=== PATIENT | male | born 1935 | race Caucasian/White ===

== ENCOUNTER 2019-11-27 22:38 | Inpatient (IN) | payer MEDICARE, BC, SELFPAY ==
[2019-11-30] VITALS: BP 136/70; PULSE 90; RESP 20; TEMP 36.5; O2SAT 95
[2019-11-30 04:26] VITALS: BP 103/63; PULSE 85; RESP 20; TEMP 36.6; O2SAT 93
[2019-11-30 06:32] LABS: Anion Gap 14.9 (5-19); Blood Urea Nitrogen 31 mg/dL (8-23); Calcium 8.9 mg/Dl (8.8-10.2); Carbon Dioxide 28 mmol/L (22-29); Chloride 99 mmol/L (98-107); Glucose 99 mg/dL (74-106); Potassium 3.9 mmol/L (3.5-5.1); Sodium 138 mmol/L (136-145)
[2019-11-30 07:12] LABS: INR 2.13 (0.8-1.2)
[2019-11-30 08:00] VITALS: BP 136/67; PULSE 94; RESP 18; TEMP 37.1; O2SAT 94
[2019-11-30] MEDS: lisinopril 2.5 mg Tablet PO (08:26)
[2019-11-30] MEDS: digoxin 250 mcg Tablet PO (08:26)
[2019-11-30] MEDS: dutasteride 0.5 mg Capsule PO (08:26)
[2019-11-30] MEDS: FUROsemide 40 mg Tablet PO ×2 (08:26→15:48)
[2019-11-30] MEDS: thyroid 60 mg Tablet PO (08:26)
[2019-11-30] MEDS: carvedilol 12.5 mg Tablet PO ×2 (08:26→17:28)
--- NOTE | 2019-11-30 10:45 | PM.PN ---
Subjective Subjective: Interval history: Arcadio is about the same. He does not have much to say. His heart rate is improved. Vital signs have been stable. He appears less short of breath. No edema. Medications: Reviewed: Yes Vitals/I&O/Wt Last Vital Signs Temp 98.7 F 11/30/19 08:00 Pulse 94 11/30/19 08:00 Resp 18 11/30/19 08:00 BP 136/67 11/30/19 08:00 Pulse Ox 94 11/30/19 08:00 11/29/19 11/30/19 11/30/19 22:59 06:59 14:59 Output Total 280 / 280 Balance -280 / -280 Weight last 48 hrs Weight 204 lb 3 oz Physical Exam Narrative: EXAM NARRATIVE: GENERAL: In general he looks and feels well HEENT: Exam within normal limits. NECK: Supple without jugular vein distention. The carotid upstroke is normal without bruits. BACK: Exam normal. LUNGS: Clear. HEART: Irregular rate and rhythm ABDOMEN: Benign without organomegaly or tenderness. EXTREMITIES: No edema. NEUROLOGIC: Exam normal. SKIN: Unremarkable. Data Labs: Other Labs: All Labs last 24 hrs except CBC/BMP 11/29/19 11/29/19 11/29/19 05:10 05:10 05:10 RBC 4.23 MCV 101.2 H MCH 33.1 MCHC 32.7 RDW 15.5 H MPV 11.0 H Neut % (Auto) 77.9 Lymph % (Auto) 7.9 [place] % (Auto) 12.7 Eos % (Auto) 0.8 Baso % (Auto) 0.1 Neut # (Auto) 9.1 H Lymph # (Auto) 0.9 [place] # (Auto) 1.5 H Eos # (Auto) 0.1 Baso # (Auto) 0.0 Nucleated RBC % (a uto) 0 Nucleated RBCs # 0.0 PT 26.8 H INR 2.38 H Random Glucose 121 H Calcium 9.4 11/30/19 11/30/19 05:07 05:07 RBC MCV MCH MCHC RDW MPV Neut % (Auto) Lymph % (Auto) [place]ford % (Auto) Eos % (Auto) Baso % (Auto) Neut # (Auto) Lymph # (Auto) [place] # (Auto) Eos # (Auto) Baso # (Auto) Nucleated RBC % (a uto) Nucleated RBCs # PT 24.60 H INR 2.13 H Random Glucose Calcium 8.9 A&P Assessment and plan (1) Syncope and collapse: Status: Acute Code(s): R55 - Syncope and collapse (2) Atrial fibrillation: Status: Acute Code(s): I48.91 - Unspecified atrial fibrillation (3) Cardiomyopathy: Status: Acute Code(s): I42.9 - Cardiomyopathy, unspecified (4) Congestive heart failure with cardiomyopathy: Status: Acute Code(s): I50.9 - Heart failure, unspecified; I42.9 - Cardiomyopathy, unspecified (5) Warfarin anticoagulation: Status: Acute Code(s): Z79.01 - supervisor intermediates (current) use of anticoagulants (6) ICD (implantable cardioverter-defibrillator) infection: Status: Acute Code(s): T82.7XXA - Infection and inflammatory reaction due to other cardiac and vascular devices, implants and grafts, initial encounter (7) Hypertension: Status: Acute Code(s): I10 - Essential (primary) hypertension (8) Prostatic hypertrophy: Status: Acute Code(s): N40.0 - Benign prostatic hyperplasia without lower urinary tract symptoms (9) Hypothyroidism: Status: Acute Code(s): E03.9 - Hypothyroidism, unspecified Additional A&P Information Additional A&P Information: His INR seems to be stable. His troponin was negative. His heart rate is better controlled. He should be able to go home on the TAMARA inhibitor that he was admitted on, digoxin 0.25 mg daily, Coreg 12.5 mg twice daily, Lasix 40 mg twice daily and warfarin. The addition of hydralazine and eplerenone is up for discussion. I have not seen records from [place]. We will call him to get him a follow-up visit in the office. Attestations Medical Necessity Statement*: Not applicable Coding Level of Care Code Acute Refrigerator Room Clerk for Serg Fwd Diagnoses Syncope and collapse R55 Atrial fibrillation I48.91 Cardiomyopathy I42.9 Congestive heart failure with cardiomyopathy I50.9; I42.9 Warfarin anticoagulation Z79.01 ICD (implantable cardioverter-defibrillator) infection T82.7XXA Hypertension I10 Prostatic hypertrophy N40.0 Hypothyroidism E03.9
--- NOTE | 2019-11-30 11:54 | XRR_ITS ---
PROCEDURE INFORMATION: Exam: XR Chest, 1 View Exam date and time: 11/30/2019 11:56 AM Age: 84 years old Clinical indication: Cough; Additional info: Unknown TECHNIQUE: Imaging protocol: XR of the chest Views: Frontal portable upright view of the chest. COMPARISON: CR Chest 1 [place] [id number] 11/27/2019 10:01 PM FINDINGS: Tubes, catheters and devices: A triple lead LEFT subclavian permanent AICD pacemaker is present. The coronary sinus, RIGHT atrial and RIGHT ventricular leads appear to be in good position. Lungs: The pulmonary vasculature remains congested. The lungs are clear bilaterally. The patient's chin obscures a portion of the RIGHT lung apex. Pleural space: No pleural effusion. No pneumothorax. Heart/Mediastinum: Stable marked cardiomegaly. Mediastinum: Stable. Vasculature: Moderate aortic arch atherosclerotic calcification without ectasia. Bones/joints: Stable. XR/XR chest 1V portable [id number] IMPRESSION: Persistent pulmonary vascular congestion.
[2019-11-30 12:00] VITALS: BP 120/68
--- NOTE | 2019-11-30 12:18 | PC.NURSE ---
ORTHOSTATIC BLOOD PRESSURES LAYING-118/76 SITTING 120/68 STANDING 118/67
[2019-11-30 16:00] VITALS: BP 115/77; PULSE 87; RESP 18; TEMP 36.8; O2SAT 97
--- NOTE | 2019-11-30 17:21 | P.PN_ITS ---
Subjective Subjective: Interval history: Arcadio reports that he is feeling a little bit better, but is still very weak. does not believe she can manage him at home. He denies any chest pain. Shortness of breath is about at baseline. Vitals/I&O/Wt Last Vital Signs Temp 98.3 F 11/30/19 16:00 Pulse 87 11/30/19 16:00 Resp 18 11/30/19 16:00 BP 115/77 11/30/19 16:00 Pulse Ox 97 11/30/19 16:00 11/30/19 11/30/19 11/30/19 06:59 14:59 22:59 Intake Total 480 / 480 Output Total 280 / 280 600 / 600 Balance -280 / -280 -120 / -120 Weight last 48 hrs Weight 92.618 kg Physical Exam Narrative: EXAM NARRATIVE: General exam no apparent distress Cardiovascular irregular, irregular. Telemetry indicates controlled atrial fibrillation Lungs few crackles, left base Abdomen is soft with positive bowel sounds Extremities no cyanosis clubbing. Trace edema is present Data Labs: Other Labs: All Labs last 24 hrs except CBC/BMP 11/30/19 11/30/19 05:07 05:07 PT 24.60 H INR 2.13 H Calcium 8.9 Other Data: Other data: I reviewed his chest x-ray, and this demonstrated mild congestion but no pneumonia A&P Assessment and plan (1) Syncope and collapse: No recurrence. He has been able to get up without significant orthostasis. Status: Acute Code(s): R55 - Syncope and collapse (2) Atrial fibrillation: Rate is now under improved control. He is on digoxin as well as his carvedilol Status: Acute Code(s): I48.91 - Unspecified atrial fibrillation (3) Cardiomyopathy: Slightly fluid overloaded today. 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 anticoagulants (6) ICD (implantable cardioverter-defibrillator) infection: Status: Acute Code(s): T82.7XXA - Infection and inflammatory reaction due to other cardiac and vascular devices, implants and grafts, initial encounter (7) Hypertension: Status: Acute Code(s): I10 - Essential (primary) hypertension (8) Prostatic hypertrophy: Status: Acute Code(s): N40.0 - Benign prostatic hyperplasia without lower urinary tract symptoms (9) Hypothyroidism: Status: Acute Code(s): E03.9 - Hypothyroidism, unspecified Attestations Medical Necessity Statement*: Needs continued hospitalization for adjustment of medications secondary to congestive heart failure, atrial fibrillation. Secondary to significant weakness, with risk of fall and fall prior to admission patient wants consideration for [facility] facility placement. Coding Level of Care Code Acute Waredresser for [facility] Fwd Diagnoses Syncope and collapse R55 Atrial fibrillation I48.91 Cardiomyopathy I42.9 Congestive heart failure with cardiomyopathy I50.9; I42.9 Warfarin anticoagulation Z79.01 ICD (implantable cardioverter-defibrillator) infection T82.7XXA Hypertension I10 Prostatic hypertrophy N40.0 Hypothyroidism E03.9
[2019-11-30] MEDS: acetaminophen 325 mg Tablet 650 MG PO (17:29)
[2019-11-30] MEDS: spironolactone 25 mg Tablet 12.5 MG PO (17:58)
[2019-11-30 20:34] VITALS: BP 124/82; PULSE 88; RESP 26; TEMP 36.5; O2SAT 92
[2019-12-01] VITALS (8 sets, daily range): BP systolic 120–149; BP diastolic 75–94; PULSE 51–98; RESP 20–24; TEMP 36.3–36.5; O2SAT 93–96
[2019-12-01 05:45] LABS: Anion Gap 13.5 (5-19); Blood Urea Nitrogen 26 mg/dL (8-23); Carbon Dioxide 28 mmol/L (22-29); Chloride 102 mmol/L (98-107); Glucose 129 mg/dL (74-106); Potassium 3.5 mmol/L (3.5-5.1); Sodium 140 mmol/L (136-145)
[2019-12-01 06:06] LABS: INR 1.79 (0.8-1.2)
--- NOTE | 2019-12-01 08:18 | PM.PN ---
Subjective Subjective: Interval history: Arcadio is unchanged this morning. He was sleeping when I walked in the room. He does not offer much information. Symptoms are basically unchanged. No specific complaints. Medications: Reviewed: Yes Vitals/I&O/Wt Last Vital Signs Temp 97.7 F 12/01/19 07:11 Pulse 90 12/01/19 07:11 Resp 20 H 12/01/19 07:11 BP 145/90 12/01/19 07:11 Pulse Ox 93 12/01/19 07:11 11/30/19 12/01/19 12/01/19 22:59 06:59 14:59 Output Total 430 / 1030 Balance -430 / -550 Weight last 48 hrs Weight 204 lb 3 oz Physical Exam Narrative: EXAM NARRATIVE: GENERAL: In general he is comfortable. HEENT: Exam within normal limits. NECK: Supple without jugular vein distention. The carotid upstroke is normal without bruits. BACK: Exam normal. LUNGS: Clear. HEART: Irregular rate and rhythm ABDOMEN: Benign without organomegaly or tenderness. EXTREMITIES: No edema. NEUROLOGIC: Exam normal. SKIN: Unremarkable. A&P Assessment and plan (1) Syncope and collapse: Status: Acute Code(s): R55 - Syncope and collapse (2) Atrial fibrillation: Status: Acute Code(s): I48.91 - Unspecified atrial fibrillation (3) Cardiomyopathy: Status: Acute Code(s): I42.9 - Cardiomyopathy, unspecified (4) Congestive heart failure with cardiomyopathy: Status: Acute Code(s): I50.9 - Heart failure, unspecified; I42.9 - Cardiomyopathy, unspecified (5) Warfarin anticoagulation: Status: Acute Code(s): Z79.01 - intermediate frame tender (current) use of anticoagulants (6) ICD (implantable cardioverter-defibrillator) infection: Status: Acute Code(s): T82.7XXA - Infection and inflammatory reaction due to other cardiac and vascular devices, implants and grafts, initial encounter (7) Hypertension: Status: Acute Code(s): I10 - Essential (primary) hypertension (8) Prostatic hypertrophy: Status: Acute Code(s): N40.0 - Benign prostatic hyperplasia without lower urinary tract symptoms (9) Hypothyroidism: Status: Acute Code(s): E03.9 - Hypothyroidism, unspecified Additional A&P Information Additional A&P Information: Plans are being made to transfer him to a jail. Things are basically unchanged from yesterday. Apparently his family will not be able to care for him at home. Attestations Medical Necessity Statement*: Not applicable Time Spent in Patient Care: 16 - 35 minutes Coding Level of Care Code Acute Registered Health Nurse for Jimg Fwd History Detailed Exam Detailed Medical Decision Making Moderate Complexity Diagnoses Syncope and collapse R55 Atrial fibrillation I48.91 Cardiomyopathy I42.9 Congestive heart failure with cardiomyopathy I50.9; I42.9 Warfarin anticoagulation Z79.01 ICD (implantable cardioverter-defibrillator) infection T82.7XXA Hypertension I10 Prostatic hypertrophy N40.0 Hypothyroidism E03.9
[2019-12-01] MEDS: lisinopril 2.5 mg Tablet PO (09:41)
[2019-12-01] MEDS: spironolactone 25 mg Tablet 12.5 MG PO (09:41)
[2019-12-01] MEDS: carvedilol 12.5 mg Tablet PO (09:41)
[2019-12-01] MEDS: digoxin 250 mcg Tablet PO (09:42)
[2019-12-01] MEDS: dutasteride 0.5 mg Capsule PO (09:42)
[2019-12-01] MEDS: FUROsemide 40 mg Tablet PO (09:43)
[2019-12-01] MEDS: thyroid 60 mg Tablet PO (09:43)
--- NOTE | 2019-12-01 12:50 | P.DS_ITS ---
Discharge Providers Date of Admission: 11/27/19 22:38 Date of Discharge: 12/01/19 Attending Provider at Admission: Gary Encarnacion MD Attending Provider at Discharge: Gary Encarnacion MD Primary Care Provider: Hilda Chase Diagnoses at Discharge Discharge Diagnosis (1) Syncope and collapse: Status: Acute Problem details: Orthostatic, when coming in. Medication adjusted. Could potentially have been due to atrial fibrillation with rapid ventricular rate but no specific event correlating to timing of syncope found on pacemaker interrogation (2) Atrial fibrillation: Status: Acute Problem details: Medications adjusted. Better control. Carvedilol increased, digoxin added (3) Cardiomyopathy: Status: Acute Problem details: Stable currently (4) Congestive heart failure with cardiomyopathy: Status: Acute Problem details: Compensated currently (5) Warfarin anticoagulation: Status: Acute Problem details: Warfarin discontinued. Eliquis initiated (6) ICD (implantable cardioverter-defibrillator) infection: Status: Acute Problem details: Stable (7) Hypertension: Status: Acute Problem details: Controlled (8) Prostatic hypertrophy: Status: Acute Problem details: No issues with urination during hospital stay (9) Hypothyroidism: Status: Acute Problem details: Stable, TSH normal Reason for Visit Reason for Visit: Reason For Visit: Fall, Head Laceration, Ams Hospital Course Hospital Course: Arcadio presented to the hospital with syncopal episode. He was found to be in atrial fibrillation with rapid ventricular rate. He was also found to be orthostatic. He was placed in the hospital, on telemetry and medications were adjusted secondary to his atrial fibrillation. Carvedilol was increased. Digoxin was added. Hypertensive medication was adjusted secondary to orthostasis. Secondary to some wheezing, Advair as well as DuoNeb was added. It is suspected he has COPD as well. During his hospital course he made steady improvement, but was still weak. It was thought he could benefit from long-term facility placement which was arranged. Physical Exam Narrative: EXAM NARRATIVE: General exam no apparent distress Cardiovascular irregular, irregular with controlled rate Lungs clear Abdomen is soft, positive bowel sounds Extremities no cyanosis clubbing. Trace edema is present. Discharge Data Data Completed and Pending: Completed Studies During Hospitalization Category Date Time Status XR chest 1V nancy ble [id number] Routine Exams 11/30/19 11:54 Completed Labs from last 24 hours 12/01/19 12/01/19 04:43 04:43 PT 21.50 H INR 1.79 H Sodium 140 Potassium 3.5 Chloride 102 Carbon Dioxide 28 Anion Gap 13.5 BUN 26 H Creatinine 1.1 Glucose 129 H Calcium 9.0 Vitals: Last Vital Signs Temp 97.5 F L 12/01/19 11:00 Pulse 87 12/01/19 11:00 Resp 20 H 12/01/19 11:00 BP 120/75 12/01/19 11:00 Pulse Ox 95 12/01/19 11:00 Discharge Plan Discharge Patient Disposition: Home, Self-Care Condition: Stable Prescriptions: New digoxin 250 mcg (0.25 mg) Tablet 250 mcg PO DAILY Qty: 30 RF: 0 ipratropium-albuterol 0.5 mg-3 mg(2.5 mg base)/3 mL Solution For Nebulization 3 ml inhalation Q6H.RESPIRATORY Qty: 100 RF: 0 Eliquis 5 mg Tablet 5 mg PO BID Qty: 60 RF: 0 fluticasone propion-salmeterol [Advair Diskus] 500-50 mcg/dose Blister With Device 1 puff inhalation BID.RESPIRATORY Qty: 1 RF: 0 carvedilol 12.5 mg Tablet 12.5 mg PO BID Qty: 60 RF: 0 Continued furosemide 40 mg tablet 40 mg PO BID RF: 0 hydrocodone-acetaminophen 5-325 mg tablet 1 tab PO Q4H PRN (Reason: Pain, Severe) RF: 0 tramadol 50 mg Tablet 50 mg PO QID PRN (Reason: Pain, Moderate) RF: 0 benazepril 10 mg tablet 5 mg PO DAILY RF: 0 eplerenone 25 mg Tablet 25 mg PO DAILY RF: 0 dutasteride 0.5 mg capsule 0.5 mg PO DAILY RF: 0 thyroid (pork) 60 mg Tablet 60 mg PO DAILY RF: 0 Discontinued carvedilol 6.25 mg tablet 6.25 mg PO BID RF: 0 warfarin 5 mg tablet 5 mg PO DAILY RF: 0 doxazosin 4 mg Tablet 4 mg PO BEDTIME RF: 0 hydralazine 50 mg tablet 50 mg PO BID RF: 0 Discharge Orders: Discharge Order (Routine); Ordered 12/01/19 Ordered By: Gary Encarnacion Referrals: Gutierrez Bray MD [Physician] - 2 weeks Discharge Diet: Low Cholesterol Discharge Activity: Increase activity as tolerated Activity Restrictions/Additional Instructions: Take all medicine as prescribed Follow-up with primary care provider at long-term facility 3 to 5 days BMP 3 to 5 days Discharge Attestations Time Spent in Discharge Care*: greater than 30 min Quality Metrics Clinical Quality Measures During this hospital stay, did patient experience: None Coding Level of Care Code Acute Stained Glass Glazier for Chg Fwd Diagnoses Syncope and collapse R55 Atrial fibrillation I48.91 Cardiomyopathy I42.9 Congestive heart failure with cardiomyopathy I50.9; I42.9 Warfarin anticoagulation Z79.01 ICD (implantable cardioverter-defibrillator) infection T82.7XXA Hypertension I10 Prostatic hypertrophy N40.0 Hypothyroidism E03.9
[2019-12-01] MEDS: ipratropium-albuterol 3 mL Neb INHALATION (13:21)
--- NOTE | 2019-12-01 14:35 | PC.CHAP ---
Pastoral Care Encounter/Spiritual Assessment Type of Contact [] Declined abe teacher visit [] Patient/Family/Request visit [] Outpatient visit [] Follow-up visit [] Physician referral [] Code/Alert [x] Routine visit [] Staff referral [] Actively dying [] Patient sleeping [] Family support [] [] Out of room [] Palliative care [] [] Receiving care in room [] Pre-surgical visit [] Trauma [] Long length of stay [] ICU visit [] Other: Relational/Emotional Strength [x] Patient feels connected with others/family/visitors/staff [] Distress [] Loneliness/isolation [] Abandonment Spirituality of Patient [x] Person of Phoebe [] Attends Jehovah'S Witness of their Phoebe [x] Believes in Prayer [] Reads Bible or Anabaptism materials [] There are Spiritual issues to be addressed Light Oil Operator Interventions [x] Prayer [x] Active listening [x] Non-anxious presence [x] Spiritual/emotional support [] Crisis/trauma care [] Spiritual counseling [] Bereavement support [] Provided bereavement packet [] Provided Bible/devotional materials [] Provided toy/stuffed animal, coloring book to patient or family member [x] Completed spiritual assessment [] Provided Communion [] Anointing/Russian Mission [] Salvation [] Other: Impact on Illness or Injury [] Angry [] Fearful [] Anxious [] Often cries [] Exhaustion [] Unable to work [] Unable to attend catholic [] Unable to walk/stand [] Unable to read [] Unable to drive [] Unable to eat/drink [] Unable to sleep [] Unable to be with family [x] Other: Did not notice thiese things. Summary Light Oil Operator Barb spent time with patient and his , he was talkative and discussing beliefs, he seemed to be fine and joking. Time spent with patient 10 minutes
== END 2019-12-01 15:25 | disposition skilled nursing facility (03) | DRG 312 ==
PROVIDERS: Admitting Provider Internal Medicine; Emergency Provider Emergency Medicine; PCP Nurse Practitioner; Referring Provider Internal Medicine; Visit Provider Internal Medicine
DX: R55 Syncope and collapse (principal); I50.20 Unspecified systolic (congestive) heart failure; I42.9 Cardiomyopathy, unspecified; T82.7XXA Infection and inflammatory reaction due to other cardiac and vascular devices, implants and grafts, initial encounter; R41.82 Altered mental status, unspecified; E03.9 Hypothyroidism, unspecified; N40.0 Benign prostatic hyperplasia without lower urinary tract symptoms; I11.0 Hypertensive heart disease with heart failure; Z95.810 Presence of automatic (implantable) cardiac defibrillator; Z79.01 Long term (current) use of anticoagulants; I48.91 Unspecified atrial fibrillation; Z79.891 Long term (current) use of opiate analgesic; J44.9 Chronic obstructive pulmonary disease, unspecified; W01.0XXA Fall on same level from slipping, tripping and stumbling without subsequent striking against object, initial encounter; Y93.9 Activity, unspecified; Y92.008 Other place in unspecified non-institutional (private) residence as the place of occurrence of the external cause
CPT/HCPCS: 12002; 36415; 70450; 71045; 72125; 80048; 80053; 80307; 81003; 82140; 82607; 83735; 84443; 84484; 85025; 85610; 93005; 94640; 96360; 96372; 97110; 97161; 97530; 99284; 99285; J1160; J2001; J3490

== ENCOUNTER → 2020-01-11 08:30 | Outpatient (BNVA) | payer MEDICARE, BC, SELFPAY | PROVIDERS: PCP Family Medicine; Visit Provider Internal Medicine Cardiovascular Disease | DX: I48.91 Unspecified atrial fibrillation (principal) | CPT/HCPCS: 85610 ==

== ENCOUNTER → 2020-01-18 08:14 | Outpatient (BNVA) | payer MEDICARE, BC, SELFPAY | PROVIDERS: PCP Family Medicine; Visit Provider Internal Medicine Cardiovascular Disease | DX: I48.91 Unspecified atrial fibrillation (principal) | CPT/HCPCS: 85610 ==

== ENCOUNTER → 2020-02-01 08:10 | Outpatient (BNVA) | payer MEDICARE, BC, SELFPAY | PROVIDERS: PCP Family Medicine; Visit Provider Internal Medicine Cardiovascular Disease | DX: I48.91 Unspecified atrial fibrillation (principal) | CPT/HCPCS: 85610 ==

== ENCOUNTER 2020-04-12 15:22 | Emergency (ER) | payer MEDICARE, BC, SELFPAY ==
[2020-04-12 15:23] VITALS: BP 154/89; PULSE 74; RESP 18; TEMP 36.6; O2SAT 97; BMI 25.0
--- NOTE | 2020-04-12 15:29 | W.ED.FALL ---
HPI - Fall General: Chief Complaint: Fall Stated Complaint: FALL WITH KNEE AND BACK PAIN Time Seen by Provider: 04/12/20 15:28 Source: patient and RN notes reviewed History of Present Illness: HPI Narrative: 84-year-old male that was going to take a walk this morning with his at 7 AM fell going out of his house on a step onto concrete hit his left knee and back. Tried to tough it out today and use a heating pad on his back but still having significant pain especially when he moves in certain positions. He is able to bear weight and knee only stings from the abrasion. His put Bactine on his knee abrasion. Denies any shortness of breath belly pain. Denies hitting his head or any loss of consciousness. Pain is moderate to severe dull Associated symptoms-after fall: Denies abdominal pain, chest pain or headache(s) Review of Systems General: Reports: 10 or more systems reviewed and unremarkable except in HPI and below Const: Denies: fever(s) or chills Eyes: Denies: change in vision ENMT: Denies: throat pain Card: Denies: chest pain Resp: Denies: dyspnea GI: Denies: abdominal pain, nausea, vomiting or change in bowel habits Musc: Reports: back pain; Denies: muscle weakness Skin/Breast: Denies: rash Neuro: Denies: headache(s) Psych: Denies: hopelessness or suicidal ideation Endo: Denies: polyuria Wally/Lymph: Reports: easy bruising and easy bleeding All/Imm: Denies: urticaria PFSH ED PFSH: Medical History (Updated 04/12/20 @ 19:39 by Vy Orozco MD) Atrial fibrillation Medications adjusted. Better control. Carvedilol increased, digoxin added Cardiomyopathy Stable currently Congestive heart failure with cardiomyopathy Compensated currently Hypertension Controlled Hypothyroidism Stable, TSH normal ICD (implantable cardioverter-defibrillator) infection Stable Prostatic hypertrophy No issues with urination during hospital stay Warfarin anticoagulation Warfarin discontinued. Eliquis initiated Family History (Updated 12/29/19 @ 13:58 by Melissa Salinas, JACK) Mother CAD (coronary artery disease) Social History (Updated 12/29/19 @ 13:59 by Melissa Salinas, RN) Smoking and tobacco status: never smoked Alcohol intake: never Household members: spouse Marital status: service: No Current occupational status: retired Current gender identity: Male Phoebe/Restorationist: Buddhism Physical Exam Const: COMMON NORMALS: no acute distress, patient oriented x3, alert and well nourished HENMT: COMMON NORMALS: normocephalic and Normal external nose present HEAD & SCALP: normocephalic NOSE: Normal external nose present MOUTH: no trismus Eye: COMMON NORMALS: EOMs intact bilaterally and conjunctivae normal CONJUNCTIVA: Yes conjunctivae normal Neck/C-Spine: COMMON NORMALS: full ROM, no lymphadenopathy and supple CERVICAL SPINE: Yes cervical ROM normal Lymph: LYMPHATIC: no lymphadenopathy noted Chest: COMMONS NORMALS: normal inspection of the chest OTHER: No crepitus on palpation Resp: COMMON NORMALS: normal respiratory effort, No retractions, No use of accessory muscles and clear to auscultation bilaterally EFFORT & INSPECTION: Yes able to speak in complete sentences AUSCULTATION: clear to auscultation bilaterally Cardio: COMMON NORMALS: regular rate and regular rhythm RATE: regular rate RHYTHM: regular rhythm GI: COMMON NORMALS: Normal to inspection, nondistended, normoactive bowel sounds present, Soft to palpation, non-tender and no masses INSPECTION: Yes normal to inspection AUSCULTATION: Yes normoactive bowel sounds PALPATION: Yes Soft to palpation, No Guarding due to palpation present (GI) and No Rigid due to palpation Back/Pelvis: OTHER: No midline pain on palpation, decreased range of motion secondary to pain in his back Extremity: OTHER: Left knee with abrasion no ligamental laxity full range of motion of his knee. Hips nontender. Neuro: COMMON NORMALS: patient oriented x3 and CN's II-XII intact bilaterally SENSORIUM/ORIENTATION: Yes alert SPEECH: speech normal Psych: COMMON NORMALS: mental status grossly normal Skin: NARRATIVE SKIN EXAM: Abrasion to left knee. Erythema from heating pad on his left flank Course Vital Signs: Vital signs: Vital Signs Temperature 97.8 F 04/12/20 15:23 Pulse Rate 101 H 04/12/20 19:56 Respiratory Rate 18 04/12/20 19:56 Blood Pressure 143/99 04/12/20 19:56 Pulse Oximetry 96 04/12/20 19:56 MDM - Fall Imaging Data^: ct: Radiologist's impression: Signed Patient: Esau Kelley #: [id number] : 6Acct#:[id number] Age/Sex: 84 / MADM Date: 04/12/20 Loc: ERRoom/Bed: Attending Dr: Ordering Provider/Ordering MD: Vy Orozco MD Date of Service: 04/12/20 Procedure(s): CT thoracic spin wo con* [id number] Accession Number(s): [id number] Report Number: [id number] PROCEDURE INFORMATION: Exam: CT Thoracic Spine Without Contrast Exam date and time: 04/12/2020 3:50 PM Age: 84 years old Clinical indication: Injury or trauma; Fall; Initial encounter; Blunt trauma (contusions or hematomas); Additional info: Fall, back pain TECHNIQUE: Imaging protocol: Computed tomography images of the thoracic spine without contrast. Radiation optimization: All CT scans at this facility use at least one of these dose optimization techniques: automated exposure control; mA and/or kV adjustment per patient size (includes targeted exams where dose is matched to clinical indication); or iterative reconstruction. COMPARISON: No relevant prior studies available. 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 There is posterior spurring from the superior endplate. There is no paraspinous soft tissue abnormality making the superior more likely chronic than acute fracture. Correlation with the clinical findings is suggested. There is degenerative change throughout the thoracic spine with flowing osteophytes in the upper thoracic spine anteriorly and osteophytes anteriorly at all levels. There is mild scoliosis concave to the right in the upper thoracic spine. No other fracture is demonstrated. Discs/Spinal canal/Neural foramina: No significant disc protrusion. No severe spinal canal stenosis. No significant neural foraminal narrowing. Soft tissues: See Vertebrae finding. Kidneys and ureters: Incidental note is made of a benign-appearing cyst in the upper pole of the right kidney CT/CT thoracic spin wo con* [id number] IMPRESSION: Compression fracture involving the superior endplate of T12 of uncertain age, possibly old. Correlation with clinical findings is suggested. Radiation Dose CTDIVOL = (mGy): DLP = 1491.21 (mGy-cm) Dictated By:Luis Kim Signed By:Sedrick Kim Date/Time:04/12/[address] l spine: Radiologist's impression: [facility] [address] [place] [address] CT Scan Report Signed Patient: Esau Kelley #: [id number] : 6Acct#:[id number] Age/Sex: 84 / MADM Date: 04/12/20 Loc: ERRoom/Bed: Attending Dr: Ordering Provider/Ordering MD: Vy Orozco MD Date of Service: 04/12/20 Procedure(s): CT lumbar spine wo con* [id number] Accession Number(s): [id number] Report Number: [id number] PROCEDURE INFORMATION: Exam: CT Lumbar Spine Without Contrast Exam date and time: 04/12/2020 3:50 PM Age: 84 years old Clinical indication: Injury or trauma; Fall; Initial encounter; Blunt trauma (contusions or hematomas); Additional info: Fall, back pain TECHNIQUE: Imaging protocol: Computed tomography images of the lumbar spine without contrast. Radiation optimization: All CT scans at this facility use at least one of these dose optimization techniques: automated exposure control; mA and/or kV adjustment per patient size (includes targeted exams where dose is matched to clinical indication); or iterative reconstruction. COMPARISON: No relevant prior studies available. RADIATION DOSE METRICS: Total DLP: 2191.06 mGy-cm FINDINGS: Vertebrae: There is a prominent Schmorl's node deformity involving the inferior endplate of L2 of uncertain age, probably old. Correlation with the clinical findings is suggested. No acute appearing fracture is identified. L1-L2: There is mild posterior bulging of the disc without focal herniation or sagittal or foraminal stenosis. L2-L3: There is diffuse posterior bulging of the disc and there are degenerative changes in the facet joints bilaterally with hypertrophy of ligamentum flavum but without significant stenosis. L3-L4: There is severe narrowing of the disc space and small marginal osteophytes especially anteriorly. There is diffuse posterior bulging of the disc and there are degenerative changes in the facet joints bilaterally with hypertrophy of ligamentum flavum which narrows the transverse diameter of the canal to less than 10 mm causing mild stenosis. L4-L5: There is severe disc space narrowing and small marginal osteophytes with mild diffuse posterior bulging of the disc. Degenerative changes are present in the facet joints bilaterally with hypertrophy of ligamentum flavum . There is bilateral foraminal narrowing but no central canal stenosis. L5-S1: Disc space is severely narrowed with marginal osteophytes and diffuse posterior bulging of the disc. Degenerative changes are present in facet joints. No significant stenosis. Vasculature: There are atherosclerotic changes throughout the abdominal aorta without evidence of aneurysm. Soft tissues: Unremarkable. CT/CT lumbar spine wo con* [id number] IMPRESSION: 1. Degenerative changes as described. 2. Chronic appearing Schmorl's node deformity of the inferior endplate of L2. No definite acute fracture is identified. Radiation Dose CTDIVOL = (mGy): DLP = 2191.06 (mGy-cm) Dictated By:Luis Kim Signed By:Bonita Kimigned Date/Time:04/12/201738 CXR: Radiologist's impression: no acute abnormality. see radiology report Discharge Plan Discharge Patient Disposition: Home, Self-Care Clinical Impression: Compression fracture Condition: Stable Prescriptions: New [place] 5-325 mg tablet 1 tab PO QID PRN (Reason: pain) Qty: 14 RF: 0 No Action furosemide 40 mg tablet 40 mg PO BID RF: 0 tramadol 50 mg Tablet 50 mg PO QID PRN (Reason: Pain, Moderate) RF: 0 benazepril 10 mg tablet 5 mg PO DAILY RF: 0 eplerenone 25 mg Tablet 25 mg PO DAILY RF: 0 dutasteride 0.5 mg capsule 0.5 mg PO DAILY RF: 0 thyroid (pork) 60 mg Tablet 60 mg PO DAILY RF: 0 carvedilol 12.5 mg Tablet 12.5 mg PO BID Qty: 60 RF: 0 digoxin 250 mcg (0.25 mg) Tablet 250 mcg PO DAILY Qty: 30 RF: 0 Eliquis 5 mg Tablet 5 mg PO BID Qty: 60 RF: 0 acetaminophen 500 mg Tablet 1,000 mg PO TID PRN (Reason: Pain) RF: 0 Referrals: Gregor Varela DO [Primary Care Provider] - Mango Graham MD [Physician] - (t12 compression fracture of end plate after fall today. in TLSO brace) Discharge Diet: Usual diet Patient Instructions: Vertebral Compression Fracture (ED) Activity Restrictions/Additional Instructions: Call Dr. Graham's office for a follow-up appointment. I spoke with him about your case today and he wants to see you in follow-up. You can take the [place] for pain you also need to take an [id number] stool softener because the pain medication will make you constipated as well as your compression fracture. You may need to take the stool softener twice a day to avoid getting constipated. Return to the ER if you have new or emergent symptoms we are happy to reevaluate you. Discharge Date/Time: 04/12/20 19:56 Coding Level of Care Code ED Intellectual Property Lawyer for Serg Cavazos Exam Comprehensive
--- NOTE | 2020-04-12 15:47 | CTR_ITS ---
PROCEDURE INFORMATION: Exam: CT Lumbar Spine Without Contrast Exam date and time: 04/12/2020 3:50 PM Age: 84 years old Clinical indication: Injury or trauma; Fall; Initial encounter; Blunt trauma (contusions or hematomas); Additional info: Fall, back pain TECHNIQUE: Imaging protocol: Computed tomography images of the lumbar spine without contrast. Radiation optimization: All CT scans at this facility use at least one of these dose optimization techniques: automated exposure control; mA and/or kV adjustment per patient size (includes targeted exams where dose is matched to clinical indication); or iterative reconstruction. COMPARISON: No relevant prior studies available. RADIATION DOSE METRICS: Total DLP: 2191.06 mGy-cm FINDINGS: Vertebrae: There is a prominent Schmorl's node deformity involving the inferior endplate of L2 of uncertain age, probably old. Correlation with the clinical findings is suggested. No acute appearing fracture is identified. L1-L2: There is mild posterior bulging of the disc without focal herniation or sagittal or foraminal stenosis. L2-L3: There is diffuse posterior bulging of the disc and there are degenerative changes in the facet joints bilaterally with hypertrophy of ligamentum flavum but without significant stenosis. L3-L4: There is severe narrowing of the disc space and small marginal osteophytes especially anteriorly. There is diffuse posterior bulging of the disc and there are degenerative changes in the facet joints bilaterally with hypertrophy of ligamentum flavum which narrows the transverse diameter of the canal to less than 10 mm causing mild stenosis. L4-L5: There is severe disc space narrowing and small marginal osteophytes with mild diffuse posterior bulging of the disc. Degenerative changes are present in the facet joints bilaterally with hypertrophy of ligamentum flavum . There is bilateral foraminal narrowing but no central canal stenosis. L5-S1: Disc space is severely narrowed with marginal osteophytes and diffuse posterior bulging of the disc. Degenerative changes are present in facet joints. No significant stenosis. Vasculature: There are atherosclerotic changes throughout the abdominal aorta without evidence of aneurysm. Soft tissues: Unremarkable. CT/CT lumbar spine wo con* [id number] IMPRESSION: 1. Degenerative changes as described. 2. Chronic appearing Schmorl's node deformity of the inferior endplate of L2. No definite acute fracture is identified. Radiation Dose CTDIVOL = (mGy): DLP = 2191.06 (mGy-cm)
--- NOTE | 2020-04-12 15:47 | CTR_ITS ---
PROCEDURE INFORMATION: Exam: CT Thoracic Spine Without Contrast Exam date and time: 04/12/2020 3:50 PM Age: 84 years old Clinical indication: Injury or trauma; Fall; Initial encounter; Blunt trauma (contusions or hematomas); Additional info: Fall, back pain TECHNIQUE: Imaging protocol: Computed tomography images of the thoracic spine without contrast. Radiation optimization: All CT scans at this facility use at least one of these dose optimization techniques: automated exposure control; mA and/or kV adjustment per patient size (includes targeted exams where dose is matched to clinical indication); or iterative reconstruction. COMPARISON: No relevant prior studies available. 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 There is posterior spurring from the superior endplate. There is no paraspinous soft tissue abnormality making the superior more likely chronic than acute fracture. Correlation with the clinical findings is suggested. There is degenerative change throughout the thoracic spine with flowing osteophytes in the upper thoracic spine anteriorly and osteophytes anteriorly at all levels. There is mild scoliosis concave to the right in the upper thoracic spine. No other fracture is demonstrated. Discs/Spinal canal/Neural foramina: No significant disc protrusion. No severe spinal canal stenosis. No significant neural foraminal narrowing. Soft tissues: See Vertebrae finding. Kidneys and ureters: Incidental note is made of a benign-appearing cyst in the upper pole of the right kidney CT/CT thoracic spin wo con* [id number] IMPRESSION: Compression fracture involving the superior endplate of T12 of uncertain age, possibly old. Correlation with clinical findings is suggested. Radiation Dose CTDIVOL = (mGy): DLP = 1491.21 (mGy-cm)
--- NOTE | 2020-04-12 15:54 | XR_ITS ---
WS: [id number] PORTABLE CHEST HISTORY: fall, pain COMPARISON: 11/30/2019 Dual lead LEFT subclavian pacer and defibrillator. Obscuration of the LEFT hemidiaphragm due to enlarged heart. No pneumonia. No pleural effusion or pne umothorax. Cardiac size: Markedly enlarged heart obscuring the LEFT lower lung field. Mediastinum/Aorta: Mild atherosclerosis aorta. No osseous abnormality seen. XR/XR chest 1V portable [id number] IMPRESSION: Marked cardiomegaly. No pneumonia.
[2020-04-12 16:09] VITALS: RESP 19
[2020-04-12] MEDS: morphine 4 mg/mL SDV 1 mL IM (16:09)
[2020-04-12] MEDS: HYDROcodone-acetaminophen 5-325 mg Tablet 1 TAB PO (18:40)
[2020-04-12 19:56] VITALS: BP 143/99; PULSE 101; RESP 18; O2SAT 96
--- NOTE | 2020-04-13 08:40 | DCPLANNER ---
logistics loss prevention manager had message to schedule a follow up appointment for patient with Dr. Graham. logistics loss prevention manager called [facility], spoke with Ronnie, gave clinic patients information. logistics loss prevention manager was told that patients information would be printed and reviewed. Clinic will call counseling case manager and patient with appointment information.
--- NOTE | 2020-04-18 14:21 | DCPLANNER ---
Patient attended appointment scheduled for 04.18.[address] Waggoner office.
== END 2020-04-12 19:56 | disposition home or self-care (01) ==
PROVIDERS: Emergency Provider Emergency Medicine; PCP Family Medicine
DX: S22.080A Wedge compression fracture of T11-T12 vertebra, initial encounter for closed fracture (principal); W10.8XXA Fall (on) (from) other stairs and steps, initial encounter; Z79.01 Long term (current) use of anticoagulants; I48.91 Unspecified atrial fibrillation; I11.0 Hypertensive heart disease with heart failure; I50.9 Heart failure, unspecified
CPT/HCPCS: 12345; 71045; 72128; 72131; 96372; 99281; 99283; J2270

== ENCOUNTER 2020-04-26 14:03 | Outpatient (CLI) | payer MEDICARE, BC, SELFPAY ==
--- NOTE | 2020-04-26 14:15 | CT_ITS ---
WS: [id number] CT THORACIC SPINE TECHNIQUE: Noncontrast CT of the thoracic spine with coronal and sagittal reformatted images. CLINICAL INFORMATION: Fracture COMPARISON: CT April 12, 2020 DLP: 1137.[address] scans at [facility] use at least one of these dose optimization techniques: automat ed exposure control; mA and/or kV adjustment per patient size (includes targeted exams where dose is matched to clinical indication); or iterative reconstruction. FINDINGS: Mild compression superior endplate T12 with loss of approximately 25% vertebral body height with ante rior wedging is unchanged. Mild repulsion of the posterior superior cortex with mild central canal st enosis is stable. Pedicles appear intact bilaterally. Thoracic curve. Moderate thoracic kyphosis. Ankylosis with moderate spondylitic changes thoracic spin e. No other significant changes. Cardiomegaly. Aortic arch calcification. Coronary calcification. Par tially visualized small pericardial effusion. Adrenal glands are normal. Partially visualized right r enal cyst. Trace left pleural fluid. Nondisplaced left 11th proximal rib fracture. CT/CT thoracic spin wo con* [id number] IMPRESSION: 1. Stable compression fracture superior endplate T12 with loss of approximatel y 25% vertebral body height with anterior wedging. 2. Mild repulsion of the posterior superior cortex with mild central canal red nosis. 3. Nondisplaced left 11th proximal rib fracture.
== END 2020-04-26 14:04 | disposition home or self-care (01) ==
LOC: RADWPI 14:07
PROVIDERS: PCP Family Medicine; Visit Provider Licensed Practical Nurse
DX: M48.54XA Collapsed vertebra, not elsewhere classified, thoracic region, initial encounter for fracture (principal)
CPT/HCPCS: 72128

== ENCOUNTER 2020-05-29 14:10 | Outpatient (CLI) | payer MEDICARE, BC, SELFPAY ==
--- NOTE | 2020-05-29 14:30 | CT_ITS ---
WS: [id number] CT THORACIC SPINE TECHNIQUE: Noncontrast CT of the thoracic spine with coronal and sagittal reformatted images. CLINICAL INFORMATION: Thoracic fracture COMPARISON: April 26, 2020 DLP: 1609.[address] scans at [facility] use at least one of these dose optimization techniques: automat ed exposure control; mA and/or kV adjustment per patient size (includes targeted exams where dose is matched to clinical indication); or iterative reconstruction. FINDINGS: Mild compression superior endplate T12 with loss of approximately 25% vertebral body height with ante rior wedging is unchanged from previous. Mild repulsion of the posterior superior cortex with mild ce ntral canal stenosis is stable. Pedicles appear intact bilaterally. Thoracic curve. Moderate thoracic kyphosis. Ankylosis with moder ate spondylitic changes thoracic spine. No other significant changes from previous. Cardiomegaly. Aortic arch calcification. Coronary calcification. Partially visualized small pericardi al effusion. Adrenal glands are normal. Partially visualized right renal cyst. Trace left pleural flu id. Nondisplaced left T10 and T11 proximal rib fractures. CT/CT thoracic spin wo con* [id number] IMPRESSION: 1. Stable compression fracture superior endplate T12 with loss of approximately 25% vertebral body height with anterior wedging. 2. Mild repulsion of the posterior superior cortex with mild central canal sten osis. 3. Nondisplaced left 10th and 11th proximal rib fractures with callus formation .
== END 2020-05-29 14:11 | disposition home or self-care (01) ==
PROVIDERS: PCP Family Medicine; Visit Provider Licensed Practical Nurse
DX: S22.000A Wedge compression fracture of unspecified thoracic vertebra, initial encounter for closed fracture (principal); X58.XXXA Exposure to other specified factors, initial encounter
CPT/HCPCS: 72128

== ENCOUNTER 2020-09-06 06:33 | Observation (INO) | payer MEDICARE, BC, SELFPAY ==
[2020-09-06] VITALS (19 sets, daily range): BP systolic 124–155; BP diastolic 63–89; PULSE 68–88; RESP 16–21; TEMP 36.7–37.2; O2SAT 95–99; BMI 24.3
--- NOTE | 2020-09-06 06:38 | XR_ITS ---
WS: [id number] XR chest 1V portable [id number] REASON FOR EXAM: dyspnea/cough FINDINGS: Battery pack in place over the left anterolateral lateral chest wall. 2 leads to the right ventricula r apex. The heart is significantly enlarged. No active pulmonary parenchymal or pleural disease noted. Degenerative arthropathy in both shoulder joints, worse on the left. The chest is unchanged compared to 04/12/2020. XR/XR chest 1V portable [id number] IMPRESSION: Stable abnormal chest.
--- NOTE | 2020-09-06 06:39 | CTR_ITS ---
PROCEDURE INFORMATION: Exam: CT Head Without Contrast Exam date and time: 09/06/2020 6:40 AM Age: 85 years old Clinical indication: Injury or trauma; Blunt trauma (contusions or hematomas); Patient HX: Fall this a. M. At home. C/O dizziness and nausea. On anticoagulants. ; Additional info: Fall/dizzy/on anticoagulants TECHNIQUE: Imaging protocol: Computed tomography of the head without contrast. Radiation optimization: All CT scans at this facility use at least one of these dose optimization techniques: automated exposure control; mA and/or kV adjustment per patient size (includes targeted exams where dose is matched to clinical indication); or iterative reconstruction. COMPARISON: CT head wo con* [id number] 11/27/2019 7:44 PM RADIATION DOSE METRICS: Total DLP (mGy-cm): 898.56 FINDINGS: Brain: Hypodensity is seen in the periventricular cerebral white matter. This change is nonspecific but is most likely secondary to chronic ischemia within microvascular distributions. Reaves white matter distinction is maintained throughout the brain. No radiographic evidence of intracranial hemorrhage. Cerebral ventricles: Ventricles are enlarged on the basis of mild diffuse cerebral volume loss. Bones/joints: Unremarkable. No acute fracture. Paranasal sinuses: Visualized sinuses are unremarkable. No fluid levels. Mastoid air cells: Visualized mastoid air cells are well aerated. Soft tissues: Unremarkable. Other findings: No intra or extra-axial masses, lesions or collections. CT/CT head wo con* [id number] IMPRESSION: No radiographic evidence of acute intracranial pathology. Radiation Dose CTDIVOL = (mGy): DLP = 898.56 (mGy-cm)
--- NOTE | 2020-09-06 06:52 | ED_ITS ---
HPI - Fall General: Chief Complaint: Fall Stated Complaint: lightheaded, dizzy, fall Time Seen by Provider: 09/06/20 06:38 History of Present Illness: HPI Narrative: 85-year-old male presents emergency room with dizziness this is been a longstanding issue. He had woken up this morning around 4:00 was walking around the house according to his picking up some trash. He got lightheaded and dizzy and fell. He is on anticoagulants he had a brief loss of consciousness. thought she seen a little bit of tremor from him he had no loss of bowel or bladder control. He is awake and alert he can remember a lot of the events surrounding the episode he does not really know if he hit his head or not. He denies any chest pain or shortness of breath no nausea vomiting or diarrhea no COVID symptoms or exposure that he is aware of. No recent changes in his medications he is on the Eliquis for atrial fibrillation. MD complaint: fall Onset (ago): week(s) Fall from: standing Fall witnessed: yes, by family Place fall occurred: home Loss of consciousness: None Length of LOC: second(s) Prolonged down time: no Symptoms prior to fall: lightheadedness and dizziness Severity: mild Associated symptoms-after fall: Denies abdominal pain, chest pain, confusion, difficulty walking, headache(s), hematuria, lightheadedness, neck pain, numbness, short of breath, vertigo or weakness Review of Systems Const: Denies: fever(s), chills, body aches, change in appetite, fatigue or malaise ENMT: Denies: throat pain, ear or mastoid pain, nasal discharge or nasal congestion Card: Denies: chest pain or lightheadedness Resp: Denies: dyspnea, productive cough or non-productive cough GI: Denies: abdominal pain : Denies: hematuria Musc: Denies: neck pain Skin/Breast: Denies: rash or pruritus Neuro: Denies: headache(s), difficulty walking, vertigo or confusion PFS ED PFSH: Medical History Atrial fibrillation Medications adjusted. Better control. Carvedilol increased, digoxin added Cardiomyopathy Stable currently Compression fracture 04/12/2020 T12 Congestive heart failure with cardiomyopathy Compensated currently Hypertension Controlled Hypothyroidism Stable, TSH normal Prostatic hypertrophy No issues with urination during hospital stay Spinal stenosis, lumbar Warfarin anticoagulation Warfarin discontinued. Eliquis initiated Surgical History AICD (automatic cardioverter/defibrillator) present Family History Mother CAD (coronary artery disease) Social History Smoking and tobacco status: never smoked Alcohol intake: never Household members: spouse Marital status: Current occupational status: retired History of recent travel: No Phoebe/Buddhist: Unknown Physical Exam Const: COMMON NORMALS: no acute distress GENERAL APPEARANCE: cooperative and comfortable ORIENTATION/CONSCIOUSNESS: Yes awake, Yes oriented to person, Yes oriented to place and Yes oriented to time HENMT: COMMON NORMALS: normocephalic, atraumatic and hearing grossly normal bilaterally HEAD & SCALP: normocephalic and atraumatic Eye: COMMON NORMALS: Equal, round and reactive pupils present, EOMs intact bilaterally, conjunctivae normal and no scleral icterus CONJUNCTIVA: Yes conjunctivae normal PUPIL: Yes Equal, round and reactive pupils present Neck/C-Spine: COMMON NORMALS: full ROM, no lymphadenopathy, supple and no JVD Cardio: COMMON NORMALS: no JVD, regular rate, regular rhythm and No murmurs present (Cardio) RATE: regular rate RHYTHM: regular rhythm GI: COMMON NORMALS: Soft to palpation and No hepatosplenomegaly present AUSCULTATION: Yes normoactive bowel sounds PALPATION: Yes Soft to palpation, No Tenderness to palpation present (GI), No Guarding due to palpation present (GI) and Yes No hepatosplenomegaly present Extremity: COMMON NORMALS: normal to inspection, capillary refill normal, no clubbing, cyanosis or edema, no calf tenderness and no pedal edema Neuro: SENSORIUM/ORIENTATION: Yes oriented to person, Yes oriented to place and Yes oriented to time Skin: COMMON NORMALS: no rashes or lesions noted GENERAL SKIN EXAM: no rashes or lesions noted Course Vital Signs: Vital signs: Vital Signs Temperature 98.2 F 09/07/20 13:03 Pulse Rate 69 09/07/20 13:03 Respiratory Rate 15 09/07/20 13:03 Blood Pressure 119/65 09/07/20 13:03 Pulse Oximetry 97 09/07/20 13:03 MDM - Fall MDM Narrative: Medical decision making narrative: Multiple cultures tried to relieve vertigo it persist regardless of fluids or medicines given will put on knobs Lab Data: Labs: Lab Results 09/06/20 09/06/20 09/06/20 Range/Units 06:25 06:25 06:25 WBC 7.7 (4.0-10.0) 10^3/ uL RBC 4.37 (4.1-5.3) 10^6/u L Hgb 14.4 (11.7-16.6) g/dL Hct 43.4 (42.0-52.0) % MCV 99.3 H (80-94) fL MCH 33.0 (28.0-34.0) pg MCHC 33.2 (30.0-36.0) g/dL RDW 12.7 (12.1-15.1) % Plt Count 178 (130-400) 10^3/c mm MPV 11.1 H (7.4-10.4) fL Neut % (Auto) 68.9 % Lymph % (Auto) 17.5 % [place] % (Auto) 11.9 % Eos % (Auto) 1.0 % Baso % (Auto) 0.3 % Neut # (Auto) 5.27 (1.8-7.7) 10^3/u L Lymph # (Auto) 1.3 (0.8-4.8) 10^3/u L [place] # (Auto) 0.9 (0.2-0.9) 10^3/u L Eos # (Auto) 0.1 (0.0-0.8) 10^3/u L Baso # (Auto) 0.0 (0.0-0.1) 10^3/u L Nucleated RBC % (a uto) 0 % Nucleated RBCs # 0.0 /100WBC Sodium 138 (136-145) mmol/L Potassium 4.0 (3.5-5.1) mmol/L Chloride 99 (98-107) mmol/L Carbon Dioxide 26 (22-29) mmol/L Anion Gap 17.0 (5-19) BUN 24 H (8-23) mg/dL Creatinine 1.1 (0.7-1.2) mg/dL GFR Calculation Not Reportable Glucose 113 (65-115) mg/dL Calculated Osmolal ity 291 (285-295) mOsm/k g Calcium 9.3 (8.5-10.5) mg/dL Phosphorus 3.5 (2.5-4.5) mg/dL Magnesium 2.2 (1.7-2.3) mg/dL Total Bilirubin 0.7 (0.15-1.2) mg/dL AST 12 (0-40) U/L ALT 8 (0-41) U/L Alkaline Phosphata se 55 (40-130) IU/L Creatine Kinase 53 (39-308) U/L Total Protein 6.9 (6.6-8.7) g/dL Albumin 4.2 (3.5-5.2) g/dL Globulin 2.7 (1.3-4.6) g/dL TSH 3.11 (0.27-4.20) uIU/ mL Urine Color (Yellow) Urine Appearance (CLEAR) Urine pH (5-7) Ur Specific Gravit y (1.005-1.030) Urine Protein (Negative) Urine Glucose (UA) (Normal) Urine Ketones (Negative) Urine Blood (Negative) Urine Nitrate (Negative) Urine Bilirubin (Negative) Urine Urobilinogen (Negative) mg/dL Ur Leukocyte Milla ase (Negative) 09/06/20 Range/Units 06:45 WBC (4.0-10.0) 10^3/ uL RBC (4.1-5.3) 10^6/u L Hgb (11.7-16.6) g/dL Hct (42.0-52.0) % MCV (80-94) fL MCH (28.0-34.0) pg MCHC (30.0-36.0) g/dL RDW (12.1-15.1) % Plt Count (130-400) 10^3/c mm MPV (7.4-10.4) fL Neut % (Auto) % Lymph % (Auto) % [place] % (Auto) % Eos % (Auto) % Baso % (Auto) % Neut # (Auto) (1.8-7.7) 10^3/u L Lymph # (Auto) (0.8-4.8) 10^3/u L [place] # (Auto) (0.2-0.9) 10^3/u L Eos # (Auto) (0.0-0.8) 10^3/u L Baso # (Auto) (0.0-0.1) 10^3/u L Nucleated RBC % (a uto) % Nucleated RBCs # /100WBC Sodium (136-145) mmol/L Potassium (3.5-5.1) mmol/L Chloride (98-107) mmol/L Carbon Dioxide (22-29) mmol/L Anion Gap (5-19) BUN (8-23) mg/dL Creatinine (0.7-1.2) mg/dL GFR Calculation Glucose (65-115) mg/dL Calculated Osmolal ity (285-295) mOsm/k g Calcium (8.5-10.5) mg/dL Phosphorus (2.5-4.5) mg/dL Magnesium (1.7-2.3) mg/dL Total Bilirubin (0.15-1.2) mg/dL AST (0-40) U/L ALT (0-41) U/L Alkaline Phosphata se (40-130) IU/L Creatine Kinase (39-308) U/L Total Protein (6.6-8.7) g/dL Albumin (3.5-5.2) g/dL Globulin (1.3-4.6) g/dL TSH (0.27-4.20) uIU/ mL Urine Color Yellow (Yellow) Urine Appearance Clear (CLEAR) Urine pH 7 (5-7) Ur Specific Gravit y 1.005 (1.005-1.030) Urine Protein Neg (Negative) Urine Glucose (UA) Norm (Normal) Urine Ketones Negative (Negative) Urine Blood Neg (Negative) Urine Nitrate Negative (Negative) Urine Bilirubin Neg (Negative) Urine Urobilinogen Norm (Negative) mg/dL Ur Leukocyte Milla ase Negative (Negative) Discharge Plan Discharge Patient Disposition: Admitted As Inpatient Admit Provider: Marsha Boateng Clinical Impression: Vertigo Condition: Stable Referrals: [facility] [Outside] Melba Kwok MD [Physician] - 09/24/20 9:30 am (as soon as first appointment is available) Gregor Varela DO [Primary Care Provider] - 09/10/20 8:00 am Pineda Ortiz MD [Physician] - 10/22/20 10:30 am (As soon as first appointment is available) Dionisio Hernandez M.D [Physician] - 2 months (As previously scheduled) Discharge Diet: Advance as tolerated and Cardiac Discharge Activity: Increase activity as tolerated, Use walker/crutches as instructed and As per PT/OT instructions Patient Instructions: Meclizine (By mouth), Vertigo (DC) Additional Instructions: Discharge to home with meclizine as needed for dizziness Discharge to home with home health services including physical therapy and Occupational Therapy Continue use of walker for assistance Outpatient ENT and neurology follow-up due to chronic vertigo Follow-up with primary care provider in 2 to 3 days Continue with other medications as previously prescribed Call your physician or present to the ED for any acute illness or concern. Follow-up with cardiology as previously scheduled Interventions: ED Discharge Assessment Last Done: 09/06/20 14:34 ED Charges Last Done: 09/06/20 14:34 Discharge Date/Time: 09/06/20 14:34 Coding Level of Care Code ED Market Development Analyst for Chg Fwd Exam Comprehensive
[2020-09-06 06:57] LABS: Basophils % 0.3 %; Eosinophils # 0.1 10^3/uL (0.0-0.8); Hematocrit 43.4 % (42.0-52.0); Hemoglobin 14.4 g/dL (11.7-16.6); Lymphocytes # 1.3 10^3/uL (0.8-4.8); Lymphocytes % 17.5 %; Mean Corpuscular HGB Conc 33.2 g/dL (30.0-36.0); Mean Corpuscular Volume 99.3 fL (80-94); Mean Platelet Volume 11.1 fL (7.4-10.4); Monocytes # 0.9 10^3/uL (0.2-0.9); Monocytes % 11.9 %; Neutrophils # 5.27 10^3/uL (1.8-7.7); Neutrophils % 68.9 %; Nucleated Red Blood Cells % 0 %; Platelet Count 178 10^3/cmm (130-400); Red Blood Count 4.37 10^6/uL (4.1-5.3); Red Cell Distribution Width 12.7 % (12.1-15.1); White Blood Count 7.7 10^3/uL (4.0-10.0)
[2020-09-06 07:19] LABS: Alanine Aminotransferase 8 U/L (0-41); Albumin Level 4.2 g/dL (3.5-5.2); Alkaline Phosphatase 55 IU/L (40-130); Aspartate Amino Transferase 12 U/L (0-40); Blood Urea Nitrogen 24 mg/dL (8-23); Calcium 9.3 mg/dL (8.5-10.5); Carbon Dioxide 26 mmol/L (22-29); Chloride 99 mmol/L (98-107); Creatine Phosphokinase 53 U/L (39-308); Globulin 2.7 g/dL (1.3-4.6); Glucose 113 mg/dL (65-115); Osmolality Calculated 291 mOsm/kg (285-295); Sodium 138 mmol/L (136-145); Total Bilirubin 0.7 mg/dL (0.15-1.2); Total Protein 6.9 g/dL (6.6-8.7)
--- NOTE | 2020-09-06 07:29 | PC.NURSE ---
previous nurse verbalized that urine was collected prior to shift change, marked collected at 0740
[2020-09-06 08:13] LABS: Add Urine Microscopic? NO
[2020-09-06 08:17] LABS: Bilirubin Urine Neg (Negative); Blood Urine Neg (Negative); Glucose Urine UA Norm (Normal); Ketones Urine Negative (Negative); Leukocyte Esterase Urine Negative (Negative); Nitrate Urine Negative (Negative); Protein Urine Neg (Negative); Specific Gravity, Urine 1.005 (1.005-1.030); Urine Appearance Clear (CLEAR); Urine Color Yellow (Yellow); Urobilinogen Urine Norm (Negative); pH Urine 7 (5-7)
[2020-09-06] MEDS: sodium chloride 0.9% 500 ML 999 ML IV (09:08)
[2020-09-06] MEDS: LORazepam 2 mg/mL INJ 1 mL 0.5 MG IVP (10:14)
--- NOTE | 2020-09-06 10:38 | PC.NURSE ---
Road test While standing patient after given ativan for vertigo, patient still mildly unsteady on feet, but had improved since orthostatic vital signs performed
[2020-09-06 15:47] LABS: Magnesium 2.2 mg/dL (1.7-2.3); Phosphorus 3.5 mg/dL (2.5-4.5); Thyroid Stimulating Hormone 3.11 uIU/mL (0.27-4.20)
--- NOTE | 2020-09-06 16:46 | PM.HP ---
Providers/Chief Complaint Admitting Physician: Marsha Boateng DO Primary Care Provider: Gregor Varela DO Chief Complaint: lightheaded, dizzy, fall History of Present Illness Arcadio Kelley is a 85 year old male with a past medical history of atrial fibrillation, recurrent falls, congestive heart failure and chronic vertigo that presented to the emergency department after a fall. Stated that he wakes up early and got up this morning at about 4:30 in the morning, stated that he got up drink coffee ate a cookie while using his walker to turn around he fell to the floor. He said the next thing he reported is waking up and his calling 911. He denied any loss of bowel or bladder control. He stated that he has a chronic fear of falling, chronic dizziness that is been progressive over the past 4 to 5 years. Discussed with patient and he has had a work-up in the past but has not had any neurology follow-up. Has had cardiac evaluation, no ENT evaluation. He stated that he had an MRI couple of years ago but declined an MRI at this time as he did not want to go in an enclosed area due to his claustrophobia. Stated that he would only consider an open MRI. Patient denied any chest pain, no shortness of breath. No fever or chills. Review of Systems Const: Denies: fever(s) or chills Eyes: Denies: change in vision ENMT: Denies: nasal congestion Card: Denies: chest pain, palpitations or edema Resp: Denies: dyspnea, productive cough or hemoptysis GI: Denies: abdominal pain, nausea, vomiting, diarrhea, constipation, hematochezia or melena : Denies: dysuria or hematuria Musc: Denies: extremity pain or muscle cramps Skin/Breast: Denies: rash or new lesions Neuro: Reports: dizziness; Denies: headache(s) Psych: Denies: anxiety or depression Endo: Denies: polyuria or hot flashes Wally/Lymph: Denies: easy bruising or easy bleeding Medications/Allergies Home Medications Medication Instructions Recorded Confirmed Last Taken Type benazepril 5 mg PO DAILY 11/29/19 09/06/20 09/05/20 History dutasteride 0.5 mg PO DAILY 11/29/19 09/06/20 09/05/20 History eplerenone 25 mg PO DAILY 12/09/06/20 09/05/20 History furosemide 40 mg PO BID 11/29/19 09/06/20 09/06/20 History apixaban [Eliquis] 5 mg PO BID #60 tab 12/01/19 09/06/20 09/06/20 Rx carvedilol 12.5 mg PO BID #60 tab 12/01/19 09/06/20 09/06/20 Rx digoxin 250 mcg PO DAILY #30 tab 12/01/19 09/06/20 09/06/20 Rx acetaminophen 1,000 mg PO TID PRN 04/12/20 09/06/20 09/05/20 History doxazosin 4 mg PO DAILY 09/06/20 09/06/20 09/05/20 History Allergies Allergy/AdvReac Type Severity Reaction Status Date / Time adhesive tape Allergy Severe ALGY-Bliste Verified 06/06/20 08:12 r iodine Allergy severe Verified 06/06/20 08:12 vomiting PFSH Acute PFSH: Medical History Atrial fibrillation Medications adjusted. Better control. Carvedilol increased, digoxin added Cardiomyopathy Stable currently Compression fracture 04/12/2020 T12 Congestive heart failure with cardiomyopathy Compensated currently Hypertension Controlled Hypothyroidism Stable, TSH normal Prostatic hypertrophy No issues with urination during hospital stay Spinal stenosis, lumbar Warfarin anticoagulation Warfarin discontinued. Eliquis initiated Surgical History AICD (automatic cardioverter/defibrillator) present Family History Mother CAD (coronary artery disease) Social History Smoking and tobacco status: never smoked Alcohol intake: never Household members: spouse Marital status: Current occupational status: retired History of recent travel: No Phoebe/Adventist: Unknown Vitals/I&O/Wt Last Vital Signs Temp 98.9 F 09/06/20 16:00 Pulse 80 09/06/20 16:00 Resp 17 09/06/20 16:00 BP 155/78 09/06/20 16:00 Pulse Ox 99 09/06/20 16:00 09/06/20 09/06/2020 06:59 14:59 22:59 Intake Total 500 / 500 Balance 500 / 500 Weight last 48 hrs Weight 77.111 kg Physical Exam Const: COMMON NORMALS: patient oriented x3 and alert GENERAL APPEARANCE: cooperative ORIENTATION/CONSCIOUSNESS: Yes awake, Yes oriented to person, Yes oriented to place and Yes oriented to time HENMT: COMMON NORMALS: normocephalic and atraumatic HEAD & SCALP: normocephalic and atraumatic Eye: COMMON NORMALS: Equal, round and reactive pupils present PUPIL: Yes Equal, round and reactive pupils present Neck/C-Spine: COMMON NORMALS: supple GENERAL: Yes normal visual inspection Resp: COMMON NORMALS: normal respiratory effort and clear to auscultation bilaterally EFFORT & INSPECTION: Yes able to speak in complete sentences AUSCULTATION: clear to auscultation bilaterally, no rhonchi and no wheezes Cardio: COMMON NORMALS: regular rate and regular rhythm RATE: regular rate RHYTHM: regular rhythm GI: COMMON NORMALS: Soft to palpation and non-tender INSPECTION: No abdominal distension AUSCULTATION: Yes normoactive bowel sounds PALPATION: Yes Soft to palpation Extremity: COMMON NORMALS: no clubbing, cyanosis or edema and no calf tenderness Neuro: COMMON NORMALS: patient oriented x3, CN's II-XII intact bilaterally, moves all extremities and no focal motor deficits SENSORIUM/ORIENTATION: Yes alert, Yes oriented to person, Yes oriented to place and Yes oriented to time SPEECH: speech normal Psych: COMMON NORMALS: mental status grossly normal and cooperative Skin: COMMON NORMALS: no rashes or lesions noted GENERAL SKIN EXAM: no rashes or lesions noted Data : 09/06/20 06:25 09/06/20 06:25 A&P Assessment and plan (1) Vertigo: Reported chronic vertigo Telemetry Serial neurologic checks CT head shows no acute intracranial abnormalities We will check carotid and echocardiogram Physical therapy and Occupational Therapy Pacemaker interrogation Patient is on a lot of medications could contribute to orthostatic hypotension, will check orthostatic vital signs Patient declines an MRI at this time is reports that he can only tolerate an open MRI Patient reports this is been chronic over the past 4 to 5 years, will likely require outpatient ENT and neurologic evaluation Status: Acute (2) AICD (automatic cardioverter/defibrillator) present: Status: Acute (3) Hypothyroidism: We will check TSH Status: Acute (4) Hypertension: Continue home medication Status: Acute (5) ICD (implantable cardioverter-defibrillator) infection: Patient is uncertain if he had shock delivered this morning, will perform interrogation to determine if any sort of arrhythmia was present this morning Status: Acute (6) Congestive heart failure with cardiomyopathy: Euvolemic at this time Status: Acute (7) Atrial fibrillation: Will check digoxin level, continue Coreg and dig at this time along with Eliquis Status: Acute (8) Syncope and collapse: Status: Acute Attestations Medical Necessity Statement*: Observation due to vertigo with fall. Expected stay less than 2 midnights Coding Level of Care Code Acute Laboratory Apparatus Glass Blower for Chg Fwd Diagnoses Vertigo R42 AICD (automatic cardioverter/defibrillator) present Z95.810 Hypothyroidism E03.9 Hypertension I10 ICD (implantable cardioverter-defibrillator) infection T82.7XXA Congestive heart failure with cardiomyopathy I50.9; I42.9 Atrial fibrillation I48.91 Syncope and collapse R55
[2020-09-06] MEDS: sodium chloride 0.9% 1,000 ML 100 ML IV (17:09)
[2020-09-06] MEDS: FUROsemide 40 mg Tablet PO (17:10)
[2020-09-06] MEDS: apixaban 5 mg Tablet PO (17:10)
[2020-09-06] MEDS: carvedilol 12.5 mg Tablet PO (17:10)
--- NOTE | 2020-09-06 18:50 | ECG_ITS ---
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 Measurements Intervals [place] Rate: 77 P: MO: -1 QRS: 235 QRSD: 150 T: 73 QT: 388 QTc: 439 Interpretive Statements ELECTRONIC VENTRICULAR PACEMAKER ABNORMAL RHYTHM ECG Compared to ECG 11/27/2019 19:20:40 No significant changes Electronically Signed On 09-06-2020 21:43:29 CDT by Mamadou Ervin M.D. [id number]
[2020-09-06 19:09] LABS: Digoxin 1.8 ng/mL (0.6-1.2)
[2020-09-06 19:11] LABS: Troponin(5th) Baseline 84 ng/L (0-15)
[2020-09-06 20:44] LABS: Troponin 5 2HR 74.82 ng/L (0-15)
[2020-09-06] MEDS: HYDROcodone-acetaminophen 5-325 mg Tablet 1 TAB PO (20:45)
[2020-09-06 21:01] LABS: Troponin 5 2HR Delta -9.18 ABS# (0-10)
[2020-09-07] VITALS: BP 117/67; PULSE 71; RESP 17; TEMP 37; O2SAT 95
[2020-09-07 00:52] LABS: Troponin 5 6HR 79.97 ng/L (0-15)
[2020-09-07 00:55] LABS: Troponin 5 6HR Delta -4.03 ng/L (0-12)
[2020-09-07] MEDS: HYDROcodone-acetaminophen 5-325 mg Tablet 1 TAB PO ×2 (01:13→12:18)
[2020-09-07] MEDS: sodium chloride 0.9% 1,000 ML 100 ML IV (03:15)
[2020-09-07 04:00] VITALS: BP 116/70; PULSE 70; RESP 17; TEMP 36.8; O2SAT 95
--- NOTE | 2020-09-07 06:00 | USCV_ITS ---
Arcadio Kelley Age: 85 Gender: M : 1935 Exam Date: 09/07/2020 06:26 Ordering Phys: Marsha Boateng DO Technologist: Terry Castañeda [place] [facility] [place]: TIA BP: 132 / 76 HR: 39 Rhythm: Sinus Technical Quality: Fair MEASUREMENTS (Male / Female) Normal Values 2D ECHO LV Diastolic Diameter PLAX 5.0 cm 4.2 - 5.9 / 3.9 - 5.3 cm LV Systolic Diameter PLAX 4.4 cm IVS Diastolic Thickness 2.1 cm 0.6 - 1.0 / 0.6 - 0.9 cm IVS Systolic Thickness 2.3 cm LVPW Diastolic Thickness 2.2 cm 0.6 - 1.0 / 0.6 - 0.9 cm LVPW Systolic Thickness 1.9 cm LVOT Diameter 2.1 cm LV Ejection Fraction 2D Teich 16.6 % LV Ejection Fraction MOD 2C 66.0 % LV Ejection Fraction 2C AL 67.1 % LA Diameter 5.5 cm LA Width 4.6 cm LA Height 6.2 cm RA Width 5.5 cm RA Height 6.5 cm Aorta at Sinotubular Diameter 1.0 cm M-MODE LV Diastolic Diameter MM 5.7 cm 4.2 - 5.9 / 3.9 - 5.3 cm LV Systolic Diameter MM 4.8 cm LV Ejection Fraction MM Teich 34.0 % IVS Diastolic Thickness MM 1.5 cm 0.6 - 1.0 / 0.6 - 0.9 cm IVS Systolic Thickness MM 1.7 cm LVPW Diastolic Thickness MM 1.7 cm 0.6 - 1.0 / 0.6 - 0.9 cm LVPW Systolic Thickness MM 2.5 cm RV Diastolic Diameter MM 2.9 cm Aortic Annulus Diameter 4.3 cm LA Ao Ratio MM 1.2 DOPPLER AV Peak Velocity 115.0 cm/s LVOT Peak Velocity 66.0 cm/s AV Area Cont Eq vti 2.0 cm squared AV Area Cont Eq pk 2.0 cm squared MV Area PHT 5.0 cm squared Mitral E to A Ratio 3.8 MV E' Velocity 45.0 cm/s Mitral E to MV E' Ratio 22.1 Mitral E to LV E' Lateral Ratio 22.7 Mitral E to LV E' Septal Ratio 21.6 TR Peak Velocity 263.7 cm/s TR Peak Gradient 27.8 mmHg TV Peak E Velocity 79.0 cm/s Right Atrial Pressure 3.0 mmHg Pulmonary Artery Systolic Pressu 30.8 mmHg FINDINGS Left Ventricle Normal left ventricular cavity size. Moderate concentric left ventricular hypertrophy. Mildly decreased left ventricular systolic function. Left ventricular ejection fraction is estimated at 45%. Severe hypokinesis of basal to mid inferolateral and anterolateral self. Grade III diastolic dysfunction (restrictive filling pattern), severely elevated filling pressures. Abnormal septal motion consistent with pacemaker. Right Ventricle Normal right ventricular size and systolic function. Right ventricular systolic pressure 45 mmHg. Pacemaker wire visualized in the right ventricle. Right Atrium Moderately increased right atrial size. Left Atrium Severely increased left atrial size. Mitral Valve Mildly thickened mitral valve. No mitral valve stenosis. Moderate mitral valve regurgitation. Aortic Valve Mildly thickened trileaflet aortic valve. No aortic valve stenosis. Trace eccentric aortic valve regurgitation. Tricuspid Valve Structurally normal tricuspid valve. No tricuspid valve stenosis. [id number] tricuspid valve regurgitation. Pulmonic Valve Structurally normal pulmonic valve. Trace pulmonary valve regurgitation. Pericardium Moderate posteriorly located pericardial effusion; measured 1.3 cm posteriorly along left ventricular wall. Aorta Normal size aortic root and proximal ascending aorta. CONCLUSIONS 1. Normal left ventricular cavity size. Moderate concentric left ventricular hypertrophy. Mildly decreased left ventricular systolic function. Left ventricular ejection fraction is estimated at 45%. Severe hypokinesis of basal to mid inferolateral and anterolateral self. Grade III diastolic dysfunction (restrictive filling pattern), severely elevated filling pressures. 2. Normal right ventricular size and systolic function. 3. Severely increased left atrial size. 4. Moderate mitral valve regurgitation. 5. Moderate posteriorly located pericardial effusion; measured 1.3 cm posteriorly along left ventricular wall. 6. Pulmonary artery pressure estimated at 45 mmHg. 7. No prior similar studies to compare. Shira Espinoza MD (Electronically Signed) Final Date: 07 September 2020 18:20 S
--- NOTE | 2020-09-07 06:00 | USCV_ITS ---
Arcadio Kelley Age: 85 Gender: M : 1935 Exam Date: 09/07/2020 06:44 Ordering Phys: Marsha Boateng DO Technologist: Terry Castañeda [place]am Location[place] [facility] [place]ication: TIA Risk Factors: None Previous Vascular Surgery: None Right Brachial BP: / Left Brachial BP: / Right Left Velocity (cm/s) Spectral Plaque Velocity (cm/s) Spectral Plaque Syst/Diast Broadening Syst/Diast Broadening 31.20/ 6.80 Prox CCA 35.70 / 8.20 39.70/ 6.00 Mid CCA 29.90 / 6.30 30.80/ 6.40 Distal CCA 27.90 / 6.70 25.10/ 6.70 Prox ICA 19.00 / 5.30 35.70/ 10.60 Mid ICA 35.70 / 12.50 41.90/ 14.00 Distal ICA 42.90 / 9.60 67.70 ECA 52.50 1.06 ICA/CCA 1.20 Antegrade Vertebral Antegrade 27.50/ 8.70 cm/s 27.00/ 8.70 cm/s Tri Subclavian Tri 51.60 49.20 FINDINGS Comparison: none available. No significant elevation of systolic or diastolic velocities. Minimal bilateral, intimal thickening and scattered plaque with no elevation of velocity. CONCLUSIONS Bilateral ICA stenosis less than 50%. Mild carotid atherosclerosis. Dr. Abeba Winter DO (Electronically Signed) Final Date: 07 September 2020 15:22 S
[2020-09-07 06:01] LABS: Basophils % 0.2 %; Eosinophils # 0.1 10^3/uL (0.0-0.8); Eosinophils % 0.7 %; Hemoglobin 13.7 g/dL (11.7-16.6); Lymphocytes # 1.5 10^3/uL (0.8-4.8); Lymphocytes % 17.7 %; Mean Corpuscular HGB Conc 32.6 g/dL (30.0-36.0); Mean Corpuscular Hemoglobin 32.9 pg (28.0-34.0); Mean Corpuscular Volume 100.7 fL (80-94); Mean Platelet Volume 10.7 fL (7.4-10.4); Monocytes # 1.1 10^3/uL (0.2-0.9); Monocytes % 13.2 %; Neutrophils # 5.58 10^3/uL (1.8-7.7); Neutrophils % 67.8 %; Nucleated Red Blood Cells % 0 %; Platelet Count 158 10^3/cmm (130-400); Red Blood Count 4.17 10^6/uL (4.1-5.3); Red Cell Distribution Width 12.9 % (12.1-15.1); White Blood Count 8.2 10^3/uL (4.0-10.0)
[2020-09-07 06:31] LABS: Alanine Aminotransferase 8 U/L (0-41); Albumin Level 3.8 g/dL (3.5-5.2); Alkaline Phosphatase 50 IU/L (40-130); Anion Gap 13.5 (5-19); Aspartate Amino Transferase 12 U/L (0-40); Blood Urea Nitrogen 22 mg/dL (8-23); Calcium 8.6 mg/dL (8.5-10.5); Carbon Dioxide 26 mmol/L (22-29); Chloride 105 mmol/L (98-107); Globulin 2.6 g/dL (1.3-4.6); Glucose 103 mg/dL (65-115); Osmolality Calculated 296 mOsm/kg (285-295); Potassium 3.5 mmol/L (3.5-5.1); Sodium 141 mmol/L (136-145); Total Bilirubin 0.8 mg/dL (0.15-1.2); Total Protein 6.4 g/dL (6.6-8.7)
[2020-09-07 07:39] VITALS: BP 137/84; PULSE 74; RESP 16; TEMP 36.8; O2SAT 96
[2020-09-07 08:42] VITALS: PULSE 81
[2020-09-07] MEDS: FUROsemide 40 mg Tablet PO (08:42)
[2020-09-07] MEDS: digoxin 250 mcg Tablet PO (08:42)
[2020-09-07] MEDS: doxazosin 4 mg Tablet PO (08:42)
[2020-09-07] MEDS: carvedilol 12.5 mg Tablet PO (08:44)
[2020-09-07] MEDS: lisinopril 5 mg Tablet PO (08:44)
[2020-09-07] MEDS: apixaban 5 mg Tablet PO (08:44)
--- NOTE | 2020-09-07 10:10 | PM.DCS ---
Discharge Providers Date of Admission: 09/06/20 12:54 Date of Discharge: September 07, 2020 Attending Provider at Admission: Marsha Boateng DO Attending Provider at Discharge: Marsha Boateng DO Primary Care Provider: Gregor Varela DO Diagnoses at Discharge Discharge Diagnosis (1) Vertigo: Status: Acute (2) AICD (automatic cardioverter/defibrillator) present: Status: Acute (3) Hypothyroidism: Status: Acute Problem details: Stable, TSH normal (4) Hypertension: Status: Acute Problem details: Controlled (5) ICD (implantable cardioverter-defibrillator) infection: Status: Acute (6) Congestive heart failure with cardiomyopathy: Status: Acute (7) Atrial fibrillation: Status: Acute Problem details: Medications adjusted. Better control. Carvedilol increased, digoxin added (8) Syncope and collapse: Status: Acute Reason for Visit Reason for Visit: lightheaded, dizzy, fall Hospital Course Hospital Course: Patient was seen and evaluated in the emergency department noted to have concern for syncope and fall. Patient reported that he has had chronic vertigo for the past 4 to 5 years. Has been followed closely by cardiology due to congestive heart failure and atrial fibrillation that is chronic in nature. He does have pacemaker/ICD. Patient reports that he had no pain or shortness of breath. He had orthostatic vital signs that were checked and within normal range. Patient's heart rate remained good on telemetry. He had echocardiogram and carotid ultrasound performed. Lab studies were also monitored and patient continued to do well working with physical therapy. Patient seems to be at his baseline and on date of discharge discussed with him plan for outpatient ENT and neurologic evaluation, he verbalized understanding and agreed with plan. MRI was offered to patient however he refused stating that he could only perform an open MRI and did not wish to have this done at this time. Discussed with patient plan for discharge to home with outpatient follow-up and home health services, he verbalized understanding and agreed with plan. Discussed with patient's on date of discharge she verbalized understanding and agreed with plan. Physical Exam Const: COMMON NORMALS: patient oriented x3 and alert GENERAL APPEARANCE: cooperative ORIENTATION/CONSCIOUSNESS: Yes awake, Yes oriented to person, Yes oriented to place and Yes oriented to time HENMT: COMMON NORMALS: normocephalic and atraumatic HEAD & SCALP: normocephalic and atraumatic Eye: COMMON NORMALS: Equal, round and reactive pupils present PUPIL: Yes Equal, round and reactive pupils present Neck/C-Spine: COMMON NORMALS: supple GENERAL: Yes normal visual inspection Resp: COMMON NORMALS: normal respiratory effort and clear to auscultation bilaterally EFFORT & INSPECTION: Yes able to speak in complete sentences AUSCULTATION: clear to auscultation bilaterally, no rhonchi and no wheezes Cardio: COMMON NORMALS: regular rate and regular rhythm RATE: regular rate RHYTHM: regular rhythm GI: COMMON NORMALS: Soft to palpation PALPATION: Yes Soft to palpation Extremity: COMMON NORMALS: no clubbing, cyanosis or edema and no calf tenderness Neuro: COMMON NORMALS: patient oriented x3, CN's II-XII intact bilaterally, moves all extremities and no focal motor deficits SENSORIUM/ORIENTATION: Yes alert, Yes oriented to person, Yes oriented to place and Yes oriented to time SPEECH: speech normal Psych: COMMON NORMALS: mental status grossly normal and cooperative Skin: COMMON NORMALS: no rashes or lesions noted GENERAL SKIN EXAM: no rashes or lesions noted Discharge Data Data Completed and Pending: Completed Studies During Hospitalization Category Date Time Status CT head wo con* [id number] Stat Cat Scan 09/06/20 06:39 Completed XR chest 1V nancy ble [id number] Stat Exams 09/06/20 06:38 Completed Pending at discharge Category Date Time Status Complete Blood Co unt w/Auto AM LABS Lab 09/08/20 04:00 Ordered Complete Blood Co unt w/Auto AM LABS Lab 09/09/20 04:00 Ordered Comprehensive Met abolic Panel AM LA BS Lab 09/08/20 04:00 Ordered Comprehensive Met abolic Panel AM LA BS Lab 09/09/20 04:00 Ordered CV carotid duplex BI* [id number] Routine Ultrasound 09/07/20 06:00 Taken CV echo complete* [id number] Routine Ultrasound 09/07/20 06:00 Taken Labs from last 24 hours 09/07/20 09/07/20 09/07/20 05:31 05:31 00:20 WBC 8.2 RBC 4.17 Hgb 13.7 Hct 42.0 MCV 100.7 H MCH 32.9 MCHC 32.6 RDW 12.9 Plt Count 158 MPV 10.7 H Neut % (Auto) 67.8 Lymph % (Auto) 17.7 [place] % (Auto) 13.2 Eos % (Auto) 0.7 Baso % (Auto) 0.2 Neut # (Auto) 5.58 Lymph # (Auto) 1.5 [place] # (Auto) 1.1 H Eos # (Auto) 0.1 Baso # (Auto) 0.0 Nucleated RBC % (a uto) 0 Nucleated RBCs # 0.0 Sodium 141 Potassium 3.5 Chloride 105 Carbon Dioxide 26 Anion Gap 13.5 BUN 22 Creatinine 1.0 GFR Calculation Not Reportable Glucose 103 Calculated Osmolal ity 296 H Calcium 8.6 Phosphorus Magnesium Total Bilirubin 0.8 AST 12 ALT 8 Alkaline Phosphata se 50 Troponin T Baselin e Troponin T 120 Min [place] Delta Troponin T Troponin T Hi Sens 6Hr 79.97 H Troponin T Hi Sens 6Hr Delta -4.03 L Total Protein 6.4 L Albumin 3.8 Globulin 2.6 TSH Digoxin 09/06/20 09/06/20 09/06/20 20:13 18:04 18:04 WBC RBC Hgb Hct MCV MCH MCHC RDW Plt Count MPV Neut % (Auto) Lymph % (Auto) [place] % (Auto) Eos % (Auto) Baso % (Auto) Neut # (Auto) Lymph # (Auto) [place] # (Auto) Eos # (Auto) Baso # (Auto) Nucleated RBC % (a uto) Nucleated RBCs # Sodium Potassium Chloride Carbon Dioxide Anion Gap BUN Creatinine GFR Calculation Glucose Calculated Osmolal ity Calcium Phosphorus Magnesium Total Bilirubin AST ALT Alkaline Phosphata se Troponin T Baselin e 84 H Troponin T 120 Min [place] 74.82 H Delta Troponin T -9.18 L Troponin T Hi Sens 6Hr Troponin T Hi Sens 6Hr Delta Total Protein Albumin Globulin TSH Digoxin 1.8 H 09/06/20 06:25 WBC RBC Hgb Hct MCV MCH MCHC RDW Plt Count MPV Neut % (Auto) Lymph % (Auto) [place] % (Auto) Eos % (Auto) Baso % (Auto) Neut # (Auto) Lymph # (Auto) [place] # (Auto) Eos # (Auto) Baso # (Auto) Nucleated RBC % (a uto) Nucleated RBCs # Sodium Potassium Chloride Carbon Dioxide Anion Gap BUN Creatinine GFR Calculation Glucose Calculated Osmolal ity Calcium Phosphorus 3.5 Magnesium 2.2 Total Bilirubin AST ALT Alkaline Phosphata se Troponin T Baselin e Troponin T 120 Min [place] Delta Troponin T Troponin T Hi Sens 6Hr Troponin T Hi Sens 6Hr Delta Total Protein Albumin Globulin TSH 3.11 Digoxin Vitals: Last Vital Signs Temp 98.2 F 09/07/20 07:39 Pulse 81 09/07/20 08:42 Resp 16 09/07/20 07:39 BP 137/84 09/07/20 07:39 Pulse Ox 96 09/07/20 07:39 Discharge Plan Discharge Patient Disposition: Home Health Service Condition: Stable Prescriptions: New meclizine 25 mg Tablet 25 mg PO TID PRN (Reason: Dizziness) 5 Days Qty: 15 RF: 0 Continued furosemide 40 mg tablet 40 mg PO BID RF: 0 benazepril 10 mg tablet 5 mg PO DAILY RF: 0 eplerenone 25 mg Tablet 25 mg PO DAILY RF: 0 dutasteride 0.5 mg capsule 0.5 mg PO DAILY RF: 0 carvedilol 12.5 mg Tablet 12.5 mg PO BID Qty: 60 RF: 0 digoxin 250 mcg (0.25 mg) Tablet 250 mcg PO DAILY Qty: 30 RF: 0 Eliquis 5 mg Tablet 5 mg PO BID Qty: 60 RF: 0 doxazosin 4 mg Tablet 4 mg PO DAILY RF: 0 acetaminophen 500 mg Tablet 1,000 mg PO TID PRN (Reason: Pain) RF: 0 Discharge Orders: Discharge Order (Routine); Ordered 09/07/20 Ordered By: Marsha Boateng Referrals: Melba Kwok MD [Physician] - 1 month (as soon as first appointment is available) Gregor Varela DO [Primary Care Provider] - 1-3 days Pineda Ortiz MD [Physician] - 1 month (As soon as first appointment is available) Dionisio Hernandez M.D [Physician] - 2 months (As previously scheduled) Discharge Diet: Advance as tolerated and Cardiac Discharge Activity: Increase activity as tolerated, Use walker/crutches as instructed and As per PT/OT instructions Activity Restrictions/Additional Instructions: Discharge to home with meclizine as needed for dizziness Discharge to home with home health services including physical therapy and Occupational Therapy Continue use of walker for assistance Outpatient ENT and neurology follow-up due to chronic vertigo Follow-up with primary care provider in 2 to 3 days Continue with other medications as previously prescribed Call your physician or present to the ED for any acute illness or concern. Follow-up with cardiology as previously scheduled Discharge Attestations Time Spent in Discharge Care*: greater than 30 min Quality Metrics Clinical Quality Measures During this hospital stay, did patient experience: None Coding Level of Care Code Acute Tacking Machine Operator for Chg Fwd Diagnoses Vertigo R42 AICD (automatic cardioverter/defibrillator) present Z95.810 Hypothyroidism E03.9 Hypertension I10 ICD (implantable cardioverter-defibrillator) infection T82.7XXA Congestive heart failure with cardiomyopathy I50.9; I42.9 Atrial fibrillation I48.91 Syncope and collapse R55
[2020-09-07 11:12] VITALS: BP 119/65; PULSE 69; RESP 15; TEMP 36.8; O2SAT 97
--- NOTE | 2020-09-07 11:24 | PC.OT ---
OT NOTE: OT EVALUATION ORDERS RECEIVED. OT SCREENING PERFORMED; NO FURTHER SKILLED OT REQUIRED AT THIS TIME.
[2020-09-07 13:03] VITALS: BP 119/65; PULSE 69; RESP 15; TEMP 36.8; O2SAT 97
== END 2020-09-07 13:05 | disposition home health service (06) ==
LOC: ER 13:03 → MEDSURG 14:29
PROVIDERS: Admitting Provider Family Medicine; Emergency Provider Family Medicine; PCP Family Medicine; Visit Provider Family Medicine
DX: R42 Dizziness and giddiness (principal); I65.23 Occlusion and stenosis of bilateral carotid arteries; Z95.810 Presence of automatic (implantable) cardiac defibrillator; E03.9 Hypothyroidism, unspecified; I10 Essential (primary) hypertension; T82.7XXA Infection and inflammatory reaction due to other cardiac and vascular devices, implants and grafts, initial encounter; I50.9 Heart failure, unspecified; I42.9 Cardiomyopathy, unspecified; I48.91 Unspecified atrial fibrillation; R55 Syncope and collapse; Z91.81 History of falling; Z79.01 Long term (current) use of anticoagulants; Z82.49 Family history of ischemic heart disease and other diseases of the circulatory system
CPT/HCPCS: 12345; 36415; 70450; 71045; 80053; 80162; 81003; 82550; 83735; 84100; 84443; 84484; 85025; 93005; 93306; 93880; 96360; 96361; 96374; 97161; 99283; 99285; G0378; J2060; J7030; J7040

== ENCOUNTER → 2020-09-24 09:03 | Outpatient (BNVA) | payer MEDICARE, BC, SELFPAY | PROVIDERS: PCP Family Medicine; Referring Provider Family Medicine; Visit Provider Nurse Practitioner | DX: R55 Syncope and collapse (principal) | CPT/HCPCS: 99204 ==

== ENCOUNTER → 2020-10-04 10:22 | Outpatient (BNVA) | payer MEDICARE, BC, SELFPAY | PROVIDERS: PCP Family Medicine; Referring Provider Nurse Practitioner; Visit Provider Specialist | DX: G31.83 Neurocognitive disorder with Lewy bodies (principal); R55 Syncope and collapse; R48.2 Apraxia; G91.2 (Idiopathic) normal pressure hydrocephalus | CPT/HCPCS: 62270; 80500; 82945; 84157; 87070; 87075; 87205; 89050; 96116; 99215 ==

== ENCOUNTER → 2020-11-07 07:55 | Outpatient (BNVA) | payer MEDICARE, BC, SELFPAY | PROVIDERS: PCP Family Medicine; Visit Provider Specialist | DX: G31.83 Neurocognitive disorder with Lewy bodies (principal); R48.2 Apraxia; Z95.810 Presence of automatic (implantable) cardiac defibrillator; M48.061 Spinal stenosis, lumbar region without neurogenic claudication; I50.9 Heart failure, unspecified; I42.9 Cardiomyopathy, unspecified | CPT/HCPCS: 99214 ==

== ENCOUNTER → 2020-12-11 16:18 | Outpatient (BNVA) | payer MEDICARE, BC, SELFPAY | PROVIDERS: PCP Family Medicine; Visit Provider Internal Medicine | DX: I10 Essential (primary) hypertension (principal) | CPT/HCPCS: 80048; 83880 ==

== ENCOUNTER 2020-12-30 15:06 | Inpatient (IN) | payer MEDICARE, BC, SELFPAY ==
[2020-12-30 15:38] VITALS: BP 126/73; PULSE 98; RESP 16; TEMP 36.7; O2SAT 98; BMI 25.5
--- NOTE | 2020-12-30 16:46 | CTR_ITS ---
PROCEDURE INFORMATION: Exam: CT Neck Without Contrast Exam date and time: 12/30/2020 5:18 PM Age: 85 years old Clinical indication: Prior surgery; Surgery date: 6+ months; Surgery type: Aicd; Patient HX: C/O L jaw/neck pain x 2 days; Additional info: L jaw pain TECHNIQUE: Imaging protocol: Computed tomography images of the neck without contrast. Radiation optimization: All CT scans at this facility use at least one of these dose optimization techniques: automated exposure control; mA and/or kV adjustment per patient size (includes targeted exams where dose is matched to clinical indication); or iterative reconstruction. COMPARISON: CT Cervical Spine wo* [id number] 11/27/2019 7:49 PM RADIATION DOSE METRICS: Total DLP (mGy-cm): 791.92 FINDINGS: Brain: Moderately atrophic brain parenchyma. Intracranial atherosclerosis. Orbital cavity: Bilateral lens replacements. Orbits are symmetric and unremarkable. Paranasal sinuses: Free fluid in the superior pericardial recess. Nasopharynx: Unremarkable. Oropharynx: Unremarkable. No significant tonsillar enlargement. Hypopharynx: Unremarkable. Larynx: Unremarkable. Normal epiglottis. Retropharyngeal space: Unremarkable. Submandibular/Parotid glands: Parotid glands are symmetric and unremarkable. Left submandibular gland is unremarkable. The right submandibular gland is atrophic or absent. Small soft tissue nodule in the expected region of the gland noted. Thyroid: Normal. No enlarged or calcified nodules. Lymph nodes: Unremarkable. No lymphadenopathy. Trachea: Visualized trachea is unremarkable. Lungs: Partial visualization of left chest ICD. Bones/joints: The cervical spine demonstrates moderate degenerative changes at multiple levels. No fractures. Unremarkable vertebral alignment. No acute facial bone fractures. No aggressive, lytic bone lesions are identified. Vasculature: Moderate volume calcified atherosclerotic plaques bilateral carotid artery bulbs. Soft tissues: Moderate severity emphysema. No inflammatory soft tissue changes are identified. CT/CT neck wo con [id number] IMPRESSION: 1. Unremarkable noncontrast CT imaging of the neck. No acute pathology is identified. 2. Atrophic or absent right submandibular gland. Radiation Dose CTDIVOL = (mGy): DLP = 791.92 (mGy-cm)
--- NOTE | 2020-12-30 16:46 | ECG_ITS ---
[facility] Test Date: 2020-12-30 Pat Name: Arcadio Kelley Department: Room: Gender: Male Chucker: : 1935 Requested By: Nannette Moses Order Number: [id number] Jose Alberto MD: Dionisio Hernandez M.D. Measurements Intervals [place] Rate: 133 P: TN: QRS: -59 QRSD: 93 T: 154 QT: 291 QTc: 433 Interpretive Statements ATRIAL FIBRILLATION WITH RAPID VENTRICULAR RESPONSE LOW QRS VOLTAGE IN PRECORDIAL LEADS [QRS DEFLECTION < 1.0 mV IN CHEST LEADS] PATTERN CONSISTENT WITH PULMONARY DISEASE INFERIOR MYOCARDIAL INFARCTION , PROBABLY OLD [40+ ms Q WAVE AND/OR ST/T ABNORMALITY IN II/aVF] ST DEVIATION AND MODERATE T-WAVE ABNORMALITY, CONSIDER ANTEROLATERAL ISCHEMIA [-0.1+ mV T WAVE IN V3-V6] Compared to ECG 09/06/2020 19:14:18 Low QRS voltage now present Myocardial infarct finding now present Possible ischemia now present Ventricular-paced complex(es) or rhythm no longer present Electronically Signed On 12-30-2020 18:34:21 BOX STRAPPER by Dionisio Hernandez M.D. [email or web address]
--- NOTE | 2020-12-30 16:46 | XRR_ITS ---
PROCEDURE INFORMATION: Exam: XR Chest, 1 View Exam date and time: 12/30/2020 4:47 PM Age: 85 years old Clinical indication: Chest pain; Additional info: Cp TECHNIQUE: Imaging protocol: XR of the chest Views: 1 view. COMPARISON: CR XR chest 1V portable [id number] 09/06/2020 6:40 AM FINDINGS: Tubes, catheters and devices: Left chest ICD unchanged in position. Lungs: Emphysematous lung changes. No focal lung opacities. Pleural spaces: Unremarkable. No pleural effusion. No pneumothorax. Heart/Mediastinum: Significant cardiac enlargement unchanged from prior. Vasculature: Moderate atherosclerosis. Bones/joints: Demineralized bones. XR/XR chest 1V portable [id number] IMPRESSION: 1. No acute pulmonary disease. 2. No significant change from comparison 09/06/2020.
--- NOTE | 2020-12-30 17:05 | ED_ITS ---
HPI - General Adult General: Chief complaint: General Medical Stated complaint: jaw pain, chills, fatigue Time Seen by Provider: 12/30/20 16:41 Source: patient Mode of arrival: ambulatory Limitations: no limitations History of Present Illness: HPI narrative: 85-year-old male who states he been having some left jaw and neck pain over the last 2 days. States pain is worse with opening of his mouth and movement of his left arm. He states that sharp in nature and rates it a 6 out of 10. Denies any vomiting or diarrhea. Denies any shortness of breath. Denies any radiation of his pain. Associated symptoms: Deny chest pain, dyspnea, headache(s), nausea, rash or vomiting Review of Systems Const: Denies: fever(s), chills, body aches or change in appetite Eyes: Denies: blurry vision or eye discomfort ENMT: Denies: throat pain or dental pain Card: Denies: chest pain Resp: Denies: dyspnea GI: Denies: abdominal pain, nausea, vomiting or diarrhea : Denies: dysuria Musc: Reports: neck pain; Denies: back pain Skin/Breast: Denies: rash Neuro: Denies: headache(s) Psych: Denies: depression Wally/Lymph: Denies: easy bruising All/Imm: Denies: urticaria PFSH ED PFSH: Medical History (Updated 12/30/20 @ 19:41 by Nannette Moses MD) Atrial fibrillation Cardiomyopathy Stable currently Compression fracture 04/12/2020 T12 Congestive heart failure with cardiomyopathy Hypertension Controlled Hypothyroidism Stable, TSH normal Prostatic hypertrophy No issues with urination during hospital stay Spinal stenosis, lumbar Warfarin anticoagulation Warfarin discontinued. Eliquis initiated Surgical History AICD (automatic cardioverter/defibrillator) present Family History Mother CAD (coronary artery disease) Social History Smoking and tobacco status: never smoked Alcohol intake: never Household members: spouse Marital status: Current occupational status: retired History of recent travel: No Phoebe/Lutheran: Unknown Physical Exam Const: COMMON NORMALS: no acute distress, patient oriented x3 and healthy appearing HENMT: COMMON NORMALS: normocephalic and atraumatic HEAD & SCALP: normocephalic and atraumatic Eye: COMMON NORMALS: Equal, round and reactive pupils present and EOMs intact bilaterally PUPIL: Yes Equal, round and reactive pupils present Neck/C-Spine: COMMON NORMALS: full ROM and supple OTHER: Slight tenderness along left shoulder along with left jaw. Patient has increased pain with movement of her left arm. Chest: COMMONS NORMALS: normal inspection of the chest and normal palpation of entire chest wall Resp: COMMON NORMALS: normal respiratory effort, No retractions, No use of accessory muscles and clear to auscultation bilaterally AUSCULTATION: clear to auscultation bilaterally Cardio: COMMON NORMALS: regular rate, regular rhythm and No murmurs present (Cardio) RATE: regular rate RHYTHM: regular rhythm GI: COMMON NORMALS: Normal to inspection, nondistended, normoactive bowel sounds present, Soft to palpation, non-tender and no masses PALPATION: Yes Soft to palpation Extremity: COMMON NORMALS: normal to inspection and full ROM Neuro: COMMON NORMALS: patient oriented x3, moves all extremities and no focal motor deficits Psych: COMMON NORMALS: mental status grossly normal, Normal thought process present and cooperative THOUGHT PROCESS: Normal thought process present Skin: COMMON NORMALS: no rashes or lesions noted and no wounds GENERAL SKIN EXAM: no rashes or lesions noted Course Vital Signs: Vital signs: Vital Signs Temperature 98.0 F 12/30/20 15:38 Pulse Rate 103 H 12/30/20 19:49 Respiratory Rate 26 H 12/30/20 19:49 Blood Pressure 126/73 12/30/20 15:38 Pulse Oximetry 93 12/30/20 19:49 MDM - General Adult MDM Narrative: Medical decision making narrative: Arcadio presents here with jaw pain that seems muscular in nature. His first bone was elevated looking but as his previous troponins he been elevated the past as well. Patient is in A. fib with RVR here with heart rate in the 130s. With his increased troponin and his pain and his increased heart rate I spoke to the hospitalist will admit for observation. Patient has been stable while here. Lab Data: Labs: Lab Results 12/30/20 12/30/20 12/30/20 Range/Units 17:49 17:49 17:49 WBC 10.5 H (4.0-10.0) 10^3/ uL RBC 4.55 (4.1-5.3) 10^6/u L Hgb 14.6 (11.7-16.6) g/dL Hct 45.9 (42.0-52.0) % MCV 100.9 H (80-94) fL MCH 32.1 (28.0-34.0) pg MCHC 31.8 (30.0-36.0) g/dL RDW 14.3 (12.1-15.1) % Plt Count 163 (130-400) 10^3/c mm MPV 11.4 H (7.4-10.4) fL Neut % (Auto) 77.7 % Lymph % (Auto) 8.3 % [place] % (Auto) 12.8 % Eos % (Auto) 0.5 % Baso % (Auto) 0.2 % Neut # (Auto) 8.15 H (1.8-7.7) 10^3/u L Lymph # (Auto) 0.9 (0.8-4.8) 10^3/u L [place] # (Auto) 1.3 H (0.2-0.9) 10^3/u L Eos # (Auto) 0.1 (0.0-0.8) 10^3/u L Baso # (Auto) 0.0 (0.0-0.1) 10^3/u L Nucleated RBC % (a uto) 0 % Nucleated RBCs # 0.0 /100WBC PT (12.1-14.9) SECO NDS INR (0.8-1.2) Sodium 135 L (136-145) mmol/L Potassium 4.9 (3.5-5.1) mmol/L Chloride 96 L (98-107) mmol/L Carbon Dioxide 28 (22-29) mmol/L Anion Gap 15.9 (5-19) BUN 28 H (8-23) mg/dL Creatinine 1.1 (0.7-1.2) mg/dL GFR Calculation Not Reportable Glucose 111 (65-115) mg/dL Calculated Osmolal ity 286 (285-295) mOsm/k g Calcium 8.9 (8.5-10.5) mg/dL Total Bilirubin 1.1 (0.15-1.2) mg/dL AST 17 (0-40) U/L ALT 12 (0-41) U/L Alkaline Phosphata se 87 (40-130) IU/L Troponin T Baselin e 89 H (0-15) ng/L Total Protein 6.6 (6.6-8.7) g/dL Albumin 4.1 (3.5-5.2) g/dL Globulin 2.5 (1.3-4.6) g/dL 12/30/20 Range/Units 17:49 WBC (4.0-10.0) 10^3/ uL RBC (4.1-5.3) 10^6/u L Hgb (11.7-16.6) g/dL Hct (42.0-52.0) % MCV (80-94) fL MCH (28.0-34.0) pg MCHC (30.0-36.0) g/dL RDW (12.1-15.1) % Plt Count (130-400) 10^3/c mm MPV (7.4-10.4) fL Neut % (Auto) % Lymph % (Auto) % [place] % (Auto) % Eos % (Auto) % Baso % (Auto) % Neut # (Auto) (1.8-7.7) 10^3/u L Lymph # (Auto) (0.8-4.8) 10^3/u L [place] # (Auto) (0.2-0.9) 10^3/u L Eos # (Auto) (0.0-0.8) 10^3/u L Baso # (Auto) (0.0-0.1) 10^3/u L Nucleated RBC % (a uto) % Nucleated RBCs # /100WBC PT 17.60 H (12.1-14.9) SECO NDS INR 1.40 H (0.8-1.2) Sodium (136-145) mmol/L Potassium (3.5-5.1) mmol/L Chloride (98-107) mmol/L Carbon Dioxide (22-29) mmol/L Anion Gap (5-19) BUN (8-23) mg/dL Creatinine (0.7-1.2) mg/dL GFR Calculation Glucose (65-115) mg/dL Calculated Osmolal ity (285-295) mOsm/k g Calcium (8.5-10.5) mg/dL Total Bilirubin (0.15-1.2) mg/dL AST (0-40) U/L ALT (0-41) U/L Alkaline Phosphata se (40-130) IU/L Troponin T Baselin e (0-15) ng/L Total Protein (6.6-8.7) g/dL Albumin (3.5-5.2) g/dL Globulin (1.3-4.6) g/dL Imaging Data^: Other CT: Attestation: I personally reviewed and interpreted this imaging study as follows: Radiologist's impression: Reason: L jaw pain [employer] [address] [address] Scan Report Signed Patient: Arcadio Kelley Unit #: [id number] : 1935 Age/Sex: 85 / M ADM Date: 12/30/20 Loc: ER Room/Bed: Attending Dr: Ordering Provider/Ordering MD: Nannette Moses MD Date of Service: 12/30/20 Procedure(s): CT neck wo con [id number] Accession Number(s): [id number] Report Number: [id number] PROCEDURE INFORMATION: Exam: CT Neck Without Contrast Exam date and time: 12/30/2020 5:18 PM Age: 85 years old Clinical indication: Prior surgery; Surgery date: 6+ months; Surgery type: Aicd; Patient HX: C/O L jaw/neck pain x 2 days; Additional info: L jaw pain TECHNIQUE: Imaging protocol: Computed tomography images of the neck without contrast. Radiation optimization: All CT scans at this facility use at least one of these dose optimization techniques: automated exposure control; mA and/or kV adjustment per patient size (includes targeted exams where dose is matched to clinical indication); or iterative reconstruction. COMPARISON: CT Cervical Spine wo* [id number] 11/27/2019 7:49 PM RADIATION DOSE METRICS: Total DLP (mGy-cm): 791.92 FINDINGS: Brain: Moderately atrophic brain parenchyma. Intracranial atherosclerosis. Orbital cavity: Bilateral lens replacements. Orbits are symmetric and unremarkable. Paranasal sinuses: Free fluid in the superior pericardial recess. Nasopharynx: Unremarkable. Oropharynx: Unremarkable. No significant tonsillar enlargement. Hypopharynx: Unremarkable. Larynx: Unremarkable. Normal epiglottis. Retropharyngeal space: Unremarkable. Submandibular/Parotid glands: Parotid glands are symmetric and unremarkable. Left submandibular gland is unremarkable. The right submandibular gland is atrophic or absent. Small soft tissue nodule in the expected region of the gland noted. Thyroid: Normal. No enlarged or calcified nodules. Lymph nodes: Unremarkable. No lymphadenopathy. Trachea: Visualized trachea is unremarkable. Lungs: Partial visualization of left chest ICD. Bones/joints: The cervical spine demonstrates moderate degenerative changes at multiple levels. No fractures. Unremarkable vertebral alignment. No acute facial bone fractures. No aggressive, lytic bone lesions are identified. Vasculature: Moderate volume calcified atherosclerotic plaques bilateral carotid artery bulbs. Soft tissues: Moderate severity emphysema. No inflammatory soft tissue changes are identified. CT/CT neck wo con [id number] IMPRESSION: 1. Unremarkable noncontrast CT imaging of the neck. No acute pathology is identified. 2. Atrophic or absent right submandibular gland. EKG Data^: EKG 1: Attestation: I personally reviewed and interpreted this EKG as follows: EKG interpretation date: 12/30/20 EKG interpretation time: 17:51 Interpretation: afib hr [address] or t w ave abnormalities qrs 93 qtc 369 Computer generated interpretation: Chest X-Ray 12/30/20 16:46 IMPRESSION: 1. No acute pulmonary disease. 2. No significant change from comparison 09/06/2020. Neck CT 12/30/20 16:46 IMPRESSION: 1. Unremarkable noncontrast CT imaging of the neck. No acute pathology is identified. 2. Atrophic or absent right submandibular gland. Radiation Dose CTDIVOL = (mGy): DLP = 791.92 (mGy-cm) EKG 2: Attestation: I personally reviewed and interpreted this EKG as follows: EKG interpretation date: 12/30/20 EKG interpretation time: 19:16 Interpretation: afib hr [address] or t wave abnormalities qrs 97 qtc 368 Computer generated interpretation: Chest X-Ray 12/30/20 16:46 IMPRESSION: 1. No acute pulmonary disease. 2. No significant change from comparison 09/06/2020. Neck CT 12/30/20 16:46 IMPRESSION: 1. Unremarkable noncontrast CT imaging of the neck. No acute pathology is identified. 2. Atrophic or absent right submandibular gland. Radiation Dose CTDIVOL = (mGy): DLP = 791.92 (mGy-cm) Discharge Plan Discharge Patient Disposition: Admitted As Inpatient Admit Provider: Jelani Ahuja Clinical Impression: Atrial fibrillation Qualifiers: Atrial fibrillation type: unspecified Qualified Code(s): I48.91 - Unspecified atrial fibrillation Condition: Stable Coding Level of Care Code ED Potato Loader for Chg Fwd Exam Comprehensive
[2020-12-30 17:51] VITALS: PULSE 91; RESP 20; O2SAT 97
[2020-12-30 17:59] LABS: Basophils % 0.2 %; Eosinophils # 0.1 10^3/uL (0.0-0.8); Eosinophils % 0.5 %; Hematocrit 45.9 % (42.0-52.0); Hemoglobin 14.6 g/dL (11.7-16.6); Lymphocytes # 0.9 10^3/uL (0.8-4.8); Lymphocytes % 8.3 %; Mean Corpuscular HGB Conc 31.8 g/dL (30.0-36.0); Mean Corpuscular Hemoglobin 32.1 pg (28.0-34.0); Mean Corpuscular Volume 100.9 fL (80-94); Mean Platelet Volume 11.4 fL (7.4-10.4); Monocytes # 1.3 10^3/uL (0.2-0.9); Monocytes % 12.8 %; Neutrophils # 8.15 10^3/uL (1.8-7.7); Neutrophils % 77.7 %; Nucleated Red Blood Cells % 0 %; Platelet Count 163 10^3/cmm (130-400); Red Blood Count 4.55 10^6/uL (4.1-5.3); Red Cell Distribution Width 14.3 % (12.1-15.1); White Blood Count 10.5 10^3/uL (4.0-10.0)
[2020-12-30 18:18] LABS: Alanine Aminotransferase 12 U/L (0-41); Albumin Level 4.1 g/dL (3.5-5.2); Alkaline Phosphatase 87 IU/L (40-130); Blood Urea Nitrogen 28 mg/dL (8-23); Calcium 8.9 mg/dL (8.5-10.5); Carbon Dioxide 28 mmol/L (22-29); Chloride 96 mmol/L (98-107); Globulin 2.5 g/dL (1.3-4.6); Glucose 111 mg/dL (65-115); Osmolality Calculated 286 mOsm/kg (285-295); Sodium 135 mmol/L (136-145); Total Bilirubin 1.1 mg/dL (0.15-1.2); Total Protein 6.6 g/dL (6.6-8.7)
[2020-12-30 18:21] LABS: Troponin(5th) Baseline 89 ng/L (0-15)
[2020-12-30 18:22] LABS: Anion Gap 15.9 (5-19); Aspartate Amino Transferase 17 U/L (0-40); Potassium 4.9 mmol/L (3.5-5.1)
--- NOTE | 2020-12-30 18:46 | ECG_ITS ---
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 Measurements Intervals Alex Rate: 118 P: 269 MD: 62 QRS: -59 QRSD: 97 T: 156 QT: 298 QTc: 418 Interpretive Statements ELECTRONIC VENTRICULAR PACEMAKER LOW QRS VOLTAGE IN PRECORDIAL LEADS [QRS DEFLECTION < 1.0 mV IN CHEST LEADS] ST DEVIATION AND MODERATE T-WAVE ABNORMALITY, CONSIDER LATERAL ISCHEMIA [-0.1+ mV T WAVE IN I/aVL/V5/V6] Myocardial infarct finding still present T-wave abnormality still present Possible ischemia still present Compared to ECG 12/30/2020 17:51:08 No significant changes Electronically Signed On 12-31-2020 15:09:43 GREEN PLUMBER by Dionisio Hernandez M.D. [id number]
--- NOTE | 2020-12-30 19:22 | PC.NURSE ---
EKG done at 192
--- NOTE | 2020-12-30 19:40 | P.HP_ITS ---
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 He has followed-up with Dr. Hernandez after his previous discharge from the hospital when he was evaluated for an syncopal event. AICD interrogation revealed that patient did have V. fib that was terminated on September 06 he also had 2 similar episode earlier in November and March however no shocks were delivered at that time. Patient's digoxin was discontinued by Dr. Ariza and carvedilol was reduced bec ause of his weakness and lethargy. Patient is stating that he start experiencing jaw pain which he is describing as sharp shooting pain he feels when he pinches around left border of the mouth just below his lower lip, he also experienced intermittent pain on chewing food has noted some soreness around left frontal head area. No recent fever sinusitis nausea, vomiting shortness of breath or chest pain. No recent vision changes or tenderness on scalp while combing hair. is at the bedside who is endorsing that Mr. Kelley has been gradually getting weaker and tired she brought him to the hospital because of this jaw pain and thought this is related to his heart. His heart rate fluctuates between low was 40 and highest 140 at home no recent syncopal events. Diagnostics in the ER revealed atrial fibrillation with RVR he was given Cardizem IV push which improved his heart rate however patient still complains of jaw pain which is tender to palpate around above-mentioned site scalp t enderness not noted no vision changes, no mouth ulcers noted, no shingles He takes Eliquis at home Cardizem dose was decreased by child & adolescent psychiatrist as mentioned above in my HPI. I requested magnesium level previous TSH level was normal, BNP 6000 previously it was 8000 clinically does not look fluid over loaded no active chest pain. Patient was endorsing anorexia and wanted to eat something and drink juice. EKG showing atrial fibrillation RVR no ischemic or infarct changes. Review of Systems Const: Reports: chills, body aches, change in appetite, fatigue and malaise; Denies: fever(s) Eyes: Denies: change in vision ENMT: Reports: dry mouth; Denies: throat pain, enlarged tonsils, odynophagia, hoarseness, swelling of lips/tongue or oral sores Card: Reports: swelling of feet/ankles; Denies: chest pain Resp: Reports: dyspnea GI: Denies: abdominal pain : Denies: flank pain Musc: Reports: other (Jaw pain) Skin/Breast: Denies: rash Neuro: Denies: headache(s) Psych: Reports: sleeping less and irritability; Denies: anxiety Endo: Denies: polyuria Wally/Lymph: Denies: easy bruising All/Imm: Denies: urticaria Medications/Allergies Home Medications Medication Instructions Recorded Confirmed Last Taken Type benazepril 5 mg PO DAILY@11/29/19 12/30/20 12/29/20 History dutasteride 0.5 mg PO DAILY@11/29/19 12/30/20 12/29/20 History eplerenone 25 mg PO DAILY@12 11/29/19 12/30/20 12/30/20 History acetaminophen 1,000 mg PO TID PRN 04/12/20 12/30/20 09/05/20 History doxazosin 4 mg PO DAILY@17 09/06/20 12/30/20 12/29/20 History rivastigmine tartrate 3 mg capsule 3 mg PO BID #60 cap 11/07/20 12/30/20 Unknown Rx apixaban [Eliquis] 5 mg PO BID@08,17 12/30/20 12/30/20 12/30/20 History carvedilol 6.25 mg PO BID@08,17 12/30/20 12/30/20 12/30/20 History furosemide 40 mg PO BID@08,12 12/30/20 12/30/20 12/30/20 History Allergies Allergy/AdvReac Type Severity Reaction Status Date / Time adhesive tape Allergy Severe ALGY-Bliste Verified 12/11/20 15:23 r iodine Allergy severe Verified 12/11/20 15:23 vomiting PFSH Acute PFSH: Medical History (Updated 12/30/20 @ 21:19 by Jelani Ahuja MD) Atrial fibrillation Cardiomyopathy Stable currently Compression fracture 04/12/2020 T12 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 fib episode Thoracic compression fracture Vertigo Warfarin anticoagulation Warfarin discontinued. Eliquis initiated Surgical History (Updated 12/30/20 @ 21:19 by Jelani Ahuja MD) AICD (automatic cardioverter/defibrillator) present ICD (implantable cardioverter-defibrillator) infection Family History Mother CAD (coronary artery disease) Social History Smoking and tobacco status: never smoked Alcohol intake: never Household members: spouse Marital status: Current occupational status: retired History of recent travel: No Phoebe/Jainism: Unknown Vitals/I&O/Wt Last Vital Signs Temp 98.0 F 12/30/20 15:38 Pulse 91 12/30/20 17:51 Resp 20 H 12/30/20 17:51 BP 126/73 12/30/20 15:38 Pulse Ox 97 12/30/20 17:51 Weight last 48 hrs Weight 80.739 kg Physical Exam Narrative: EXAM NARRATIVE: Very pleasant elderly male saturating well on room air currently no active chest pain or shortness of breath Looks stated age Variable S1-S2 no murmur appreciated bilateral lower extremity edema 2+ No acute respiratory distress Abdomen bloated however soft nontender No neurological deficit GCS 15 PERRLA EOMI No scalp tenderness No signs of shingles No maculopapular rash noted around the ear canal He has tender area to palpation around lower lip left mouth border, I am not able to appreciate any swollen lymph node or swelling or abscess collection Tongue depressor was used to evaluate buccal mucosa which was unremarkable he is wearing dentures with bridge No vision change No proximal muscle weakness, no signs of stroke Data : 12/30/20 17:49 12/30/20 17:49 A&P Assessment and plan (1) Atrial fibrillation: Chronic atrial fibrillation with RVR Currently heart rate fluctuating between 90-1 10, normal systolic blood pressure no active chest pain shortness of breath, he has chronic congestive heart failure as well I would increase his Coreg dose back to 12.5 mg twice a day and continue Eliquis We will check magnesium level previous TSH level was normal Less likely to have PE, he saturating well on room air no active chest pain no signs of ischemia or infarction on EKG his troponin seems to be around his baseline which I think is secondary to tachyarrhythmia, would not initiate ACS for now Status: Acute Qualifiers: Atrial fibrillation type: unspecified Qualified Code(s): I48.91 - Unspecified atrial fibrillation (2) Sprain of jaw, left side, initial encounter: We will check CRP ESR however clinically no signs of scalp tenderness no vision change less likely to be temporal arteritis Buccal mucosa does not show any abscess collection No subcutaneous swelling or lymphadenopathy noted However tender area below left lower lip noted, I do believe he has mandibular pain for which I would use gabapentin for now along Tylenol Status: Acute Additional A&P Information Reduce ejection fraction heart failure: No acute exacerbation I will continue him on Lasix 40 a day Lewy body Parkinson's dementia no acute decompensation Goals of care discussed with the patient and his : He is DNR/DNI Cardiac diet VTE not indicated Attestations Medical Necessity Statement*: Anticipating discharge in less than 48 hours overnight monitoring needed because of jaw pain A. fib RVR requiring rate control Time Spent in Patient Care: (>than 50% of time spent in counselling and/or direct pt care on unit) . 50mins Coding Level of Care Code Acute Laboratory Sampler for Chg Fwd Diagnoses Atrial fibrillation I48.91 Atrial fibrillation type: unspecified Sprain of jaw, left side, initial encounter S03.42XA
[2020-12-30 19:49] VITALS: PULSE 103; RESP 26; O2SAT 93
[2020-12-30] MEDS: sodium chloride 0.9% 1,000 ML 999 ML IV (19:49)
[2020-12-30] MEDS: morphine 4 mg/mL SDV 1 mL IVP (20:00)
[2020-12-30] MEDS: ondansetron 2 mg/ML SDV 2 mL 4 MG IVP (20:00)
[2020-12-30 20:51] LABS: Troponin 5 2HR 75.98 ng/L (0-15)
[2020-12-30 21:00] VITALS: PULSE 106; RESP 15; TEMP 36.7; O2SAT 96
[2020-12-30 21:00] LABS: NT Pro B Type Natriuretic Pept 6819 pg/mL (0-450)
[2020-12-30 21:53] VITALS: PULSE 91; RESP 15; TEMP 36.7; O2SAT 96
[2020-12-30 22:00] VITALS: PULSE 91
[2020-12-30 22:13] LABS: C Reactive Protein 29.4 mg/L (0.0-4.9)
--- NOTE | 2020-12-30 22:46 | ECG_ITS ---
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 Measurements Intervals [place] Rate: 105 P: 93 OR: 229 QRS: -56 QRSD: 94 T: 174 QT: 321 QTc: 426 Interpretive Statements ELECTRONIC VENTRICULAR PACEMAKER PATTERN CONSISTENT WITH PULMONARY DISEASE LEFT ANTERIOR FASCICULAR BLOCK [QRS AXIS <= -45, QR IN I, RS IN II] Compared to ECG 12/30/2020 19:16:48 Left anterior fascicular block now present Ventricular-paced complex(es) or rhythm no longer present T-wave abnormality still present Possible ischemia still present Electronically Signed On 12-31-2020 17:15:59 NUTRITIONALIST by Dionisio Hernandez M.D. [id number]
[2020-12-30] MEDS: carvedilol 12.5 mg Tablet PO (23:25)
[2020-12-30] MEDS: gabapentin 100 mg Capsule PO (23:25)
[2020-12-30] MEDS: acetaminophen 500 mg Tablet 650 MG PO (23:27)
[2020-12-30 23:44] LABS: Erythrocyte Sedimentation Rate 6 mm/hr (0-10)
[2020-12-31] VITALS (43 sets, daily range): BP systolic 89–138; BP diastolic 61–87; PULSE 86–124; RESP 7–51; TEMP 35.8–36.7; O2SAT 84–98
[2020-12-31 00:03] LABS: Troponin 5 6HR 73.86 ng/L (0-15)
--- NOTE | 2020-12-31 03:48 | PC.NURSE ---
0345 Call light on and patient c/o headache 09/08 center of forehead and around nose. Tylenol 650 mg given earlier. Physician notified, orders pending
[2020-12-31] MEDS: acetaminophen-codeine 300-30mg Tablet 1 TAB PO (03:58)
[2020-12-31 04:28] LABS: Anion Gap 13.3 (5-19); Blood Urea Nitrogen 27 mg/dL (8-23); Calcium 8.3 mg/dL (8.5-10.5); Carbon Dioxide 29 mmol/L (22-29); Chloride 100 mmol/L (98-107); Glucose 105 mg/dL (65-115); Osmolality Calculated 291 mOsm/kg (285-295); Potassium 4.3 mmol/L (3.5-5.1); Sodium 138 mmol/L (136-145)
[2020-12-31] MEDS: gabapentin 100 mg Capsule PO ×2 (08:05→17:44)
[2020-12-31] MEDS: FUROsemide 40 mg Tablet PO (08:13)
[2020-12-31] MEDS: sennosides-docusate Tablet 1 TAB PO (08:13)
[2020-12-31] MEDS: carvedilol 12.5 mg Tablet PO ×2 (08:13→19:39)
--- NOTE | 2020-12-31 08:56 | USCV_ITS ---
Arcadio Kelley Age: 85 Gender: M : 1935 Exam Date: 12/31/2020 11:50 Ordering Phys: Zac Grove MD Technologist: Ilsa Carmona Exam Location: [facility] [place] Indication: PAIN LT ARM AND LT JAW HISTORY: Pt has severe Ltj aw pain and Lt. arm pain. PROCEDURES: Venous duplex imaging was performed in only the left upper extremity. The following venous structures were evaluated: internal jugular vein, subclavian vein, axillary vein, and brachial veins. In addition, the basilic vein, cephalic vein, radial vein, and ulnar vein. Serial compression, augmentation maneuvers, and spectral Doppler flow evaluation were performed. FINDINGS: No evidence of deep vein thrombosis or superficial thrombophlebitis in the left upper extremity. Complex fluid collection in the anterior left upper extremity near the humeral head.. Lobulated soft tissue in the fluid without vascularity. Collection measure 3.8 x 1.5 cm. CONCLUSIONS No evidence for left upper extremity deep venous thrombosis. Complex fluid collection anterior to humeral head. Differential includes post operative hematoma, seroma, ruptured biceps tendon. Dr. Abeba Winter DO (Electronically Signed) Final Date: 31 December 2020 14:03 S
--- NOTE | 2020-12-31 08:56 | USCV_ITS ---
Warren Arcadio Age: 85 Gender: M : 1935 Exam Date: 12/31/2020 11:33 Ordering Phys: Zac Grove MD Technologist: Ilsa Carmona Exam Location: [facility] [place] Indication: SEVERE PAIN LT JAW AND LT ARM Risk Factors: Unknown Previous Vascular Surgery: None Right Brachial BP: / Left Brachial BP: / Right Left Velocity (cm/s) Spectral Plaque Velocity (cm/s) Spectral Plaque Syst/Diast Broadening Syst/Diast Broadening 40.10/ 6.90 Prox CCA 54.80 / 11.50 37.60/ 8.10 Mid CCA 46.10 / 12.50 41.90/ 8.10 Distal CCA 33.60 / 10.60 16.10/ 6.60 Prox ICA 26.80 / 9.70 32.50/ 12.90 Mid ICA 42.50 / 17.90 49.40/ 14.90 Distal ICA 47.10 / 15.70 68.50 ECA 50.00 1.18 ICA/CCA 0.86 Antegrade Vertebral Antegrade 23.00/ 11.50 cm/s 24.80/ 9.40 cm/s Tri Subclavian Tri 46.10 43.00 FINDINGS Comparison:. 09/07/20. No significant elevation of systolic or diastolic velocities. Diffuse, mild bilateral scattered calcified plaque and intimal thickening throughout the common carotid arteries and extending through the bifurcation. Antegrade vertebral arteries. CONCLUSIONS Bilateral ICA stenosis less than 50%. No interval change in stenosis since prior exam. Dr. Abeba Winter DO (Electronically Signed) Final Date: 31 December 2020 14:05 S
--- NOTE | 2020-12-31 09:14 | PC.CHAP ---
Pastoral Care Encounter/Spiritual Assessment Type of Contact [] Declined exhaust machine operator visit [] Patient/Family/Request visit [] Outpatient visit [] Follow-up visit [] Physician referral [] Code/Alert [x] Routine visit [] Staff referral [] Actively dying [x] Patient sleeping [] Family support [] [] Out of room [] Palliative care [] [] Receiving care in room [] Pre-surgical visit [] Trauma [] Long length of stay [] ICU visit [x] Other: prayed over patient Relational/Emotional Strength [] Patient feels connected with others/family/visitors/staff [] Distress [] Loneliness/isolation [] Abandonment Spirituality of Patient [] Person of Phoebe [] Attends Denominational of their Phoebe [] Believes in Prayer [] Reads Bible or Synagogue materials [] There are Spiritual issues to be addressed Currency Examiner Interventions [x] Prayer [] Active listening [] Non-anxious presence [] Spiritual/emotional support [] Crisis/trauma care [] Spiritual counseling [] Bereavement support [] Provided bereavement packet [] Provided Bible/devotional materials [] Provided toy/stuffed animal, coloring book to patient or family member [] Provided Communion [] Anointing/[place] [] Salvation [x] Completed spiritual assessment [] Other: Impact on Illness or Injury [] Angry [] Fearful [] Anxious [] Often cries [] Exhaustion [] Unable to work [] Unable to attend synagogue [] Unable to walk/stand [] Unable to read [] Unable to drive [] Unable to eat/drink [] Unable to sleep [] Unable to be with family [] Patient intubated [] Other: Summary Time spent with patient
[2020-12-31] MEDS: apixaban 5 mg Tablet PO ×2 (09:53→17:44)
[2020-12-31] MEDS: morphine 4 mg/mL SDV 1 mL 2 MG IVP ×2 (09:56→19:33)
--- NOTE | 2020-12-31 10:40 | PC.NURSE ---
Left facial pain radiating to left shoulder and left neck.Doctor notified on pt's pain unrelieved with tylenol and morphine. Received verbal order readback to start pt on Hydrocodone 5/325 mg Q6Hrs PRN for pain.
--- NOTE | 2020-12-31 11:16 | PC.NURSE ---
Nurse spoke with Dr. Hernandez about PT blood pressure prior to administration of nitro sublingual. Doctor clarified that it was okay to give.
[2020-12-31] MEDS: nitroglycerin 0.4 mg sublingual Tablet SUBLINGUAL (11:26)
[2020-12-31] MEDS: HYDROcodone-acetaminophen 5-325 mg Tablet 1 TAB PO ×2 (15:03→23:43)
--- NOTE | 2020-12-31 15:20 | PC.NURSE ---
Pacemaker interrogation/Asymptomatic non-sustained vtach episodes in tele Called doctor regarding pt's episodes of non-sustained vtach w/o any symptoms except his pain on left face and left arm in our tele. Informed him regarding interrogation resulted from [employer] that stated pt has been having non-sustained vtach since 12/30/20 and possible fluid around the device since 12/28. Informed doctor on the result of his UE venous duplex as well.
--- NOTE | 2020-12-31 16:43 | P.CONIM_ITS ---
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 He was also found to be in atrial fibrillation with RVR and received Cardizem that improved his heart rate. Patient has dementia. He denies any complaints of chest pain, shortness of breath or palpitations. He does feel jaw pain that is constant and is radiating to his face on the left side. It is severe. He has received multiple pain medications. Troponins were elevated however did not trend up. EKG has no significant changes. Review of Systems General: Reports: 10 or more systems reviewed and unremarkable except in HPI and below Narrative: CONSTITUTIONAL: No fever chills weight loss or gain or night sweats. [] HEENT: Normocephalic, atraumatic. He has significant jaw and left-sided facial pain [] RESPIRATORY: No cough, sputum, hemoptysis or wheezing.[] CARDIOVASCULAR: No shortness of breath, chest pain, PND, orthopnea, lower ex tremity edema, presyncope or syncope. [] GI: no nausea vomiting diarrhea. [] FIRST AID ATTENDANT: No numbness, tingling, weakness or loss of function in any part of the body. [] MUSCULOSKELETAL: No knee or joint pain or rashes. [] Meds/Allergies Home Medications and Allergies Home Medications Medication Instructions Recorded Confirmed Last Taken Type benazepril 5 mg PO DAILY@11/29/19 12/30/20 12/29/20 History dutasteride 0.5 mg PO DAILY@11/29/19 12/30/20 12/29/20 History eplerenone 25 mg PO DAILY@11/29/19 12/30/20 12/30/20 History acetaminophen 1,000 mg PO TID PRN 04/12/20 12/30/20 09/05/20 History doxazosin 4 mg PO DAILY@09/06/20 12/30/20 12/29/20 History rivastigmine tartrate 3 mg capsule 3 mg PO BID #60 cap 12/09/20 01/31/21 Unknown Rx apixaban [Eliquis] 5 mg PO BID@08,17 12/30/20 12/30/20 12/30/20 History carvedilol 6.25 mg PO BID@08,17 12/30/20 12/30/20 12/30/20 History furosemide 40 mg PO BID@08,12 12/30/20 12/30/20 12/30/20 History Allergies Allergy/AdvReac Type Severity Reaction Status Date / Time adhesive tape Allergy Severe ALGY-Bliste Verified 12/11/20 15:23 r iodine Allergy severe Verified 12/11/20 15:23 vomiting Current Medications Current Medications Generic Name Dose Route Start Last Admin Trade Name Freq PRN Reason Stop Dose Admin Hydrocodone Bitart/Acetaminophen 1 tab 12/31/20 10:46 12/31/20 15:03 Hydrocodone-Acetaminophen 5-325 Mg Tablet PO 1 tab Q6H PRN Administration MODERATE PAIN Apixaban 5 mg 12/31/20 08:00 12/31/20 09:53 Apixaban 5 Mg Tablet PO 5 mg BID@, LISET Administration Carvedilol 12.5 mg 12/30/20 21:25 12/31/20 08:13 Carvedilol 12.5 Mg Tablet PO 12.5 mg BID LISET Administration Furosemide 40 mg 12/31/20 09:00 12/31/20 08:13 Furosemide 40 Mg Tablet PO 40 mg DAILY LISET Administration Gabapentin 100 mg 12/30/20 21:25 12/31/20 08:05 Gabapentin 100 Mg Capsule PO 100 mg BID LISET Administration Morphine Sulfate 2 mg 12/30/20 20:53 12/31/20 09:56 Morphine 4 Mg/Ml Sdv 1 Ml IVP 2 mg Q6H PRN Administration chest pain Rivastigmine Tartrate 3 mg 12/31/20 09:00 12/31/20 09:53 Rivastigmine 1.5 Mg Capsule PO 3 mg BID LISET Administration Senna/Docusate Sodium 1 tab 12/31/20 09:00 12/31/20 08:13 Sennosides-Docusate Tablet PO 1 tab DAILY LISET Administration PFSH Acute PFSH: Medical History Atrial fibrillation Cardiomyopathy Stable currently Compression fracture 04/12/2020 T12 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 fib episode Thoracic compression fracture Vertigo Warfarin anticoagulation Warfarin discontinued. 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 Family History Mother CAD (coronary artery disease) Social History Smoking and tobacco status: never smoked Alcohol intake: never Household members: spouse Marital status: Current occupational status: retired History of recent travel: No Phoebe/Christianity: Unknown Vitals/I&O/Wt Last Vital Signs Temp 98.1 F 12/31/20 15:00 Pulse 104 H 12/31/20 15:00 Resp 35 H 12/31/20 15:00 BP 107/87 12/31/20 15:00 Pulse Ox 94 12/31/20 15:00 12/31/20 12/31/20 12/31/20 06:59 14:59 22:59 Intake Total 480 / 480 720 / 720 Output Total 600 / 600 400 / 400 Balance -120 / -120 320 / 320 Weight last 48 hrs Weight 180 lb 12.8 oz Weight 178 lb Physical Exam Narrative: EXAM NARRATIVE: GENERAL: Patient is alert, awake and oriented x3. [] NECK: No jugular vein distension. [] HEENT: No cyanosis. No icterus. No pallor. [] HEART: Regular S1 and S2. No murmur, rub or gallop. [] LUNGS: Clear to auscultate bilaterally. [] ABDOMEN: Soft, nontender and nondistended. Positive bowel sounds. No guarding, rebound or tenderness. [] CENTRAL NERVOUS SYSTEM: Grossly nonfocal. [] EXTREMITIES: Lower extremities with 1+ edema bilaterally. Pulses palpable in the lower extremities, both dorsalis pedis and posterior tibial. [] A&P Assessment and plan (1) Facial pain: Status: Acute (2) Sprain of jaw, left side, initial encounter: Status: Acute (3) Atrial fibrillation: Status: Acute Qualifiers: Atrial fibrillation type: unspecified Qualified Code(s): I48.91 - Unspecified atrial fibrillation (4) Hypertension: Status: Acute (5) Cardiomyopathy: Status: Acute Patient has presented with jaw and left-sided facial discomfort. He was briefly no A. fib with RVR that was treated with Cardizem. He is on anticoa gulation. He denies any ongoing chest pain and jaw/facial pain is constant. My suspicion for this pain being cardiac in nature is low. We can assess for the Lexiscan to confirm lack of ischemia. If Lexiscan is abnormal, we can proceed with coronary angiography. Troponins were mildly elevated but did not trend up significantly. Continue current cardiac medications including Eliquis. NT proBNP is elevated. Continue Lasix. Patient does not appear clinically volume overloaded. AICD can be checked. Thank you for involving us with care of this patient. We will continue to follow. Please call with questions. Coding Level of Care Code Acute Production Tech for Chg Fwd Diagnoses Facial pain R51.9 Sprain of jaw, left side, initial encounter S03.42XA Atrial fibrillation I48.91 Atrial fibrillation type: unspecified Hypertension I10 Cardiomyopathy I42.9
--- NOTE | 2020-12-31 17:43 | PC.NURSE ---
Medication related Notified Dr regarding patient BP-107/87. Per Dr to hold meds for today such as Lisinopril and Cardura. To re-schedule Coreg at 8pm tonight to give. Telephone orders read back to doctor.
[2020-12-31] MEDS: dutasteride 0.5 mg Capsule PO (17:44)
--- NOTE | 2020-12-31 18:43 | PC.NURSE ---
Patient is complaining of severe pain in the left side of face and jaw. Notified the doctor of the pain medications that have been given this shift. Have tried heat compress off and on today with minimal relief. Awaiting further orders.
[2020-12-31] MEDS: carBAMazepine 200 mg Tablet 100 MG PO (19:32)
--- NOTE | 2020-12-31 21:10 | PM.PN ---
Subjective Subjective: Interval history: He has been having pain in the left side of his jaw but also face. He reports? Discomfort which has been almost continuous and at least recurrent multiple times a day today. Change in response to pain medications. Radiation to his neck, arm has been reported as well. Vitals/I&O/Wt Last Vital Signs Temp 97.5 F L 12/31/20 19:38 Pulse 96 12/31/20 19:38 Resp 20 H 12/31/20 19:38 BP 138/86 12/31/20 19:38 Pulse Ox 95 12/31/20 19:38 12/31/20 12/31/20 12/31/20 06:59 14:59 22:59 Intake Total 480 / 480 720 / 720 120 / 840 Output Total 600 / 600 400 / 400 Balance -120 / -120 320 / 320 120 / 440 Weight last 48 hrs Weight 82.01 kg Weight 80.739 kg Physical Exam Const: COMMON NORMALS: no acute distress, patient oriented x3 and alert GENERAL APPEARANCE: cooperative ORIENTATION/CONSCIOUSNESS: Yes awake OTHER: Hard of hearing, but responds when spoken to loudly. HENMT: COMMON NORMALS: oropharynx normal OTHER: No ear pain. No tragus pain. No mastoid pain, no redness or swelling. There is some tenderness reported on palpation of left side of his face. There is no swelling, erythema. No facial asymmetry. Eyebrow raise is symmetrical. Neck/C-Spine: COMMON NORMALS: no JVD Resp: COMMON NORMALS: normal respiratory effort and clear to auscultation bilaterally AUSCULTATION: clear to auscultation bilaterally Cardio: COMMON NORMALS: no JVD, regular rhythm, S1 normal heart sound present, S2 normal heart sound present and No murmurs present (Cardio) RHYTHM: regular rhythm HEART SOUNDS: S1 normal heart sound present and S2 normal heart sound present GI: COMMON NORMALS: Normal to inspection, nondistended, normoactive bowel sounds present, Soft to palpation and non-tender PALPATION: Yes Soft to palpation Extremity: COMMON NORMALS: no joint enlargement and no pedal edema Neuro: COMMON NORMALS: patient oriented x3 and moves all extremities Skin: COMMON NORMALS: no rashes or lesions noted GENERAL SKIN EXAM: no rashes or lesions noted Data : 12/30/20 17:49 12/31/20 03:10 A&P Assessment and plan (1) Facial pain: Doubt temporal arteritis. He has no vision changes. His visual ladd are full to confrontation. He has no trouble counting fingers in several feet. He has no temporal pain. Denies any jaw claudication. Discussed today also with his union contract representative. With pain radiating to his neck, left side arm, we have assessed additionally by venous duplex of the neck and subclavian vein, as well as arterial duplex of his neck. Arterial duplex was unremarkable. Venous duplex with no noted clot, but with noted complex fluid collection anterior left upper extremity near the humeral head. He has not been having shoulder pain. Significance of this is not clear. 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 Will closer assessed by soft tissue ultrasound of PPM pocket to exclude localized infection, although superficially does not appear to have any redness, swelling or tenderness. No fluctuance. As discussed with cardiology this may be secondary to trigeminal neuralgia, although unfortunately we cannot close her system with MRI for possible secondary causes, and also with radiation to his neck, left side arm, elevated troponin, history of cardiac disease, difficult to exclude cardiac cause at this time. Appreciate cardiology recommendations. His condition may necessitate additional evaluation by coronary angiography to exclude coronary artery disease progression. Will not have a study ever since he had moved here from [place]. We will otherwise also treat with carbamazepine. Continue gabapentin. We will have him follow-up with neurology in office if cardiac is excluded for possible EP study, consideration whether CT with contrast would provide any useful additional information. Buccal mucosa does not show any abscess collection No subcutaneous swelling or lymphadenopathy noted Status: Acute (2) Atrial fibrillation: Heart rates for the most part. Will bit better, 90s-low 100s. Mostly below 110. Continue Coreg for now. Monitor blood pressure. Continue Eliquis. Less likely to have PE, he saturating well on room air no active chest pain no signs of ischemia or infarction on EKG his troponin seems to be around his baseline which I think is secondary to tachyarrhythmia. On anticoagulation. Status: Acute Qualifiers: Atrial fibrillation type: unspecified Qualified Code(s): I48.91 - Unspecified atrial fibrillation Additional A&P Information PVCs: Multiple PVCs noted on PPM interrogation since yesterday. Monitor on telemetry. Continue beta-phu. May benefit from additional assessment for progression of coronary disease as above. Hypotension: Has required a number of pain medications. Monitor his blood pressure. For now we will hold lisinopril. Will reschedule Cardura for tomorrow. Coreg later tonight if blood pressure tolerates. Reduce ejection fraction heart failure: No acute exacerbation. Continue Lasix 40 a day Lewy body Parkinson's dementia no acute decompensation Attestations Medical Necessity Statement*: Requiring admission or 2 midnights for assessment and management of recurrent/persistent left side jaw pain, facial pain, with radiation to neck, arm, underlying cardiac disease and CHF, A. fib with RVR, PVCs. Coding Level of Care Code Acute Flooring Professional for Chg Fwd Diagnoses Facial pain R51.9 Atrial fibrillation I48.91 Atrial fibrillation type: unspecified
[2021-01-01] VITALS (72 sets, daily range): BP systolic 95–120; BP diastolic 43–91; PULSE 67–117; RESP 0–42; TEMP 36.5–36.9; O2SAT 87–96
[2021-01-01 05:04] LABS: Basophils % 0.2 %; Eosinophils % 0.2 %; Hematocrit 46.2 % (42.0-52.0); Hemoglobin 14.2 g/dL (11.7-16.6); Lymphocytes # 1.2 10^3/uL (0.8-4.8); Lymphocytes % 9.7 %; Mean Corpuscular HGB Conc 30.7 g/dL (30.0-36.0); Mean Corpuscular Hemoglobin 31.9 pg (28.0-34.0); Mean Corpuscular Volume 103.8 fL (80-94); Mean Platelet Volume 10.9 fL (7.4-10.4); Monocytes # 1.6 10^3/uL (0.2-0.9); Monocytes % 13.4 %; Neutrophils # 9.18 10^3/uL (1.8-7.7); Neutrophils % 75.8 %; Nucleated Red Blood Cells % 0 %; Platelet Count 162 10^3/cmm (130-400); Red Blood Count 4.45 10^6/uL (4.1-5.3); Red Cell Distribution Width 14.6 % (12.1-15.1); White Blood Count 12.1 10^3/uL (4.0-10.0)
[2021-01-01 06:01] LABS: Alanine Aminotransferase 9 U/L (0-41); Albumin Level 3.6 g/dL (3.5-5.2); Alkaline Phosphatase 60 IU/L (40-130); Anion Gap 16.2 (5-19); Aspartate Amino Transferase 12 U/L (0-40); Blood Urea Nitrogen 27 mg/dL (8-23); Calcium 8.6 mg/dL (8.5-10.5); Carbon Dioxide 24 mmol/L (22-29); Chloride 98 mmol/L (98-107); Globulin 2.8 g/dL (1.3-4.6); Glucose 104 mg/dL (65-115); Osmolality Calculated 283 mOsm/kg (285-295); Potassium 4.2 mmol/L (3.5-5.1); Sodium 134 mmol/L (136-145); Total Bilirubin 1.1 mg/dL (0.15-1.2); Total Protein 6.4 g/dL (6.6-8.7)
--- NOTE | 2021-01-01 07:38 | PC.NURSE ---
Received call from Daphne thakkar this am with concerns; he needs to be getting out of bed this nurse assured her patient walked around room last night with walker also this nurse would be sure to get patient out of bed for all meals. Daphne also wanted to know what the next step in Plan of care unable to give information on plan at this time. Explained to Daphne i would have to meet with the doctor to get the next plan of action. Patient up in chair for breakfast; stand by assist with walker patient tolerated well. chair alarm placed for patient safety breakfast tray set up call light placed within reach as well as all other needs. patient asking for his glasses was unable to find glasses call placed back to Daphne. Daphne stated I have his glasses and hearing aides which i will bring them to him in a bit. Daphne transferred to room.
--- NOTE | 2021-01-01 07:56 | PC.NURSE ---
Rounded on patient at this time to be sure he had everything he needed to have a nice breakfast. this nurse placed jelly on toast and encouraged patient to eat; patient stated I'm not very hungry I have been up all night. I don't even know how I got here. I was in the floor at the supermarket in the meat section and a nice lady wrapped me in a towel and then I was here
--- NOTE | 2021-01-01 08:50 | PC.NURSE ---
patient got up from chair on his own with walker and when asked where he was going he stated back to bed patient was about to sit on foot of bed patient redirected and was assisted to bed safely
[2021-01-01] MEDS: gabapentin 100 mg Capsule PO ×2 (09:13→18:01)
[2021-01-01] MEDS: carBAMazepine 200 mg Tablet 100 MG PO ×2 (09:13→18:01)
[2021-01-01] MEDS: FUROsemide 40 mg Tablet PO (09:13)
[2021-01-01] MEDS: carvedilol 12.5 mg Tablet PO ×2 (09:13→18:01)
[2021-01-01] MEDS: sennosides-docusate Tablet 1 TAB PO (09:13)
--- NOTE | 2021-01-01 09:15 | PC.CHAP ---
Pastoral Care Encounter/Spiritual Assessment Type of Contact [] Declined retail event coordinator visit [] Patient/Family/Request visit [] Outpatient visit [] Follow-up visit [] Physician referral [] Code/Alert [x] Routine visit [] Staff referral [] Actively dying [] Patient sleeping [] Family support [] [] Out of room [] Palliative care [] [] Receiving care in room [] Pre-surgical visit [] Trauma [] Long length of stay [] ICU visit [] Other: Relational/Emotional Strength [] Patient feels connected with others/family/visitors/staff [] Distress [] Loneliness/isolation [] Abandonment Spirituality of Patient [] Person of Phoebe [] Attends Hinduism of their Phoebe [] Believes in Prayer [] Reads Bible or Confucianist materials [] There are Spiritual issues to be addressed Loom Mechanic Interventions [x] Prayer [x] Active listening [x] Non-anxious presence [x] Spiritual/emotional support [] Crisis/trauma care [] Spiritual counseling [] Bereavement support [] Provided bereavement packet [] Provided Bible/devotional materials [] Provided toy/stuffed animal, coloring book to patient or family member [] Provided Communion [] Anointing/[place] [] Salvation [x] Completed spiritual assessment [] Other: Impact on Illness or Injury [] Angry [] Fearful [] Anxious [] Often cries [] Exhaustion [] Unable to work [] Unable to attend scientology [] Unable to walk/stand [] Unable to read [] Unable to drive [] Unable to eat/drink [] Unable to sleep [] Unable to be with family [] Patient intubated [] Other: Summary resting well Time spent with patient 5 min
[2021-01-01] MEDS: apixaban 5 mg Tablet PO ×2 (09:16→18:02)
--- NOTE | 2021-01-01 14:57 | PC.NURSE ---
Patient moved closer to the nurses station for safety bed alarm in use patient still unsafe and pulling at wires and removing clothes reported behaviors to Dr. Grove instructions to start 1:1 sitter for patient safety
--- NOTE | 2021-01-01 16:31 | PC.NURSE ---
one on one sitter documentation on paper chart
--- NOTE | 2021-01-01 17:43 | PM.PN ---
Subjective Subjective: Interval history: Patient is continuing to have left facial pain. His pain is very atypical. Initially was complaining of jaw pain but it is more of a facial pain now. We will hold off on angiogram at this time. We will proceed with nuclear stress test. Vitals/I&O/Wt Last Vital Signs Temp 97.8 F 01/01/21 16:26 Pulse 108 H 01/01/21 16:26 Resp 27 H 01/01/21 16:26 BP 109/81 01/01/21 16:26 Pulse Ox 95 01/01/21 16:26 01/01/21 01/01/21 01/01/21 06:59 14:59 22:59 Intake Total 120 / 1110 360 / 360 Output Total 350 / 900 370 / 370 Balance -230 / 210 -10 / -10 Weight last 48 hrs Weight 180 lb 12.8 oz Physical Exam Narrative: EXAM NARRATIVE: GENERAL: Patient is alert, awake and oriented x3. [] NECK: No jugular vein distension. [] HEENT: No cyanosis. No icterus. No pallor. [] HEART: Regular S1 and S2. No murmur, rub or gallop. [] LUNGS: Clear to auscultate bilaterally. [] ABDOMEN: Soft, nontender and nondistended. Positive bowel sounds. No guarding, rebound or tenderness. [] CENTRAL NERVOUS SYSTEM: Grossly nonfocal. [] EXTREMITIES: Lower extremities with no edema bilaterally. Pulses palpable in the lower extremities, both dorsalis pedis and posterior tibial. [] Data : 01/02/21 04:15 01/02/21 04:15 A&P Assessment and plan (1) Facial pain: Status: Acute (2) Sprain of jaw, left side, initial encounter: Status: Acute (3) Atrial fibrillation: Status: Acute Qualifiers: Atrial fibrillation type: unspecified Qualified Code(s): I48.91 - Unspecified atrial fibrillation (4) Hypertension: Status: Acute (5) Cardiomyopathy: Status: Acute Patient has presented with jaw and left-sided facial discomfort. He was briefly no A. fib with RVR that was treated with Cardizem. He is on anticoagulation. He denies any ongoing chest pain and jaw/facial pain is constant. Atypical pain. We can assess with Lexiscan to confirm lack of ischemia. If Lexiscan is abnormal, we can proceed with coronary angiography. Troponins were mildly elevated but did not trend up significantly. Continue current cardiac medications including Eliquis. NT proBNP is elevated. Continue Lasix. Patient does not appear clinically volume overloaded. AICD can be checked. Thank you for involving us with care of this patient. We will continue to follow. Please call with questions. Attestations Medical Necessity Statement*: Care expected to cross 2 midnights. Coding Level of Care Code Acute Senior Process Engineer for [facility] Diagnoses Facial pain R51.9 Sprain of jaw, left side, initial encounter S03.42XA Atrial fibrillation I48.91 Atrial fibrillation type: unspecified Hypertension I10 Cardiomyopathy I42.9
[2021-01-01] MEDS: dutasteride 0.5 mg Capsule PO (18:01)
--- NOTE | 2021-01-01 18:15 | PC.NURSE ---
spoke with Dr whitten patient reports being very cold temp 98.1 patient also reporting abdominal pain also clarified giving cardura and coreg now with patient bp at 109/81 recheck bp now and noted to be 123/81 instructions to hold cardura for 1 hour after coreg administration if systolic bp is = or >105 give cardura instructions also received to hold rivastigmine after notifying him of conversation this nurse had with she had stopped that medication due to abdominal pain and nausea
--- NOTE | 2021-01-01 19:29 | PC.NURSE ---
Received report from Macie Alicea RN. Patient resting in bed on left side. Patient calm and appears comfortable at this time. No distress observed. 1:1 sitter at bedside.
--- NOTE | 2021-01-01 20:45 | P.PN_ITS ---
Subjective Subjective: Interval history: Denies chest pain. So far last several days at least pain persists in the left side of his face. Today he actually states it is a little bit better. Little better to palpation at least. Vitals/I&O/Wt Last Vital Signs Temp 97.7 F 01/01/21 19:16 Pulse 95 01/01/21 19:16 Resp 22 H 01/01/21 19:16 BP 95/64 01/01/21 19:16 Pulse Ox 90 01/01/21 19:16 01/01/21 01/01/21 01/01/21 06:59 14:59 22:59 Intake Total 120 / 1110 360 / 360 Output Total 350 / 900 370 / 370 Balance -230 / 210 -10 / -10 Weight last 48 hrs Weight 82.01 kg Physical Exam Const: COMMON NORMALS: no acute distress and alert GENERAL APPEARANCE: cooperative ORIENTATION/CONSCIOUSNESS: Yes awake OTHER: Hard of hearing, but responds when spoken to loudly. Sitting up in chair. HENMT: COMMON NORMALS: oropharynx normal OTHER: No ear pain. No tragus pain. No mastoid pain, no redness or swelling. There is some tenderness reported on palpation of left side of his face. There is no swelling, erythema. No facial asymmetry. Eyebrow raise is symmetrical. Neck/C-Spine: COMMON NORMALS: no JVD Resp: COMMON NORMALS: normal respiratory effort and clear to auscultation bilaterally AUSCULTATION: clear to auscultation bilaterally Cardio: COMMON NORMALS: no JVD, regular rhythm, S1 normal heart sound present, S2 normal heart sound present and No murmurs present (Cardio) RHYTHM: regular rhythm HEART SOUNDS: S1 normal heart sound present and S2 normal heart sound present GI: COMMON NORMALS: Normal to inspection, nondistended, normoactive bowel sounds present, Soft to palpation and non-tender PALPATION: Yes Soft to palpation Extremity: COMMON NORMALS: no joint enlargement and no pedal edema Neuro: COMMON NORMALS: moves all extremities SENSORIUM/ORIENTATION: Yes alert OTHER: Nonfocal neurological release noted. Does have left side facial subjective pain, and some tenderness on palpation, this is better than yesterday. Skin: COMMON NORMALS: no rashes or lesions noted GENERAL SKIN EXAM: no rashes or lesions noted Data : 01/01/21 04:51 01/01/21 04:51 A&P Assessment and plan (1) Facial pain: Discussed again with cardiology. Monitoring reassuring today. Pain appears to be mostly facial. Appears to be less likely cardiac. Due to this additional assessment will be performed with stress testing, not angiogram. This is requested for tomorrow. We also started him on carbamazepine yesterday, and he appears to show some improvement today, with perhaps slightly less pain, but does note less tende rness on palpation. Doubt that left perihumeral/shoulder collection is related to his symptoms. He does not have tenderness there locally, there is no erythema, swelling. Not clear etiology of this at this time, however. He denies trauma. We assessed his pacemaker pocket additionally and there is no fluid, or relation to the. Humeral fluid to the pacemaker pocket. Discussed with radiology, we will additionally assessed by plain CT of the shoulder, although consideration is that this is most likely an unrelated musculoskeletal associated finding. As discussed with cardiology this may be secondary to trigeminal neuralgia, although unfortunately we cannot close her system with MRI for possible secondary causes. would benefit from referral for assessment by neurology, possible EP study. Prescription with radiology, CT head with contrast very unlikely provide additional medication information, would be unlikely to visualize nerves. Continue carbamazepine. Continue gabapentin. Buccal mucosa does not show any abscess collection No subcutaneous swelling or lymphadenopathy noted Status: Acute (2) Atrial fibrillation: Heart rates a little better, but blood pressure soft. Will change carvedilol over to metoprolol 12.5 mg twice daily for now. Monitor. Continue Eliquis. Less likely to have PE, he saturating well on room air no active chest pain no signs of ischemia or infarction on EKG his troponin seems to be around his baseline which I think is secondary to tachyarrhythmia. On anticoagulation. Status: Acute Qualifiers: Atrial fibrillation type: unspecified Qualified Code(s): I48.91 - Unspecified atrial fibrillation Additional A&P Information Episodes of delirium: Noted intermittent confusion. This is over underlying dementia, and not suspected to be related to acute event. However, will assess UA. Continue position of atrial fibrillation. Assess for additional cardiac causes of his symptoms. Continue treatment of suspected trigeminal neuralgia. Monitor for any other changes. PVCs: Multiple PVCs noted on PPM interrogation since yesterday. Monitor on telemetry. Continue beta-phu. May benefit from additional assessment for progression of coronary disease as above. Hypotension: Stop lisinopril. Eplerenone. Change carvedilol to metoprolol. Hold doxazosin. Reduced ejection fraction heart failure: No acute exacerbation. Continue Lasix 40 a day Lewy body Parkinson's dementia no acute decompensation Attestations Medical Necessity Statement*: Continue admission for assessment management of facial pain, additional assessment for possible progression of coronary disease, optimization of treatment of A. fib with RVR, with hypotension, episodes of delirium. Coding Level of Care Code Acute [employer] Magistrate for Chg Fwd Diagnoses Facial pain R51.9 Atrial fibrillation I48.91 Atrial fibrillation type: unspecified
--- NOTE | 2021-01-01 20:51 | CTR_ITS ---
PROCEDURE INFORMATION: Exam: CT Left Upper Extremity Without Contrast, Shoulder Exam date and time: 01/01/2021 10:12 PM Age: 85 years old Clinical indication: Swelling; Shoulder; Left; Patient HX: Anterior fluid collection seen on prior US. TECHNIQUE: Imaging protocol: CT of the Left upper extremity without contrast was performed. Exam focused on the shoulder. Radiation optimization: All CT scans at this facility use at least one of these dose optimization techniques: automated exposure control; mA and/or kV adjustment per patient size (includes targeted exams where dose is matched to clinical indication); or iterative reconstruction. COMPARISON: No relevant prior studies available. RADIATION DOSE METRICS: Total DLP (mGy-cm): 1097.53 FINDINGS: Tubes, catheters and devices: Pericardial effusion incompletely visualized. Pacemaker. Bones/joints: 2.8 x 2.2 cm cystic structure poorly visualized along the anterior aspect of shoulder may reflect a small effusion of the subcoracoid and subacromial bursa, MRI could better characterize this. Soft tissues: Cardiomegaly. Vasculature: Coronary artery atherosclerotic calcifications. Pleural space: Small left pleural effusion. CT/CT shoulder LT wo con* [id number] IMPRESSION: 2.8 x 2.2 cm cystic structure poorly visualized along the anterior aspect of shoulder may reflect a small effusion of the subcoracoid and subacromial bursa, MRI could better characterize this. Radiation Dose CTDIVOL = (mGy): DLP = 1097.53 (mGy-cm)
--- NOTE | 2021-01-01 21:08 | US_ITS ---
WS: [id number] ULTRASOUND SOFT TISSUES RIGHT shoulder. HISTORY: PPM pocket, assess for any fluid collections COMPARISON: None available. TECHNIQUE: 2-D and color Doppler imaging is submitted. No fluid collection around the pacemaker pocket. Normal appearance of the soft tissues. US/US soft tissue/extremity [id number] IMPRESSION: Fluid collection in the anterior LEFT shoulder is not associated with the pacem jay pocket.
[2021-01-01] MEDS: metoprolol tartrate 25 mg Tablet 12.5 MG PO (21:52)
--- NOTE | 2021-01-01 23:47 | PC.NURSE ---
Patient up to bathroom. Taken to CT. UA sent to lab. Patient pleasant and cooperative at this time however remains confused at times and impulsive.
[2021-01-02] VITALS (11 sets, daily range): BP systolic 92–118; BP diastolic 64–94; PULSE 87–115; RESP 18–25; TEMP 36.6–36.8; O2SAT 94–98
[2021-01-02 00:33] LABS: Add Urine Microscopic? YES; Bilirubin Urine Neg (Negative); Blood Urine Neg (Negative); Glucose Urine UA Norm (Normal); Ketones Urine Negative (Negative); Leukocyte Esterase Urine Negative (Negative); Nitrate Urine Negative (Negative); Protein Urine Neg (Negative); Urine Appearance Hazy (CLEAR); Urine Color Dark Yellow (Yellow); Urobilinogen Urine Norm (Negative); pH Urine 5 (5-7)
[2021-01-02 00:50] LABS: Bacteria Urine TRACE /hpf; RBC Urine 0-4 /hpf (0-2); Squamous Epithelial Cell Urine 0-4 /hpf (0-5)
[2021-01-02] MEDS: HYDROcodone-acetaminophen 5-325 mg Tablet 1 TAB PO ×2 (00:50→09:58)
[2021-01-02 00:51] LABS: Add Urine Culture? No; Hyaline Casts Urine >100 /lpf
[2021-01-02 05:12] LABS: Basophils % 0.2 %; Hematocrit 44.6 % (42.0-52.0); Hemoglobin 14.1 g/dL (11.7-16.6); Lymphocytes # 1.1 10^3/uL (0.8-4.8); Lymphocytes % 6.6 %; Mean Corpuscular HGB Conc 31.6 g/dL (30.0-36.0); Mean Corpuscular Hemoglobin 31.9 pg (28.0-34.0); Mean Corpuscular Volume 100.9 fL (80-94); Mean Platelet Volume 11.1 fL (7.4-10.4); Monocytes # 1.8 10^3/uL (0.2-0.9); Monocytes % 11.4 %; Neutrophils # 12.93 10^3/uL (1.8-7.7); Neutrophils % 81.2 %; Nucleated Red Blood Cells % 0 %; Platelet Count 182 10^3/cmm (130-400); Red Blood Count 4.42 10^6/uL (4.1-5.3); Red Cell Distribution Width 14.6 % (12.1-15.1); White Blood Count 15.9 10^3/uL (4.0-10.0)
[2021-01-02 05:41] LABS: Alanine Aminotransferase 11 U/L (0-41); Albumin Level 3.1 g/dL (3.5-5.2); Alkaline Phosphatase 52 IU/L (40-130); Anion Gap 15.5 (5-19); Aspartate Amino Transferase 14 U/L (0-40); Blood Urea Nitrogen 31 mg/dL (8-23); Calcium 8.5 mg/dL (8.5-10.5); Carbon Dioxide 28 mmol/L (22-29); Chloride 98 mmol/L (98-107); Globulin 2.7 g/dL (1.3-4.6); Glucose 95 mg/dL (65-115); Osmolality Calculated 290 mOsm/kg (285-295); Potassium 4.5 mmol/L (3.5-5.1); Sodium 137 mmol/L (136-145); Total Bilirubin 1.2 mg/dL (0.15-1.2); Total Protein 5.8 g/dL (6.6-8.7)
--- NOTE | 2021-01-02 06:28 | NMCV_ITS ---
NM cora perf SPECT r/s* [id number] Arcadio Kelley Age: 85 Gender: M : 1935 Exam Date: 01/02/2021 07:32 Ordering Phys: Zac Grove MD Technologist: MICHELLE Bryan Exam Location: [facility] Indications: Lt jaw pain, trouble breathing STRESS TEST Please see separate stress test report in [facility] for full findings IMAGE PROTOCOL Rest/Stress 1 Lexiscan Day Radiopharmaceutical Dose (mCi) Administration Site Administered by Rest: Tc-99m 11.0 IV MICHELLE Olivier Sestamibi Stress:Tc-99m 32.6 IV MICHELLE Bryan Sestamijohn Rest: 02-Jan-2021 60 Discovery 630 Stress: 02-Jan-2021 45 Discovery 630 0.4mg Lexiscan. Supine position only as patient was unable to lay prone. SPECT RESULTS Technical Quality: Good Raw Data Analysis: breathing motion Image Corrections: Patient motion artifact - motion correction applied to both images due to breathing. Summed Stress Score: 2 Summed Rest Score: 1 Summed Difference Score: 2 PERFUSION FINDINGS There is a small, reversible perfusion defect in lateral wall. FUNCTIONAL RESULTS (calculated via Gated SPECT) Stress Image LV EF (%): 18 Stress EDV (mL):180 TID: 1.07 Stress ESV (mL):147 FUNCTIONAL FINDINGS: LV systolic function is severely reduced with EF of 15%. IMPRESSIONS 1. Small area of ischemia is noted in lateral wall. 2. LV systolic function is severely reduced Dionisio Hernandez MD (Electronically Signed) Final Date: 02 January 2021 13:46 S
--- NOTE | 2021-01-02 08:00 | ECG_ITS ---
[facility] Test Date: 2021-01-02 Pat Name: Arcadio Kelley Department: Room: 112 Gender: Male Stain Maker: : [id number] Requested By: Zac Grove Order Number: [id number] Jose Alberto MD: Dionisio Hernandez M.D. Interpretive Statements NAME OF STUDY: LEXISCAN SESTAMIBI STRESS TEST INDICATION: [Jaw Pain] Procedure: At the baseline, the blood pressure was 107/69 mmHg, heart rate of 104 bpm. The electrocardiogram showed atrial fibrillation with RVR. The Lexiscan was infused over a duration of 20 seconds. A total of 0.4 mg of Lexiscan was infused. The stress phase was continued for a total of 5 minutes. Heart rate at the end of the stress phase was 102 bpm. Blood pressure was 110/70 mmHg. The EKG at peak infusion revealed atrial fibrillation with RVR. Sestamibi was injected 20 seconds after the Lexiscan infusion. Blood pressure at the end of recovery phase was 104/71mmHg with a heart rate of 105bpm. EKG remained unchanged however had frequent PVCs. Conclusion: 1. Normal EKG response to Lexiscan infusion. 2. No Lexiscan induced chest pain or cardiac arrhythmia. 3. Normal blood pressure and heart rate response. 4. Sestamibi/sestamibi perfusion scan pending; see separate report. Electronically Signed On 01-06-2021 14:00:05 WEIGHING STATION OPERATOR by Dionisio Hernandez M.D. [email or web address]
--- NOTE | 2021-01-02 08:10 | SUR.PREOP ---
Patient reports no pain or discomfort prior to the start of the procedure.
--- NOTE | 2021-01-02 08:15 | XR_ITS ---
WS: [id number] PORTABLE CHEST HISTORY: leukocytosis, episodes of AMS COMPARISON: 12/30/2020 LEFT subclavian cardiac pacer/defibrillator. Slight elevation of the LEFT hemidiaphragm with blunting of the ankle. Atelectasis or scar in the jolie gula. RIGHT lung is clear. Small LEFT pleural effusion. Cardiac size: Mildly enlarged cardiac silhouette. Mediastinum/Aorta: Mild atherosclerosis aorta. Osteopenia. Degenerative changes at the glenohumeral joints. XR/XR chest 1V portable [id number] IMPRESSION: 1. Small LEFT pleural effusion with atelectasis or scarring at the lingula. Th gelacio findings are new since 09/06/2020 but similar to 12/30/2020. 2. Moderate atherosclerosis aorta and mild cardiomegaly.
[2021-01-02] MEDS: regadenoson 0.4 Mg/5 ml Syringe IVP (08:16)
--- NOTE | 2021-01-02 09:26 | PC.NURSE ---
return from cardiac stress test via w/c.pt tolerated procedure well
[2021-01-02] MEDS: carBAMazepine 200 mg Tablet 100 MG PO (09:52)
[2021-01-02] MEDS: gabapentin 100 mg Capsule PO ×2 (09:52→17:55)
[2021-01-02] MEDS: sennosides-docusate Tablet 1 TAB PO (09:52)
[2021-01-02] MEDS: apixaban 5 mg Tablet PO ×2 (09:53→17:56)
--- NOTE | 2021-01-02 09:57 | P.PN_ITS ---
Subjective Subjective: Interval history: Patient is confused. He has left facial swelling. Seen by ENT and has cellulitis of the left face. Stress test performed today showed small reversible defect in lateral wall. Echocardiogram shows significant decrease in cardiac function to 20% now. Vitals/I&O/Wt Last Vital Signs Temp 98 F 01/02/21 04:00 Pulse 106 H 01/02/21 08:34 Resp 18 01/02/21 08:00 BP 110/76 01/02/21 08:34 Pulse Ox 96 01/02/21 08:00 01/01/21 01/02/21 01/02/21 22:59 06:59 14:59 Intake Total 120 / 480 960 / 960 Output Total 200 / 570 450 / 450 Balance -80 / -90 510 / 510 Physical Exam Narrative: EXAM NARRATIVE: GENERAL: Patient is alert, awake and oriented x3. [] NECK: No jugular vein distension. [] HEENT: Swelling on left side of face. HEART: Regular S1 and S2. No murmur, rub or gallop. [] LUNGS: Clear to auscultate bilaterally. [] ABDOMEN: Soft, nontender and nondistended. Positive bowel sounds. No guarding, rebound or tenderness. [] CENTRAL NERVOUS SYSTEM: Grossly nonfocal. [] EXTREMITIES: Lower extremities with no edema bilaterally. Pulses palpable in the lower extremities, both dorsalis pedis and posterior tibial. [] Data : 01/03/21 04:58 01/03/21 04:58 A&P Assessment and plan (1) Facial pain: Status: Acute (2) Sprain of jaw, left side, initial encounter: Status: Acute (3) Atrial fibrillation: Status: Acute Qualifiers: Atrial fibrillation type: unspecified Qualified Code(s): I48.91 - Unspecified atrial fibrillation (4) Hypertension: Status: Acute (5) Cardiomyopathy: Status: Acute Patient has presented with jaw and left-sided facial discomfort. He was briefly no A. fib with RVR that was treated with Cardizem. He is on anticoagulation. He denies any ongoing chest pain and jaw/facial pain is constant. Atypical pain. No demonstrating facial swelling. Unlikely to be cardiac in origin. However he had troponin elevation with no significant delta. His stress test has demonstrated small reversible defect in lateral wall. Echocardiogram shows severely reduced LV systolic function which is 20% now. This is a decrease from echo performed in August when it was 45%. He will need coronary angiogram, however given increasing white cell count and facial swelling with possible active infection, will hold off on it for now. Continue current cardiac medications including Eliquis. NT proBNP is elevated. Continue Lasix. Patient does not appear clinically volume overloaded. AICD can be checked. Thank you for involving us with care of this patient. We will continue to follow. Please call with questions. Attestations Medical Necessity Statement*: Care expected to cross 2 midnights. Coding Level of Care Code Acute Paramedic Supervisor for [facility] Fwd Diagnoses Facial pain R51.9 Sprain of jaw, left side, initial encounter S03.42XA Atrial fibrillation I48.91 Atrial fibrillation type: unspecified Hypertension I10 Cardiomyopathy I42.9
[2021-01-02] MEDS: metoprolol tartrate 25 mg Tablet 12.5 MG PO ×2 (09:58→20:03)
--- NOTE | 2021-01-02 15:22 | CTR_ITS ---
PROCEDURE INFORMATION: Exam: CT Maxillofacial Without Contrast Exam date and time: 01/02/2021 3:51 PM Age: 85 years old Clinical indication: Other: Left side lower jaw swelling/confusion; Additional info: L side face pain, swellling TECHNIQUE: Imaging protocol: Computed tomography images of the face without contrast. Radiation optimization: All CT scans at this facility use at least one of these dose optimization techniques: automated exposure control; mA and/or kV adjustment per patient size (includes targeted exams where dose is matched to clinical indication); or iterative reconstruction. COMPARISON: No relevant prior studies available. RADIATION DOSE METRICS: Total DLP (mGy-cm): 2763.71 FINDINGS: Orbital cavity: The patient is likely status post bilateral cataract surgery. Bones/joints: No acute fracture. Paranasal sinuses: Normal. No air-fluid levels. Soft tissues: Soft tissue swelling is seen involving the inferior left face and left submandibular region. Vasculature: Vascular calcifications are present. Submandibular/Parotid glands: The left parotid and submandibular glands appear within normal limits. CT/CT facial bones wo con* [id number] IMPRESSION: Mild soft tissue swelling or inflammation involving the inferior left face Radiation Dose CTDIVOL = (mGy): DLP = 2763.71 (mGy-cm)
--- NOTE | 2021-01-02 15:32 | P.PN_ITS ---
Subjective Subjective: Interval history: Still having discomfort on the left side of his face. Also complaining of some chronic lower back pain. Denies chest pain. No trouble breathing. Vitals/I&O/Wt Last Vital Signs Temp 98 F 01/02/21 04:00 Pulse 91 01/02/21 14:00 Resp 18 01/02/21 08:00 BP 110/76 01/02/21 08:34 Pulse Ox 96 01/02/21 08:00 01/02/21 01/02/21 01/02/21 06:59 14:59 22:59 Intake Total 120 / 480 1560 / 1560 Output Total 200 / 570 450 / 450 Balance -80 / -90 1110 / 1110 Physical Exam Const: COMMON NORMALS: no acute distress and alert GENERAL APPEARANCE: cooperative ORIENTATION/CONSCIOUSNESS: Yes awake OTHER: Hard of hearing, but responds when spoken to loudly. Sitting up in chair. HENMT: COMMON NORMALS: oropharynx normal OTHER: No ear pain. No tragus pain. No mastoid pain, no redness or swelling. Still tenderness on palpation of the left side of the face, over maxilla, zygomatic arch, but also elsewhere including mandible. Today has some noted swelling left side compared to the right. No ulcers or lesions noted in the mouth after taking out dentures. No appreciable gum or palate swelling. There is some tenderness reported on palpation of left side of his face. Eyebrow raise is symmetrical. Neck/C-Spine: COMMON NORMALS: no JVD Resp: COMMON NORMALS: normal respiratory effort and clear to auscultation bilaterally AUSCULTATION: clear to auscultation bilaterally Cardio: COMMON NORMALS: no JVD, regular rhythm, S1 normal heart sound present, S2 normal heart sound present and No murmurs present (Cardio) RHYTHM: regular rhythm HEART SOUNDS: S1 normal heart sound present and S2 normal heart sound present GI: COMMON NORMALS: Normal to inspection, nondistended, normoactive bowel sounds present, Soft to palpation and non-tender PALPATION: Yes Soft to palpation Extremity: COMMON NORMALS: no joint enlargement and no pedal edema Neuro: COMMON NORMALS: moves all extremities SENSORIUM/ORIENTATION: Yes alert OTHER: Today there is some swelling over the left cheek, but did not see obvious facial droop. Skin: COMMON NORMALS: no rashes or lesions noted GENERAL SKIN EXAM: no rashes or lesions noted Data : 01/02/21 04:15 01/02/21 04:15 A&P Assessment and plan (1) Facial pain: Pain and tenderness in left side of face persist. There is no erythema. No mouth lesions. No mastoid swelling or tenderness. No ear pain or drainage. Today there is some notable asymmetry with swelling of the left cheek compared to the right. Discussed with his . No lesions were noted on original CT on admission, although she herself also noticed that today as opposed to last several days he has some notable swelling on the left. Discussed with ENT and will be curious to hear their opinion. In the meantime ordering CT sinuses as per the request. Discussed again with radiology CT of the left shoulder. Small cystic fluid collection appears more likely related to chronic degenerative changes of the left shoulder. He does not have shoulder pain on palpation or range of motion. There is no erythema or swelling noted externally. Not sure this is related to his presenting complaint. Discussed with his also regarding noted small normality on stress testing with possible small area of ischemia. Per cardiology we are assessing more closely with additional echocardiogram. Leukocytosis today increased up to 15.9. Does not have a clear cause for this. Urinalysis was unremarkable. Chest x-ray with minimal area of atelectasis, minimal pleural effusion on the left side. He is afebrile. No noted dysphagia so far, and denies same as well. Doubt that left perihumeral/shoulder collection is related to his symptoms. He does not have tenderness there locally, there is no erythema, swelling. Not clear etiology of this at this time, however. He denies trauma. We assessed his pacemaker pocket additionally and there is no fluid, or relation to the. Humeral fluid to the pacemaker pocket. Discussed with radiology, we will additionally assessed by plain CT of the shoulder, although consideration is that this is most likely an unrelated musculoskeletal associated finding. Continue carbamazepine. Continue gabapentin. Buccal mucosa does not show any abscess collection No subcutaneous swelling or lymphadenopathy noted Status: Acute (2) Atrial fibrillation: Heart rates a little better, but blood pressure soft. Metoprolol 12.5 mg twice daily for now. Monitor. Continue Eliquis. Status: Acute Qualifiers: Atrial fibrillation type: unspecified Qualified Code(s): I48.91 - Unsp ecified atrial fibrillation Additional A&P Information Left lower lung atelectasis, tiny pleural effusion: Add incentive spirometry. Monitor for progression of symptoms that may suggest pneumonia. Leukocytosis: He remains afebrile, heart rate somewhat irregular with atrial fibrillation. Currently continue work-up for possible underlying infection as the cause. UA unremarkable. Some atelectasis noted on chest x-ray left lower lobe. Added incentive spirometer. For now not on antibiotics. If any progressive symptoms of ischemia, discussed with his , may consider additional evaluation/treatment. So far has not had any noted suggestion of aspiration. Episodes of delirium: Noted intermittent confusion, with underlying dementia. Additional work-up as above. Continue one-to-one sitter for now. PVCs: Multiple PVCs noted on PPM interrogation. Monitor on telemetry. Continue beta-phu. Additional assessment for progression of coronary disease as above. Hypotension: Stopped lisinopril. Eplerenone. Change carvedilol to metoprolol. Hold doxazosin. Reduced ejection fraction heart failure: No acute exacerbation. Continue Lasix 40 mg a day Lewy body Parkinson's dementia no acute decompensation Attestations Medical Necessity Statement*: Continue admission for assessment of management of persistent left-sided facial pain, tenderness, now with swelling, rising leukocytosis, additional work-up for coronary disease and optimization of contro l of atrial fibrillation with RVR. Coding Level of Care Code Acute Horologist Apprentice for [facility] Fwd Diagnoses Facial pain R51.9 Atrial fibrillation I48.91 Atrial fibrillation type: unspecified
--- NOTE | 2021-01-02 15:42 | USCV_ITS ---
Arcadio Kelley Age: 85 Gender: M : 1935 Exam Date: 01/02/2021 16:17 Ordering Phys: Zac Grove MD Technologist: Jada Nicole Exam Location: [facility] [place] Indication: ABNORMAL STRESS TEST BP: / HR: 105 Rhythm: Sinus Technical Quality: Adequate MEASUREMENTS (Male / Female) Normal Values 2D ECHO LV Diastolic Diameter PLAX 4.6 cm 4.2 - 5.9 / 3.9 - 5.3 cm LV Systolic Diameter PLAX 3.9 cm LV Chamber Size 3.0 cm IVS Diastolic Thickness 2.2 cm 0.6 - 1.0 / 0.6 - 0.9 cm IVS Systolic Thickness 1.8 cm LVPW Diastolic Thickness 2.6 cm 0.6 - 1.0 / 0.6 - 0.9 cm LVPW Systolic Thickness 2.5 cm RV Chamber Size 3.2 cm LVOT Diameter 2.0 cm LV Ejection Fraction 2D Teich 32.4 % LV Ejection Fraction MOD 2C 31.3 % LV Ejection Fraction 2C AL 31.4 % LA Diameter 4.1 cm LA Width 3.8 cm LA Height 4.9 cm RA Width 3.4 cm RA Height 5.2 cm Aorta at Sinotubular Diameter 2.3 cm M-MODE LV Diastolic Diameter MM 5.4 cm 4.2 - 5.9 / 3.9 - 5.3 cm LV Systolic Diameter MM 4.4 cm LV Ejection Fraction MM Teich 38.0 % IVS Diastolic Thickness MM 1.2 cm 0.6 - 1.0 / 0.6 - 0.9 cm IVS Systolic Thickness MM 1.8 cm LVPW Diastolic Thickness MM 1.2 cm 0.6 - 1.0 / 0.6 - 0.9 cm LVPW Systolic Thickness MM 1.4 cm Aortic Annulus Diameter 2.3 cm LA Ao Ratio MM 1.7 MV E Point Septal Separation 1.2 cm DOPPLER AV Peak Velocity 87.0 cm/s LVOT Peak Velocity 53.0 cm/s AV Area Cont Eq vti 1.7 cm squared AV Area Cont Eq pk 1.9 cm squared MV Area PHT 2.7 cm squared Mitral E to A Ratio 3.4 MV E' Velocity 47.0 cm/s Mitral E to MV E' Ratio 14.2 Mitral E to LV E' Lateral Ratio 13.0 Mitral E to LV E' Septal Ratio 16.1 TR Peak Velocity 233.0 cm/s TR Peak Gradient 21.7 mmHg TV Peak E Velocity 74.0 cm/s Right Atrial Pressure 3.0 mmHg Pulmonary Artery Systolic Pressu 24.7 mmHg PV Peak Velocity 44.0 cm/s RV Acceleration Time 0.2 s RV Ejection Time 0.4 s RV AcT/ET 0.5 FINDINGS Left Ventricle Normal left ventricular cavity size. Markedly increased left ventricular wall thickness. Severely decreased left ventricular systolic function. Left ventricular ejection fraction is estimated at 20 %. Severe global hypokinesis. Abnormal septal motion consistent with pacemaker. Grade III diastolic dysfunction (restrictive filling pattern), severely elevated filling pressures. Right Ventricle Moderately increased right ventricular size. Moderately decreased right ventricular systolic function. Right ventricular systolic pressure 40 mmHg. Pacemaker wire visualized in the right ventricle. Right Atrium Severely increased right atrial size. Right atrial pressure estimated at 15 mmHg. Pacemaker wire in the right atrial cavity. Left Atrium Left atrium not well visualized. Moderately increased left atrial size. Mitral Valve Thickened mitral valve. No mitral valve stenosis. Trace mitral valve regurgitation. Aortic Valve Structurally normal trileaflet aortic valve. No aortic valve stenosis. Tricuspid Valve Thickened tricuspid valve. Mild tricuspid valve regurgitation. Pulmonic Valve Pulmonic valve not well visualized. Pericardium Trivial to small circumferential pericardial effusion. Aorta Normal-sized aortic root. Dilated inferior vena cava with decreased respiratory variation. CONCLUSIONS 1. Normal left ventricular cavity size. Markedly increased left ventricular wall thickness. Severely decreased left ventricular systolic function. Left ventricular ejection fraction is estimated at 20 %. Severe global hypokinesis. Grade III diastolic dysfunction (restrictive filling pattern), severely elevated filling pressures. 2. Pulmonary artery pressure estimated at 40 mmHg. 3. Trivial to small circumferential pericardial effusion. 4. When compared to previous echocardiogram dated 09/07/2020, left and right ventricular systolic function seems to have decreased. Shira Espinoza MD (Electronically Signed) Final Date: 02 January 2021 19:18 S
[2021-01-02] MEDS: dutasteride 0.5 mg Capsule PO (17:55)
[2021-01-02] MEDS: carBAMazepine 200 mg Tablet PO (17:55)
--- NOTE | 2021-01-02 18:57 | PC.NURSE ---
pt had cardiac echo and ct of face today.tolerated well.cooperative.when came back to room..pt c/o being cold.hr increased 110.shivered for a few minutes.several blankets applied.afebrile.staff member stated he also did this last evening about same time.he settled down and was no longer cold.
--- NOTE | 2021-01-02 19:38 | PC.NURSE ---
Patient has no complaints at this time. One-on-one sitter at bedside. Will monitor.
[2021-01-03] VITALS (9 sets, daily range): BP systolic 93–125; BP diastolic 7–95; PULSE 73–125; RESP 18–27; TEMP 36.6–36.8; O2SAT 82–98
[2021-01-03 05:42] LABS: Basophils % 0.1 %; Eosinophils % 0.1 %; Hematocrit 47.8 % (42.0-52.0); Hemoglobin 14.8 g/dL (11.7-16.6); Lymphocytes % 5.3 %; Mean Corpuscular Hemoglobin 31.8 pg (28.0-34.0); Mean Corpuscular Volume 102.8 fL (80-94); Monocytes # 2.2 10^3/uL (0.2-0.9); Monocytes % 12.2 %; Neutrophils # 14.73 10^3/uL (1.8-7.7); Neutrophils % 81.6 %; Nucleated Red Blood Cells % 0 %; Platelet Count 202 10^3/cmm (130-400); Red Blood Count 4.65 10^6/uL (4.1-5.3); Red Cell Distribution Width 14.6 % (12.1-15.1)
[2021-01-03 06:09] LABS: Alanine Aminotransferase 14 U/L (0-41); Albumin Level 3.6 g/dL (3.5-5.2); Alkaline Phosphatase 63 IU/L (40-130); Anion Gap 17.9 (5-19); Aspartate Amino Transferase 18 U/L (0-40); Blood Urea Nitrogen 40 mg/dL (8-23); Calcium 9.1 mg/dL (8.5-10.5); Carbon Dioxide 24 mmol/L (22-29); Chloride 96 mmol/L (98-107); Glucose 95 mg/dL (65-115); Osmolality Calculated 286 mOsm/kg (285-295); Potassium 4.9 mmol/L (3.5-5.1); Sodium 133 mmol/L (136-145); Total Bilirubin 1.6 mg/dL (0.15-1.2); Total Protein 6.6 g/dL (6.6-8.7)
--- NOTE | 2021-01-03 06:55 | PM.CONSULT ---
Providers/Reason For Consult Consulting Physican/Specialty*: Dr. Vaibhav Gore/otolaryngology Reason for Consult*: Facial swelling Attending Physician: Zac Grove Primary Care Provider: Gregor Varela DO History of Present Illness History of Present Illness Arcadio Kelley is a 85 year old male Review of Systems Narrative: 85-year-old male patient complains of pain and swelling of his left cheek and face extending down to the mandible area. Meds/Allergies Home Medications and Allergies Home Medications Medication Instructions Recorded Confirmed Last Taken Type benazepril 5 mg PO DAILY@11/29/19 12/30/20 12/29/20 History dutasteride 0.5 mg PO DAILY@11/29/19 12/30/20 12/29/20 History eplerenone 25 mg PO DAILY@11/29/19 12/30/20 12/30/20 History acetaminophen 1,000 mg PO TID PRN 04/12/20 12/30/20 09/05/20 History doxazosin 4 mg PO DAILY@09/06/20 12/30/20 12/29/20 History rivastigmine tartrate 3 mg capsule 3 mg PO BID #60 cap 11/07/20 12/30/20 Unknown Rx apixaban [Eliquis] 5 mg PO BID@08,12/30/20 12/30/20 12/30/20 History carvedilol 6.25 mg PO BID@08,12/30/20 12/30/20 12/30/20 History furosemide 40 mg PO BID@08,12/30/20 12/30/20 12/30/20 History Allergies Allergy/AdvReac Type Severity Reaction Status Date / Time adhesive tape Allergy Severe ALGY-Bliste Verified 12/11/20 15:23 r iodine Allergy severe Verified 12/11/20 15:23 vomiting Current Medications Current Medications Generic Name Dose Route Start Last Admin Trade Name Freq PRN Reason Stop Dose Admin Hydrocodone Bitart/Acetaminophen 1 tab 12/31/20 10:46 01/02/21 09:58 Hydrocodone-Acetaminophen 5-325 Mg Tablet PO 1 tab Q6H PRN Administration MODERATE PAIN Apixaban 5 mg 12/31/20 08:00 01/02/21 17:56 Apixaban 5 Mg Tablet PO 5 mg BID@08,17 LISET Administration Carbamazepine 200 mg 01/02/21 18:00 01/02/21 17:55 Carbamazepine 200 Mg Tablet PO 200 mg BID LISET Administration Doxazosin Mesylate 4 mg 12/31/20 17:00 01/01/21 18:08 Doxazosin 4 Mg Tablet PO Not Given DAILY@17 LISET Dutasteride 0.5 mg 12/31/20 17:00 01/02/21 17:55 Dutasteride 0.5 Mg Capsule PO 0.5 mg DAILY@17 LISET Administration Furosemide 40 mg 12/31/20 09:00 01/01/21 09:13 Furosemide 40 Mg Tablet PO 40 mg DAILY LISET Administration Gabapentin 100 mg 12/30/20 21:25 01/02/21 17:55 Gabapentin 100 Mg Capsule PO 100 mg BID LISET Administration Metoprolol Tartrate 12.5 mg 01/01/21 21:00 01/02/21 20:03 Metoprolol Tartrate 25 Mg Tablet PO 12.5 mg BID@0900,2100 LISET Administration Morphine Sulfate 2 mg 12/30/20 20:53 12/31/20 19:33 Morphine 4 Mg/Ml Sdv 1 Ml IVP 2 mg Q6H PRN Administration chest pain Rivastigmine Tartrate 3 mg 12/31/20 09:00 01/02/21 17:55 Rivastigmine 1.5 Mg Capsule PO 3 mg BID LISET Administration Senna/Docusate Sodium 1 tab 12/31/20 09:00 01/02/21 09:52 Sennosides-Docusate Tablet PO 1 tab DAILY LISET Administration PFSH Acute PFSH: Medical History Atrial fibrillation Cardiomyopathy Stable currently Compression fracture 04/12/2020 T12 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 fib episode Thoracic compression fracture Vertigo Warfarin anticoagulation Warfarin discontinued. 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 Family History Mother CAD (coronary artery disease) Social History Smoking and tobacco status: never smoked Alcohol intake: never Household members: spouse Marital status: Current occupational status: retired History of recent travel: No Phoebe/Faith: Unknown Vitals/I&O/Wt Last Vital Signs Temp 98.3 F 01/03/21 04:00 Pulse 109 H 01/03/21 05:31 Resp 24 H 01/03/21 04:00 BP 96/7 01/03/21 04:00 Pulse Ox 93 01/03/21 04:00 01/02/21 01/02/21 01/03/21 14:59 22:59 06:59 Intake Total 1560 / 1560 240 / 1800 200 / 2000 Output Total 450 / 450 300 / 750 Balance 1110 / 1110 240 / 1350 -100 / 1250 Physical Exam Narrative: EXAM NARRATIVE: Brawny edema and erythema with mucositis intraorally with firmness extending out into the entire cheek and mandibular area. This is very tender to touch for the patient. The patient's CAT scan recently obtained of his face and sinuses shows no evidence of any acute sinusitis. There is no evidence of any otitis media or mastoiditis. There is no evidence of a dental abscess. No problems with the submandibular gland or parotid gland evident. The opposite side is soft and nontender and normal. A&P Assessment and plan (1) Facial cellulitis: Assessment: Patient appears to have a facial cellulitis of the left cheek and mandibular area. This begins with mucositis in the mouth. The tissue is about twice as thick as the opposite side and it is tender to touch with erythema intraorally and brawny edema with firmness. No evidence of sinusitis parotitis submandibular sialoadenitis or dental abscess. There is also a factor of the fact that the patient is laying with that side down in bed. This will contribute to more edema as well. This diagnosis is in keeping with his elevated white count. Plan: I recommend a broad-spectrum antibiotic such as Augmentin and high-dose. Status: Acute (2) Oral mucositis: Status: Acute (3) Facial pain: Status: Acute Coding Level of Care Code New Pt Acute Academic Records Specialist for [facility] Fwd Patient Type New Medical Decision Making Low Complexity Diagnoses Facial cellulitis L03.211 Oral mucositis K12.30 Facial pain R51.9
[2021-01-03] MEDS: gabapentin 100 mg Capsule PO ×2 (09:20→17:16)
[2021-01-03] MEDS: FUROsemide 40 mg Tablet PO ×2 (09:21→17:16)
[2021-01-03] MEDS: apixaban 5 mg Tablet PO ×2 (09:21→17:16)
[2021-01-03] MEDS: metoprolol tartrate 25 mg Tablet 12.5 MG PO ×2 (09:22→20:07)
[2021-01-03] MEDS: sennosides-docusate Tablet 1 TAB PO (09:22)
[2021-01-03] MEDS: amoxicillin-clav 875-125 mg Tablet 1 TAB PO ×2 (09:22→17:16)
--- NOTE | 2021-01-03 10:39 | DCPLANNER ---
IMM completed with pt on 01/03/21 @ 2771. Copy of rights given to pt.
--- NOTE | 2021-01-03 11:18 | XR_ITS ---
WS: [id number] PORTABLE CHEST HISTORY: SOB COMPARISON: 01/02/2021 and 09/06/2020 Dual lead LEFT subclavian pacer with defibrillator. Small portion of the LEFT lung is obscured by the generator. Lungs are clear and well expanded. No pleural effusion or pneumothorax. Cardiac size: Moderately enlarged cardiac silhouette. Mediastinum/Aorta: Mild atherosclerosis aorta. Advanced degenerative changes at the LEFT glenohumeral joint. XR/XR chest 1V portable [id number] IMPRESSION: Moderate cardiomegaly. No pneumonia.
--- NOTE | 2021-01-03 12:10 | PM.PN ---
Subjective Subjective: Interval history: Patient's echocardiogram showed severely reduced LV systolic function. His facial swelling has worsened. His creatinine is also trending up. WBC count up to 18,000. He is confused today. Vitals/I&O/Wt Last Vital Signs Temp 97.8 F 01/03/21 09:25 Pulse 125 H 01/03/21 09:25 Resp 27 H 01/03/21 09:25 BP 96/77 01/03/21 09:25 Pulse Ox 82 L 01/03/21 09:25 01/02/21 01/03/21 01/03/21 22:59 06:59 14:59 Intake Total 240 / 1800 200 / 2000 Output Total 300 / 750 Balance 240 / 1350 -100 / 1250 Physical Exam Narrative: EXAM NARRATIVE: GENERAL: Patient is alert, awake and oriented x3. [] NECK: No jugular vein distension. [] HEENT: Swelling on left side of face. HEART: Regular S1 and S2. No murmur, rub or gallop. [] LUNGS: Clear to auscultate bilaterally. [] ABDOMEN: Soft, nontender and nondistended. Positive bowel sounds. No guarding, rebound or tenderness. [] CENTRAL NERVOUS SYSTEM: Grossly nonfocal. [] EXTREMITIES: Lower extremities with no edema bilaterally. Pulses palpable in the lower extremities, both dorsalis pedis and posterior tibial. [] Data : 01/04/21 03:40 01/04/21 03:40 A&P Assessment and plan (1) Facial pain: Status: Acute (2) Sprain of jaw, left side, initial encounter: Status: Acute (3) Atrial fibrillation: Status: Acute Qualifiers: Atrial fibrillation type: unspecified Qualified Code(s): I48.91 - Unspecified atrial fibrillation (4) Hypertension: Status: Acute (5) Cardiomyopathy: Status: Acute Patient has presented with jaw and left-sided facial discomfort. He was briefly no A. fib with RVR that was treated with Cardizem. He is on anticoagulation. Has cellulitis of the left side of face. Being followed by ENT. His stress test has demonstrated small reversible defect in lateral wall. Echocardiogram shows severely reduced LV systolic function which is 20% now. This is a decrease from echo performed in August when it was 45%. He will need coronary angiogram, however given increasing white cell count, worsening kidney function and facial swelling with possible active infection, will hold off on it for now. Can be performed as outpatient. Continue current cardiac medications including Eliquis. NT proBNP is elevated. Continue Lasix. If heart rate becomes elevated, can uptitrate beta-phu. Thank you for involving us with care of this patient. We will continue to follow. Please call with questions. Attestations Medical Necessity Statement*: Care expected to cross 2 midnights. Coding Level of Care Code Acute Art Psychotherapist Or Therapist for [facility] Diagnoses Facial pain R51.9 Sprain of jaw, left side, initial encounter S03.42XA Atrial fibrillation I48.91 Atrial fibrillation type: unspecified Hypertension I10 Cardiomyopathy I42.9
--- NOTE | 2021-01-03 12:22 | P.PN_ITS ---
Subjective Subjective: Interval history: He is unable to provide history, however, when asked about it does state that his face is still hurting. Denies chest pain. To me denies shortness of breath, however, his later states that he told her he was short of breath. Vitals/I&O/Wt Last Vital Signs Temp 97.8 F 01/03/21 09:25 Pulse 125 H 01/03/21 09:25 Resp 27 H 01/03/21 09:25 BP 96/77 01/03/21 09:25 Pulse Ox 82 L 01/03/21 09:25 01/02/21 01/03/21 01/03/21 22:59 06:59 14:59 Intake Total 240 / 1800 200 / 2000 Output Total 300 / 750 Balance 240 / 1350 -100 / 1250 Physical Exam Const: COMMON NORMALS: no acute distress and alert GENERAL APPEARANCE: cooperative ORIENTATION/CONSCIOUSNESS: Yes awake OTHER: Hard of hearing, but responds when spoken to loudly. Sitting up in chair. HENMT: COMMON NORMALS: oropharynx normal OTHER: Swelling left side cheek, mild erythema present today. Neck/C-Spine: COMMON NORMALS: no JVD Resp: COMMON NORMALS: normal respiratory effort and clear to auscultation bilaterally AUSCULTATION: clear to auscultation bilaterally Cardio: COMMON NORMALS: no JVD, regular rhythm, S1 normal heart sound present, S2 normal heart sound present and No murmurs present (Cardio) RHYTHM: regular rhythm HEART SOUNDS: S1 normal heart sound present and S2 normal heart sound present GI: COMMON NORMALS: Normal to inspection, nondistended, normoactive bowel sounds present, Soft to palpation and non-tender PALPATION: Yes Soft to palpation Extremity: COMMON NORMALS: no joint enlargement and no pedal edema Neuro: COMMON NORMALS: moves all extremities SENSORIUM/ORIENTATION: Yes alert OTHER: Today there is some swelling over the left cheek, but did not see obvious facial droop. Skin: COMMON NORMALS: no rashes or lesions noted GENERAL SKIN EXAM: no rashes or lesions noted Data : 01/03/21 04:58 01/03/21 04:58 A&P Assessment and plan (1) Facial pain: He has had some further swelling of the left cheek, some mild erythema. Continues to have tenderness. Worse leukocytosis today. Assessed by ENT. Appreciate recommendations regarding facial cellulitis. Started Augmentin. Doubt that left perihumeral/shoulder collection is related to his symptoms. He does not have tenderness there locally, there is no erythema, swelling. Not clear etiology of this at this time, however. He denies trauma. We assessed his pacemaker pocket additionally and there is no fluid, or relation to the. Humeral fluid to the pacemaker pocket. Discussed with radiology, we will additi onally assessed by plain CT of the shoulder, although consideration is that this is most likely an unrelated musculoskeletal associated finding. We will taper down carbamazepine. Continue gabapentin. Status: Acute (2) Atrial fibrillation: Treat underlying infection. Metoprolol 12.5 mg twice daily for now. Mo nitor. Continue Eliquis. Status: Acute Qualifiers: Atrial fibrillation type: unspecified Qualified Code(s): I48.91 - Unspecified atrial fibrillation Additional A&P Information Shortness of breath: His reports he complained of being short of breath during her visit today. He did not states so to me a little bit earlier. He also recorded low saturation earlier this morning. Discussed with her will assess additionally by chest x-ray. Does not appear to have pneumonia. Cardiomegaly present. He has been having some edema, will discussed with her rising creatinine and risk of further kidney injury with diuresis. She would like to proceed with additional Lasix. Also recommended by cardiology. Left lower lung atelectasis, tiny pleural effusion: incentive spirometry. Monitor for progression of symptoms that may suggest pneumonia. Leukocytosis: Appears to be due to facial cellulitis. As above. Episodes of delirium: Noted intermittent confusion, with underlying dementia. A dditional work-up as above. Continue one-to-one sitter for now. PVCs: Multiple PVCs noted on PPM interrogation. Monitor on telemetry. Continue beta-phu. Additional assessment for progression of coronary disease as above. Hypotension: Stopped lisinopril. Eplerenone. Change carvedilol to metoprolol. Hold doxazosin. Reduced ejection fraction heart failure: Increase Lasix to 40 mg twice a day. Noted worsening ejection fraction on repeat TTE. Discussed with his . EF 20%, grade 3 diastolic dysfunction. Given worsening EF may benefit from additional assessment for progression of coronary disease. Discussed with cardiology. Is perhaps can be arranged during an outpatient visit once he is doing better in terms of his infection. 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 fib with RVR, CHF. 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
--- NOTE | 2021-01-03 15:24 | PC.RESP ---
Pt is unable to use IS. Multipkle attempts made with pt.
[2021-01-03] MEDS: dutasteride 0.5 mg Capsule PO (17:17)
--- NOTE | 2021-01-03 19:52 | PC.NURSE ---
dose was not administered during day shift.
[2021-01-03] MEDS: carBAMazepine 200 mg Tablet 100 MG PO (20:07)
[2021-01-04] VITALS (9 sets, daily range): BP systolic 93–127; BP diastolic 71–81; PULSE 86–112; RESP 18–24; TEMP 36.5–36.9; O2SAT 96–98
[2021-01-04 03:59] LABS: Basophils % 0.2 %; Hematocrit 46.7 % (42.0-52.0); Hemoglobin 15.1 g/dL (11.7-16.6); Lymphocytes # 0.9 10^3/uL (0.8-4.8); Lymphocytes % 4.4 %; Mean Corpuscular HGB Conc 32.3 g/dL (30.0-36.0); Mean Corpuscular Hemoglobin 31.9 pg (28.0-34.0); Mean Corpuscular Volume 98.5 fL (80-94); Mean Platelet Volume 10.5 fL (7.4-10.4); Monocytes # 2.5 10^3/uL (0.2-0.9); Monocytes % 12.4 %; Neutrophils # 16.48 10^3/uL (1.8-7.7); Neutrophils % 82.3 %; Nucleated Red Blood Cells % 0 %; Platelet Count 210 10^3/cmm (130-400); Red Blood Count 4.74 10^6/uL (4.1-5.3); Red Cell Distribution Width 14.6 % (12.1-15.1)
[2021-01-04 04:21] LABS: Alanine Aminotransferase 16 U/L (0-41); Albumin Level 3.2 g/dL (3.5-5.2); Alkaline Phosphatase 65 IU/L (40-130); Anion Gap 16.7 (5-19); Aspartate Amino Transferase 18 U/L (0-40); Blood Urea Nitrogen 46 mg/dL (8-23); Calcium 8.8 mg/dL (8.5-10.5); Carbon Dioxide 26 mmol/L (22-29); Chloride 98 mmol/L (98-107); Globulin 2.9 g/dL (1.3-4.6); Glucose 91 mg/dL (65-115); Osmolality Calculated 293 mOsm/kg (285-295); Potassium 4.7 mmol/L (3.5-5.1); Sodium 136 mmol/L (136-145); Total Bilirubin 1.6 mg/dL (0.15-1.2); Total Protein 6.1 g/dL (6.6-8.7)
[2021-01-04] MEDS: apixaban 5 mg Tablet PO ×2 (08:30→17:57)
[2021-01-04] MEDS: metoprolol tartrate 25 mg Tablet 12.5 MG PO ×2 (08:30→21:40)
[2021-01-04] MEDS: amoxicillin-clav 875-125 mg Tablet 1 TAB PO ×2 (08:31→17:45)
[2021-01-04] MEDS: gabapentin 100 mg Capsule PO (08:34)
[2021-01-04] MEDS: sennosides-docusate Tablet 1 TAB PO (10:50)
[2021-01-04] MEDS: FUROsemide 40 mg Tablet PO (10:50)
--- NOTE | 2021-01-04 13:18 | PC.CHAP ---
Pastoral Care Encounter/Spiritual Assessment Type of Contact [] Declined breakdown person visit [] Patient/Family/Request visit [] Outpatient visit [xx] Follow-up visit [] Physician referral [] Code/Alert [xx] Routine visit [] Staff referral [] Actively dying [] Patient sleeping [] Family support [] [] Out of room [] Palliative care [] [] Receiving care in room [] Pre-surgical visit [] Trauma [xx] Long length of stay [] ICU visit [] Other: Relational/Emotional Strength [] Patient feels connected with others/family/visitors/staff [] Distress [] Loneliness/isolation [] Abandonment Spirituality of Patient [] Person of Phoebe [] Attends Islam of their Phoebe [xx] Believes in Prayer [] Reads Bible or Hinduism materials [] There are Spiritual issues to be addressed Radiation Monitor Interventions [xx] Prayer [xx] Active listening [] Non-anxious presence [] Spiritual/emotional support [] Crisis/trauma care [] Spiritual counseling [] Bereavement support [] Provided bereavement packet [] Provided Bible/devotional materials [] Provided toy/stuffed animal, coloring book to patient or family member [] Provided Communion [] Anointing/[place] [] Salvation [xx] Completed spiritual assessment [] Other: Impact on Illness or Injury [] Angry [] Fearful [] Anxious [] Often cries [] Exhaustion [] Unable to work [] Unable to attend faith [] Unable to walk/stand [] Unable to read [] Unable to drive [] Unable to eat/drink [] Unable to sleep [] Unable to be with family [] Patient intubated [] Other: Summary Patient was confused and incoherent. time buyer attendant with him who requested prayer for patient and herself. Radiation Monitor complied, praying for both. Full spiritual assessment could not be accomplished due to patient's mental status. Time spent with patient 6 minutes
[2021-01-04] MEDS: dutasteride 0.5 mg Capsule PO (17:46)
--- NOTE | 2021-01-04 20:51 | PM.PN ---
Subjective Subjective: Interval history: He is slightly somnolent, but wakes up easily, answers questions. Denies pain or discomfort. Is not short of breath. Denies chest pain. Says facial pain has improved. Vitals/I&O/Wt Last Vital Signs Temp 98.5 F 01/04/21 19:10 Pulse 108 H 01/04/21 19:10 Resp 24 H 01/04/21 19:10 BP 102/77 01/04/21 19:10 Pulse Ox 96 01/04/21 19:10 01/04/21 01/04/21 01/04/21 06:59 14:59 22:59 Intake Total 480 / 480 Output Total 100 / 400 150 / 150 200 / 350 Balance -100 / -310 330 / 330 -200 / 130 Physical Exam Const: COMMON NORMALS: no acute distress GENERAL APPEARANCE: cooperative OTHER: Reclined in bed. HENMT: COMMON NORMALS: oropharynx normal OTHER: Swelling left side cheek, similar, perhaps with minimal improvement, resolved mild erythema present Neck/C-Spine: COMMON NORMALS: no JVD Resp: COMMON NORMALS: normal respiratory effort and clear to auscultation bilaterally AUSCULTATION: clear to auscultation bilaterally Cardio: COMMON NORMALS: no JVD, regular rhythm, S1 normal heart sound present, S2 normal heart sound present and No murmurs present (Cardio) RHYTHM: regular rhythm HEART SOUNDS: S1 normal heart sound present and S2 normal heart sound present GI: COMMON NORMALS: Normal to inspection, nondistended, normoactive bowel sounds present, Soft to palpation and non-tender PALPATION: Yes Soft to palpation Extremity: COMMON NORMALS: no joint enlargement GENERAL: Yes edema (2+) Neuro: COMMON NORMALS: moves all extremities OTHER: No facial droop. Skin: COMMON NORMALS: no rashes or lesions noted GENERAL SKIN EXAM: no rashes or lesions noted Data : 01/04/21 03:40 01/04/21 03:40 Micro: Microbiology 01/04/21 19:47 Blood Culture - Preliminary Blood SPECIMEN COLLECTED 01/04/21 19:55 Blood Culture - Preliminary Blood SPECIMEN COLLECTED A&P Assessment and plan (1) Facial pain: Facial cellulitis today with minimal improvement. Less erythema. Swelling is about the same, perhaps mildly less. He does have, however, worsening of leukocytosis. Blood pressures are soft, 102/77. Heart rates ranging between 100-110. He denies chest pain. He states facial pain is actually better. He is more somnolent today, however, due to which we tapered off carbamazepine, and are discontinuing gabapentin. We will hold hydrocodone for now as well. Doubt that left perihumeral/shoulder collection is related to his symptoms. He does not have tenderness there locally, there is no erythema, swelling. Not clear etiology of this at this time, however. He denies trauma. We assessed his pacemaker pocket additionally and there is no fluid, or relation to the. Humeral fluid to the pacemaker pocket. Discussed with radiology, we will additionally assessed by plain CT of the shoulder, although consideration is that this is most likely an unrelated musculoskeletal associated finding. We will taper down carbamazepine. Continue gabapentin. Status: Acute (2) Lethargy: Despite tapering carbamazepine, and some minimal improvement in cellulitis, he is somewhat more lethargic. We tapered off carbamazepine entirely today. Discontinued low-dose gabapentin. For now hold hydrocodone as well. With worsening leukocytosis, soft blood pressures. Worsening renal function. Unfortunately concern is that he may be developing low output heart failure. Discussed with cardiology. Likely once we see that infection is under little bit better control he may benefit from additional assessment of ischemic cardiomyopathy before leaving the hospital. Status: Acute (3) Leukocytosis: Leukocytosis worsening today up to 20,000. Possible sepsis. Requested to collect blood culture. Switch antibiotic to intravenous therapy with Zosyn. Leukocytosis may be secondary to cellulitis, although this also is showing some minimal improvement. He does not appear to have pneumonia on chest x-ray. UA not suggestive of UTI. There are no changes on examination of the shoulder to suggest that the fluid collection may be septic arthritis. He has had no swelling, erythema, or tenderness on palpation or passive range of motion. He does not appear to have meningeal signs. He remains afebrile. 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 We will request additional evaluation by CT chest abdomen pelvis. Status: Acute (4) Atrial fibrillation: Treat underlying infection. Metoprolol 12.5 mg twice daily for now. Monitor. Heart rates 100-110. If rising further or persisting in that range without improvement, consider addition of amiodarone as discussed with cardiology. Continue Eliquis. Status: Acute Qualifiers: Atrial fibrillation type: unspecified Qualified Code(s): I48.91 - Unspecified atrial fibrillation Additional A&P Information Shortness of breath: denies shortness of breath. No pneumonia. With worsening acute kidney injury, decrease Lasix to once daily dosing. DOMINICK: Creatinine up to 1.5. For now decrease Lasix to once daily dose due to worsening creatinine. Again concern for possibility of progression to low output failure. Left lower lung atelectasis, improved. Episodes of delirium: Noted intermittent confusion, with underlying dementia. Additional work-up as above. Continue one-to-one sitter for now. PVCs: Multiple PVCs noted on PPM interrogation. Monitor on telemetry. Continue beta-phu. Additional assessment for progression of coronary disease as above. Hypotension: Stopped lisinopril. Eplerenone. Change carvedilol to metoprolol. Hold doxazosin. Reduced ejection fraction heart failure: Lasix decreased to 40 mg due to worsening renal function, although will not discontinue entirely as he has 2+ ankle edema. Noted worsening ejection fraction on repeat TTE. EF 20%, grade 3 diastolic dysfunction. Plan for additional assessment likely with coronary angiogram for which will also require premedication due to iodine allergy once infection under better control. 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 Attestations Medical Necessity Statement*: Continue admission for assessment management of facial cellulitis, possible sepsis, worsened congestive heart failure, worsening renal failure, lethargy, A. fib with RVR with underlying comorbidities as above. 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
--- NOTE | 2021-01-04 21:05 | CTR_ITS ---
PROCEDURE INFORMATION: Exam: CT Chest Without Contrast; Diagnostic Exam date and time: 01/04/2021 9:10 PM Age: 85 years old Clinical indication: Abdominal pain; Chest pain; Prior surgery; Surgery type: Pacer; Additional info: High leukocytosis, soft BP, persistent tachycardia TECHNIQUE: Imaging protocol: Diagnostic computed tomography of the chest without contrast. Radiation optimization: All CT scans at this facility use at least one of these dose optimization techniques: automated exposure control; mA and/or kV adjustment per patient size (includes targeted exams where dose is matched to clinical indication); or iterative reconstruction. COMPARISON: CR XR chest 1V portable [id number] 01/03/2021 11:28 AM RADIATION DOSE METRICS: Total DLP (mGy-cm): 1591.31 FINDINGS: Tubes, catheters and devices: A pacemaker is again seen in the left chest. Lungs: Unremarkable. No consolidation. No masses. Pleural spaces: There is small bilateral pleural effusions with adjacent atelectasis, right greater than left. Heart: Moderate cardiomegaly is present. Coronary atherosclerotic calcifications seen. There is a small pericardial effusion. Aorta: Moderate diffuse atherosclerotic disease is present. Ectatic ascending aorta measuring up to 4.0 cm in diameter. Lymph nodes: Unremarkable. No enlarged lymph nodes. Bones/joints: There is mild levocurvature of the upper thoracic spine. Degenerative changes of the spine seen. The thoracic kyphosis is mildly accentuated. There is chronic mild loss of height of the T12 superior endplate. Old fracture deformities noted in the left ribcage. Soft tissues: There is mild stranding of the subcutaneous fat, consistent with edema. IMPRESSION: 1. Bibasilar atelectasis. Pneumonia should be excluded clinically. 2. Anasarca. 3. Ectatic ascending aorta. 4. Moderate cardiomegaly, with small pericardial effusion. PROCEDURE INFORMATION: Exam: CT Abdomen And Pelvis Without Contrast Exam date and time: 01/04/2021 9:10 PM Age: 85 years old Clinical indication: Abdominal pain; Chest pain; Prior surgery; Surgery type: Pacer; Additional info: High leukocytosis, soft BP, persistent tachycardia TECHNIQUE: Imaging protocol: Computed tomography of the abdomen and pelvis without contrast. Radiation optimization: All CT scans at this facility use at least one of these dose optimization techniques: automated exposure control; mA and/or kV adjustment per patient size (includes targeted exams where dose is matched to clinical indication); or iterative reconstruction. COMPARISON: CR XR chest 1V portable [id number] 01/03/2021 11:28 AM RADIATION DOSE METRICS: Total DLP (mGy-cm): 1591.31 FINDINGS: Liver: The liver demonstrates volume redistribution and nodular contour, consistent with cirrhosis. No discrete mass lesion identified. Gallbladder and bile ducts: Normal. No calcified stones. No ductal dilation. Pancreas: Normal. No ductal dilation. Spleen: A small accessory splenule is noted in the left upper quadrant. The spleen is unremarkable. Adrenal glands: There is symmetric thickening of the adrenal glands, suggestive of hyperplasia. Kidneys and ureters: There is an incompletely characterize 1.5 cm hyperdense lesion in the left mid kidney.. There is a 0.6 cm nonobstructing stone in the left mid kidney, and a 0.2 cm nonobstructing stone in the right upper kidney. There is a 2.3 cm simple cyst in the right upper kidney. No hydronephrosis. Stomach and bowel: Unremarkable. No obstruction. No mucosal thickening. Appendix: No evidence of appendicitis. Intraperitoneal space: Mild diffuse edema of the mesenteric fat is present. Trace free fluid noted in the pelvis. Vasculature: Moderate diffuse atherosclerotic disease is present. A retroaortic left renal vein is incidentally noted. Lymph nodes: Unremarkable. No enlarged lymph nodes. Urinary bladder: There is increased trabeculation of the urinary bladder wall, which given prostatomegaly, is consistent with chronic bladder outlet obstruction changes. Reproductive: An enlarged prostate with coarse calcifications is seen. Bones/joints: Unremarkable. No acute fracture. Soft tissues: There is diffuse stranding of the subcutaneous fat, consistent with edema. CT/CT chest abd pel wo con IMPRESSION: 1. Cirrhotic liver. 2. Anasarca. COMMENTS: Consistent with the [place] [employer]'s Incidental Findings Committee white paper (J Am Shey Radiol 2018): Any incidental renal lesion less than 1 cm or classified as too small to characterize, or any incidental cystic renal lesion characterized as simple-appearing, is likely benign. No follow-up imaging is recommended for these lesions per consensus recommendations based on imaging criteria. Radiation Dose CTDIVOL = (mGy): DLP = 1591.31~1591.31 (mGy-cm)
[2021-01-04] MEDS: piperacillin-tazobactam 3.375 GM in sodium chloride 0.9% (plus) 50 ML IV (21:46)
--- NOTE | 2021-01-04 22:46 | P.PN_ITS ---
Subjective Subjective: Interval history: Patient is somnolent. Denies chest pain. Still has left facial pain and swelling Vitals/I&O/Wt Last Vital Signs Temp 98.5 F 01/04/21 19:10 Pulse 108 H 01/04/21 19:10 Resp 24 H 01/04/21 19:10 BP 102/77 01/04/21 19:10 Pulse Ox 96 01/04/21 19:10 01/04/21 01/04/21 01/04/21 06:59 14:59 22:59 Intake Total 480 / 480 Output Total 100 / 400 150 / 150 200 / 350 Balance -100 / -310 330 / 330 -200 / 130 Physical Exam Narrative: EXAM NARRATIVE: GENERAL: Patient is alert, awake and oriented x3. [] NECK: No jugular vein distension. [] HEENT: Swelling on left side of face. HEART: Regular S1 and S2. No murmur, rub or gallop. [] LUNGS: Clear to auscultate bilaterally. [] ABDOMEN: Soft, nontender and nondistended. Positive bowel sounds. No guarding, rebound or tenderness. [] CENTRAL NERVOUS SYSTEM: Grossly nonfocal. [] EXTREMITIES: Lower extremities with no edema bilaterally. Pulses palpable in the lower extremities, both dorsalis pedis and posterior tibial. [] Data : 01/05/21 04:24 01/05/21 04:24 Micro: Microbiology 01/04/21 19:47 Blood Culture - Preliminary Blood SPECIMEN COLLECTED 01/04/21 19:55 Blood Culture - Preliminary Blood SPECIMEN COLLECTED A&P Assessment and plan (1) Facial pain: Status: Acute (2) Sprain of jaw, left side, initial encounter: Status: Acute (3) Atrial fibrillation: Status: Acute Qualifiers: Atrial fibrillation type: unspecified Qualified Code(s): I48.91 - Unspecified atrial fibrillation (4) Hypertension: Status: Acute (5) Cardiomyopathy: Status: Acute Patient has presented with jaw and left-sided facial discomfort. He is on anticoagulation. Has cellulitis of the left side of face. Being followed by ENT. His stress test has demonstrated small reversible defect in lateral wall. Echocardiogram shows severely reduced LV systolic function which is 20% now. This is a decrease from echo performed in August when it was 45%. He will need coronary angiogram, however given increasing white cell count, worsening kidney function and facial swelling with possible active infection, will hold off on it for now. Will plan for LHC once patient's is stable from infection standpoint Continue current cardiac medications including Eliquis. NT proBNP is elevated. Continue Lasix. If heart rate becomes elevated, can uptitrate beta-phu. Might need ini tiation of amiodarone if develops uncontrolled heart rates Thank you for involving us with care of this patient. We will continue to follow. Please call with questions. 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
[2021-01-05] VITALS (11 sets, daily range): BP systolic 103–114; BP diastolic 67–86; PULSE 92–125; RESP 16–28; TEMP 36.6–37; O2SAT 95–97
[2021-01-05] MEDS: piperacillin-tazobactam 3.375 GM in sodium chloride 0.9% (plus) 50 ML IV ×3 (02:41→18:41)
[2021-01-05 04:49] LABS: Basophils % 0.1 %; Eosinophils # 0.1 10^3/uL (0.0-0.8); Eosinophils % 0.7 %; Hematocrit 43.5 % (42.0-52.0); Hemoglobin 14.1 g/dL (11.7-16.6); Lymphocytes % 6.4 %; Mean Corpuscular HGB Conc 32.4 g/dL (30.0-36.0); Mean Corpuscular Volume 98.9 fL (80-94); Mean Platelet Volume 10.3 fL (7.4-10.4); Monocytes % 13.3 %; Neutrophils # 11.71 10^3/uL (1.8-7.7); Neutrophils % 78.6 %; Nucleated Red Blood Cells % 0 %; Platelet Count 202 10^3/cmm (130-400); Red Cell Distribution Width 14.6 % (12.1-15.1); White Blood Count 14.9 10^3/uL (4.0-10.0)
[2021-01-05 05:16] LABS: Alanine Aminotransferase 12 U/L (0-41); Albumin Level 2.8 g/dL (3.5-5.2); Alkaline Phosphatase 65 IU/L (40-130); Anion Gap 14.7 (5-19); Aspartate Amino Transferase 14 U/L (0-40); Blood Urea Nitrogen 40 mg/dL (8-23); Calcium 8.2 mg/dL (8.5-10.5); Carbon Dioxide 27 mmol/L (22-29); Chloride 99 mmol/L (98-107); Globulin 2.6 g/dL (1.3-4.6); Glucose 108 mg/dL (65-115); Osmolality Calculated 294 mOsm/kg (285-295); Potassium 3.7 mmol/L (3.5-5.1); Sodium 137 mmol/L (136-145); Total Bilirubin 1.4 mg/dL (0.15-1.2); Total Protein 5.4 g/dL (6.6-8.7)
[2021-01-05] MEDS: metoprolol tartrate 25 mg Tablet 12.5 MG PO ×2 (08:17→20:10)
[2021-01-05] MEDS: apixaban 5 mg Tablet PO ×2 (08:18→16:40)
[2021-01-05] MEDS: FUROsemide 40 mg Tablet PO (08:18)
[2021-01-05] MEDS: sennosides-docusate Tablet 1 TAB PO (08:19)
--- NOTE | 2021-01-05 10:30 | PC.SOCIAL ---
IMM Updated Updated pt on Pg 2 IMM. No questions voiced. Provided pt a copy. Signed, dated, & timed copy in chart.
--- NOTE | 2021-01-05 13:59 | PC.NURSE ---
PHYSICIAN ROUNDING Nurse was present in the room for physician rounding with the Technology Engineer and Medical doctor. Patient was assessed and Dr. Chavez spoke with the regarding the patients care and possible need for angiogram in the future. was not present while Dr. Grove was assessing pt. The voiced to me that she did not want her to have an angiogram. I informed Dr. Grove and he is going to call the . Nurse will continue to monitor.
--- NOTE | 2021-01-05 14:44 | PC.NURSE ---
PT 1:1 order has been lifted and pt is placed on bedalarm/chair alarm. Patient has been educated on the importance of using the call kelley when he needs assistance and verbalizes understanding but needs reinforcement at times.
[2021-01-05 14:56] LABS: Ammonia 11 umol/L (16-60)
--- NOTE | 2021-01-05 15:49 | PC.NURSE ---
PT had CT of abdomen and pelvis today. Tolerated it well and is resting in bed with no complaints.
[2021-01-05] MEDS: dutasteride 0.5 mg Capsule PO (16:40)
--- NOTE | 2021-01-05 16:44 | P.PN_ITS ---
Subjective Subjective: Interval history: Today he is feeling little bit better. He is more awake. Tenderness in the left side of his face is improving, however, still residual. He denies chest pain or pressure. He knows he is in the hospital. He thinks the year is 2000. He denies any trouble breathing. Denies any pain or discomfort in his left shoulder. Vitals/I&O/Wt Last Vital Signs Temp 97.9 F 01/05/21 15:38 Pulse 115 H 01/05/21 15:38 Resp 24 H 01/05/21 15:38 BP 107/67 01/05/21 15:38 Pulse Ox 97 01/05/21 15:38 01/05/21 01/05/21 01/05/21 06:59 14:59 22:59 Intake Total 100 / 580 480 / 480 50 / 530 Output Total 500 / 500 50 / 550 Balance 100 / 5 -20 / -20 0 / -20 Physical Exam Const: COMMON NORMALS: no acute distress GENERAL APPEARANCE: cooperative ORIENTATION/CONSCIOUSNESS: Yes awake OTHER: Reclined in bed. HENMT: COMMON NORMALS: oropharynx normal OTHER: Swelling left side cheek, similar, perhaps with minimal improvement, resolved mild erythema present Neck/C-Spine: COMMON NORMALS: no JVD Resp: COMMON NORMALS: normal respiratory effort and clear to auscultation bilaterally AUSCULTATION: clear to auscultation bilaterally Cardio: COMMON NORMALS: no JVD, regular rhythm, S1 normal heart sound present, S2 normal heart sound present and No murmurs present (Cardio) RHYTHM: regular rhythm HEART SOUNDS: S1 normal heart sound present and S2 normal heart sound present GI: COMMON NORMALS: Normal to inspection, nondistended, normoactive bowel sounds present, Soft to palpation and non-tender PALPATION: Yes Soft to palpation Extremity: COMMON NORMALS: no joint enlargement GENERAL: Yes edema (2+) Neuro: COMMON NORMALS: moves all extremities OTHER: No facial droop. Skin: COMMON NORMALS: no rashes or lesions noted GENERAL SKIN EXAM: no rashes or lesions noted Data : 01/05/21 04:24 01/05/21 04:24 Micro: Microbiology 01/04/21 19:47 Blood Culture - Preliminary Blood SPECIMEN COLLECTED 01/04/21 19:55 Blood Culture - Preliminary Blood SPECIMEN COLLECTED A&P Assessment and plan (1) Pneumonia: Recently with D, noted to have moderate continue taking medications, eating requiring a bit more assistance last several days. Today is more alert. On CT chest abdomen pelvis on 01/04 noted bibasilar atelectasis, with possible pneumonia. With concern for aspiration pneumonia, speech therapy assessment was obtained. He did well with mechanical soft diet. Antibiotic changed to Zosyn. Clinically appears to be improving. More alert. Leukocytosis is decreasing. Maintain aspiration precautions. Status: Acute (2) Facial pain: Facial cellulitis appears to be gradually improving. Swelling is coming down closer to normal. He still has some tenderness. Erythema has since resolved. Carbamazepine and gabapentin discontinued with improvement in mental status. 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 Discussed with his concern for progression to low output failure, with lethargy, kidney injury, so blood pressures, tachycardia. Anasarca noted on CT chest abdomen pelvis. At this time continue Lasix. Discussed with his risks and benefits of additional evaluation with coronary angiography, if reperfusion is a possibility, perhaps helping improve ejection fraction, however, discussed also the risks, she understands among others vessel perforation, plaque dislodgment, CT, CVA, bleeding, infection. She may think further about the procedure, but considers that this may be eusebio ething he would have wanted, and thus something to be pursued during this hospitalization. Status: Acute (4) Leukocytosis: Improving, secondary to cellulitis, pneumonia. Status: Acute (5) Lethargy: Possibly multifactorial. Appears to be improving with treatment of infection. May have had component also secondary to medication adverse effect including gabapentin, carbamazepine. Additionally possible low output heart failure. Today he is doing better. Continue treatment of infections. Supportive care. Status: Acute (6) Atrial fibrillation: Monitor. Continue metoprolol 12.5 mg twice daily for now. Continue Eliquis. Status: Acute Qualifiers: Atrial fibrillation type: unspecified Qualified Code(s): I48.91 - Unspecified atrial fibrillation (7) Liver cirrhosis: Incidentally noted on CT abdomen pelvis. Check ammonia. Suspect secondary to CHF. Discussed with his . Status: Acute Additional A&P Information DOMINICK: Improved. Creatinine down to 1.2. For now decrease Lasix to once daily dose due to worsening creatinine. Again concern for possibility of progression to low output failure. Episodes of delirium: With improvement. One-to-one sitter for now discontinued. Monitor. PVCs: Multiple PVCs noted on PPM interrogation. Monitor on telemetry. Continue beta-phu. Additional assessment for progression of coronary disease as above. Hypotension: Hold lisinopril. Eplerenone. Changed carvedilol to metoprolol. Hold doxazosin. Reduced ejection fraction heart failure: Continue Lasix. Anasarca noted on CT chest abdomen pelvis. Noted worsening ejection fraction on repeat TTE. EF 20%, grade 3 diastolic dysfunction. Consideration of coronary angiogram prior to discharge. With also require premedication due to iodine allergy. At this time continue treatment of underlying infection. Lewy body Parkinson's dementia Discussed his condition, assessment plan with his and she is agreeable with proceeding as above. All questions answered. Attestations Medical Necessity Statement*: Continue admission for assessment management of pneumonia, facial cellulitis, in the setting of severe cardiomyopathy with worsening of ejection fraction for which would benefit from additional evaluation once infection is better controlled. 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
--- NOTE | 2021-01-05 17:22 | P.PN_ITS ---
Subjective Subjective: Interval history: Patient denies any complaint. Heart rate remained stable Vitals/I&O/Wt Last Vital Signs Temp 97.9 F 01/05/21 15:38 Pulse 115 H 01/05/21 15:38 Resp 24 H 01/05/21 15:38 BP 107/67 01/05/21 15:38 Pulse Ox 97 01/05/21 15:38 01/05/21 01/05/21 01/05/21 06:59 14:59 22:59 Intake Total 100 / 580 480 / 480 50 / 530 Output Total 500 / 500 250 / 750 Balance 100 / 5 -20 / -20 -200 / -220 Physical Exam Narrative: EXAM NARRATIVE: GENERAL: Patient is alert, awake and oriented x3. Patient is sitting on the chair he is hard of hearing NECK: No jugular vein distension. HEENT: No cyanosis. No icterus. No pallor. HEART: Regular S1 and S2. No murmur, rub or gallop. LUNGS: Clear to auscultate bilaterally. ABDOMEN: Soft, nontender and nondistended. Positive bowel sounds. No guarding, rebound or tenderness. CENTRAL NERVOUS SYSTEM: Grossly nonfocal. EXTREMITIES: Lower extremities without edema bilaterally. Data : 01/05/21 04:24 01/05/21 04:24 Micro: Microbiology 01/04/21 19:47 Blood Culture - Preliminary Blood SPECIMEN COLLECTED 01/04/21 19:55 Blood Culture - Preliminary Blood SPECIMEN COLLECTED A&P Assessment and plan (1) Facial pain: Status: Acute (2) Sprain of jaw, left side, initial encounter: Status: Acute (3) Atrial fibrillation: Status: Acute Qualifiers: Atrial fibrillation type: unspecified Qualified Code(s): I48.91 - Unspecified atrial fibrillation (4) Hypertension: Status: Acute (5) Cardiomyopathy: Status: Acute Stable from a cardiovascular perspective. Dr. Hernandez is planning to take him to [facility] once cleared infection singh. Atrial fibrillation is under control. Continue current regimen. 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
[2021-01-05] MEDS: HYDROcodone-acetaminophen 5-325 mg Tablet 1 TAB PO (20:10)
[2021-01-06] VITALS (11 sets, daily range): BP systolic 70–130; BP diastolic 55–93; PULSE 90–126; RESP 14–33; TEMP 36.6–37.1; O2SAT 92–97
[2021-01-06] MEDS: piperacillin-tazobactam 3.375 GM in sodium chloride 0.9% (plus) 50 ML IV ×3 (01:32→18:04)
[2021-01-06 04:28] LABS: Basophils % 0.2 %; Eosinophils # 0.1 10^3/uL (0.0-0.8); Eosinophils % 0.6 %; Hematocrit 43.7 % (42.0-52.0); Hemoglobin 14.3 g/dL (11.7-16.6); Lymphocytes # 1.1 10^3/uL (0.8-4.8); Lymphocytes % 6.8 %; Mean Corpuscular HGB Conc 32.7 g/dL (30.0-36.0); Mean Corpuscular Hemoglobin 31.5 pg (28.0-34.0); Mean Corpuscular Volume 96.3 fL (80-94); Mean Platelet Volume 10.2 fL (7.4-10.4); Monocytes # 2.1 10^3/uL (0.2-0.9); Monocytes % 13.1 %; Neutrophils # 12.29 10^3/uL (1.8-7.7); Neutrophils % 78.4 %; Nucleated Red Blood Cells % 0 %; Platelet Count 214 10^3/cmm (130-400); Red Blood Count 4.54 10^6/uL (4.1-5.3); Red Cell Distribution Width 14.6 % (12.1-15.1); White Blood Count 15.7 10^3/uL (4.0-10.0)
[2021-01-06 04:49] LABS: Alanine Aminotransferase 13 U/L (0-41); Albumin Level 2.8 g/dL (3.5-5.2); Alkaline Phosphatase 58 IU/L (40-130); Aspartate Amino Transferase 17 U/L (0-40); Blood Urea Nitrogen 34 mg/dL (8-23); Calcium 7.8 mg/dL (8.5-10.5); Carbon Dioxide 24 mmol/L (22-29); Chloride 97 mmol/L (98-107); Globulin 2.6 g/dL (1.3-4.6); Glucose 97 mg/dL (65-115); Osmolality Calculated 282 mOsm/kg (285-295); Sodium 132 mmol/L (136-145); Total Bilirubin 1.1 mg/dL (0.15-1.2); Total Protein 5.4 g/dL (6.6-8.7)
[2021-01-06 04:52] LABS: Anion Gap 14.7 (5-19)
[2021-01-06 04:53] LABS: Potassium 3.7 mmol/L (3.5-5.1)
[2021-01-06] MEDS: FUROsemide 40 mg Tablet PO ×2 (08:12→17:21)
[2021-01-06] MEDS: metoprolol tartrate 25 mg Tablet 12.5 MG PO ×2 (08:12→20:01)
[2021-01-06] MEDS: apixaban 5 mg Tablet PO ×2 (08:13→17:22)
--- NOTE | 2021-01-06 10:56 | PC.NURSE ---
Physician Rounding Rounded w/ Dr. Weber in PT room. Plan is to continue treatment of infection and possible angiogram w/ Dr. Hernandez. Pt has no complaints but may need reinforcement about plan of care.
[2021-01-06] MEDS: acetaminophen 325 mg Tablet 650 MG PO ×2 (11:45→18:02)
--- NOTE | 2021-01-06 13:57 | PC.NURSE ---
Reassessed patients pain after tylenol was give. PT said that his pain is much better but still rates it at an 8. PT is also alternating a heating pad for his lower back. This is a chronic pain.
--- NOTE | 2021-01-06 16:27 | PM.PN ---
Subjective Subjective: Interval history: Denies any complaint. Medications: Reviewed: Yes Vitals/I&O/Wt Last Vital Signs Temp 98.7 F 01/06/21 14:47 Pulse 96 01/06/21 14:47 Resp 26 H 01/06/21 14:47 BP 94/59 01/06/21 14:47 Pulse Ox 97 01/06/21 14:47 01/06/21 01/06/21 01/06/21 06:59 14:59 22:59 Intake Total 50 / 1090 770 / 770 Output Total 150 / 1450 50 / 50 250 / 300 Balance -100 / -360 720 / 720 -250 / 470 Physical Exam Narrative: EXAM NARRATIVE: GENERAL: Patient is alert, awake and oriented x3. Patient is sitting on the chair he is hard of hearing NECK: No jugular vein distension. HEENT: No cyanosis. No icterus. No pallor. HEART: Regular S1 and S2. No murmur, rub or gallop. LUNGS: Clear to auscultate bilaterally. ABDOMEN: Soft, nontender and nondistended. Positive bowel sounds. No guarding, rebound or tenderness. CENTRAL NERVOUS SYSTEM: Grossly nonfocal. EXTREMITIES: Lower extremities without edema bilaterally. Data : 01/06/21 04:17 01/06/21 04:17 Micro: Microbiology 01/04/21 19:47 Blood Culture - Preliminary Blood NEGATIVE TO DATE 01/04/21 19:55 Blood Culture - Preliminary Blood NEGATIVE TO DATE A&P Assessment and plan (1) Facial pain: Status: Acute (2) Sprain of jaw, left side, initial encounter: Status: Acute (3) Atrial fibrillation: Status: Acute Qualifiers: Atrial fibrillation type: unspecified Qualified Code(s): I48.91 - Unspecified atrial fibrillation (4) Hypertension: Status: Acute (5) Cardiomyopathy: Status: Acute Stable. Continue current regimen. Awaiting clearance from medicine from infection perspective before proceeding with left heart cath Attestations Medical Necessity Statement*: Require continuation hospitalization for above defined care. 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
[2021-01-06] MEDS: dutasteride 0.5 mg Capsule PO (17:21)
--- NOTE | 2021-01-06 18:22 | PC.NURSE ---
PT c/o jaw pain 07/09. I gave him tylenol and applied a cold compress. PT is now resting in bed, call light in reach, watching tv. Will continue to monitor.
[2021-01-06] MEDS: HYDROcodone-acetaminophen 5-325 mg Tablet 1 TAB PO (20:01)
--- NOTE | 2021-01-06 21:12 | PM.PN ---
Subjective Subjective: Interval history: He is being visited by his . He denies any chest pain or pressure. He says breathing is comfortable. He still has some facial discomfort in the left side, and discomfort while chewing with his dentures in. Vitals/I&O/Wt Last Vital Signs Temp 98.1 F 01/06/21 20:00 Pulse 124 H 01/06/21 20:00 Resp 33 H 01/06/21 20:00 BP 70/55 01/06/21 20:00 Pulse Ox 96 01/06/21 20:00 01/06/21 01/06/21 01/06/21 06:59 14:59 22:59 Intake Total 50 / 1090 770 / 770 360 / 1130 Output Total 150 / 1450 50 / 50 300 / 350 Balance -100 / -360 720 / 720 60 / 780 Physical Exam Const: COMMON NORMALS: no acute distress and alert GENERAL APPEARANCE: cooperative and comfortable ORIENTATION/CONSCIOUSNESS: Yes awake OTHER: Sitting up at edge of bed. HENMT: COMMON NORMALS: oropharynx normal OTHER: Resolved swelling left side cheek. Resolved mild erythema. Mild to moderate tenderness on palpation Neck/C-Spine: COMMON NORMALS: no JVD Resp: COMMON NORMALS: normal respiratory effort and clear to auscultation bilaterally AUSCULTATION: clear to auscultation bilaterally Cardio: COMMON NORMALS: no JVD, regular rhythm, S1 normal heart sound present, S2 normal heart sound present and No murmurs present (Cardio) RHYTHM: regular rhythm HEART SOUNDS: S1 normal heart sound present and S2 normal heart sound present GI: COMMON NORMALS: Normal to inspection, nondistended, normoactive bowel sounds present, Soft to palpation and non-tender PALPATION: Yes Soft to palpation Extremity: COMMON NORMALS: no joint enlargement GENERAL: Yes edema (2+) Neuro: COMMON NORMALS: moves all extremities SENSORIUM/ORIENTATION: Yes alert OTHER: No facial droop. Skin: COMMON NORMALS: no rashes or lesions noted GENERAL SKIN EXAM: no rashes or lesions noted Data : 01/06/21 04:17 01/06/21 04:17 Micro: Microbiology 01/04/21 19:47 Blood Culture - Preliminary Blood NEGATIVE TO DATE 01/04/21 19:55 Blood Culture - Preliminary Blood NEGATIVE TO DATE A&P Assessment and plan (1) Pneumonia: Overall improving, white count has decreased, but somewhat plateaued. Today at 15.7. He is afebrile. Denies trouble breathing. Continue aspiration precautions. Oxygenation remains good on room air. Possible aspiration pneumonia. On CT chest abdomen pelvis on 01/04 noted bibasilar atelectasis, with possible pneumonia. He did well with mechanical soft diet. Continue Zosyn. Clinically appears to be improving. More alert. Maintain aspiration precautions. Status: Acute (2) Hypotension: This morning blood pressure was better, and evening again hypotensive. Earlier today Lasix was resumed at twice daily dosing due to anasarca noted on imaging. Unfortunately appears not tolerating diuresis very well. Concern as discussed with his is for low output heart failure. Continue on empiric antibiotics for possible sepsis. Will give a dose of albumin tonight. Discussed with nursing staff to monitor blood pressure, notify night physician if Miniter pressure is decreasing below 65 mmHg. May repeat albumin if needed. In case blood pressures continue to be low despite this, consideration may be given to dobutamine infusion. Once it is obvious that infection is improving, additional evaluation for progression of coronary disease which may be contributing to worsening of ejection fraction, heart failure, is tentatively planned prior to discharge if his condition allows. For now we will decrease Lasix back to once daily dosing. Hold lisinopril. Eplerenone. Changed carvedilol to metoprolol. Hold doxazosin. Status: Acute (3) Atrial fibrillation: A. fib with RVR improved. Per discussion with nursing staff has been maintaining heart rate 70s-80s. Continue cardiac monitoring. Continue metoprolol 12.5 mg twice daily for now. Continue Eliquis. Status: Acute Qualifiers: Atrial fibrillation type: unspecified Qualified Code(s): I48.91 - Unspecified atrial fibrillation (4) Facial pain: Facial cellulitis appears to be gradually improving. Swelling is coming down closer to normal. He still has some tenderness. Erythema has resolved. Carbamazepine and gabapentin discontinued with improvement in mental status. Status: Acute (5) Congestive heart failure with cardiomyopathy: Severe cardiomyopathy with decrease in ejection fraction, down to 20%, also grade 3 diastolic dysfunction. Discussed with his concern for progression to low output failure, with lethargy, kidney injury, soft blood pressures, tachycardia. Anasarca noted on CT chest abdomen pelvis. At this time continue Lasix. Possible coronary angiography during this hospitalization. Status: Acute (6) Leukocytosis: Improving, secondary to cellulitis, pneumonia. Status: Acute (7) Lethargy: Resolved. Secondary to infection including pneumonia, facial cellulitis, medications including gabapentin, carbamazepine. Additionally possible low output heart failure. Status: Acute (8) Liver cirrhosis: Incidentally noted on CT abdomen pelvis. Check ammonia. Suspect secondary to CHF. Discussed with his . Status: Acute Additional A&P Information Lower extremity swelling: Right greater than left, will assess lower extremity duplex ultrasound. Risk of VTE should be low given he is already on anticoagulation, but possible. DOMINICK: Improved. For now decrease Lasix to once daily dose due to worsening creatinine. Again concern for possibility of progression to low output failure. Episodes of delirium: Improved. One-to-one sitter for now discontinued. Monitor. PVCs: Multiple PVCs noted on PPM interrogation. Monitor on telemetry. Continue beta-phu. Additional assessment for progression of coronary disease as above. Magnesium recheck, appears normal. Reduced ejection fraction heart failure: Continue Lasix. Anasarca noted on CT chest abdomen pelvis. Noted worsening ejection fraction on repeat TTE. EF 20%, grade 3 diastolic dysfunction. Consideration of coronary angiogram prior to discharge. With also require premedication due to iodine allergy. At this time continue treatment of underlying infection. Lewy body Parkinson's dementia Discussed his condition, assessment plan with his . Attestations Medical Necessity Statement*: Continue admission for management of hypotension, worsened CHF, pneumonia, facial cellulitis, A. fib with RVR, improving acute kidney injury, in a gentleman with advanced age, identified liver cirrhosis, with Lewy body dementia and additional comorbidities. 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
[2021-01-07] VITALS (10 sets, daily range): BP systolic 96–126; BP diastolic 66–90; PULSE 100–117; RESP 15–29; TEMP 36.6–37.1; O2SAT 95–98
[2021-01-07] MEDS: piperacillin-tazobactam 3.375 GM in sodium chloride 0.9% (plus) 50 ML IV ×3 (01:59→18:08)
[2021-01-07 06:05] LABS: Basophils % 0.3 %; Eosinophils # 0.2 10^3/uL (0.0-0.8); Eosinophils % 1.4 %; Hematocrit 44.4 % (42.0-52.0); Hemoglobin 14.5 g/dL (11.7-16.6); Lymphocytes # 1.5 10^3/uL (0.8-4.8); Mean Corpuscular HGB Conc 32.7 g/dL (30.0-36.0); Mean Corpuscular Hemoglobin 31.9 pg (28.0-34.0); Mean Corpuscular Volume 97.8 fL (80-94); Mean Platelet Volume 10.4 fL (7.4-10.4); Monocytes # 1.7 10^3/uL (0.2-0.9); Monocytes % 11.9 %; Neutrophils # 10.42 10^3/uL (1.8-7.7); Neutrophils % 74.1 %; Nucleated Red Blood Cells % 0 %; Platelet Count 237 10^3/cmm (130-400); Red Blood Count 4.54 10^6/uL (4.1-5.3); Red Cell Distribution Width 14.6 % (12.1-15.1)
[2021-01-07 07:25] LABS: Alanine Aminotransferase 11 U/L (0-41); Albumin Level 3.4 g/dL (3.5-5.2); Alkaline Phosphatase 56 IU/L (40-130); Anion Gap 14.8 (5-19); Aspartate Amino Transferase 12 U/L (0-40); Blood Urea Nitrogen 31 mg/dL (8-23); Calcium 8.2 mg/dL (8.5-10.5); Carbon Dioxide 27 mmol/L (22-29); Chloride 98 mmol/L (98-107); Globulin 2.4 g/dL (1.3-4.6); Glucose 96 mg/dL (65-115); Osmolality Calculated 288 mOsm/kg (285-295); Potassium 3.8 mmol/L (3.5-5.1); Sodium 136 mmol/L (136-145); Total Protein 5.8 g/dL (6.6-8.7)
--- NOTE | 2021-01-07 07:29 | PC.NURSE ---
patient was sitting on the side of the bed with gown pulled off and some telemetry leads. patient is A&O. denies any pain at this time. call light within reach.
[2021-01-07] MEDS: sennosides-docusate Tablet 1 TAB PO (08:02)
[2021-01-07] MEDS: metoprolol tartrate 25 mg Tablet 12.5 MG PO ×2 (08:03→19:58)
[2021-01-07] MEDS: FUROsemide 40 mg Tablet PO (08:03)
[2021-01-07] MEDS: apixaban 5 mg Tablet PO ×2 (08:03→17:24)
[2021-01-07] MEDS: nystatin 100,000 unit/mL UDC 5 mL 400000 UNIT PO ×4 (08:05→19:58)
--- NOTE | 2021-01-07 10:40 | DCPLANNER ---
IMM completed on 01/07/21 @ 6841. Called Pt's , Daphne Deluna and reviewed rights. Copy of rights given to pt.
--- NOTE | 2021-01-07 10:46 | PM.PN ---
Subjective Subjective: Interval history: Patient is doing well. He is more alert and oriented today. Denies any chest pain, shortness of breath or palpitations. Still has facial pain. Vitals/I&O/Wt Last Vital Signs Temp 98.7 F 01/07/21 10:38 Pulse 107 H 01/07/21 10:38 Resp 29 H 01/07/21 10:38 BP 112/67 01/07/21 10:38 Pulse Ox 97 01/07/21 10:38 01/06/21 01/07/21 01/07/21 22:59 06:59 14:59 Intake Total 660 / 1430 200 / 1630 360 / 360 Output Total 550 / 600 500 / 1100 Balance 110 / 830 -300 / 530 360 / 360 Physical Exam Narrative: EXAM NARRATIVE: GENERAL: Patient is alert, awake and oriented x3. Patient is sitting on the chair he is hard of hearing NECK: No jugular vein distension. HEENT: No cyanosis. No icterus. No pallor. HEART: Regular S1 and S2. No murmur, rub or gallop. LUNGS: Clear to auscultate bilaterally. ABDOMEN: Soft, nontender and nondistended. Positive bowel sounds. No guarding, rebound or tenderness. CENTRAL NERVOUS SYSTEM: Grossly nonfocal. EXTREMITIES: Lower extremities without edema bilaterally. Data : 01/08/21 04:41 01/08/21 04:41 A&P Assessment and plan (1) Facial pain: Status: Deleted (2) Sprain of jaw, left side, initial encounter: Status: Acute (3) Atrial fibrillation: Status: Acute Qualifiers: Atrial fibrillation type: unspecified Qualified Code(s): I48.91 - Unspecified atrial fibrillation (4) Hypertension: Status: Acute (5) Cardiomyopathy: Status: Acute Patient has presented with jaw and left-sided facial discomfort. He is on anticoagulation. Has cellulitis of the left side of face. Being followed by ENT. His stress test has demonstrated small reversible defect in lateral wall. Echocardiogram shows severely reduced LV systolic function which is 20% now. This is a decrease from echo performed in August when it was 45%. He will need coronary angiogram pending clearance from infection standpoint. Continue current cardiac medications. Continue diuresis. Heart rate has been elevated. Can initiate amiodarone. Thank you for involving us with care of this patient. We will continue to follow. Please call with questions. 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
[2021-01-07] MEDS: efferdent effervescent 1 EACH DENTAL ×2 (11:21→17:45)
--- NOTE | 2021-01-07 11:23 | PC.NURSE ---
dr. Tripp gave verbal order to change lasix to ivp with first dose now. try to get patient to take dentures out to let his mouth rest. MRSA swab today and possible CT scan tomorrow.
[2021-01-07] MEDS: FUROsemide 10 mg/mL SDV 4mL 40 MG IVP (11:28)
[2021-01-07 11:34] LABS: Procalcitonin 0.25 ng/mL (0-0.5)
[2021-01-07] MEDS: vancomycin 1,250 MG/250 ML PIGGYBACK 250 MG IV (13:56)
[2021-01-07] MEDS: HYDROcodone-acetaminophen 5-325 mg Tablet 1 TAB PO ×2 (16:01→22:08)
--- NOTE | 2021-01-07 16:46 | PC.NURSE ---
patient complained of generalized body pain. Pain pill administered per order.
[2021-01-07] MEDS: dutasteride 0.5 mg Capsule PO (17:24)
--- NOTE | 2021-01-07 17:39 | P.PN_ITS ---
Subjective Subjective: Interval history: Hospital course, labs and vitals noted. Today morning patient was visited with at bedside. Patient states her facial swelling has reduced. But continues to have pain in the lower jaw. He states he is feeling better worse as he is not able to catch his breath though he is saturating 96% on room air. Blood pressure on my visit is 104/65 mmHg with heart rate 109 bpm with occasional arrhythmias with PVCs. He denies of any nausea, vomiting, headache. Medications: Reviewed: Yes Vitals/I&O/Wt Last Vital Signs Temp 98.6 F 01/07/21 15:43 Pulse 109 H 01/07/21 15:43 Resp 22 H 01/07/21 15:43 BP 96/70 01/07/21 15:43 Pulse Ox 95 01/07/21 15:43 01/07/21 01/07/21 01/07/21 06:59 14:59 22:59 Intake Total 200 / 1630 660 / 660 Output Total 500 / 1100 575 / 575 250 / 825 Balance -300 / 530 85 / 85 -250 / -165 Physical Exam Const: COMMON NORMALS: no acute distress and alert GENERAL APPEARANCE: cooperative and comfortable ORIENTATION/CONSCIOUSNESS: Yes awake OTHER: Sitting up at edge of bed. HENMT: COMMON NORMALS: oropharynx normal OTHER: Resolved swelling left side cheek. Resolved mild erythema. Mild to moderate tenderness on palpation Neck/C-Spine: COMMON NORMALS: no JVD Resp: COMMON NORMALS: normal respiratory effort and clear to auscultation bilaterally AUSCULTATION: clear to auscultation bilaterally Cardio: COMMON NORMALS: no JVD, regular rhythm, S1 normal heart sound present, S2 normal heart sound present and No murmurs present (Cardio) RHYTHM: regular rhythm HEART SOUNDS: S1 normal heart sound present and S2 normal heart sound present GI: COMMON NORMALS: Normal to inspection, nondistended, normoactive bowel sounds present, Soft to palpation and non-tender PALPATION: Yes Soft to palpation Extremity: COMMON NORMALS: no joint enlargement GENERAL: Yes edema (2+) Neuro: COMMON NORMALS: moves all extremities SENSORIUM/ORIENTATION: Yes jade rt OTHER: No facial droop. Skin: COMMON NORMALS: no rashes or lesions noted GENERAL SKIN EXAM: no rashes or lesions noted Data : 01/07/21 04:47 01/07/21 06:35 A&P Assessment and plan (1) Facial cellulitis: As seen on facial CT done on January 03, 2020. Patient states swelling has decreased but continues to have pain in the mandible. CT scan discussed with radiologist and there are no concerns for abscess on that study. Patient is afebrile and is on room air with occasional episodes of hypotension. As patient continues to have leukocytosis we will broaden the coverage for MRSA at present. Check MRSA swab, blood cultures from fifth have remained negative. Add vancomycin to Zosyn. If patient's leukocytosis does not improve the next 48 hours will reimage to rule out dental abscess which was missed on the previous CT scan most likely because it was done too soon. Discussing patient in detail to remove the dentures in between meals. Also discussed that patient most likely requires a dental appointment as an outpatient to make sure that dentures are fitting well as he has not replaced the denture in the last 60 years. Status: Acute (2) Pneumonia: On room air. Possible aspiration pneumonia. Continue with mechanical soft cardiac diet. Antibiotics as above. Most likely will do a 5-day course overall. Patient is day 4 on Zosyn. Maintain aspiration precautions Status: Acute (3) Hypotension: Can be septic secondary to early cardiogenic shock because of slow flow with a EF of 20%. Overall patient seems to be euvolemic since admission though complaining of shortness of breath on lying down flat. Start patient on IV Lasix 40 mg daily. Strict input output charting, fluid restriction up to 1500 cc. Continue with metoprolol which was switched over from Coreg. Continue holding on lisinopril for now. Status: Acute (4) Atrial fibrillation: Occasional VPCs. Check magnesium and phosphorus. Will replete acco rdingly. Continue with metoprolol. Continue Eliquis. 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 Discussed with his concern for progression to low output failure, with lethargy, kidney injury, soft blood pressures, tachycardia. Anasarca noted on CT chest abdomen pelvis. At this time continue Lasix. Possible coronary angiography during this hospitalization to rule out new ischemia on nonischemic cardiomyopathy Check lipid panel, HbA1c. Start patient on aspirin 81 mg daily. Status: Acute (6) Leukocytosis: Improving, secondary to cellulitis, pneumonia. Status: Acute (7) Lethargy: Resolved. Secondary to infection including pneumonia, facial cellulitis, medications including gabapentin, carbamazepine. Additionally possible low output heart failure. Status: Acute (8) Liver cirrhosis: Incidentally noted on CT abdomen pelvis. Check ammonia. Suspect secondary to CHF. Discussed with his . Status: Acute Additional A&P Information Lower extremity swelling: Right greater than left, will assess lower extremity duplex ultrasound. Risk of VTE should be low given he is already on anticoagulation, but possible. DOMINICK: Improved. For now decrease Lasix to once daily dose due to worsening creatinine. Again concern for possibility of progression to low output failure. Episodes of delirium: Improved. One-to-one sitter for now discontinued. Monitor. PVCs: Multiple PVCs noted on PPM interrogation. Monitor on telemetry. Continue beta-phu. Additional assessment for progression of coronary disease as above. Reduced ejection fraction heart failure: Continue Lasix. Anasarca noted on CT chest abdomen pelvis. Noted worsening ejection fraction on repeat TTE. EF 20%, grade 3 diastolic dysfunction. Consideration of coronary angiogram prior to discharge. With also require premedication due to iodine allergy. At this time continue treatment of underlying infection. Lewy body Parkinson's dementia Discussed his condition, assessment plan with his . DNR/DNI. Eliquis also DVT prophylaxis. Pepcid for PUD prophylaxis Attestations Medical Necessity Statement*: Partial hospitalization for management of borderline blood pressures, facial cellulitis, new ejection fraction of 20% to rule out ischemic cardiomyopathy. Time Spent in Patient Care: Greater than 35 minutes (>than 50% of time spent in counselling and/or direct pt care on unit) . Coding Level of Care Code Acute Pensions Retirement Plan Specialist for [facility] Diagnoses Facial cellulitis L03.211 Pneumonia J18.9 Hypotension I95.9 Atrial fibrillation I48.91 Atrial fibrillation type: unspecified Congestive heart failure with cardiomyopathy I50.9; I42.9 Leukocytosis D72.829 Lethargy R53.83 Liver cirrhosis K74.60
[2021-01-07] MEDS: famotidine 20 mg/2 mL INJ IVP (18:08)
[2021-01-07 18:25] LABS: Thyroid Stimulating Hormone 2.58 uIU/mL (0.27-4.20)
--- NOTE | 2021-01-07 19:12 | PC.NURSE ---
Addendum entered by Vilma Mccauley RN 01/07/21 19:16: Patient's bed alarm is set. Original Note: Patient states that his left shoulder and left side hurts, but states whatever it is they're giving me is helping. Patient is alert at this time, but is confused at times. Will monitor.
--- NOTE | 2021-01-07 21:35 | USCV_ITS ---
Arcadio Kelley Age: 85 Gender: M : 1935 Exam Date: 01/07/2021 06:13 Ordering Phys: Zac Grove MD Technologist: Ilsa Carmona [place] [facility] [place] Indication: RLE SWELLING HISTORY: Lower extremity swelling. PROCEDURES: Venous duplex imaging was performed in only the right lower extremity. The following venous structures were evaluated: common femoral vein, profunda vein, proximal portion of the greater saphenous vein, superficial femoral vein, and the popliteal vein. In addition, the posterior tibial veins were evaluated. Serial compression, augmentation maneuvers, and spectral Doppler flow evaluation were performed. FINDINGS: No evidence of DVT seen in any vessel visualized at this time. FLUID COLLECTION SEEN IN RIGHT MED POP FOSSA CONCLUSIONS No evidence of right lower extremity DVT. Popliteal cyst measuring 2.5 x 1.5 x 0.8cm Saad Lee MD (Electronically Signed) Final Date: 07 January 2021 09:45 S
[2021-01-08] VITALS (10 sets, daily range): BP systolic 90–126; BP diastolic 61–97; PULSE 83–116; RESP 18–23; TEMP 36.1–36.8; O2SAT 92–99
--- NOTE | 2021-01-08 00:13 | PC.NURSE ---
I asked patient to point to where he is hurting at. Patient is currently pointing at left hip/left lower abdomen area. PRN pain medication will be given.
[2021-01-08] MEDS: acetaminophen 325 mg Tablet 650 MG PO (00:14)
[2021-01-08] MEDS: ondansetron 2 mg/ML SDV 2 mL 4 MG IVP (00:15)
--- NOTE | 2021-01-08 00:32 | PC.NURSE ---
Patient was asked if his pain is better. He states yes, I just feel gassy.
[2021-01-08] MEDS: piperacillin-tazobactam 3.375 GM in sodium chloride 0.9% (plus) 50 ML IV ×3 (01:25→17:56)
--- NOTE | 2021-01-08 01:25 | PC.NURSE ---
Patient states that his stomach feels better. Will monitor.
--- NOTE | 2021-01-08 04:02 | PC.NURSE ---
Addendum entered by Vilma Mccauley RN 01/08/21 04:03: Patient does not complain of any pain or nausea at this time. Will monitor. Original Note: Patient has not slept much throughout the night. He has been up and down frequently with assistance. He has had episodes of confusion and had not used his call light, but bed alarm has went off frequently. Patient has been rounded on very frequently and assisted with using the bedside commode and urinal several times.
[2021-01-08 04:53] LABS: Basophils # 0.1 10^3/uL (0.0-0.1); Basophils % 0.4 %; Eosinophils # 0.2 10^3/uL (0.0-0.8); Eosinophils % 1.2 %; Hematocrit 43.1 % (42.0-52.0); Lymphocytes # 1.3 10^3/uL (0.8-4.8); Lymphocytes % 10.4 %; Mean Corpuscular HGB Conc 32.5 g/dL (30.0-36.0); Mean Corpuscular Hemoglobin 31.7 pg (28.0-34.0); Mean Corpuscular Volume 97.7 fL (80-94); Mean Platelet Volume 9.5 fL (7.4-10.4); Monocytes # 1.5 10^3/uL (0.2-0.9); Monocytes % 11.6 %; Neutrophils # 9.51 10^3/uL (1.8-7.7); Neutrophils % 75.1 %; Nucleated Red Blood Cells % 0 %; Platelet Count 235 10^3/cmm (130-400); Red Blood Count 4.41 10^6/uL (4.1-5.3); Red Cell Distribution Width 14.6 % (12.1-15.1); White Blood Count 12.7 10^3/uL (4.0-10.0)
[2021-01-08 05:17] LABS: Estmated Average Glucose 117; Hemoglobin A1C 5.7 % (4.0-6.0)
[2021-01-08 05:23] LABS: Alanine Aminotransferase 12 U/L (0-41); Albumin Level 3.6 g/dL (3.5-5.2); Alkaline Phosphatase 57 IU/L (40-130); Anion Gap 15.7 (5-19); Aspartate Amino Transferase 16 U/L (0-40); Blood Urea Nitrogen 32 mg/dL (8-23); Calcium 8.5 mg/dL (8.5-10.5); Carbon Dioxide 27 mmol/L (22-29); Chloride 98 mmol/L (98-107); Cholesterol 100 mg/dL (0-200); Globulin 2.5 g/dL (1.3-4.6); Glucose 119 mg/dL (65-115); HDL Cholesterol 27 mg/dL (60-100); LDL Cholesterol Calculated 54 mg/dL (50-129); Osmolality Calculated 292 mOsm/kg (285-295); Phosphorus 3.1 mg/dL (2.5-4.5); Potassium 3.7 mmol/L (3.5-5.1); Sodium 137 mmol/L (136-145); Total Bilirubin 0.9 mg/dL (0.15-1.2); Total Protein 6.1 g/dL (6.6-8.7); Triglycerides 96 mg/dL (0-150); VLDL Cholestrol Calculation 19 mg/dL (0-30)
[2021-01-08] MEDS: famotidine 20 mg/2 mL INJ IVP ×2 (05:23→17:55)
--- NOTE | 2021-01-08 06:12 | PC.NURSE ---
As of 0545, patient's brief and linens are clean/dry.
--- NOTE | 2021-01-08 06:51 | PC.NURSE ---
Unable to accurately measure urine output throughout night. Patient voided in urinal at times and in bedside commode at times. Patient urinated only 50 - 100 ML at a time when using urinal.
--- NOTE | 2021-01-08 07:13 | PC.NURSE ---
patient resting in bed at this time with extra blankets on due to patient stating I am cold. patient has been up and down, sitting on the bedside commode and the side of the bed since this nurse arrived. assessment performed and charted. bed alarm rest, call light within reach.
[2021-01-08] MEDS: apixaban 5 mg Tablet PO ×2 (07:47→17:55)
[2021-01-08] MEDS: HYDROcodone-acetaminophen 5-325 mg Tablet 1 TAB PO (07:47)
[2021-01-08] MEDS: vancomycin 1,250 MG/250 ML PIGGYBACK 250 MG IV (07:47)
[2021-01-08] MEDS: sennosides-docusate Tablet 1 TAB PO (08:01)
[2021-01-08] MEDS: metoprolol tartrate 25 mg Tablet 12.5 MG PO ×2 (08:01→20:14)
[2021-01-08] MEDS: aspirin 81 mg EC Tablet PO (08:01)
[2021-01-08] MEDS: nystatin 100,000 unit/mL UDC 5 mL 400000 UNIT PO ×4 (08:02→20:14)
[2021-01-08] MEDS: efferdent effervescent 1 EACH DENTAL ×2 (09:16→13:28)
--- NOTE | 2021-01-08 09:43 | PC.CHAP ---
Pastoral Care Encounter/Spiritual Assessment Type of Contact [] Declined fertilizer supervisor visit [] Patient/Family/Request visit [] Outpatient visit [] Follow-up visit [] Physician referral [] Code/Alert [x] Routine visit [] Staff referral [] Actively dying [] Patient sleeping [] Family support [] [] Out of room [] Palliative care [] [] Receiving care in room [] Pre-surgical visit [] Trauma [] Long length of stay [] ICU visit [] Other: Relational/Emotional Strength [] Patient feels connected with others/family/visitors/staff [] Distress [] Loneliness/isolation [] Abandonment Spirituality of Patient [] Person of Phoebe [] Attends Zoroastrianism of their Phoebe [] Believes in Prayer [] Reads Bible or Pentecostalism materials [] There are Spiritual issues to be addressed Cut [employer] Saw [employer] Interventions [x] Prayer [] Active listening [] Non-anxious presence [] Spiritual/emotional support [] Crisis/trauma care [] Spiritual counseling [] Bereavement support [] Provided bereavement packet [] Provided Bible/devotional materials [] Provided toy/stuffed animal, coloring book to patient or family member [] Provided Communion [] Anointing/[place] [] Salvation [xx] Completed spiritual assessment [] Other: Impact on Illness or Injury [] Angry [] Fearful [] Anxious [] Often cries [] Exhaustion [] Unable to work [] Unable to attend yazidism [] Unable to walk/stand [] Unable to read [] Unable to drive [] Unable to eat/drink [] Unable to sleep [] Unable to be with family [] Patient intubated [] Other: Summary patient not able to carry conversation... Time spent with patient 5 min
[2021-01-08] MEDS: FUROsemide 10 mg/mL SDV 4mL 40 MG IVP (10:51)
--- NOTE | 2021-01-08 11:15 | CT_ITS ---
WS: [id number] CT FACIAL BONES TECHNIQUE: Noncontrast facial bones with coronal and sagittal reformatted images. CLINICAL INFORMATION: follow up COMPARISON: January 02, 2021 DLP: 865.[address] scans at [facility] use at least one of these dose optimization techniques: automat ed exposure control; mA and/or kV adjustment per patient size (includes targeted exams where dose is matched to clinical indication); or iterative reconstruction. FINDINGS: Previously described cellulitis left facial soft tissues has improved. Small amount of residual indur ation. No evidence of drainable abscess or fluid collection. Some images are degraded due to dental a rtifact. Mastoid air cells are well aerated. Paranasal sinuses are well aerated. Normal frontal sinuses. Zaira l nasal bones. Mild right to left nasal septal deviation. Paranasal sinuses are well aerated. Normal posterior nasopharynx. CT/CT facial bones wo con* [id number] IMPRESSION: 1. Previously described left facial cellulitis has improved and nearly resolve d. No evidence of drainable abscess or fluid collection. 2. No evidence of osteomyelitis. 3. Paranasal sinuses and mastoid air cells well aerated.
--- NOTE | 2021-01-08 11:15 | CT_ITS ---
WS: [id number] CT HEAD TECHNIQUE: Noncontrast CT of the head obtained from the skullbase to the vertex. CLINICAL INFORMATION: follow up COMPARISON: CT September 06, 2020 DLP: 657.[address] scans at [facility] use at least one of these dose optimization techniques: automat ed exposure control; mA and/or kV adjustment per patient size (includes targeted exams where dose is matched to clinical indication); or iterative reconstruction. FINDINGS: No evidence of intracranial hemorrhage or mass effect. Ventricular system and basal cisterns are young nt. Mild small vessel changes with mild parenchymal volume loss. Chronic lacunar infarct in the right superior cerebellum. No extra-axial fluid collections. No evidence of mass or mass effect. Normal gr ay-white differentiation. Paranasal sinuses and mastoid air cells are well aerated. .Normal visualized soft tissues. CT/CT head wo con* [id number] IMPRESSION: 1. No evidence of intracranial hemorrhage or mass effect. 2. Mild small vessel changes. Mild parenchymal volume loss. 3. 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 4. No acute intracranial findings.
--- NOTE | 2021-01-08 11:16 | PC.NURSE ---
Dr cagle at bedside for rounding and assessment and discussion of plan of care verbal instructions received to obtain Ct head and CT facial bones
--- NOTE | 2021-01-08 11:50 | PC.NURSE ---
iv paused to take patient to ct scan.
[2021-01-08] MEDS: TRAMadol 50 mg Tablet PO (13:28)
--- NOTE | 2021-01-08 13:32 | PC.NURSE ---
patient expressed feeling sob, Dr. Tripp notified and ordered 1 time nebulizer, pain medication for his back and mouth pain. and a mechanical soft diet with ensure due to the patient not being able to eat lunch because his mouth hurt and couldn't chew the food. vital signs stable. medications administered per orders
[2021-01-08] MEDS: ipratropium-albuterol 3 mL Neb INHALATION (13:34)
--- NOTE | 2021-01-08 16:43 | PM.PN ---
Subjective Subjective: Interval history: No events overnight. On examination patient is sitting at bedside. He is doing better. He is awake alert oriented. Able to have complete conversation with me regarding his health. at bedside. Patient is able to have complete discussion regarding further treatment plans post discharge as well. He continues to have difficulty while eating food with jaw pain. Has remained afebrile and hemodynamically stable. Continues to remain on room air saturating more than 92%. Still having occasional feeling of shortness of breath though remains hemodynamically stable and saturating more than 90% on room air. Medications: Reviewed: Yes Vitals/I&O/Wt Last Vital Signs Temp 97.9 F 01/08/21 15:36 Pulse 100 01/08/21 15:36 Resp 20 H 01/08/21 15:36 BP 120/97 01/08/21 15:36 Pulse Ox 92 01/08/21 15:36 01/08/21 01/08/21 01/08/21 06:59 14:59 22:59 Intake Total 350 / 1180 742.292 / 742.292 37.708 / 780.000 Output Total 375 / 375 Balance 350 / 130 367.292 / 367.292 37.708 / 405.000 Physical Exam Const: COMMON NORMALS: no acute distress and alert GENERAL APPEARANCE: cooperative and comfortable ORIENTATION/CONSCIOUSNESS: Yes awake OTHER: Sitting up at edge of bed. HENMT: COMMON NORMALS: oropharynx normal OTHER: Resolved swelling left side cheek. Resolved mild erythema. Mild to moderate tenderness on palpation left mandibular site below molars. Neck/C-Spine: COMMON NORMALS: no JVD Resp: COMMON NORMALS: normal respiratory effort and clear to auscultation bilaterally AUSCULTATION: clear to auscultation bilaterally Cardio: COMMON NORMALS: no JVD, regular rhythm, S1 normal heart sound present, S2 normal heart sound present and No murmurs present (Cardio) RHYTHM: regular rhythm HEART SOUNDS: S1 normal heart sound present and S2 normal heart sound present GI: COMMON NORMALS: Normal to inspection, nondistended, normoactive bowel sounds present, Soft to palpation and non-tender PALPATION: Yes Soft to palpation Extremity: COMMON NORMALS: no joint enlargement GENERAL: Yes edema (2+) Neuro: COMMON NORMALS: moves all extremities SENSORIUM/ORIENTATION: Yes alert OTHER: No facial droop. Skin: COMMON NORMALS: no rashes or lesions noted GENERAL SKIN EXAM: no rashes or lesions noted Data : 01/08/21 04:41 01/08/21 04:41 A&P Assessment and plan (1) Facial cellulitis: As seen on facial CT done on January 03, 2020. Patient states swelling has decreased but continues to have pain in the mandible. Repeat CT head and facial CT shows resolution of cellulitis. Without any abscess. Leukocytosis improving. Blood cultures have remained negative, MRSA swab results awaited. For now continue with vancomycin and Zosyn. We will continue for 24 more hours and patient remains hemodynamically stable and afebrile will transition over to oral antibiotics to finish and overall course for 10 days. Patient most likely needs an appointment with dentist as an outpatient for refitting of dentures. Discussed with patient again need to remove dentures in between meals. Nystatin swish and swallow. Status: Acute (2) Pneumonia: On room air. Possible aspiration pneumonia. Continue with mechanical soft cardiac diet. Antibiotics as above. Most likely will do a 5-day course overall. Maintain aspiration precautions Status: Acute (3) Hypotension: Can be septic secondary to early cardiogenic shock because of slow flow with a EF of 20%. Overall patient seems to be euvolemic since admission though complaining of shortness of breath on lying down flat. Transition back to oral Lasix 60 mg daily from tomorrow. Strict input output charting, fluid restriction up to 1500 cc. Continue with metoprolol which was switched over from Coreg. Continue holding on lisinopril, doxazosin for now. Status: Acute (4) Atrial fibrillation: Occasional VPCs. Magnesium, phosphorus and calcium results appreciated. Within normal limits. Continue with metoprolol. Continue Eliquis. 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 Discussed with his concern for progression to low output failure, with lethargy, kidney injury, soft blood pressures, tachycardia. Anasarca noted on CT chest abdomen pelvis. At this time continue Lasix. Possible coronary angiography during this hospitalization to rule out new ischemia on nonischemic cardiomyopathy Continue with aspirin 81 mg daily. HbA1c and lipid panel results appreciated. Status: Acute (6) Leukocytosis: Improving, secondary to cellulitis, pneumonia. Status: Acute (7) Lethargy: Resolved. Secondary to infection including pneumonia, facial cellulitis, medications including gabapentin, carbamazepine. Additionally possible low output heart failure. Status: Acute (8) Liver cirrhosis: Incidentally noted on CT abdomen pelvis. Check ammonia. Suspect secondary to CHF. Discussed with his . Status: Acute Additional A&P Information DOMINICK: Improved. Again concern for possibility of progression to low output failure. Episodes of delirium: Improved. One-to-one sitter for now discontinued. Monitor. PVCs: Multiple PVCs noted on PPM interrogation. Monitor on telemetry. Continue beta-phu. Additional assessment for progression of coronary disease as above. Reduced ejection fraction heart failure: Continue Lasix. Anasarca noted on CT chest abdomen pelvis. Noted worsening ejection fraction on repeat TTE. EF 20%, grade 3 diastolic dysfunction. Consideration of coronary angiogram prior to discharge. With also require premedication due to iodine allergy. At this time continue treatment of underlying infection. Lewy body Parkinson's dementia Discussed his condition, assessment plan with his . DNR/DNI. Eliquis also DVT prophylaxis. Pepcid for PUD prophylaxis Attestations Medical Necessity Statement*: Patient requires further hospitalization for management of resolving facial cellulitis, new low EF of 20% while further assessment with cardiac angiogram is awaited, congestive heart failure with cardiomyopathy Time Spent in Patient Care: Greater than 35 minutes (>than 50% of time spent in counselling and/or direct pt care on unit). Coding Level of Care Code Acute Case Supervisor for [facility] Diagnoses Facial cellulitis L03.211 Pneumonia J18.9 Hypotension I95.9 Atrial fibrillation I48.91 Atrial fibrillation type: unspecified Congestive heart failure with cardiomyopathy I50.9; I42.9 Leukocytosis D72.829 Lethargy R53.83 Liver cirrhosis K74.60
[2021-01-08] MEDS: dutasteride 0.5 mg Capsule PO (17:55)
--- NOTE | 2021-01-08 17:57 | PM.PN ---
Subjective Subjective: Interval history: Patient is overall doing well. He denies any complaints of chest pain. Still has facial pain. He goes into RVR on and off. Vitals/I&O/Wt Last Vital Signs Temp 97.9 F 01/08/21 15:36 Pulse 100 01/08/21 15:36 Resp 20 H 01/08/21 15:36 BP 120/97 01/08/21 15:36 Pulse Ox 92 01/08/21 15:36 01/08/21 01/08/21 01/08/21 06:59 14:59 22:59 Intake Total 350 / 1180 742.292 / 742.292 37.708 / 780.000 Output Total 375 / 375 Balance 350 / 130 367.292 / 367.292 37.708 / 405.000 Physical Exam Narrative: EXAM NARRATIVE: GENERAL: Patient is alert, awake and oriented x3. [] NECK: No jugular vein distension. [] HEENT: No cyanosis. No icterus. No pallor. [] HEART: Regular S1 and S2. No murmur, rub or gallop. [] LUNGS: Clear to auscultate bilaterally. [] ABDOMEN: Soft, nontender and nondistended. Positive bowel sounds. No guarding, rebound or tenderness. [] CENTRAL NERVOUS SYSTEM: Grossly nonfocal. [] EXTREMITIES: Lower extremities with no edema bilaterally. Pulses palpable in the lower extremities, both dorsalis pedis and posterior tibial. [] Data : 01/09/21 04:30 01/09/21 04:30 A&P Assessment and plan (1) Facial pain: Status: Deleted (2) Sprain of jaw, left side, initial encounter: Status: Acute (3) Atrial fibrillation: Status: Acute Qualifiers: Atrial fibrillation type: unspecified Qualified Code(s): I48.91 - Unspecified atrial fibrillation (4) Hypertension: Status: Acute (5) Cardiomyopathy: Status: Acute Patient has presented with jaw and left-sided facial discomfort. He is on anticoagulation. Has cellulitis of the left side of face. Being followed by ENT. His stress test has demonstrated small reversible defect in lateral wall. Echocardiogram shows severely reduced LV systolic function which is 20% now. This is a decrease from echo performed in August when it was 45%. We will plan on coronary angiography for . Stop Eliquis. Initiate Lovenox in preparation for cardiac procedure Patient has been having elevated heart rates. Can initiate amiodarone 400 mg twice daily. Continue current cardiac medications. Lasix switched to p.o. Continue Heart rate has been elevated. Can initiate amiodarone 400 mg bid Thank you for involving us with care of this patient. We will continue to follow. Please call with questions. Attestations Medical Necessity Statement*: Care expected to cross 2 midnights. Coding Level of Care Code Acute Hand Silvering Supervisor for [facility] Diagnoses Facial pain R51.9 Sprain of jaw, left side, initial encounter S03.42XA Atrial fibrillation I48.91 Atrial fibrillation type: unspecified Hypertension I10 Cardiomyopathy I42.9
--- NOTE | 2021-01-08 18:22 | PC.NURSE ---
patient confused and aggitated. wants to call the renewable energy trader and isn't following safety instructions. patient placed in wheelchair and brought out to nurses station for closer monitoring. Dr. Tripp gave order for 1:1 sitter due to patient being agitated and not following safety instructions.
--- NOTE | 2021-01-08 21:18 | PC.NURSE ---
Patient is very confused at this time. Patient has one-on-one sitter at bedside.
--- NOTE | 2021-01-08 23:11 | PC.NURSE ---
Patient accidentally pulled IV out of left wrist. Catheter was intact. New IV started 18g in left forearm on first attempt. Flushes and has blood return.
[2021-01-09] VITALS (10 sets, daily range): BP systolic 94–142; BP diastolic 62–97; PULSE 83–124; RESP 15–32; TEMP 36.1–37.1; O2SAT 91–99
[2021-01-09] MEDS: vancomycin 1,250 MG/250 ML PIGGYBACK 250 MG IV (01:23)
[2021-01-09] MEDS: piperacillin-tazobactam 3.375 GM in sodium chloride 0.9% (plus) 50 ML IV ×2 (02:32→10:36)
[2021-01-09 05:00] LABS: Basophils # 0.1 10^3/uL (0.0-0.1); Basophils % 0.5 %; Eosinophils # 0.1 10^3/uL (0.0-0.8); Eosinophils % 0.8 %; Hemoglobin 14.9 g/dL (11.7-16.6); Lymphocytes # 1.5 10^3/uL (0.8-4.8); Lymphocytes % 10.4 %; Mean Corpuscular HGB Conc 31.7 g/dL (30.0-36.0); Mean Corpuscular Hemoglobin 31.8 pg (28.0-34.0); Mean Corpuscular Volume 100.4 fL (80-94); Mean Platelet Volume 10.3 fL (7.4-10.4); Monocytes # 1.8 10^3/uL (0.2-0.9); Monocytes % 11.9 %; Neutrophils # 11.05 10^3/uL (1.8-7.7); Neutrophils % 74.9 %; Nucleated Red Blood Cells % 0 %; Platelet Count 285 10^3/cmm (130-400); Red Blood Count 4.68 10^6/uL (4.1-5.3); Red Cell Distribution Width 14.9 % (12.1-15.1); White Blood Count 14.8 10^3/uL (4.0-10.0)
[2021-01-09] MEDS: ondansetron 2 mg/ML SDV 2 mL 4 MG IVP ×2 (05:07→22:52)
[2021-01-09] MEDS: famotidine 20 mg/2 mL INJ IVP ×2 (05:07→18:14)
[2021-01-09 05:18] LABS: Alanine Aminotransferase 14 U/L (0-41); Albumin Level 3.9 g/dL (3.5-5.2); Alkaline Phosphatase 59 IU/L (40-130); Anion Gap 18.5 (5-19); Aspartate Amino Transferase 17 U/L (0-40); Blood Urea Nitrogen 34 mg/dL (8-23); Calcium 8.5 mg/dL (8.5-10.5); Carbon Dioxide 25 mmol/L (22-29); Chloride 97 mmol/L (98-107); Globulin 2.6 g/dL (1.3-4.6); Glucose 100 mg/dL (65-115); Osmolality Calculated 292 mOsm/kg (285-295); Potassium 3.5 mmol/L (3.5-5.1); Sodium 137 mmol/L (136-145); Total Protein 6.5 g/dL (6.6-8.7)
--- NOTE | 2021-01-09 06:37 | PC.NURSE ---
Dr. Solis ordered to start Lovenox q12 hour and put Eliquis on hold and heart cath tomorrow.
[2021-01-09] MEDS: enoxaparin 80 mg/0.8 mL Syringe SUBCUT ×2 (08:09→18:16)
[2021-01-09] MEDS: metoprolol tartrate 25 mg Tablet 12.5 MG PO ×2 (08:10→20:58)
[2021-01-09] MEDS: nystatin 100,000 unit/mL UDC 5 mL 400000 UNIT PO ×4 (08:10→20:57)
[2021-01-09] MEDS: sennosides-docusate Tablet 1 TAB PO (08:11)
[2021-01-09] MEDS: aspirin 81 mg EC Tablet PO (08:11)
[2021-01-09] MEDS: FUROsemide 40 mg Tablet 60 MG PO (08:12)
--- NOTE | 2021-01-09 08:49 | PC.CHAP ---
Pastoral Care Encounter/Spiritual Assessment Type of Contact [] Declined repeater operator visit [] Patient/Family/Request visit [] Outpatient visit [] Follow-up visit [] Physician referral [] Code/Alert [x] Routine visit [] Staff referral [] Actively dying [] Patient sleeping [] Family support [] [] Out of room [] Palliative care [] [] Receiving care in room [] Pre-surgical visit [] Trauma [] Long length of stay [] ICU visit [] Other: Relational/Emotional Strength [] Patient feels connected with others/family/visitors/staff [] Distress [] Loneliness/isolation [] Abandonment Spirituality of Patient [] Person of Phoebe [] Attends Mormonism of their [place] [] Believes in Prayer [] Reads Bible or Adventism materials [] There are Spiritual issues to be addressed Or Rn Interventions [x] Prayer [] Active listening [] Non-anxious presence [] Spiritual/emotional support [] Crisis/trauma care [] Spiritual counseling [] Bereavement support [] Provided bereavement packet [] Provided Bible/devotional materials [] Provided toy/stuffed animal, coloring book to patient or family member [] Provided Communion [] Anointing/[place] [] Salvation [x] Completed spiritual assessment [] Other: Impact on Illness or Injury [] Angry [] Fearful [] Anxious [] Often cries [] Exhaustion [] Unable to work [] Unable to attend roman catholic [] Unable to walk/stand [] Unable to read [] Unable to drive [] Unable to eat/drink [] Unable to sleep [] Unable to be with family [] Patient intubated [] Other: Summary patient sydni waters... now has a sitter .. Time spent with patient 10 min
--- NOTE | 2021-01-09 09:33 | DCPLANNER ---
IMM completed on 01/09/21 @ [id number]. Pt's , Daphne Deluna was called over the phone and reviewed rights. Copy of rights were left with pt.
--- NOTE | 2021-01-09 12:19 | PC.SLP ---
Will continue to monitor and provide assistance as needed. Patient continues to report pain in his mouth which decreases his oral intake.
[2021-01-09] MEDS: amiodarone 200 mg Tablet 400 MG PO ×2 (14:00→18:15)
[2021-01-09] MEDS: levoFLOXacin 500 mg Tablet PO (14:02)
--- NOTE | 2021-01-09 16:22 | P.PN_ITS ---
Subjective Subjective: Interval history: Patient mildly confused since yesterday evening. On examination lying comfortably in bed he is alert oriented to self to me place but asking tangential questions in between. Does not seem to be having any auditory or visual hallucinations. Needs frequent reorienting during conversation. Heart rate has been ranging between 100 to 121 bpm. Has remained hemodynamically stable and on room air maintaining saturation over 90%. Has remained afebrile. Medications: Reviewed: Yes Vitals/I&O/Wt Last Vital Signs Temp 97.5 F L 01/09/21 15:02 Pulse 110 H 01/09/21 15:02 Resp 20 H 01/09/21 15:02 BP 108/81 01/09/21 15:02 Pulse Ox 91 01/09/21 15:02 01/09/21 01/09/21 01/09/21 06:59 14:59 22:59 Intake Total 550 / 1380.000 290 / 290 Output Total 50 / 595 Balance 500 / 785.000 290 / 290 Physical Exam Const: COMMON NORMALS: no acute distress and alert GENERAL APPEARANCE: cooperative and comfortable ORIENTATION/CONSCIOUSNESS: Yes awake OTHER: Sitting up at edge of bed. HENMT: COMMON NORMALS: oropharynx normal OTHER: Resolved swelling left side cheek. Resolved mild erythema. Mild to moderate tenderness on palpation left mandibular site below molars. Neck/C-Spine: COMMON NORMALS: no JVD Resp: COMMON NORMALS: normal respiratory effort and clear to auscultation bilaterally AUSCULTATION: clear to auscultation bilaterally Cardio: COMMON NORMALS: no JVD, regular rhythm, S1 normal heart sound present, S2 normal heart sound present and No murmurs present (Cardio) RHYTHM: regular rhythm HEART SOUNDS: S1 normal heart sound present and S2 normal heart sound present GI: COMMON NORMALS: Normal to inspection, nondistended, normoactive bowel sounds present, Soft to palpation and non-tender PALPATION: Yes Soft to palpation Extremity: COMMON NORMALS: no joint enlargement GENERAL: Yes edema (2+) Neuro: COMMON NORMALS: moves all extremities SENSORIUM/ORIENTATION: Yes alert OTHER: No facial droop. Skin: COMMON NORMALS: no rashes or lesions noted GENERAL SKIN EXAM: no rashes or lesions noted Data : 01/09/21 04:30 01/09/21 04:30 Other Labs: Microbiology 01/04/21 19:47 Blood Blood Culture - Preliminary NEGATIVE TO DATE 01/04/21 19:55 Blood Blood Culture - Preliminary NEGATIVE TO DATE Pertinent Labs During Stay 12/30/20 12/30/20 12/30/20 17:49 20:06 20:06 ESR 6 Hemoglobin A1c C-Reactive Protein 29.4 H NT-Pro-B Natriuret Pep 6819 H Triglycerides Cholesterol HDL Cholesterol Procalcitonin TSH 01/07/21 01/07/21 01/08/21 06:35 06:35 04:41 ESR Hemoglobin A1c 5.7 C-Reactive Protein NT-Pro-B Natriuret Pep Triglycerides Cholesterol HDL Cholesterol Procalcitonin 0.25 TSH 2.58 01/08/21 04:41 ESR Hemoglobin A1c C-Reactive Protein NT-Pro-B Natriuret Pep Triglycerides 96 Cholesterol 100 HDL Cholesterol 27 L Procalcitonin TSH Impressions Neck CT 12/30/20 16:46 IMPRESSION: 1. Unremarkable noncontrast CT imaging of the neck. No acute pathology is identified. 2. Atrophic or absent right submandibular gland. Radiation Dose CTDIVOL = (mGy): DLP = 791.92 (mGy-cm) Shoulder CT 01/01/21 20:51 IMPRESSION: 2.8 x 2.2 cm cystic structure poorly visualized along the anterior aspect of shoulder may reflect a small effusion of the subcoracoid and subacromial bursa, MRI could better characterize this. Radiation Dose CTDIVOL = (mGy): DLP = 1097.53 (mGy-cm) Soft Tissue Ultrasound 01/01/21 21:08 IMPRESSION: Fluid collection in the anterior LEFT shoulder is not associated with the pacemaker pocket. Chest X-Ray 01/03/21 11:18 IMPRESSION: Moderate cardiomegaly. No pneumonia. Chest/Abdomen/Pelvis CT 01/04/21 21:05 IMPRESSION: 1. Cirrhotic liver. 2. Anasarca. COMMENTS: Consistent with the [employer]'s Incidental Findings Committee white paper (J Am Shey Radiol 2018): Any incidental renal lesion less than 1 cm or classified as too small to characterize, or any incidental cystic renal lesion characterized as simple-appearing, is likely benign. No follow-up imaging is recommended for these lesions per consensus recommendations based on imaging criteria. Radiation Dose CTDIVOL = (mGy): DLP = 1591.31~1591.31 (mGy-cm) Face CT 01/08/21 11:15 IMPRESSION: 1. Previously described left facial cellulitis has improved and nearly resolved. No evidence of drainable abscess or fluid collection. 2. No evidence of osteomyelitis. 3. Paranasal sinuses and mastoid air cells well aerated. Head CT 01/08/21 11:15 IMPRESSION: 1. No evidence of intracranial hemorrhage or mass effect. 2. Mild small vessel changes. Mild parenchymal volume loss. 3. 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 4. No acute intracranial findings. A&P Assessment and plan (1) Delirium: Continue to hospital-acquired delirium because of advanced age and with prolonged hospitalization. Even though he has leukocytosis but that has remained stable during the hospitalization. He does not have any fever, has remained hemodynamically stable. CT scan done yesterday showing resolution of cellulitis. BUN has remained stable, has no electrolyte abnormality. LFTs have remained stable, ammonia levels done earlier in the admission was within normal limits. Procalcitonin done 2 days ago was within normal limits. TSH normal. We will add random cortisol levels. CT head done yesterday negative for any acute abnormality. Patient moving all 4 limbs appropriately without any facial deformity or droop. Patient not on any sedative scheduled or as needed medication. On review of MAR has not received any medication recently. We will stop tramadol which was added yesterday. Continue with hydrocodone every 12 hourly. Patient's care discussed in detail with his over phone today. She states in past whenever patient would have discolored delirium leaving the dentures in mouth use to help. Will give that a try. Bedside sitter. Frequent reorienting. Have requested for patient's room to be changed where he can be next to the window for better orientation. Status: Acute (2) Facial cellulitis: As seen on facial CT done on January 03, 2020. Patient states swelling has decreased but continues to have pain in the mandible. Repeat CT head and facial CT shows resolution of cellulitis. Without any abscess. Leukocytosis stable. Blood cultures remain negative. MRSA swab still pending. Stop vancomycin and Zosyn and convert to oral antibiotics. Start patient on Augmentin twice daily, levofloxacin every 48 hours. Patient most likely needs an appointment with dentist as an outpatient for refitting of dentures. Nystatin swish and swallow. Status: Acute (3) Hypotension: Blood pressures better. We will continue to monitor blood pressures. Can be secondary to early cardiogenic shock because of slow flow with a EF of 20%. Overall patient seems to be euvolemic since admission though complaining of s hortness of breath on lying down flat. Transition back to oral Lasix 60 mg daily from tomorrow. Strict input output charting, fluid restriction up to 1500 cc. Continue with metoprolol which was switched over from Coreg. Continue holding on lisinopril, doxazosin for now. Status: Acute (4) Atrial fibrillation: Having occasional rapid ventricular response. Case discussed with cardiology. Will start patient on amiodarone for 100 mg twice daily for now. Continue with low-dose metoprolol. Eliquis changed to full dose Lovenox for possible angiogram tomorrow as per cardiology recommendations. 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 Discussed with his concern for progression to low output failure, with lethargy, kidney injury, soft blood pressures, tachycardia. Anasarca noted on CT chest abdomen pelvis. At this time continue Lasix. Possible coronary angiography during this hospitalization to rule out new ischemia on nonischemic cardiomyopathy Continue with aspirin 81 mg daily. HbA1c and lipid panel results appreciated. Status: Acute (6) Leukocytosis: Stable without any fever at present. Status: Acute (7) Lethargy: Resolved. Secondary to infection including pneumonia, facial cellulitis, medications including gabapentin, carbamazepine. Additionally possible low output heart failure. Status: Acute (8) Liver cirrhosis: Incidentally noted on CT abdomen pelvis. Check ammonia. Suspect secondary to CHF. Discussed with his . Status: Acute (9) Pneumonia: Antibiotics for facial cellulitis is also help with pneumonia. Resolved at present. The patient continues to be on antibiotics for facial cellulitis. On room air. Possible aspiration pneumonia. Continue with mechanical soft cardiac diet. Antibiotics as above. Most likely will do a 5-day course overall. Maintain aspiration precautions Status: Acute Additional A&P Information DOMINICK: Creatinine uptrending again. We will decrease the dose of Lasix. We will continue to monitor. Again concern for possibility of progression to low output failure. PVCs: Multiple PVCs noted on PPM interrogation. Monitor on telemetry. Continue beta-phu. Additional assessment for progression of coronary disease as above. Reduced ejection fraction heart failure: Continue Lasix. Anasarca noted on CT chest abdomen pelvis. Noted worsening ejection fraction on repeat TTE. EF 20%, grade 3 diastolic dysfunction. Consideration of coronary angiogram prior to discharge. With also require premedication due to iodine allergy. At this time continue treatment of underlying infection. Lewy body Parkinson's dementia Appreciate cardiology recommendations. Discussed his condition, assessment plan with his on phone today. We discussed various cause of his delirium. Also discussed that multiple blood work and CT scan have come back within normal limits and chances of hospital- acquired delirium given advanced age and long hospitalization respiratory high. She states unfortunately given his current situation if he comes home she is worried she will not be able to take care of him. We also discussed that because of multiple problems in his case at present could be because of severely reduced ejection fraction with early cardiogenic shock causing him to have borderline blood pressures, lethargy, hypoactive delirium. We discussed patient is due for possible angiogram tomorrow to rule out ischemic causes and chances of patient regaining his contractility are usually low. DNR/DNI. Full dose Lovenox also DVT prophylaxis. Pepcid for PUD prophylaxis. Attestations Medical Necessity Statement*: Patient requires further hospitalization for management of hypoactive delirium, resolving facial cellulitis, new EF of 20% with need of cardiac angiogram to rule out ischemia. Time Spent in Patient Care: Greater than 35 minutes (>than 50% of time spent in counselling and/or direct pt care on unit) . Coding Level of Care Code Acute Import Customer Service Manager for [facility] Fwd Exam Comprehensive Diagnoses Delirium R41.0 Facial cellulitis L03.211 Hypotension I95.9 Atrial fibrillation I48.91 Atrial fibrillation type: unspecified Congestive heart failure with cardiomyopathy I50.9; I42.9 Leukocytosis D72.829 Lethargy R53.83 Liver cirrhosis K74.60 Pneumonia J18.9
[2021-01-09 16:49] LABS: Cortisol Random 23.63 ug/dL (2.47-19.5)
[2021-01-09] MEDS: amoxicillin-clav 875-125 mg Tablet 1 TAB PO (18:14)
[2021-01-09] MEDS: dutasteride 0.5 mg Capsule PO (18:14)
--- NOTE | 2021-01-09 19:31 | PC.NURSE ---
Patient is confused. One-on-one sitter at bedside. Will monitor.
[2021-01-09 20:44] LABS: Vancomycin Trough 18.1 ug/mL (10-15)
[2021-01-09] MEDS: HYDROcodone-acetaminophen 5-325 mg Tablet 1 TAB PO (20:57)
--- NOTE | 2021-01-09 22:13 | PM.PN ---
Subjective Subjective: Interval history: Patient is still confused. He denies chest pain, shortness of breath or palpitations. Plan for coronary angiogram tomorrow Vitals/I&O/Wt Last Vital Signs Temp 97.7 F 01/09/21 20:00 Pulse 123 H 01/09/21 21:14 Resp 20 H 01/09/21 20:00 BP 127/82 01/09/21 20:00 Pulse Ox 92 01/09/21 20:00 01/09/21 01/09/21 01/09/21 06:59 14:59 22:59 Intake Total 550 / 1380.000 290 / 290 300 / 590 Output Total 50 / 595 200 / 200 Balance 500 / 785.000 290 / 290 100 / 390 Physical Exam Narrative: EXAM NARRATIVE: GENERAL: Patient is alert, awake and oriented x3. [] NECK: No jugular vein distension. [] HEENT: No cyanosis. No icterus. No pallor. [] HEART: Regular S1 and S2. No murmur, rub or gallop. [] LUNGS: Clear to auscultate bilaterally. [] ABDOMEN: Soft, nontender and nondistended. Positive bowel sounds. No guarding, rebound or tenderness. [] CENTRAL NERVOUS SYSTEM: Grossly nonfocal. [] EXTREMITIES: Lower extremities with no edema bilaterally. Pulses palpable in the lower extremities, both dorsalis pedis and posterior tibial. [] Data : 01/10/21 04:33 01/10/21 04:33 Micro: Microbiology 01/04/21 19:47 Blood Culture - Final Blood NO GROWTH AFTER 5 DAYS 01/04/21 19:55 Blood Culture - Final Blood NO GROWTH AFTER 5 DAYS A&P Assessment and plan (1) Facial pain: Status: Deleted (2) Sprain of jaw, left side, initial encounter: Status: Acute (3) Atrial fibrillation: Status: Acute Qualifiers: Atrial fibrillation type: unspecified Qualified Code(s): I48.91 - Unspecified atrial fibrillation (4) Hypertension: Status: Acute (5) Cardiomyopathy: Status: Acute Patient has presented with jaw and left-sided facial discomfort. Anticoagulation was switched to Lovenox in preparation for the cath tomorrow Has cellulitis of the left side of face that has resolved. His stress test has demonstrated small reversible defect in lateral wall. Echocardiogram shows severely reduced LV systolic function which is 20% now. This is a decrease from echo performed in August when it was 45%. We will plan on coronary angiography tomorrow. Stop Eliquis. Initiate Lovenox in preparation for cardiac procedure. Will need iodine pretreatment Patient has been having elevated heart rates. Continue on amiodarone. If heart rates stay elevated, consider starting on IV amiodarone Continue current cardiac medications. Lasix switched to p.o. Continue Heart rate has been elevated. NPO past midnight for right and left heart cath tomorrow Thank you for involving us with care of this patient. We will continue to follow. Please call with questions. Attestations Medical Necessity Statement*: Care expected to cross 2 midnights Coding Level of Care Code Acute Wastewater Technician for [facility] Diagnoses Facial pain R51.9 Sprain of jaw, left side, initial encounter S03.42XA Atrial fibrillation I48.91 Atrial fibrillation type: unspecified Hypertension I10 Cardiomyopathy I42.9
[2021-01-09 22:40] LABS: Platelet Count 296 10^3/cmm (130-400)
[2021-01-09] MEDS: predniSONE 20 mg Tablet 50 MG PO (22:51)
--- NOTE | 2021-01-09 23:36 | XR_ITS ---
WS: [id number] KUB, AP portable view, 01/09/2021 Clinical Data: left sided abdominal pain Comparison: None. Findings: No abnormal intraabdominal masses or calcifications are seen. There is no dilatated small bowel or ev idence of obstruction. There is air in the small bowel and the colon. There are probable vascular calcifications in the left upper quadrant. XR/XR KUB portable [id number] Impression: Moderate generalized ileus.
--- NOTE | 2021-01-09 23:42 | PC.NURSE ---
Dr. Galindo notified of patient complaining of left sided abdominal pain. Patient is groaning and cannot lay still, he keeps stating that it hurts. KUB ordered.
[2021-01-10] VITALS (9 sets, daily range): BP systolic 104–123; BP diastolic 69–86; PULSE 89–106; RESP 16–26; TEMP 36–36.7; O2SAT 91–96
[2021-01-10] MEDS: famotidine 20 mg/2 mL INJ IVP ×2 (04:38→18:52)
[2021-01-10] MEDS: predniSONE 20 mg Tablet 50 MG PO ×2 (04:39→10:02)
[2021-01-10] MEDS: enoxaparin 80 mg/0.8 mL Syringe SUBCUT (04:41)
[2021-01-10 05:05] LABS: Basophils # 0.1 10^3/uL (0.0-0.1); Basophils % 0.5 %; Eosinophils % 0.1 %; Hematocrit 49.1 % (42.0-52.0); Hemoglobin 15.3 g/dL (11.7-16.6); Lymphocytes # 0.8 10^3/uL (0.8-4.8); Lymphocytes % 6.4 %; Mean Corpuscular HGB Conc 31.2 g/dL (30.0-36.0); Mean Corpuscular Hemoglobin 31.5 pg (28.0-34.0); Mean Platelet Volume 10.4 fL (7.4-10.4); Monocytes # 0.5 10^3/uL (0.2-0.9); Monocytes % 4.1 %; Neutrophils # 10.89 10^3/uL (1.8-7.7); Neutrophils % 87.2 %; Nucleated Red Blood Cells % 0 %; Platelet Count 291 10^3/cmm (130-400); Red Blood Count 4.86 10^6/uL (4.1-5.3); White Blood Count 12.5 10^3/uL (4.0-10.0)
--- NOTE | 2021-01-10 05:10 | PC.NURSE ---
Patient's oxygen saturation was 88-91 percent. 2 L NC applied. Continuous pulse ox applied. Will monitor.
[2021-01-10 05:31] LABS: Alanine Aminotransferase 16 U/L (0-41); Albumin Level 3.7 g/dL (3.5-5.2); Alkaline Phosphatase 59 IU/L (40-130); Anion Gap 23.5 (5-19); Aspartate Amino Transferase 20 U/L (0-40); Blood Urea Nitrogen 45 mg/dL (8-23); Calcium 8.7 mg/dL (8.5-10.5); Carbon Dioxide 21 mmol/L (22-29); Chloride 100 mmol/L (98-107); Globulin 2.5 g/dL (1.3-4.6); Glucose 98 mg/dL (65-115); Osmolality Calculated 302 mOsm/kg (285-295); Potassium 4.5 mmol/L (3.5-5.1); Sodium 140 mmol/L (136-145); Total Protein 6.2 g/dL (6.6-8.7)
[2021-01-10] MEDS: FUROsemide 40 mg Tablet PO (08:05)
[2021-01-10] MEDS: amiodarone 200 mg Tablet 400 MG PO ×2 (08:05→17:19)
[2021-01-10] MEDS: amoxicillin-clav 875-125 mg Tablet 1 TAB PO ×2 (08:06→17:19)
[2021-01-10] MEDS: aspirin 81 mg EC Tablet PO (08:06)
[2021-01-10] MEDS: metoprolol tartrate 25 mg Tablet 12.5 MG PO ×2 (08:06→21:02)
[2021-01-10] MEDS: sennosides-docusate Tablet 1 TAB PO (09:02)
[2021-01-10] MEDS: nystatin 100,000 unit/mL UDC 5 mL 400000 UNIT PO ×3 (09:02→21:01)
--- NOTE | 2021-01-10 09:38 | PC.NURSE ---
Spoke with Dr. Shrestha, instructions to start 50cc NS and hold PO lasix.
[2021-01-10] MEDS: sodium chloride 0.9% 1,000 ML 50 ML IV (10:02)
--- NOTE | 2021-01-10 10:35 | US_ITS ---
WS: [id number] ULTRASOUND RENAL TECHNIQUE: Ultrasound examination of both kidneys. CLINICAL INFORMATION: DOMINICK COMPARISON: None. FINDINGS: RIGHT: Right kidney is normal in size and appearance. Echogenicity: Normal. Cortical thickness: 1.0 cm; Normal. Hydronephrosis: None. Perinephric fluid: None. Right kidney measures: 8.6 cm x 3.8 cm x 4.1 cm. LEFT: Simple left renal cyst measuring 1.2 x 1.0 x 1.0 cm Left kidney is normal in size and appearance. Echogenicity: Normal. Cortical thickness: 1.3 cm; Normal. Hydronephrosis: None. Perinephric fluid: None. Left kidney measures: 9.9 cm x 5.4 cm x 4.4 cm. Normal visualized aorta. Enlarged nodular prostate measuring 6.1 x 5.7 x 5.1 CM. Moderate diffuse abel dder wall thickening likely due to bladder outlet obstruction. US/US renal BI* [id number] IMPRESSION: Technically difficult examination due to breathing difficulty posit ioning. 1. No hydronephrosis in either kidney. 2. Moderate diffuse bladder wall thickening likely due to bladder outlet obstr uction. 3. Simple left renal cyst measuring 1.2 x 1.0 x 1.0 cm 4. Free fluid in the right upper quadrant and left upper quadrant. 5. Enlarged prostate measuring 6.1 x 5.7 x 5.1 CM. Recommend correlation PSA.
--- NOTE | 2021-01-10 12:59 | PC.NURSE ---
Nurse attempted straight cath and was unsuccessful. Was not able to maneuver around the prostate, pt c/o pain, and burning. No urine return. Notified doctor.
--- NOTE | 2021-01-10 13:10 | P.PN_ITS ---
Subjective Subjective: Interval history: Overnight patient was moved to a single room with a window. Patient remained mildly confused. On examination patient's is at bedside. He continues to remain confused, is able to tell me about himself, place but is having tangential conversations. Complaining of mild urinary retention. Patient had to 70 cc on bladder scan after which straight ca th was tried though no urine return was found. Later in the day patient voided 70 cc of urine and after that he voided 50 cc again which was bloody. After that Dr. Villa was consulted who graciously accepted to come and catheterized the patient and since then patient is having ongoing hematuria. Patient has remained afebrile with heart rate better mostly in the 90s with blood pressure maintained. Patient denies any further face pain. Eating mechanical soft diet. Medications: Reviewed: Yes Vitals/I&O/Wt Last Vital Signs Temp 98.0 F 01/10/21 11:27 Pulse 90 01/10/21 11:27 Resp 20 H 01/10/21 11:27 BP 106/85 01/10/21 11:27 Pulse Ox 96 01/10/21 11:27 01/09/21 01/10/21 01/10/21 22:59 06:59 14:59 Intake Total 350 / 640 400 / 1040 195 / 195 Output Total 200 / 200 Balance 150 / 440 400 / 840 195 / 195 Physical Exam Const: COMMON NORMALS: no acute distress and alert GENERAL APPEARANCE: cooperative and comfortable ORIENTATION/CONSCIOUSNESS: Yes awake OTHER: Sitting up at edge of bed. HENMT: COMMON NORMALS: oropharynx normal OTHER: Resolved swelling left side cheek. Resolved mild erythema. Mild to moderate tenderness on palpation left mandibular site below molars. Neck/C-Spine: COMMON NORMALS: no JVD Resp: COMMON NORMALS: normal respiratory effort and clear to auscultation bilaterally AUSCULTATION: clear to auscultation bilaterally Cardio: COMMON NORMALS: no JVD, regular rhythm, S1 normal heart sound present, S2 normal heart sound present and No murmurs present (Cardio) RHYTHM: regular rhythm HEART SOUNDS: S1 normal heart sound present and S2 normal heart sound present GI: COMMON NORMALS: Normal to inspection, nondistended, normoactive bowel s ounds present, Soft to palpation and non-tender PALPATION: Yes Soft to palpation Extremity: COMMON NORMALS: no joint enlargement GENERAL: Yes edema (2+) Neuro: COMMON NORMALS: moves all extremities SENSORIUM/ORIENTATION: Yes alert OTHER: No facial droop. Skin: COMMON NORMALS: no rashes or lesions noted GENERAL SKIN EXAM: no rashes or lesions noted Data : 01/11/21 05:16 01/11/21 09:43 Micro: Microbiology 01/04/21 19:47 Blood Culture - Final Blood NO GROWTH AFTER 5 DAYS 01/04/21 19:55 Blood Culture - Final Blood NO GROWTH AFTER 5 DAYS A&P Assessment and plan (1) Delirium: Most likely secondary to hospital-acquired delirium because of advanced age and with prolonged hospitalization of causing worsening of patient's baseline dementia. Even though he has leukocytosis but that has remained stable during the hospitalization. He does not have any fever, has remained hemodynamically stable. CT scan done yesterday showing resolution of cellulitis. BUN has remained stable, has no electrolyte abnormality. LFTs have remained stable, ammonia levels done earlier in the admission was within normal limits. Procalcitonin done 2 days ago was within normal limits. TSH normal. We will add random cortisol levels. CT head done yesterday negative for any acute abnormality. Patient moving all 4 limbs appropriately without any facial deformity or droop. Patient not on any sedative scheduled or as needed medication. On review of MAR has not received any medication recently. Continue holding of tramadol. Continue with hydrocodone every 12 hourly. Patient's care discussed in detail with his over phone today. She states in past whenever patient would have discolored delirium leaving the dentures in mouth use to help. Will give that a try. Bedside sitter. Frequent reorienting. Start patient on Zyprexa 7.5 mg oral at bedtime today. Status: Acute (2) DOMINICK (acute kidney injury): Most likely secondary to overdiuresis with poor oral intake. Check urine lites, urine creatinine. Renal ultrasound. Stop further diuresis for now. Start patient on normal saline 50 cc/h while monitoring for fluid overload. Status: Acute (3) Acute urinary retention: Status: Acute (4) Gross hematuria: Post straight catheterization for urinary retention. Traumatic. Appreciate Dr. Villa's help. Continue to irrigate catheter while monitoring for hematuria. For now hold off on full dose anticoagulation Status: Acute (5) Atrial fibrillation: Heart rate better controlled. Continue with amiodarone 400 mg twice daily. Continue with metoprolol. Eliquis changed to full dose Lovenox for possible angiogram tomorrow as per cardiology recommendations. Status: Acute Qualifiers: Atrial fibrillation type: unspecified Qualified Code(s): I48.91 - Unspecified atrial fibrillation (6) Hypotension: Blood pressures better. We will continue to monitor blood pressures. Can be secondary to early cardiogenic shock because of slow flow with a EF of 20%. Overall patient seems to be euvolemic since admission though complaining of shortness of breath on lying down flat. Transition back to oral Lasix 60 mg daily from tomorrow. Strict input output charting, fluid restriction up to 1500 cc. Continue with metoprolol which was switched over from Coreg. Continue holding on lisinopril, doxazosin for now. 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 Discussed with his concern for progression to low output failure, with lethargy, kidney injury, soft blood pressures, tachycardia. Anasarca noted on CT chest abdomen pelvis. At this time continue Lasix. Possible coronary angiography during this hospitalization to rule out new ischemia on nonischemic cardiomyopathy Continue with aspirin 81 mg daily. HbA1c and lipid panel results appreciated. Status: Acute (8) Facial cellulitis: As seen on facial CT done on January 03, 2020. Patient states swelling has decreased but continues to have pain in the mandible. Repeat CT head and facial CT shows resolution of cellulitis. Without any abscess. Leukocytosis stable. Blood cultures remain negative. MRSA swab still pending. Continue with Augmentin twice daily and levofloxacin every 48 hours to finish a 10-day course. Patient requires antibiotics for 2 more days now. Patient most likely needs an appointment with dentist as an outpatient for refitting of dentures. Nystatin swish and swallow. Status: Acute (9) Liver cirrhosis: Incidentally noted on CT abdomen pelvis. Check ammonia. Suspect secondary to CHF. Discussed with his . Status: Acute (10) Pneumonia: Antibiotics for facial cellulitis is also help with pneumonia. Resolved at present. The patient continues to be on antibiotics for facial cellulitis. On room air. Possible aspiration pneumonia. Continue with mechanical soft cardiac diet. Antibiotics as above. Most likely will do a 5-day course overall. Maintain aspiration precautions Status: Acute (11) Leukocytosis: Stable without any fever at present. Status: Acute (12) Lethargy: Resolved. Secondary to infection including pneumonia, facial cellulitis, medications including gabapentin, carbamazepine. Additionally possible low output heart failure. Status: Acute Additional A&P Information PVCs: Multiple PVCs noted on PPM interrogation. Monitor on telemetry. Continue beta-phu. Additional assessment for progression of coronary disease as above. Reduced ejection fraction heart failure: Continue Lasix. Anasarca noted on CT chest abdomen pelvis. Noted worsening ejection fraction on repeat TTE. EF 20%, grade 3 diastolic dysfunction. Consideration of coronary angiogram prior to discharge. With also require premedication due to iodine allergy. At this time continue treatment of underlying infection. Lewy body Parkinson's dementia Appreciate cardiology recommendations. Discussed patient's care in detail with his at bedside. Discussed that unfortunately patient's creatinine is trending up which is also most likely because of overdiuresis and low output heart failure. Discussed that patient's delirium is most likely because of prolonged hospitalization along with worsening of dementia. She is agreeable to starting Zyprexa and is thankful for moving patient to a different room. Discussed that patient heart failure symptoms or ejection fraction might improve though it is difficult to say if and when that will happen. Also discussed that if it is nonischemic cardiomyopathy chances of recovery are lower as compared to ischemic though we cannot tell for sure tell patient has cardiac catheterization which is difficult to do right now because of uptrending creatinine. Also discussed regarding discharge planning. Patient would like to speak with care coordination regarding the same. We discussed options of home health versus in-home services versus SNF. Patient's states that she is the primary caregiver and because of the advanced age she will not be able to take care of him alone at home. DNR/DNI. Hold off on full dose Lovenox also DVT prophylaxis because of ongoing hematuria. Pepcid for PUD prophylaxis. Attestations Medical Necessity Statement*: Patient requires further hospitalization for management of acute delirium, ongoing hematuria in setting of severe nonischemic cardiomyopathy with EF of 20%, early cardiogenic shock. Time Spent in Patient Care: Greater than 35 minutes (>than 50% of time spent in counselling and/or direct pt care on unit) . Coding Level of Care Code Acute Gis Database Administrator for g Fwd Exam Comprehensive Diagnoses Delirium R41.0 DOMINICK (acute kidney injury) N17.9 Acute urinary retention R33.8 Gross hematuria R31.0 Atrial fibrillation I48.91 Atrial fibrillation type: unspecified Hypotension I95.9 Congestive heart failure with cardiomyopathy I50.9; I42.9 Facial cellulitis L03.211 Liver cirrhosis K74.60 Pneumonia J18.9 Leukocytosis D72.829 Lethargy R53.83
--- NOTE | 2021-01-10 14:26 | PC.NURSE ---
Pt refused medication -oral nystatin. Pt says he just wants to sleep. Pt has been restless today and has been becoming more agitated. Doc is aware. Nurse will continue to monitor.
--- NOTE | 2021-01-10 16:03 | PC.NURSE ---
spoke with about patient concerns of voiding blood after attempts to straight cath this am urine is very bright red and moderate clots are noted instructions to hold next dose of lovenox received
[2021-01-10] MEDS: dutasteride 0.5 mg Capsule PO (17:19)
--- NOTE | 2021-01-10 17:49 | PM.CONSULT ---
Providers/Reason For Consult Consulting Physican/Specialty*: Urology/[facility] Reason for Consult*: Urinary retention, inability to place catheter Attending Physician: Deshaun Tripp MD Primary Care Provider: Gregor Varela DO History of Present Illness History of Present Illness Arcadio padron is a very pleasant demented 85-year-old white male hospitalized for approximately 10 days now for multiple problems including atrial fibrillation, hypertension, facial cellulitis, delirium, CHF with cardiomyopathy, pneumonia, cirrhosis etc. He has not required a catheter but today was having some difficulty with urination and an attempted in and out catheterization was unsuccessful. Following that he did have some bloody discharge and voided 1 time with bloody urine. Since then he has not been able to void and was becoming uncomfortable. Patient admits that he has had prior catheterizations but does not know the circumstances. He is unaware of having had any prostate surgery. Is unaware of having had difficulty with catheterization placement in the past. Medicine list includes doxazosin no other prostate medications. He is on Eliquis. Nursing staff states that they were unaware of him having any blood in his urine before her attempts at catheterization was made. Patient denies also history of bloody urine. I was consulted for evaluation and management of this problem. Physical exam revealed mildly distended bladder. No severe pain. Normal genitourinary exam. PROCEDURE: Bedside cystoscopy and catheter placement He was prepped and draped in the usual sterile fashion. Flexible cystoscope was well-lubricated and passed under direct vision into the urethra. Urethra appeared to be intact with no significant trauma. He had a very large prostate with both lateral and medial lobe hypertrophy. The bladder was hard to define clearly because of the amount of bloody urine in it. I did not see any obvious masses but could not say for sure. It appeared that the bladder neck was somewhat elevated which may have been the reason for difficulty in passing the catheter. A 20 Swedish coud? tip catheter was then lubricated and passed into the bladder beyond the area of the elevated bladder neck without difficulty. Good return was immediate. The urine was bloody. Balloon was inflated with 10 cc. Around 200 cc were drained and the catheter was placed to dependent drainage. Nursing staff was encouraged to irrigate as needed to keep the catheter patent and clear any blood clots from the bladder. Review of Systems Const: Reports: malaise; Denies: fever(s) or chills Eyes: Denies: change in vision ENMT: Reports: other (Facial pain and swelling) Card: Reports: irregular heart rhythm Resp: Denies: dyspnea or wheezing GI: Denies: nausea or vomiting : Reports: difficulty urinating and hematuria; Denies: flank pain Musc: Reports: neck pain and back pain Skin/Breast: Denies: rash, skin tenderness or changing lesions Neuro: Reports: confusion; Denies: Slurred speech present or seizure-like activity Psych: Reports: memory loss and difficulty concentrating; Denies: anxiety Endo: Denies: polyuria Wally/Lymph: Reports: easy bruising and easy bleeding; Denies: enlarged lymph nodes All/Imm: Denies: urticaria Meds/Allergies Home Medications and Allergies Home Medications Medication Instructions Recorded Confirmed Last Taken Type benazepril 5 mg PO DAILY@11/29/19 12/30/20 12/29/20 History dutasteride 0.5 mg PO DAILY@11/29/19 12/30/20 12/29/20 History eplerenone 25 mg PO DAILY@11/29/19 12/30/20 12/30/20 History acetaminophen 1,000 mg PO TID PRN 04/12/20 12/30/20 09/05/20 History doxazosin 4 mg PO DAILY@09/06/20 12/30/20 12/29/20 History rivastigmine tartrate 3 mg capsule 3 mg PO BID #60 cap 11/07/20 12/30/20 Unknown Rx apixaban [Eliquis] 5 mg PO BID@,12/30/20 12/30/20 12/30/20 History carvedilol 6.25 mg PO BID@08,12/30/20 12/30/20 12/30/20 History furosemide 40 mg PO BID@08,12/30/20 12/30/20 12/30/20 History Allergies Allergy/AdvReac Type Severity Reaction Status Date / Time adhesive tape Allergy Severe ALGY-Bliste Verified 12/11/20 15:23 r iodine Allergy severe Verified 12/11/20 15:23 vomiting Current Medications Current Medications Generic Name Dose Route Start Last Admin Trade Name Freq PRN Reason Stop Dose Admin Acetaminophen 650 mg 12/31/20 08:11 01/08/21 00:14 Acetaminophen 325 Mg Tablet PO 650 mg TID PRN Administration Pain Hydrocodone Bitart/Acetaminophen 1 tab 01/08/21 10:12 01/09/21 20:57 Hydrocodone-Acetaminophen 5-325 Mg Tablet PO 1 tab Q12H PRN Administration MODERATE PAIN Amiodarone HCl 400 mg 01/09/21 11:15 01/10/21 17:19 Amiodarone 200 Mg Tablet PO 400 mg BID LISET Administration Amoxicillin/Clavulanate Potassium 1 tab 01/09/21 18:00 01/10/21 17:19 Amoxicillin-Clav 875-125 Mg Tablet PO 1 tab BID LISET Administration Protocol Aspirin 81 mg 01/08/21 09:00 01/10/21 08:06 Aspirin 81 Mg Ec Tablet PO 81 mg DAILY LISET Administration Doxazosin Mesylate 4 mg 12/31/20 17:00 01/01/21 18:08 Doxazosin 4 Mg Tablet PO Not Given DAILY@17 LISET Dutasteride 0.5 mg 12/31/20 17:00 01/10/21 17:19 Dutasteride 0.5 Mg Capsule PO 0.5 mg DAILY@17 LISET Administration Enoxaparin Sodium 80 mg 01/09/21 07:00 01/10/21 16:03 Enoxaparin 80 Mg/0.8 Ml Syringe SUBCUT Not Given Q12H LISET Famotidine 20 mg 01/07/21 18:00 01/10/21 04:38 Famotidine 20 Mg/2 Ml Inj IVP 20 mg Q12H LISET Administration Furosemide 40 mg 01/10/21 08:00 01/10/21 08:05 Furosemide 40 Mg Tablet PO 40 mg DAILY@0800 LISET Administration Sodium Chloride 1,000 mls @ 50 mls/hr 01/10/21 09:45 01/10/21 10:02 Sodium Chloride 0.9% IV 50 mls/hr .Q20H LISET Administration Levofloxacin 500 mg 01/09/21 13:30 01/09/21 14:02 Levofloxacin 500 Mg Tablet PO 500 mg Q48H LISET Administration Protocol Metoprolol Tartrate 12.5 mg 01/01/21 21:00 01/10/21 08:06 Metoprolol Tartrate 25 Mg Tablet PO 12.5 mg BID@0900,2100 LISET Administration Nystatin 400,000 unit 01/07/21 09:00 01/10/21 14:25 Nystatin 100,000 Unit/Ml Udc 5 Ml PO Not Given QID LISET Ondansetron HCl 4 mg 12/30/20 20:53 01/09/21 22:52 Ondansetron 2 Mg/Ml Sdv 2 Ml IVP 4 mg Q6H PRN Administration NAUSEA AND VOMITING Rivastigmine Tartrate 3 mg 12/31/20 09:00 01/10/21 17:19 Rivastigmine 1.5 Mg Capsule PO 3 mg BID LISET Administration Senna/Docusate Sodium 1 tab 12/31/20 09:00 01/10/21 09:02 Sennosides-Docusate Tablet PO 1 tab DAILY LISET Administration PFSH Acute PFSH: Medical History Atrial fibrillation Cardiomyopathy Stable currently Compression fracture 04/12/2020 T12 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 fib episode Thoracic compression fracture Vertigo Warfarin anticoagulation Warfarin discontinued. 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 Family History Mother CAD (coronary artery disease) Social History Smoking and tobacco status: never smoked Alcohol intake: never Household members: spouse Marital status: Current occupational status: retired History of recent travel: No [place]ebe/[place]: Unknown Vitals/I&O/Wt Last Vital Signs Temp 97.2 F L 01/10/21 16:00 Pulse 106 H 01/10/21 16:00 Resp 22 H 01/10/21 16:00 BP 104/71 01/10/21 16:00 Pulse Ox 94 01/10/21 16:00 01/10/21 01/10/21 01/10/21 06:59 14:59 22:59 Intake Total 400 / 1040 195 / 195 120 / 315 Balance 400 / 840 195 / 195 120 / 315 Physical Exam Const: COMMON NORMALS: no acute distress, alert and well nourished GENERAL APPEARANCE: well kempt and well developed HENMT: COMMON NORMALS: normocephalic and atraumatic HEAD & SCALP: normocephalic and atraumatic Eye: COMMON NORMALS: no scleral icterus Neck/C-Spine: COMMON NORMALS: full ROM GENERAL: Yes normal visual inspection Resp: COMMON NORMALS: normal respiratory effort EFFORT & INSPECTION: No labored and No Actively coughing GI: COMMON NORMALS: Soft to palpation and non-tender PALPATION: Yes Soft to palpation : COMMON NORMALS: Yes no CVA tenderness BLADDER/KIDNEY EXAM: Yes no CVA tenderness MALE GROIN/PERINEUM EXAM: No ecchymosis PENIS: normal penis MEATUS: meatus normal, no meatla discharge and No Blood at meatus present SCROTUM: Yes testes descended bilaterally, No edematous and No scrotal swelling TESTES: No absent testicle, No testicular tenderness, No testicular mass, Yes epididymides normal and No epididymal tenderness Back/Pelvis: COMMON NORMALS: no CVA tenderness Extremity: OTHER: Lower extremity edema Neuro: COMMON NORMALS: no focal motor deficits SENSORIUM/ORIENTATION: Yes alert Psych: APPEARANCE: Yes grossly normal and Yes well kempt ATTITUDE: Yes calm Skin: COMMON NORMALS: no rashes or lesions noted and no jaundice GENERAL SKIN EXAM: no rashes or lesions noted Data Micro: Micro: Microbiology 01/04/21 19:47 Blood Culture - Fi nal Blood NO GROWTH AFTER 5 DAYS 01/04/21 19:55 Blood Culture - Fi nal Blood NO GROWTH AFTER 5 DAYS A&P Assessment and plan (1) Acute urinary retention: Fairly low volume acute urinary retention with some discomfort. Failure to get catheter in place by nursing staff. Status: Acute (2) Gross hematuria: First occurred after attempted catheterization was unsuccessful. He denies any prior gross hematuria and the nursing staff is unaware of history of that while in the hospital prior to catheterization. If does not clear will need repeat cystoscopy under better circumstances for reevaluation of bladder mucosa. Encouraged nursing staff to irrigate manually to clear urine. Will follow. Status: Acute Consult Attestations Medical Necessity Statement: See attending. Coding Level of Care Code Acute Media Strategist for Serg Cavazos Diagnoses Acute urinary retention R33.8 Gross hematuria R31.0
[2021-01-10 18:56] LABS: Add Urine Culture? Yes; Bacteria Urine TRACE /hpf; Bilirubin Urine Neg (Negative); Blood Urine 3+ (Negative); Glucose Urine UA Norm (Normal); Ketones Urine Negative (Negative); Leukocyte Esterase Urine Trace (Negative); Nitrate Urine Negative (Negative); Protein Urine 3+ (Negative); RBC Urine >100 /hpf (0-2); Squamous Epithelial Cell Urine 0-4 /hpf (0-5); Urine Appearance Cloudy (CLEAR); Urine Color Red (Yellow); Urobilinogen Urine Norm (Negative); pH Urine 5 (5-7)
--- NOTE | 2021-01-10 18:58 | PC.NURSE ---
per Dr. cagle salgado cath needs to be flushed 2 times in the shift supervisor rn and bladder scanned at 0700 monitor output closely flush with sterile water from a sterile cup with a sterile cath tip syringe 60-120 ml each time and pull back if patient tolerates well
[2021-01-10 19:54] LABS: Potassium, Radom Urine 45 mmol/L; Urine Creatinine 52 mg/dL (39-259)
[2021-01-10 19:55] LABS: Urine Random Chloride 10 mmol/L; Urine Random Sodium 16 mmol/L
[2021-01-10] MEDS: OLANZapine 5 mg ODT 7.5 MG PO (21:01)
--- NOTE | 2021-01-10 22:37 | P.PN_ITS ---
Subjective Subjective: Interval history: Patient was scheduled to undergo cardiac cath today, however renal function worsened. Procedure postpone for now.He also had hematuria today. He is confused today. Vitals/I&O/Wt Last Vital Signs Temp 97.7 F 01/10/21 19:33 Pulse 105 H 01/10/21 19:33 Resp 26 H 01/10/21 19:33 BP 116/69 01/10/21 19:33 Pulse Ox 94 01/10/21 19:33 01/10/21 01/10/21 01/10/21 06:59 14:59 22:59 Intake Total 400 / 1040 195 / 195 120 / 315 Balance 400 / 840 195 / 195 120 / 315 Physical Exam Narrative: EXAM NARRATIVE: GENERAL: Patient is alert, awake and oriented x3. [] NECK: No jugular vein distension. [] HEENT: No cyanosis. No icterus. No pallor. [] HEART: Regular S1 and S2. No murmur, rub or gallop. [] LUNGS: Clear to auscultate bilaterally. [] ABDOMEN: Soft, nontender and nondistended. Positive bowel sounds. No guarding, rebound or tenderness. [] CENTRAL NERVOUS SYSTEM: Grossly nonfocal. [] EXTREMITIES: Lower extremities with no edema bilaterally. Pulses palpable in the lower extremities, both dorsalis pedis and posterior tibial. [] Urinary Catheter Management^: Sharma: Cath Placed During This Visit: no Reason for Continuing Indwelling Catheter: Acute Urinary Retention or Obstruction Data : 01/11/21 05:16 01/11/21 09:43 Micro: Microbiology 01/04/21 19:47 Blood Culture - Final Blood NO GROWTH AFTER 5 DAYS 01/04/21 19:55 Blood Culture - Final Blood NO GROWTH AFTER 5 DAYS A&P Assessment and plan (1) Facial pain: Status: Deleted (2) Sprain of jaw, left side, initial encounter: Status: Acute (3) Atrial fibrillation: Status: Acute Qualifiers: Atrial fibrillation type: unspecified Qualified Code(s): I48.91 - Unspecified atrial fibrillation (4) Hypertension: Status: Acute (5) Cardiomyopathy: Status: Acute (6) DOMINICK (acute kidney injury): Status: Acute Patient presented with jaw and left-sided facial discomfort. Anticoagulation was switched to Lovenox in preparation for the cath. Plan for cath postponed as patient developed DOMINICK and is having hematuria. Has cellulitis of the left side of face that has resolved. His stress test has demonstrated small reversible defect in lateral wall. Echocardiogram shows severely reduced LV systolic function which is 20% now. This is a decrease from echo performed in August when it was 45%. Patient is intermittently hypotensive but not in cardiogenic shock clinically. Not requiring pressors Continue amiodarone. Heart rate is controlled. Hold lasix as patient has developed DOMINICK Thank you for involving us with care of this patient. We will continue to follow. Please call with questions. Attestations Medical Necessity Statement*: Care expected to cross 2 midnights Coding Level of Care Code Acute Assistant Construction Superintendent for [facility] Fwd Diagnoses Facial pain R51.9 Sprain of jaw, left side, initial encounter S03.42XA Atrial fibrillation I48.91 Atrial fibrillation type: unspecified Hypertension I10 Cardiomyopathy I42.9 DOMINICK (acute kidney injury) N17.9
[2021-01-11 00:47] VITALS: BP 89/60; PULSE 100; RESP 35
[2021-01-11] MEDS: HYDROcodone-acetaminophen 5-325 mg Tablet 1 TAB PO ×2 (01:32→20:34)
--- NOTE | 2021-01-11 01:49 | PC.NURSE ---
PT IS IN BED. PT IS TRYING TO KICK AND PUNCH STAFF. PT IS PULLING AT CASTREJON CATHETER. THERE ARE BLOOD CLOTS AFTER IRRIGATING CASTREJON X2. PT WAS GIVEN PRN NORCO. DR LEIGH WAS NOTIFIED OF BLOOD IN URINE. NO NEW ORDERS AT THIS TIME. WILL CONTINUE TO MONITOR.
[2021-01-11 03:42] VITALS: BP 118/87; PULSE 100; RESP 20; TEMP 36.5; O2SAT 96
[2021-01-11 05:02] LABS: Eosinophil Urine No Eosinophils Seen; Urine Eosinophil Count 0 (0-0)
[2021-01-11] MEDS: sodium chloride 0.9% 1,000 ML 50 ML IV (05:39)
--- NOTE | 2021-01-11 05:43 | PC.NURSE ---
PT SEEMS TO BE DOING MUCH BETTER. PT DOESN'T SEEM TO BE CONFUSED. PT DENIES PAIN. WILL CONTINUE TO MONITOR.
[2021-01-11] MEDS: famotidine 20 mg/2 mL INJ IVP ×2 (06:30→18:48)
[2021-01-11 07:19] VITALS: BP 100/61; PULSE 95; RESP 14; TEMP 35.6; O2SAT 92
[2021-01-11 08:06] LABS: Basophils % 0.2 %; Hemoglobin 14.6 g/dL (11.7-16.6); Lymphocytes # 0.9 10^3/uL (0.8-4.8); Lymphocytes % 5.2 %; Mean Corpuscular HGB Conc 31.7 g/dL (30.0-36.0); Mean Corpuscular Hemoglobin 31.3 pg (28.0-34.0); Mean Corpuscular Volume 98.7 fL (80-94); Mean Platelet Volume 10.8 fL (7.4-10.4); Monocytes # 2.4 10^3/uL (0.2-0.9); Monocytes % 13.4 %; Neutrophils # 14.46 10^3/uL (1.8-7.7); Neutrophils % 80.1 %; Nucleated Red Blood Cells % 0 %; Platelet Count 291 10^3/cmm (130-400); Red Blood Count 4.66 10^6/uL (4.1-5.3); Red Cell Distribution Width 15.5 % (12.1-15.1)
--- NOTE | 2021-01-11 08:39 | DCPLANNER ---
IMM completed with pt's , Daphne Deluna over the phone on 01/11/21 @ 0219.
[2021-01-11] MEDS: aspirin 81 mg EC Tablet PO (10:21)
[2021-01-11] MEDS: metoprolol tartrate 25 mg Tablet 12.5 MG PO ×2 (10:21→20:33)
[2021-01-11] MEDS: sennosides-docusate Tablet 1 TAB PO (10:21)
[2021-01-11] MEDS: amiodarone 200 mg Tablet 400 MG PO ×2 (10:21→18:49)
[2021-01-11] MEDS: amoxicillin-clav 875-125 mg Tablet 1 TAB PO ×2 (10:23→18:49)
[2021-01-11] MEDS: FUROsemide 40 mg Tablet PO (10:23)
[2021-01-11] MEDS: nystatin 100,000 unit/mL UDC 5 mL 400000 UNIT PO ×3 (10:25→20:33)
[2021-01-11 10:30] LABS: Alanine Aminotransferase 13 U/L (0-41); Alkaline Phosphatase 43 IU/L (40-130); Anion Gap 18.1 (5-19); Aspartate Amino Transferase 14 U/L (0-40); Blood Urea Nitrogen 56 mg/dL (8-23); Calcium 7.7 mg/dL (8.5-10.5); Carbon Dioxide 25 mmol/L (22-29); Chloride 102 mmol/L (98-107); Globulin 2.1 g/dL (1.3-4.6); Glucose 93 mg/dL (65-115); Osmolality Calculated 307 mOsm/kg (285-295); Potassium 4.1 mmol/L (3.5-5.1); Sodium 141 mmol/L (136-145); Total Bilirubin 0.8 mg/dL (0.15-1.2); Total Protein 5.1 g/dL (6.6-8.7)
--- NOTE | 2021-01-11 13:34 | P.PN_ITS ---
Subjective Subjective: Interval history: Patient seen today morning with at bedside. Today patient is a lot more awake and alert. Patient had a restful night after Zyprexa. He is alert and jovial mood. He is less tangential than yesterday though still has occasional episodes of confusion. He is alert oriented to self, place. Denies any facial pain. Continues to have hematuria though no further urine retention. Has remained hemodynamically stable, controlled heart rate and on room air. Medications: Reviewed: Yes Vitals/I&O/Wt Last Vital Signs Temp 96.0 F L 01/11/21 07:19 Pulse 95 01/11/21 07:19 Resp 14 01/11/21 07:19 BP 100/61 01/11/21 07:19 Pulse Ox 92 01/11/21 07:19 01/10/21 01/11/21 01/11/21 22:59 06:59 14:59 Intake Total 120 / 315 980.833 / 1295.833 0 / 0 Output Total 250 / 250 700 / 950 Balance -130 / 65 280.833 / 345.833 0 / 0 Physical Exam Const: COMMON NORMALS: no acute distress and alert GENERAL APPEARANCE: cooperative and comfortable ORIENTATION/CONSCIOUSNESS: Yes awake OTHER: Sitting up at edge of bed. Alert oriented to self and place, less tangential thoughts and conversation today. HENMT: COMMON NORMALS: oropharynx normal OTHER: Resolved swelling left side cheek. Resolved mild erythema. Mild to moderate tenderness on palpation left mandibular site below molars. Neck/C-Spine: COMMON NORMALS: no JVD Resp: COMMON NORMALS: normal respiratory effort and clear to auscultation bilaterally AUSCULTATION: clear to auscultation bilaterally Cardio: COMMON NORMALS: no JVD, regular rhythm, S1 normal heart sound present, S2 normal heart sound present and No murmurs present (Cardio) RHYTHM: regular rhythm HEART SOUNDS: S1 normal heart sound present and S2 normal heart sound present GI: COMMON NORMALS: Normal to inspection, nondistended, normoactive bowel sounds present, Soft to palpation and non-tender PALPATION: Yes Soft to palpation Extremity: COMMON NORMALS: no joint enlargement GENERAL: Yes edema (2+) Neuro: COMMON NORMALS: moves all extremities SENSORIUM/ORIENTATION: Yes alert OTHER: No facial droop. Skin: COMMON NORMALS: no rashes or lesions noted GENERAL SKIN EXAM: no rashes or lesions noted Urinary Catheter Management^: Sharma: Cath Placed During This Visit: no Reason for Continuing Indwelling Catheter: Acute Urinary Retention or Obstruction Data : 01/11/21 05:16 01/11/21 09:43 A&P Assessment and plan (1) Delirium: Most likely secondary to hospital-acquired delirium because of advanced age and with prolonged hospitalization of causing worsening of patient's baseline dementia. Even though he has leukocytosis but that has remained stable during the hospitalization. He does not have any fever, has remained hemodynamically stable. CT scan done yesterday showing resolution of cellulitis. BUN has remained stable, has no electrolyte abnormality. LFTs have remained stable, ammonia levels done earlier in the admission was within normal limits. Procalcitonin done 2 days ago was within normal limits. TSH normal. We will add random cortisol levels. CT head done yesterday negative for any acute abnormality. Patient moving all 4 limbs appropriately without any facial deformity or droop. Patient not on any sedative scheduled or as needed medication. On review of MAR has not received any medication recently. Continue holding of tramadol. Continue with hydrocodone every 12 hourly. Patient's care discussed in detail with his over phone today. She states in past whenever patient would have discolored delirium leaving the dentures in mouth use to help. Will give that a try. Bedside sitter. Frequent reorienting. Continue with Zyprexa we will will decrease the dose to 5 mg at bedtime. Status: Acute (2) DOMINICK (acute kidney injury): Needs to trend up. Most likely secondary to overdiuresis with poor oral intake. Renal ultrasound appreciated. FeNa?0.4 consistent with prerenal Start patient on normal saline 50 cc/h while monitoring for fluid overload. Status: Acute (3) Acute urinary retention: Catheterized by Dr. Villa yesterday. Status: Acute (4) Gross hematuria: Clear post straight catheterization. Traumatic. Appreciate Dr. Villa's help. We will confirm with Dr. Villa if patient requires continuous irrigation. Continue to hold off on anticoagulation. Status: Acute (5) Atrial fibrillation: Heart rate better controlled. Continue with amiodarone 400 mg twice daily. Continue with metoprolol. Eliquis changed to full dose Lovenox for possible angiogram tomorrow as per cardiology recommendations. Status: Acute Qualifiers: Atrial fibrillation type: unspecified Qualified Code(s): I48.91 - Uns pecified atrial fibrillation (6) Hypotension: Blood pressures better. We will continue to monitor blood pressures. Can be secondary to early cardiogenic shock because of slow flow with a EF of 20%. Overall patient seems to be euvolemic since admission though complaining of shortness of breath on lying down flat. Transition back to oral Lasix 60 mg daily from tomorrow. Strict input output charting, fluid restriction up to 1500 cc. Continue with metoprolol which was switched over from Coreg. Continue holding on lisinopril, doxazosin for now. 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 Discussed with his concern for progression to low output failure, with lethargy, kidney injury, soft blood pressures, tachycardia. Anasarca noted on CT chest abdomen pelvis. At this time continue Lasix. Possible coronary angiography during this hospitalization to rule out new ischemia on nonischemic cardiomyopathy Continue with aspirin 81 mg daily. HbA1c and lipid panel results appreciated. Status: Acute (8) Facial cellulitis: As seen on facial CT done on January 03, 2020. Patient states swelling has decreased but continues to have pain in the mandible. Repeat CT head and facial CT shows resolution of cellulitis. Without any abscess. Leukocytosis stable. Blood cultures remain negative. MRSA swab still pending. Continue with Augmentin twice daily and levofloxacin every 48 hours to finish a 10-day course. Patient requires antibiotics for 2 more days now. Patient most likely needs an appointment with dentist as an outpatient for refitting of dentures. Nystatin swish and swallow. Status: Acute (9) Liver cirrhosis: Incidentally noted on CT abdomen pelvis. Check ammonia. Suspect secondary to CHF. Discussed with his . Status: Acute (10) Pneumonia: Antibiotics for facial cellulitis is also help with pneumonia. Resolved at present. The patient continues to be on antibiotics for facial cellulitis. On room air. Possible aspiration pneumonia. Continue with mechanical soft cardiac diet. Antibiotics as above. Most likely will do a 5-day course overall. Maintain aspiration precautions Status: Acute (11) Leukocytosis: Stable without any fever at present. Status: Acute (12) Lethargy: Resolved. Secondary to infection including pneumonia, facial cellulitis, medications including gabapentin, carbamazepine. Additionally possible low output heart failure. Status: Acute Additional A&P Information PVCs: Multiple PVCs noted on PPM interrogation. Monitor on telemetry. Continue beta-phu. Additional assessment for progression of coronary disease as above. Reduced ejection fraction heart failure: Continue Lasix. Anasarca noted on CT chest abdomen pelvis. Noted worsening ejection fraction on repeat TTE. EF 20%, grade 3 diastolic dysfunction. Consideration of coronary angiogram prior to discharge. With also require premedication due to iodine allergy. At this time continue treatment of underlying infection. Lewy body Parkinson's dementia Appreciate cardiology recommendations. Discussed his condition, assessment plan with his on phone today. We discussed various cause of his delirium. Also discussed that multiple blood work and CT scan have come back within normal limits and chances of hospital- acquired delirium given advanced age and long hospitalization respiratory high. She states unfortunately given his current situation if he comes home she is worried she will not be able to take care of him. We also discussed that because of multiple problems in his case at present could be because of severely reduced ejection fraction with early cardiogenic shock causing him to have borderline blood pressures, lethargy, hypoactive delirium. We discussed patient is due for possible angiogram tomorrow to rule out ischemic causes and chances of patient regaining his contractility are usually low. Discussed with patient's today that probably it would be best if we hold o ff on to cardiac catheterization for next couple of weeks because of second episode of DOMINICK during this admission as patient does not have any active chest pain or hemodynamic instability or frequent VPCs on monitor anymore. DNR/DNI. Full dose Lovenox also DVT prophylaxis. Pepcid for PUD prophylaxis. Attestations Medical Necessity Statement*: Patient requires further hospitalization for management of ongoing hematuria, acute delirium. 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 Coding Level of Care Code Acute Clinical Professor for [facility] Fwd Exam Comprehensive Diagnoses Delirium R41.0 DOMINICK (acute kidney injury) N17.9 Acute urinary retention R33.8 Gross hematuria R31.0 Atrial fibrillation I48.91 Atrial fibrillation type: unspecified Hypotension I95.9 Congestive heart failure with cardiomyopathy I50.9; I42.9 Facial cellulitis L03.211 Liver cirrhosis K74.60 Pneumonia J18.9 Leukocytosis D72.829 Lethargy R53.83
[2021-01-11 15:42] VITALS: BP 92/78; PULSE 96; RESP 23; TEMP 36.4; O2SAT 95
[2021-01-11] MEDS: dutasteride 0.5 mg Capsule PO (18:49)
[2021-01-11] MEDS: levoFLOXacin 500 mg Tablet PO (18:50)
--- NOTE | 2021-01-11 18:59 | PM.PN ---
Subjective Subjective: Interval history: Urology follow-up: Still having bloody urine. Nursing staff is irrigated the catheter multiple times with some clots return. Having some leakage around the catheter at times which probably represents clot occlusion. Reviewed with the nursing staff technique of clot irrigation and expectations with endpoints. We will make that the area goal of catheter management through the night. If he still having significant hematuria with poor catheter function tomorrow I will rescope his bladder to assess for additional pathology beyond catheter trauma leading to gross hematuria. Vitals/I&O/Wt Last Vital Signs Temp 97.6 F 01/11/21 15:42 Pulse 96 01/11/21 15:42 Resp 23 H 01/11/21 15:42 BP 92/78 01/11/21 15:42 Pulse Ox 95 01/11/21 15:42 01/11/21 01/11/21 01/11/21 06:59 14:59 22:59 Intake Total 980.833 / 1295.833 0 / 0 360 / 360 Output Total 700 / 950 950 / 950 Balance 280.833 / 345.833 0 / 0 -590 / -590 Physical Exam Const: COMMON NORMALS: no acute distress and alert GENERAL APPEARANCE: well kempt and well developed HENMT: COMMON NORMALS: normocephalic and atraumatic HEAD & SCALP: normocephalic and atraumatic Neck/C-Spine: COMMON NORMALS: full ROM Resp: COMMON NORMALS: normal respiratory effort EFFORT & INSPECTION: No labored and No Actively coughing : PENIS: normal penis MEATUS: meatus normal Neuro: COMMON NORMALS: no focal motor deficits SENSORIUM/ORIENTATION: Yes alert Psych: COMMON NORMALS: cooperative APPEARANCE: Yes well kempt ATTITUDE: Yes calm and Yes engaged Urinary Catheter Management^: Sharma: Cath Placed During This Visit: no Reason for Continuing Indwelling Catheter: Accurate Measurement of Urinary Output in Critically Ill Patients Data : 01/12/21 05:11 01/12/21 05:11 A&P Assessment and plan (1) Gross hematuria: Expected catheter related mild trauma with bleeding. Exacerbated by anticoagulated state although his anticoagulants have been stopped. Recommended aggressive manual irrigation. May consider three-way catheter with CBI/clot evacuation if manual irrigation tonight is not enough. 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
--- NOTE | 2021-01-11 19:12 | PC.NURSE ---
pt's salgado catheter continues to drain dk red blood with some clots..requiring irrigation of catheter [address] burks notified..and he instructed to irrigate with 1 liter sterile water...or until color lightens and no clots noted.irrigated salgado with 1 liter steril water ..urine appeared light red in color and no clots noted.pt tolerated procedure well.passed along dr burks's instructions to otolaryngology surgeon rn.
[2021-01-11 19:30] VITALS: BP 89/66; PULSE 99; RESP 22; TEMP 36.4; O2SAT 96
[2021-01-11] MEDS: OLANZapine 5 mg ODT PO (20:34)
--- NOTE | 2021-01-11 21:04 | PM.PN ---
Subjective Subjective: Interval history: Patient is alert today. Less confused Vitals/I&O/Wt Last Vital Signs Temp 97.6 F 01/11/21 19:30 Pulse 99 01/11/21 19:30 Resp 22 H 01/11/21 19:30 BP 89/66 01/11/21 19:30 Pulse Ox 96 01/11/21 19:30 01/11/21 01/11/21 01/11/21 06:59 14:59 22:59 Intake Total 980.833 / 1295.833 0 / 0 360 / 360 Output Total 700 / 950 1750 / 1750 Balance 280.833 / 345.833 0 / 0 -1390 / -1390 Physical Exam Narrative: EXAM NARRATIVE: GENERAL: Patient is alert, awake and oriented x3. [] NECK: No jugular vein distension. [] HEENT: No cyanosis. No icterus. No pallor. [] HEART: Regular S1 and S2. No murmur, rub or gallop. [] LUNGS: Clear to auscultate bilaterally. [] ABDOMEN: Soft, nontender and nondistended. Positive bowel sounds. No guarding, rebound or tenderness. [] CENTRAL NERVOUS SYSTEM: Grossly nonfocal. [] EXTREMITIES: Lower extremities with no edema bilaterally. Pulses palpable in the lower extremities, both dorsalis pedis and posterior tibial. [] Urinary Catheter Management^: Sharma: Cath Placed During This Visit: no Reason for Continuing Indwelling Catheter: Accurate Measurement of Urinary Output in Critically Ill Patients Data : 01/12/21 05:11 01/12/21 05:11 A&P Assessment and plan (1) Facial pain: Status: Deleted (2) Sprain of jaw, left side, initial encounter: Status: Acute (3) Atrial fibrillation: Status: Acute Qualifiers: Atrial fibrillation type: unspecified Qualified Code(s): I48.91 - Unspecified atrial fibrillation (4) Hypertension: Status: Acute (5) Cardiomyopathy: Status: Acute (6) DOMINICK (acute kidney injury): Status: Acute Patient presented with jaw and left-sided facial discomfort. Plan for cath postponed as patient developed DOMINICK and is having hematuria. Hold anticoagulation in the setting of hematuria. Has cellulitis of the left side of face that has resolved. His stress test has demonstrated small reversible defect in lateral wall. Echocardiogram shows severely reduced LV systolic function which is 20% now. This is a decrease from echo performed in August when it was 45%. Patient is intermittently hypotensive but not in cardiogenic shock clinically. Not requiring pressors Continue amiodarone 400mg BID. Heart rate is controlled. Hold lasix as patient has developed DOMINICK. Consider IV hydration if renal function does not improve Thank you for involving us with care of this patient. We will continue to follow. Please call with questions. Attestations Medical Necessity Statement*: Care expected to cross 2 midnights. 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
[2021-01-11 22:00] VITALS: PULSE 89
[2021-01-12] VITALS (10 sets, daily range): BP systolic 89–119; BP diastolic 56–73; PULSE 78–102; RESP 15–25; TEMP 36.6–36.9; O2SAT 92–97
[2021-01-12] MEDS: sodium chloride 0.9% 1,000 ML 50 ML IV (02:10)
[2021-01-12] MEDS: HYDROcodone-acetaminophen 5-325 mg Tablet 1 TAB PO ×2 (04:45→19:53)
[2021-01-12 05:33] LABS: Basophils % 0.1 %; Eosinophils % 0.1 %; Hematocrit 34.7 % (42.0-52.0); Lymphocytes # 1.1 10^3/uL (0.8-4.8); Lymphocytes % 7.3 %; Mean Corpuscular HGB Conc 31.7 g/dL (30.0-36.0); Mean Corpuscular Hemoglobin 31.5 pg (28.0-34.0); Mean Corpuscular Volume 99.4 fL (80-94); Mean Platelet Volume 10.2 fL (7.4-10.4); Monocytes % 13.3 %; Neutrophils # 11.49 10^3/uL (1.8-7.7); Neutrophils % 78.1 %; Nucleated Red Blood Cells % 0 %; Platelet Count 255 10^3/cmm (130-400); Red Blood Count 3.49 10^6/uL (4.1-5.3); Red Cell Distribution Width 15.6 % (12.1-15.1); White Blood Count 14.7 10^3/uL (4.0-10.0)
[2021-01-12 05:58] LABS: Alanine Aminotransferase 12 U/L (0-41); Albumin Level 3.1 g/dL (3.5-5.2); Alkaline Phosphatase 50 IU/L (40-130); Aspartate Amino Transferase 16 U/L (0-40); Blood Urea Nitrogen 58 mg/dL (8-23); Calcium 8.1 mg/dL (8.5-10.5); Carbon Dioxide 24 mmol/L (22-29); Chloride 102 mmol/L (98-107); Globulin 2.1 g/dL (1.3-4.6); Glucose 95 mg/dL (65-115); Osmolality Calculated 300 mOsm/kg (285-295); Sodium 137 mmol/L (136-145); Total Bilirubin 0.7 mg/dL (0.15-1.2); Total Protein 5.2 g/dL (6.6-8.7)
[2021-01-12] MEDS: famotidine 20 mg/2 mL INJ IVP ×2 (06:10→17:55)
--- NOTE | 2021-01-12 08:42 | CTR_ITS ---
PROCEDURE INFORMATION: Exam: CT Abdomen And Pelvis Without Contrast Exam date and time: 01/12/2021 8:58 AM Age: 85 years old Clinical indication: Abdominal pain; Additional info: Abd pain/swelling TECHNIQUE: Imaging protocol: Computed tomography of the abdomen and pelvis without contrast. Radiation optimization: All CT scans at this facility use at least one of these dose optimization techniques: automated exposure control; mA and/or kV adjustment per patient size (includes targeted exams where dose is matched to clinical indication); or iterative reconstruction. COMPARISON: CT chest abd pel wo con 01/05/2021 10:52 AM RADIATION DOSE METRICS: Total DLP (mGy-cm): 1031.63 FINDINGS: Lungs: There is bibasilar atelectasis. Pleural spaces: Small bilateral pleural effusions are present larger on the right side. These have increased in size since the previous examination. Heart: The heart is enlarged. There is stable pericardial effusion. The coronary arteries are calcified. Liver: There is a lobulated contour of the liver which is probably due to hepatic cirrhosis. Gallbladder and bile ducts: Normal. No calcified stones. No ductal dilation. Pancreas: Normal. No ductal dilation. Spleen: Normal. No splenomegaly. Adrenal glands: Normal. No mass. Kidneys and ureters: There is a 2.0 cm benign appearing cyst at the superior pole of the right kidney. There is a stable 1 cm hyperdense nodule on the posterior aspect of the left kidney consistent with a proteinaceous cyst. There is no hydronephrosis. A nonobstructing calcification is present in the lower pole of the left kidney. Stomach and bowel: There is sigmoid diverticulosis but no evidence of acute diverticulitis. There is no significant bowel dilatation or evidence of obstruction. Appendix: No evidence of appendicitis. Intraperitoneal space: See Soft tissues finding. Vasculature: The aorta and iliac arteries are calcified. There is no aneurysm. Lymph nodes: Unremarkable. No enlarged lymph nodes. Urinary bladder: Sharma catheter is present in the urinary bladder. There is a 10 cm hyperdense mass in the urinary bladder that has arisen since the previous scan from 01/05/2021. This is consistent with a large intraluminal blood clot. A few bubbles of air are present in the bladder consistent with the catheterization. Reproductive: The prostate is enlarged but unchanged. Benign prostatic calcifications are present. Bones/joints: Degenerative changes are present in the spine. Soft tissues: There is diffuse subcutaneous edema around the abdomen and pelvis consistent with anasarca. There is diffuse increased hazy density of the intra-abdominal fat consistent with diffuse edema and anasarca. There is a tiny amount of free fluid in the pelvis. CT/CT abdomen pelvis wo con [id number] IMPRESSION: 1. Anasarca. 2. Nodular contour of the liver consistent with cirrhosis. 3. Increasing small bilateral pleural effusions. 4. Cardiomegaly. Small pericardial effusion. 5. A 10 cm hyperdense structure has developed in the urinary bladder since previous scan consistent with large intraluminal thrombus. 6. Nonobstructing left nephrolithiasis. COMMENTS: Consistent with the [employer]'s Incidental Findings Committee white paper (J Am Shey Radiol 2018): Any incidental renal lesion less than 1 cm or classified as too small to characterize, or any incidental cystic renal lesion characterized as simple-appearing, is likely benign. No follow-up imaging is recommended for these lesions per consensus recommendations based on imaging criteria. Radiation Dose CTDIVOL = (mGy): DLP = 1031.63 (mGy-cm)
[2021-01-12] MEDS: metoprolol tartrate 25 mg Tablet 12.5 MG PO ×2 (08:49→19:54)
[2021-01-12] MEDS: FUROsemide 40 mg Tablet PO (08:51)
[2021-01-12] MEDS: amoxicillin-clav 875-125 mg Tablet 1 TAB PO (08:51)
[2021-01-12] MEDS: aspirin 81 mg EC Tablet PO (08:51)
[2021-01-12] MEDS: sennosides-docusate Tablet 1 TAB PO (08:51)
[2021-01-12] MEDS: amiodarone 200 mg Tablet 400 MG PO ×2 (08:52→17:46)
[2021-01-12] MEDS: acetaminophen 325 mg Tablet 650 MG PO (08:52)
[2021-01-12] MEDS: nystatin 100,000 unit/mL UDC 5 mL 400000 UNIT PO ×3 (08:53→19:54)
--- NOTE | 2021-01-12 10:29 | PM.PN ---
Subjective Subjective: Interval history: Patient denies any chest pain or palpitations. No unusual shortness of breath. According to the nursing staff, he was confused through the night but seems to be more oriented and appropriate today. He is still on one-to-one monitoring. No fever or chills. No cough. Medications: Reviewed: Yes Medication Review Details: Current Medications Acetaminophen (Acetaminophen 325 Mg Tablet) 650 mg PO TID PRN PRN Reason: Pain Last Admin: 01/12/21 08:52 Dose: 650 mg Documented by: Hydrocodone Bitart/Acetaminophen (Hydrocodone-Acetaminophen 5-325 Mg Tablet) 1 tab PO Q12H PRN PRN Reason: MODERATE PAIN Last Admin: 01/12/21 04:45 Dose: 1 tab Documented by: Amiodarone HCl (Amiodarone 200 Mg Tablet) 400 mg PO BID [facility] Last Admin: 01/12/21 08:52 Dose: 400 mg Documented by: Amoxicillin/Clavulanate Potassium (Amoxicillin-Clav 875-125 Mg Tablet) 1 tab PO BID [facility]; Protocol Stop: 01/12/21 17:59 Last Admin: 01/12/21 08:51 Dose: 1 tab Documented by: Aspirin (Aspirin 81 Mg Ec Tablet) 81 mg PO DAILY [facility] Last Admin: 01/12/21 08:51 Dose: 81 mg Documented by: Doxazosin Mesylate (Doxazosin 4 Mg Tablet) 4 mg PO DAILY@17 [facility] Last Admin: 01/01/21 18:08 Dose: Not Given Documented by: Dutasteride (Dutasteride 0.5 Mg Capsule) 0.5 mg PO DAILY@17 [facility] Last Admin: 01/11/21 18:49 Dose: 0.5 mg Documented by: Enoxaparin Sodium (Enoxaparin 80 Mg/0.8 Ml Syringe) 80 mg SUBCUT Q12H [facility] Last Admin: 01/10/21 16:03 Dose: Not Given Documented by: Famotidine (Famotidine 20 Mg/2 Ml Inj) 20 mg IVP Q12H [facility] Last Admin: 01/12/21 06:10 Dose: 20 mg Documented by: Sodium Chloride (Sodium Chloride 0.9%) 1,000 mls @ 50 mls/hr IV .Q20H [facility] Last Admin: 01/12/21 02:10 Dose: 50 mls/hr Documented by: Levofloxacin (Levofloxacin 500 Mg Tablet) 500 mg PO Q48H [facility]; Protocol Stop: 01/12/21 13:29 Last Admin: 01/11/21 18:50 Dose: 500 mg Documented by: Lisinopril (Lisinopril 5 Mg Tablet) 5 mg PO DAILY@17 [facility] Metoprolol Tartrate (Metoprolol Tartrate 25 Mg Tablet) 12.5 mg PO BID@0900,2100 [facility] Last Admin: 01/12/21 08:49 Dose: 12.5 mg Documented by: Non-Formulary Medication (Eplerenone) 25 mg PO DAILY@12 [facility] Nystatin (Nystatin 100,000 Unit/Ml Udc 5 Ml) 400,000 unit PO QID [facility] Last Admin: 01/12/21 08:53 Dose: 400,000 unit Documented by: Olanzapine (Olanzapine 5 Mg Odt) 5 mg PO BEDTIME [facility] Last Admin: 01/11/21 20:34 Dose: 5 mg Documented by: Ondansetron HCl (Ondansetron 2 Mg/Ml Sdv 2 Ml) 4 mg IVP Q6H PRN PRN Reason: NAUSEA AND VOMITING Last Admin: 01/09/21 22:52 Dose: 4 mg Documented by: Ondansetron HCl (Ondansetron 2 Mg/Ml Sdv 2 Ml) 4 mg IVP Q2M PRN PRN Reason: NAUSEA Rivastigmine Tartrate (Rivastigmine 1.5 Mg Capsule) 3 mg PO BID [facility] Last Admin: 01/12/21 08:51 Dose: 3 mg Documented by: Senna/Docusate Sodium (Sennosides-Docusate Tablet) 1 tab PO DAILY [facility] Last Admin: 01/12/21 08:51 Dose: 1 tab Documented by: Vitals/I&O/Wt Last Vital Signs Temp 98.4 F 01/12/21 07:21 Pulse 102 H 01/12/21 07:21 Resp 23 H 01/12/21 07:21 BP 119/72 01/12/21 07:21 Pulse Ox 97 01/12/21 07:21 01/11/21 01/12/21 01/12/21 22:59 06:59 14:59 Intake Total 360 / 360 1000 / 1360 120 / 120 Output Total 1750 / 1750 475 / 2225 450 / 450 Balance -1390 / -1390 525 / -865 -330 / -330 Physical Exam Narrative: EXAM NARRATIVE: GENERAL: The patient is alert and intermittently confused HEENT: Minimal pallor, icterus or lymphadenopathy.Oral cavity: There are no mucous membrane lesions. NECK: Trachea appears to be central. No masses noted. No JVD or thyromegaly appreciated. RESPIRATORY: Chest is symmetrical. No intercostals muscle retraction or any accessory muscle activation. There is no chest wall tenderness. Breath sounds are heard bilaterally. No rales or rhonchi heard. No evidence of any consolidation. BREASTS: Deferred. HEART: The heart sounds are normal. No S3 or S4. Short systolic murmur the left sternal border. No diastolic murmurs. No pericardial rub ABDOMEN: No vessel pulsations or distention. No tenderness. No organomegaly appreciated. Bowel sounds are normally heard. : Deferred. RECTAL: Deferred. LYMPHATIC: No lymphadenopathy noted in the neck. EXTREMITIES: Trace edema with no cyanosis MUSCULOSKELETAL: No acute joint deformities or swelling SKIN: There are no significant rashes or ecchymosis NEUROPSYCHIATRIC: The patient is alert with no focal motor deficits. Urinary Catheter Management^: Sharma: Cath Placed During This Visit: no Reason for Continuing Indwelling Catheter: Acute Urinary Retention or Obstruction Data : 01/12/21 05:11 01/12/21 05:11 A&P Assessment and plan (1) Atrial fibrillation: Status: Acute Qualifiers: Atrial fibrillation type: unspecified Qualified Code(s): I48.91 - Unspecified atrial fibrillation (2) Cardiomyopathy: Status: Acute Qualifiers: Cardiomyopathy type: other Qualified Code(s): I42.8 - Other cardiomyopathies (3) Hypertension: Status: Acute Qualifiers: Hypertension type: essential hypertension Qualified Code(s): I10 - Essential (primary) hypertension (4) Facial pain: Status: Deleted (5) Sprain of jaw, left side, initial encounter: Status: Acute (6) DOMINICK (acute kidney injury): Status: Acute (7) AICD (automatic cardioverter/defibrillator) present: Status: Acute Patient with? Nonischemic cardiomyopathy, status post ICD implantation. The ICD function seems to be appropriate. History of chronic atrial fibrillation, currently with a controlled ventricular response rate. Patient is on long-term oral anticoagulation. No bleeding complications. The LV ejection fraction was apparently dropped into the 20s, based on the most recent echocardiogram. Being considered for repeat cardiac catheterization to evaluate the etiology. In view of the abnormal kidney function, to also be appropriate to hold off on the contrast studies. Patient's kidney function has no significant improvement at this point. We will continue to monitor. May be given as needed Lasix. Overall cardiovascular status seems to be stable at this point. Attestations Medical Necessity Statement*: Patient requires continued hospital stay for close monitoring and further management Coding Level of Care Code Acute Sailmaker for [facility] Fwd Diagnoses Atrial fibrillation I48.91 Atrial fibrillation type: unspecified Cardiomyopathy I42.8 Cardiomyopathy type: other Hypertension I10 Hypertension type: essential hypertension Facial pain R51.9 Sprain of jaw, left side, initial encounter S03.42XA DOMINICK (acute kidney injury) N17.9 AICD (automatic cardioverter/defibrillator) present Z95.810
--- NOTE | 2021-01-12 10:59 | P.PN_ITS ---
Subjective Subjective: Interval history: Overnight patient slept well. He continues to have ongoing hematuria for which patient underwent CBI with Dr. Villa earlier in the morning today. Since CBI patient's urine has continued to clear up. He did not have any further episodes of agitation or confusion during the day. Patient's heart rate and blood pressure is a lot better controlled. Medications: Reviewed: Yes Vitals/I&O/Wt Last Vital Signs Temp 98.4 F 01/12/21 07:21 Pulse 102 H 01/12/21 07:21 Resp 23 H 01/12/21 07:21 BP 119/72 01/12/21 07:21 Pulse Ox 97 01/12/21 07:21 01/11/21 01/12/21 01/12/21 22:59 06:59 14:59 Intake Total 360 / 360 1000 / 1360 120 / 120 Output Total 1750 / 1750 475 / 2225 450 / 450 Balance -1390 / -1390 525 / -865 -330 / -330 Physical Exam Const: COMMON NORMALS: no acute distress and alert GENERAL APPEARANCE: cooperative and comfortable ORIENTATION/CONSCIOUSNESS: Yes awake OTHER: Sitting up at edge of bed. Alert oriented to self and place, less tangential thoughts and conversation today. HENMT: COMMON NORMALS: oropharynx normal OTHER: Resolved swelling left side cheek. Resolved mild erythema. Mild to moderate tenderness on palpation left mandibular site below molars. Neck/C-Spine: COMMON NORMALS: no JVD Resp: COMMON NORMALS: normal respiratory effort and clear to auscultation bilaterally AUSCULTATION: clear to auscultation bilaterally Cardio: COMMON NORMALS: no JVD, regular rhythm, S1 normal heart sound present, S2 normal heart sound present and No murmurs present (Cardio) RHYTHM: regular rhythm HEART SOUNDS: S1 normal heart sound present and S2 normal heart sound present GI: COMMON NORMALS: Normal to inspection, nondistended, normoactive bowel sounds present, Soft to palpation and non-tender PALPATION: Yes Soft to palpation Extremity: COMMON NORMALS: no joint enlargement GENERAL: Yes edema (2+) Neuro: COMMON NORMALS: moves all extremities SENSORIUM/ORIENTATION: Yes alert OTHER: No facial droop. Skin: COMMON NORMALS: no rashes or lesions noted GENERAL SKIN EXAM: no rashes or lesions noted Urinary Catheter Management^: Sharma: Cath Placed During This Visit: no Reason for Continuing Indwelling Catheter: Acute Urinary Retention or Obstruction Data : 01/13/21 04:25 01/13/21 04:25 A&P Assessment and plan (1) Delirium: Most likely secondary to hospital-acquired delirium because of advanced age and with prolonged hospitalization of causing worsening of patient's baseline dementia. Even though he has leukocytosis but that has remained stable during the hospitalization. He does not have any fever, has remained hemodynamically stable. CT scan done yesterday showing resolution of cellulitis. BUN has remained stable, has no electrolyte abnormality. LFTs have remained stable, ammonia levels done earlier in the admission was within normal limits. Procalcitonin done 2 days ago was within normal limits. TSH normal. We will add random cortisol levels. CT head done yesterday negative for any acute abnormality. Patient moving all 4 limbs appropriately without any facial deformity or droop. Patient not on any sedative scheduled or as needed medication. On review of MAR has not received any medication recently. Continue holding of tramadol. Continue with hydrocodone every 12 hourly. We will remove bedside sitter if patient continues to do well. Frequent reorienting. Continue with Zyprexa we will will decrease the dose to 5 mg at bedtime. Status: Acute (2) DOMINICK (acute kidney injury): Creatinine stable for now. Most likely secondary to overdiuresis with poor oral intake. Renal ultrasound appreciated. FeNa?0.4 consistent with prerenal Start patient on normal saline 50 cc/h while monitoring for fluid overload. Status: Acute (3) Acute urinary retention: Catheterized by Dr. Villa yesterday. Status: Acute (4) Gross hematuria: On CBI as per Dr. Villa. Really appreciate Dr. Villa's help. Continue to hold anticoagulation for now. Status: Resolved (5) Atrial fibrillation: Heart rate better controlled. Continue with amiodarone 400 mg twice daily. Continue with metoprolol. Eliquis changed to full dose Lovenox for possible angiogram tomorrow as per cardiology recommendations. Status: Acute Qualifiers: Atrial fibrillation type: unspecified Qualified Code(s): I48.91 - Unspecified atrial fibrillation (6) Hypotension: Blood pressures better. We will continue to monitor blood pressures. Can be secondary to early cardiogenic shock because of slow flow with a EF of 20%. Overall patient seems to be euvolemic since admission though complaining of shortness of breath on lying down flat. Transition back to oral Lasix 60 mg daily from tomorrow. Strict input output charting, fluid restriction up to 1500 cc. Continue with metoprolol which was switched over from Coreg. Continue holding on lisinopril, doxazosin for now. 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 Discussed with his concern for progression to low output failure, with lethargy, kidney injury, soft blood pressures, tachycardia. Anasarca noted on CT chest abdomen pelvis. At this time continue Lasix. Possible coronary angiography during this hospitalization to rule out new ischemia on nonischemic cardiomyopathy Continue with aspirin 81 mg daily. HbA1c and lipid panel results appreciated. Status: Acute (8) Facial cellulitis: As seen on facial CT done on January 03, 2020. Patient states swelling has decreased but continues to have pain in the mandible. Repeat CT head and facial CT shows resolution of cellulitis. Without any abscess. Leukocytosis stable. Blood cultures remain negative. MRSA swab still pending. Continue with Augmentin twice daily and levofloxacin every 48 hours to finish a 10-day course. Patient requires antibiotics for 2 more days now. Patient most likely needs an appointment with dentist as an outpatient for refitting of dentures. Nystatin swish and swallow. Status: Acute (9) Liver cirrhosis: Incidentally noted on CT abdomen pelvis. Check ammonia. Suspect secondary to CHF. Discussed with his . Status: Acute (10) Pneumonia: Antibiotics for facial cellulitis is also help with pneumonia. Resolved at present. The patient continues to be on antibiotics for facial cellulitis. On room air. Possible aspiration pneumonia. Continue with mechanical soft cardiac diet. Antibiotics as above. Most likely will do a 5-day course overall. Maintain aspiration precautions Status: Acute (11) Leukocytosis: Stable without any fever at present. Status: Acute (12) Lethargy: Resolved. Secondary to infection including pneumonia, facial cellulitis, medications including gabapentin, carbamazepine. Additionally possible low output heart failure. Status: Acute Additional A&P Information PVCs: Multiple PVCs noted on PPM interrogation. Monitor on telemetry. Continue beta-phu. Additional assessment for progression of coronary disease as above. Reduced ejection fraction heart failure: Continue Lasix. Anasarca noted on CT chest abdomen pelvis. Noted worsening ejection fraction on repeat TTE. EF 20%, grade 3 diastolic dysfunction. Consideration of coronary angiogram prior to discharge. With also require premedication due to iodine allergy. At this time continue treatment of underlying infection. Lewy body Parkinson's dementia Appreciate cardiology recommendations. Discussed his condition, assessment plan with his on phone today. We discussed various cause of his delirium. Also discussed that multiple blood work and CT scan have come back within normal limits and chances of hospital- acquired delirium given advanced age and long hospitalization respiratory high. We also discussed that because of multiple problems in his case at present could be because of severely reduced ejection fraction with early cardiogenic shock causing him to have borderline blood pressures, lethargy, hypoactive delirium. We discussed patient is due for possible angiogram tomorrow to rule out ischemic causes and chances of patient regaining his contractility are usually low. Discussed with patient's today that probably it would be best if we hold off on to cardiac catheterization for next couple of weeks because of second episode of DOMINICK during this admission as patient does not have any active chest p ain or hemodynamic instability or frequent VPCs on monitor anymore. She states unfortunately given his current situation if he comes home she is worried she will not be able to take care of him. For safe discharge planning home health versus SNF of discussed in detail. states she would be okay with patient going to SNF for short-term if needed. DNR/DNI. Hold Lovenox for now given hematuria. SCDs Pepcid for PUD prophylaxis. Attestations Medical Necessity Statement*: Requires further hospitalization for management of hematuria, DOMINICK, acute delirium in setting of congestive heart failure with s evere cardiomyopathy LVEF of 20% with signs of early cardiogenic shock Coding Level of Care Code Acute Manufacturing Director for [facility] Fwd Exam Comprehensive Diagnoses Delirium R41.0 DOMINICK (acute kidney injury) N17.9 Acute urinary retention R33.8 Gross hematuria R31.0 Atrial fibrillation I48.91 Atrial fibrillation type: unspecified Hypotension I95.9 Congestive heart failure with cardiomyopathy I50.9; I42.9 Facial cellulitis L03.211 Liver cirrhosis K74.60 Pneumonia J18.9 Leukocytosis D72.829 Lethargy R53.83
--- NOTE | 2021-01-12 11:09 | PM.PN ---
Subjective Subjective: Interval history: Urology follow-up: Overnight had persistent problems with maintaining bladder patency. He started having more leakage around the catheter, some bloody component and clots with that. Initially the bladder was able to be irrigated but this morning there was marked reduction in efficacy of irrigation. A CT scan of the abdomen this morning revealed catheter in good position but a large amount of clot in the bladder. I reviewed this film and the prior CT scan that was done recently where there was no evidence of any obvious intravesical pathology other than a large prostate with some median lobe intravesical protrusion. At that time there had been no clot in the bladder. Clinically this picture is consistent with mild catheter trauma in and anticoagulated patient leading to large amount of clot that is occluding the catheter and currently not able to be evacuated out with his 20 [place] catheter. Recommended placement of large bore catheter for manual irrigation and initiation of CBI. Sharon that a reasonable expectation would be once his bladder is cleared of clots and CBI is utilized that it would not be required for long and not at a brisk pace based on the initial precipitating event and not underlying pathology. PROCEDURE: Catheter placement with clot evacuation. 2% lidocaine jelly was instilled into the urethra then a 20 [place]in three-way Sharma catheter was placed into the bladder. Manual irrigation was attempted but unsuccessfully so. The 20 [place] three-way catheter was then replaced with a 24 [place] three-way Sharma catheter in the same fashion. Manual irrigation this time was successful. A large amount of clot was evacuated consistent with what was seen on the CT scan. Eventually no more clot was withdrawn and the irrigation efflux was clear to minimal pink. Normal saline CBI was then set up by myself and started at a brisk pace and quickly reduced to a much slower pace due to clearance of the urine and maintenance of clarity. Recommendations: CBI for least 24 hours to avoid recurrent clot retention. Can run at as low a rate as is required to keep the urine clear to light pink. Taper off slowly at that point. Medications: Reviewed: Yes Vitals/I&O/Wt Last Vital Signs Temp 98.4 F 01/12/21 07:21 Pulse 102 H 01/12/21 07:21 Resp 23 H 01/12/21 07:21 BP 119/72 01/12/21 07:21 Pulse Ox 97 01/12/21 07:21 01/11/21 01/12/21 01/12/21 22:59 06:59 14:59 Intake Total 360 / 360 1000 / 1360 120 / 120 Output Total 1750 / 1750 475 / 2225 450 / 450 Balance -1390 / -1390 525 / -865 -330 / -330 Physical Exam Const: COMMON NORMALS: no acute distress, alert and well nourished GENERAL APPEARANCE: well kempt and well developed HENMT: COMMON NORMALS: normocephalic and atraumatic HEAD & SCALP: normocephalic and atraumatic Eye: COMMON NORMALS: conjunctivae normal and no scleral icterus CONJUNCTIVA: Yes conjunctivae normal Neck/C-Spine: COMMON NORMALS: full ROM Resp: COMMON NORMALS: normal respiratory effort EFFORT & INSPECTION: No labored and No Actively coughing GI: INSPECTION: No abdominal distension and Yes other (Bruising on his left lower quadrant.) PALPATION: Yes Tenderness to palpation present (GI) (Suprapubic) : COMMON NORMALS: Yes no CVA tenderness BLADDER/KIDNEY EXAM: Yes no CVA tenderness PENIS: normal penis MEATUS: Blood at meatus present Back/Pelvis: COMMON NORMALS: no CVA tenderness Extremity: NARRATIVE EXTREMITY EXAM: Diffuse upper extremity bruising. Neuro: COMMON NORMALS: no focal motor deficits SENSORIUM/ORIENTATION: Yes alert Psych: COMMON NORMALS: cooperative and speech normal; negative for mental status grossly normal and negative for Normal thought process present APPEARANCE: Yes grossly normal and Yes well kempt ATTITUDE: Yes calm and Yes engaged SPEECH: Yes normal speech THOUGHT PROCESS: abnormal and confused MEMORY/COGNITION: Yes memory grossly impaired and Yes cognition grossly impaired Skin: COMMON NORMALS: no jaundice OTHER: Diffuse bruising Urinary Catheter Management^: Sharma: Cath Placed During This Visit: no Reason for Continuing Indwelling Catheter: Acute Urinary Retention or Obstruction Data : 01/12/21 05:11 01/12/21 05:11 A&P Assessment and plan (1) Gross hematuria: Secondary to anticoagulated state with catheterization. Status: Acute (2) Prostatic hypertrophy: Chronic BPH on DOXAZOSIN. Developed urinary retention and secondary hematuria from catheterization. Cystoscopy revealed no significant urethral injury. Status: Acute (3) Clot retention of urine: Clinical picture consistent with clot retention which was then confirmed on CT scan showing large amount of clot in the bladder. No evidence of upper tract dilation. See procedure note same day. All clot evacuated. CBI initiated with normal saline at a low rate with clarity. Status: Acute Attestations Medical Necessity Statement*: See attending Coding Level of Care Code Acute Marketing Support Assistant for [facility] Diagnoses Gross hematuria R31.0 Prostatic hypertrophy N40.0 Clot retention of urine R33.8
[2021-01-12] MEDS: lidocaine 2% Urojet 20 mL TOPICAL (11:34)
--- NOTE | 2021-01-12 12:30 | PC.PT ---
PT attempted to see patient 3 times during the morning, but was turned away by staffing each time for various reasons. PT will attempt again this afternoon if able.
[2021-01-12] MEDS: dutasteride 0.5 mg Capsule PO (17:45)
[2021-01-12] MEDS: OLANZapine 5 mg ODT PO (19:53)
[2021-01-13] VITALS (8 sets, daily range): BP systolic 95–119; BP diastolic 65–77; PULSE 86–107; RESP 16–32; TEMP 36.6–37; O2SAT 94–100
[2021-01-13] MEDS: sodium chloride 0.9% 1,000 ML 50 ML IV ×2 (02:57→03:00)
[2021-01-13] MEDS: ALPRAZolam 0.25 mg Tablet 0.125 MG PO (03:05)
[2021-01-13] MEDS: HYDROcodone-acetaminophen 5-325 mg Tablet 1 TAB PO ×3 (03:05→20:30)
[2021-01-13 04:28] LABS: Basophils % 0.2 %; Eosinophils # 0.1 10^3/uL (0.0-0.8); Eosinophils % 0.6 %; Hematocrit 32.2 % (42.0-52.0); Hemoglobin 10.4 g/dL (11.7-16.6); Lymphocytes # 0.8 10^3/uL (0.8-4.8); Lymphocytes % 6.2 %; Mean Corpuscular HGB Conc 32.3 g/dL (30.0-36.0); Mean Corpuscular Hemoglobin 32.1 pg (28.0-34.0); Mean Corpuscular Volume 99.4 fL (80-94); Mean Platelet Volume 10.2 fL (7.4-10.4); Monocytes # 1.5 10^3/uL (0.2-0.9); Monocytes % 11.8 %; Neutrophils % 79.8 %; Nucleated Red Blood Cells % 0 %; Platelet Count 236 10^3/cmm (130-400); Red Blood Count 3.24 10^6/uL (4.1-5.3); Red Cell Distribution Width 15.6 % (12.1-15.1)
[2021-01-13 04:52] LABS: Alanine Aminotransferase 12 U/L (0-41); Albumin Level 3.4 g/dL (3.5-5.2); Alkaline Phosphatase 51 IU/L (40-130); Anion Gap 13.5 (5-19); Aspartate Amino Transferase 14 U/L (0-40); Blood Urea Nitrogen 51 mg/dL (8-23); Calcium 7.5 mg/dL (8.5-10.5); Carbon Dioxide 25 mmol/L (22-29); Chloride 98 mmol/L (98-107); Glucose 88 mg/dL (65-115); Osmolality Calculated 289 mOsm/kg (285-295); Potassium 3.5 mmol/L (3.5-5.1); Sodium 133 mmol/L (136-145); Total Bilirubin 0.7 mg/dL (0.15-1.2); Total Protein 5.4 g/dL (6.6-8.7)
[2021-01-13] MEDS: famotidine 20 mg/2 mL INJ IVP ×2 (05:58→17:47)
--- NOTE | 2021-01-13 07:46 | PC.NURSE ---
Patient laying in bed with eyes closed. Xanax allowed patient to become calm and start to rest. Responsive to voice and VS WNL. Patient Sharma still with slow CBI urine clear to light pink in color. Patient tolerated procedures well. Will continue to monitor and assist as needed following CPOC
[2021-01-13] MEDS: amiodarone 200 mg Tablet 400 MG PO ×2 (08:16→17:47)
[2021-01-13] MEDS: aspirin 81 mg EC Tablet PO (08:16)
[2021-01-13] MEDS: sennosides-docusate Tablet 1 TAB PO (08:16)
[2021-01-13] MEDS: metoprolol tartrate 25 mg Tablet 12.5 MG PO ×2 (08:17→20:31)
[2021-01-13] MEDS: nystatin 100,000 unit/mL UDC 5 mL 400000 UNIT PO ×4 (08:17→20:30)
--- NOTE | 2021-01-13 08:51 | PC.SOCIAL ---
IM follow up explained with and she verbalized understanding. NO questions voiced.
--- NOTE | 2021-01-13 09:16 | P.PN_ITS ---
Subjective Subjective: Interval history: Patient seems to be confused and intermittently agitated. No chest pain or shortness of breath. The vital signs are stable. BUN to creatinine appears to be coming down. No new arrhythmias on the monitor. Medications: Reviewed: Yes Medication Review Details: Current Medications Acetaminophen (Acetaminophen 325 Mg Tablet) 650 mg PO TID PRN PRN Reason: Pain Last Admin: 01/12/21 08:52 Dose: 650 mg Documented by: Hydrocodone Bitart/Acetaminophen (Hydrocodone-Acetaminophen 5-325 Mg Tablet) 1 tab PO Q12H PRN PRN Reason: MODERATE PAIN Last Admin: 01/13/21 05:58 Dose: 1 tab Documented by: Amiodarone HCl (Amiodarone 200 Mg Tablet) 400 mg PO BID [facility] Last Admin: 01/13/21 08:16 Dose: 400 mg Documented by: Aspirin (Aspirin 81 Mg Ec Tablet) 81 mg PO DAILY [facility] Last Admin: 01/13/21 08:16 Dose: 81 mg Documented by: Doxazosin Mesylate (Doxazosin 4 Mg Tablet) 4 mg PO DAILY@17 [facility] Last Admin: 01/01/21 18:08 Dose: Not Given Documented by: Dutasteride (Dutasteride 0.5 Mg Capsule) 0.5 mg PO DAILY@17 [facility] Last Admin: 01/12/21 17:45 Dose: 0.5 mg Documented by: Enoxaparin Sodium (Enoxaparin 80 Mg/0.8 Ml Syringe) 80 mg SUBCUT Q12H [facility] Last Admin: 01/10/21 16:03 Dose: Not Given Documented by: Famotidine (Famotidine 20 Mg/2 Ml Inj) 20 mg IVP Q12H [facility] Last Admin: 01/13/21 05:58 Dose: 20 mg Documented by: Sodium Chloride (Sodium Chloride 0.9%) 1,000 mls @ 50 mls/hr IV .Q20H [facility] Last Admin: 01/13/21 03:00 Dose: 50 mls/hr Documented by: Lisinopril (Lisinopril 5 Mg Tablet) 5 mg PO DAILY@17 [facility] Metoprolol Tartrate (Metoprolol Tartrate 25 Mg Tablet) 12.5 mg PO BID@0900,2100 [facility] Last Admin: 01/13/21 08:17 Dose: 12.5 mg Documented by: Non-Formulary Medication (Eplerenone) 25 mg PO DAILY@12 [facility] Nystatin (Nystatin 100,000 Unit/Ml Udc 5 Ml) 400,000 unit PO QID [facility] Last Admin: 01/13/21 08:17 Dose: 400,000 unit Documented by: Olanzapine (Olanzapine 5 Mg Odt) 5 mg PO BEDTIME [facility] Last Admin: 01/12/21 19:53 Dose: 5 mg Documented by: Ondansetron HCl (Ondansetron 2 Mg/Ml Sdv 2 Ml) 4 mg IVP Q6H PRN PRN Reason: NAUSEA AND VOMITING Last Admin: 01/09/21 22:52 Dose: 4 mg Documented by: Ondansetron HCl (Ondansetron 2 Mg/Ml Sdv 2 Ml) 4 mg IVP Q2M PRN PRN Reason: NAUSEA Rivastigmine Tartrate (Rivastigmine 1.5 Mg Capsule) 3 mg PO BID [facility] Last Admin: 01/13/21 08:16 Dose: 3 mg Documented by: Senna/Docusate Sodium (Sennosides-Docusate Tablet) 1 tab PO DAILY [facility] Last Admin: 01/13/21 08:16 Dose: 1 tab Documented by: Vitals/I&O/Wt Last Vital Signs Temp 98.1 F 01/13/21 07:25 Pulse 107 H 01/13/21 07:25 Resp 16 01/13/21 07:25 BP 119/77 01/13/21 07:25 Pulse Ox 96 01/13/21 07:25 01/12/21 01/13/21 01/13/21 22:59 06:59 14:59 Intake Total 3720 / 3960 2.5 / 3962.5 120 / 120 Output Total 3050 / 3500 Balance 670 / 460 2.5 / 462.5 120 / 120 Physical Exam Narrative: EXAM NARRATIVE: GENERAL: The patient is alert and but confused HEENT: Minimal pallor, icterus or lymphadenopathy.Oral cavity: There are no mucous membrane lesions. NECK: Trachea appears to be central. No masses noted. No JVD or thyromegaly appreciated. RESPIRATORY: Chest is symmetrical. No intercostals muscle retraction or any accessory muscle activation. There is no chest wall tenderness. Breath sounds are heard bilaterally. No rales or rhonchi heard. No evidence of any consolidation. BREASTS: Deferred. HEART: The heart sounds are normal. No S3 or S4. Short systolic murmur the left sternal border. No diastolic murmurs. No pericardial rub ABDOMEN: No vessel pulsations or distention. No tenderness. No organomegaly appreciated. Bowel sounds are normally heard. : Deferred. RECTAL: Deferred. LYMPHATIC: No lymphadenopathy noted in the neck. EXTREMITIES: 1+ edema both lower extremities. MUSCULOSKELETAL: No acute joint deformities or swelling SKIN: There are no significant rashes or ecchymosis NEUROPSYCHIATRIC: The patient is alert with no focal motor deficits. Urinary Catheter Management^: Sharma: Cath Placed During This Visit: no Reason for Continuing Indwelling Catheter: Acute Urinary Retention or Obstruction Data : 01/15/21 04:39 01/15/21 04:39 Other Labs: Laboratory Last Values WBC 13.0 10^3/uL (4.0-10.0) H 01/13/21 04:25 RBC 3.24 10^6/uL (4.1-5.3) L 01/13/21 04:25 Hgb 10.4 g/dL (11.7-16.6) L 01/13/21 04:25 Hct 32.2 % (42.0-52.0) L 01/13/21 04:25 MCV 99.4 fL (80-94) H 01/13/21 04:25 MCH 32.1 pg (28.0-34.0) 01/13/21 04:25 MCHC 32.3 g/dL (30.0-36.0) 01/13/21 04:25 RDW 15.6 % (12.1-15.1) H 01/13/21 04:25 Plt Count 236 10^3/cmm (130-400) 01/13/21 04:25 MPV 10.2 fL (7.4-10.4) 01/13/21 04:25 Neut % (Auto) 79.8 % 01/13/21 04:25 Lymph % (Auto) 6.2 % 01/13/21 04:25 [place] % (Auto) 11.8 % 01/13/21 04:25 Eos % (Auto) 0.6 % 01/13/21 04:25 Baso % (Auto) 0.2 % 01/13/21 04:25 Neut # (Auto) 10.40 10^3/uL (1.8-7.7) H 01/13/21 04:25 Lymph # (Auto) 0.8 10^3/uL (0.8-4.8) 01/13/21 04:25 [place] # (Auto) 1.5 10^3/uL (0.2-0.9) H 01/13/21 04:25 Eos # (Auto) 0.1 10^3/uL (0.0-0.8) 01/13/21 04:25 Baso # (Auto) 0.0 10^3/uL (0.0-0.1) 01/13/21 04:25 Nucleated RBC % (auto) 0 % 01/13/21 04:25 Nucleated RBCs # 0.0 /100WBC 01/13/21 04:25 ESR 6 mm/hr (0-10) 12/30/20 17:49 PT 17.60 SECONDS (12.1-14.9) H 12/30/20 17:49 INR 1.40 (0.8-1.2) H 12/30/20 17:49 Sodium 133 mmol/L (136-145) L 01/13/21 04:25 Potassium 3.5 mmol/L (3.5-5.1) 01/13/21 04:25 Chloride 98 mmol/L (98-107) 01/13/21 04:25 Carbon Dioxide 25 mmol/L (22-29) 01/13/21 04:25 Anion Gap 13.5 (5-19) 01/13/21 04:25 BUN 51 mg/dL (8-23) H 01/13/21 04:25 Creatinine 2.0 mg/dL (0.7-1.2) H 01/13/21 04:25 GFR Calculation Not Reportable 01/13/21 04:25 Glucose 88 mg/dL (65-115) 01/13/21 04:25 Estimat Average Glucose 117 01/08/21 04:41 Hemoglobin A1c 5.7 % (4.0-6.0) 01/08/21 04:41 Calculated Osmolality 289 mOsm/kg (285-295) 01/13/21 04:25 Calcium 7.5 mg/dL (8.5-10.5) L 01/13/21 04:25 Phosphorus 3.1 mg/dL (2.5-4.5) 01/08/21 04:41 Magnesium 2.0 mg/dL (1.7-2.3) 01/08/21 04:41 Total Bilirubin 0.7 mg/dL (0.15-1.2) 01/13/21 04:25 AST 14 U/L (0-40) 01/13/21 04:25 ALT 12 U/L (0-41) 01/13/21 04:25 Alkaline Phosphatase 51 IU/L (40-130) 01/13/21 04:25 Ammonia 11 umol/L (16-60) L 01/05/21 14:24 Troponin T Baseline 89 ng/L (0-15) H 12/30/20 17:49 Troponin T 120 Minute 75.98 ng/L (0-15) H 12/30/20 20:06 Delta Troponin T -13.02 ABS# (0-10) L 12/30/20 20:06 Troponin T Hi Sens 6Hr 73.86 ng/L (0-15) H 12/30/20 23:35 Troponin T Hi Sens 6Hr Delta -15.14 ng/L (0-12) L 12/30/20 23:35 C-Reactive Protein 29.4 mg/L (0.0-4.9) H 12/30/20 20:06 NT-Pro-B Natriuret Pep 6819 pg/mL (0-450) H 12/30/20 20:06 Total Protein 5.4 g/dL (6.6-8.7) L 01/13/21 04:25 Albumin 3.4 g/dL (3.5-5.2) L 01/13/21 04:25 Globulin 2.0 g/dL (1.3-4.6) 01/13/21 04:25 Triglycerides 96 mg/dL (0-150) 01/08/21 04:41 Cholesterol 100 mg/dL (0-200) 01/08/21 04:41 LDL Cholesterol, Calc 54 mg/dL (50-129) 01/08/21 04:41 Total VLDL Cholesterol 19 mg/dL (0-30) 01/08/21 04:41 HDL Cholesterol 27 mg/dL (60-100) L 01/08/21 04:41 Cholesterol/HDL Ratio 3.70 mg/dL (1.0-5.00) 01/08/21 04:41 Procalcitonin 0.25 ng/mL (0-0.5) 01/07/21 06:35 TSH 2.58 uIU/mL (0.27-4.20) 01/07/21 06:35 Random Cortisol 23.63 ug/dL (2.47-19.5) H 01/09/21 14:57 Urine Color Red (Yellow) 01/10/21 18:30 Urine Appearance Cloudy (CLEAR) 01/10/21 18:30 Urine pH 5 (5-7) 01/10/21 18:30 Ur Specific [place] 1.020 (1.005-1.030) 01/10/21 18:30 Urine Protein 3+ (Negative) H 01/10/21 18:30 Urine Glucose (UA) Norm (Normal) 01/10/21 18:30 Urine Ketones Negative (Negative) 01/10/21 18:30 Urine Blood 3+ (Negative) H 01/10/21 18:30 Urine Nitrate Negative (Negative) 01/10/21 18:30 Urine Bilirubin Neg (Negative) 01/10/21 18:30 Urine Urobilinogen Norm mg/dL (Negative) 01/10/21 18:30 Ur Leukocyte Esterase Trace (Negative) H 01/10/21 18:30 Urine RBC >100 /hpf (0-2) H 01/10/21 18:30 Urine WBC 10-15 /hpf (0-5) H 01/10/21 18:30 Ur Eosinophil Smear 0 (0-0) 01/10/21 18:30 Ur Squamous Epith Cells 0-4 /hpf (0-5) H 01/10/21 18:30 Amorphous Sediment Not Reportable 01/10/21 18:30 Urine Bacteria Trace /hpf (NONE) 01/10/21 18:30 Hyaline Casts >100 /lpf H 01/01/21 23:35 Urine Eosinophils No eosinophils seen 01/10/21 18:30 Ur Random Sodium 16 mmol/L 01/10/21 18:30 Ur Random Potassium 45 mmol/L 01/10/21 18:30 Ur Random Chloride 10 mmol/L 01/10/21 18:30 Urine Creatinine 52 mg/dL (39-259) 01/10/21 18:30 Vancomycin Trough 18.1 ug/mL (10-15) H 01/09/21 19:53 Misc Test Reference See comment 01/07/21 13:02 Micro: Microbiology 01/10/21 18:30 Urine Culture - Final Urine,Clean Catch A&P Assessment and plan (1) DOMINICK (acute kidney injury): Continue on the current management. The BUN and creatinine ratio seems to be slowly coming down. Status: Acute (2) Atrial fibrillation: Patient is on therapeutic doses of subcu Lovenox. The heart rate is under control. May continue on the current medications. Status: Acute Qualifiers: Atrial fibrillation type: unspecified Qualified Code(s): I48.91 - Unspecified atrial fibrillation (3) AICD (automatic cardioverter/defibrillator) present: Has not had any ICD discharges. Since he seems to be doing okay with no specific symptoms pertaining his ICD, we may hold off on any further investigations. Status: Acute (4) Hypothyroidism: New on the current medications. Status: Acute (5) Hypertension: Currently the blood pressure is in the low normal side. We will continue monitoring the blood pressure Status: Acute Qualifiers: Hypertension type: essential hypertension Qualified Code(s): I10 - Essential (primary) hypertension (6) Abnormal echocardiogram: Patient has severe LV systolic dysfunction. Considering the possibility of coronary ischemia causing this, a repeat cardiac catheterization would be appropriate. In view of his altered mental status, we may have to hold off on this. Status: Acute Attestations Medical Necessity Statement*: Patient requires continued hospital stay for close monitoring and further management Coding Level of Care Code Acute [employer] for [employer] F[employer] Diagnoses DOMINICK (acute kidney injury) N17.9 Atrial fibrillation I48.91 Atrial fibrillation type: unspecified AICD (automatic cardioverter/defibrillator) present Z95.810 Hypothyroidism E03.9 Hypertension I10 Hypertension type: essential hypertension Abnormal echocardiogram R93.1
--- NOTE | 2021-01-13 09:41 | P.PN_ITS ---
Subjective Subjective: Interval history: No acute events overnight. Patient's urine has cleared up. On examination patient lying comfortably in bed. Complaining of occasional shortness of breath. Denies any nausea, vomiting, headache. Facial pain has resolved. Finished at least 25 to 50% of his meals today. Medications: Reviewed: Yes Vitals/I&O/Wt Last Vital Signs Temp 98.1 F 01/13/21 07:25 Pulse 107 H 01/13/21 07:25 Resp 16 01/13/21 07:25 BP 119/77 01/13/21 07:25 Pulse Ox 96 01/13/21 07:25 01/12/21 01/13/21 01/13/21 22:59 06:59 14:59 Intake Total 3720 / 3960 2.5 / 3962.5 120 / 120 Output Total 3050 / 3500 1800 / 1800 Balance 670 / 460 2.5 / 462.5 -1680 / -1680 Physical Exam Const: COMMON NORMALS: no acute distress and alert GENERAL APPEARANCE: c ooperative and comfortable ORIENTATION/CONSCIOUSNESS: Yes awake HENMT: COMMON NORMALS: oropharynx normal OTHER: Resolved swelling left side cheek. Resolved mild erythema. Mild to moderate tenderness on palpation left mandibular site below molars. Neck/C-Spine: COMMON NORMALS: no JVD Resp: COMMON NORMALS: normal respiratory effort and clear to auscultation bilaterally AUSCULTATION: clear to auscultation bilaterally Cardio: COMMON NORMALS: no JVD, regular rhythm, S1 normal heart sound present, S2 normal heart sound present and No murmurs present (Cardio) RHYTHM: regular rhythm HEART SOUNDS: S1 normal heart sound present and S2 normal heart sound present GI: COMMON NORMALS: Normal to inspection, nondistended, normoactive bowel sounds present, Soft to palpation and non-tender PALPATION: Yes Soft to palpation Extremity: COMMON NORMALS: no joint enlargement GENERAL: Yes edema (2+) Neuro: COMMON NORMALS: moves all extremities SENSORIUM/ORIENTATION: Yes alert OTHER: No facial droop. Skin: COMMON NORMALS: no rashes or lesions noted GENERAL SKIN EXAM: no rashes or lesions noted Urinary Catheter Management^: Sharma: Cath Placed During This Visit: no Reason for Continuing Indwelling Catheter: Acute Urinary Retention or Obstruction Data : 01/13/21 04:25 01/13/21 04:25 Other Labs: Pertinent Labs During Stay 12/30/20 12/30/20 12/30/20 17:49 20:06 20:06 ESR 6 Hemoglobin A1c C-Reactive Protein 29.4 H NT-Pro-B Natriuret Pep 6819 H Triglycerides Cholesterol HDL Cholesterol Procalcitonin TSH Random Cortisol Urine Creatinine Vancomycin Trough 01/07/21 01/07/21 01/08/21 06:35 06:35 04:41 ESR Hemoglobin A1c 5.7 C-Reactive Protein NT-Pro-B Natriuret Pep Triglycerides Cholesterol HDL Cholesterol Procalcitonin 0.25 TSH 2.58 Random Cortisol Urine Creatinine Vancomycin Trough 01/08/21 01/09/21 01/09/21 04:41 14:57 19:53 ESR Hemoglobin A1c C-Reactive Protein NT-Pro-B Natriuret Pep Triglycerides 96 Cholesterol 100 HDL Cholesterol 27 L Procalcitonin TSH Random Cortisol 23.63 H Urine Creatinine Vancomycin Trough 18.1 H 01/10/21 18:30 ESR Hemoglobin A1c C-Reactive Protein NT-Pro-B Natriuret Pep Triglycerides Cholesterol HDL Cholesterol Procalcitonin TSH Random Cortisol Urine Creatinine 52 Vancomycin Trough Micro: Microbiology 01/10/21 18:30 Urine Culture - Final Urine,Clean Catch A&P Assessment and plan (1) Delirium: Most likely secondary to hospital-acquired delirium because of advanced age and with prolonged hospitalization of causing worsening of patient's baseline dementia. Even though he has leukocytosis but that has remained stable during the hospitalization. He does not have any fever, has remained hemodynamically stable. CT scan done yesterday showing resolution of cellulitis. BUN has remained stable, has no electrolyte abnormality. LFTs have remained stable, ammonia levels done earlier in the admission was within normal limits. Procalcitonin done 2 days ago was within normal limits. TSH normal. We will add random cortisol levels. CT head done yesterday negative for any acute abnormality. Patient moving all 4 limbs appropriately without any facial deformity or droop. Patient not on any sedative scheduled or as needed medication. On review of MAR has not received any medication recently. Continue holding of tramadol. Continue with hydrocodone every 12 hourly. Patient's care discussed in detail with his over phone today. She states i n past whenever patient would have discolored delirium leaving the dentures in mouth use to help. Will give that a try. Remove sitter and monitor. Frequent reorienting. Continue with Zyprexa 5 mg daily. Status: Acute (2) DOMINICK (acute kidney injury): Creatinine trending down slowly. 2 today. Continue with gentle fluid at 50 cc/h while monitoring for fluid overload. If patient requires oxygen we will stop fluid. Continue to hold diuresis. FeNa?0.4 consistent with prerenal Status: Acute (3) Gross hematuria: Post CBI. Resolving. Clamped today. To monitor. Appreciate Dr. Villa's help. Continue to hold anticoagulation. Status: Resolved (4) Atrial fibrillation: Heart rate better controlled. Continue with amiodarone 400 mg twice daily. Continue with metoprolol. Eliquis changed to full dose Lovenox for possible angiogram tomorrow as per cardiology recommendations but holding for now given hematuria. 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 Discussed with his concern for progression to low output failure, with lethargy, kidney injury, soft blood pressures, tachycardia. Anasarca noted on CT chest abdomen pelvis. At this time continue Lasix. Possible coronary angiography during this hospitalization to rule out new ischemia on nonischemic cardiomyopathy Continue with aspirin 81 mg daily. HbA1c and lipid panel results appreciated. Status: Acute (6) Facial cellulitis: As seen on facial CT done on January 03, 2020. Patient states swelling has decreased but continues to have pain in the mandible. Repeat CT head and facial CT shows resolution of cellulitis. Without any abscess. Leukocytosis stable. Blood cultures remain negative. MRSA swab still pending. Continue with Augmentin twice daily and levofloxacin every 48 hours to finish a 10-day course. Patient requires antibiotics for 2 more days now. Patient most likely needs an appointment with dentist as an outpatient for refitting of dentures. Nystatin swish and swallow. Status: Acute (7) Liver cirrhosis: Incidentally noted on CT abdomen pelvis. Check ammonia. Suspect secondary to CHF. Discussed with his . Status: Acute (8) Pneumonia: Antibiotics for facial cellulitis is also help with pneumonia. Resolved at present. The patient continues to be on antibiotics for facial cellulitis. On room air. Possible aspiration pneumonia. Continue with mechanical soft cardiac diet. Antibiotics as above. Most likely will do a 5-day course overall. Maintain aspiration precautions Status: Acute (9) Leukocytosis: Stable without any fever at present. Status: Acute (10) Lethargy: Resolved. Secondary to infection including pneumonia, facial cellulitis, medications including gabapentin, carbamazepine. Additionally possible low output heart failure. Status: Acute (11) Hypotension: Blood pressures better. We will continue to monitor blood pressures. Can be secondary to early cardiogenic shock because of slow flow with a EF of 20%. Overall patient seems to be euvolemic since admission though complaining of shortness of breath on lying down flat. Transition back to oral Lasix 60 mg daily from tomorrow. Strict input output charting, fluid restriction up to 1500 cc. Continue with metoprolol which was switched over from [place]. Continue holding on lisinopril, doxazosin for now. Status: Acute (12) Acute urinary retention: Catheterized by Dr. Villa yesterday. Status: Acute Additional A&P Information PVCs: Multiple PVCs noted on PPM interrogation. Monitor on telemetry. Continue beta-phu. Additional assessment for progression of coronary disease as above. Reduced ejection fraction heart failure: Continue Lasix. Anasarca noted on CT chest abdomen pelvis. Noted worsening ejection fraction on repeat TTE. EF 20%, grade 3 diastolic dysfunction. Consideration of coronary angiogram prior to discharge. With also require premedication due to iodine allergy. At this time continue treatment of underlying infection. Lewy body Parkinson's dementia Appreciate cardiology recommendations. Discussed his condition, assessment plan with his on phone today. We discussed various cause of his delirium. Also discussed that multiple blood work and CT scan have come back within normal limits and chances of hospital- acquired delirium given advanced age and long hospitalization respiratory high. We also discussed that because of multiple problems in his case at present could be because of severely reduced ejection fraction with early cardiogenic shock causing him to have borderline blood pressures, lethargy, hypoactive delirium. We discussed patient is due for possible angiogram tomorrow to rule out ischemic causes and chances of patient regaining his contractility are usually low. Discussed with patient's today that probably it would be best if we hold off on to cardiac catheterization for next couple of weeks because of second episode of DOMINICK during this admission as patient does not have any active chest pain or hemodynamic instability or frequent VPCs on monitor anymore. She states unfortunately given his current situation if he comes home she is worried she will not be able to take care of him. Awaiting prior authorization at [facility]. Discharge planning: If creatinine continues to improve and no hematuria going forward can plan to discharge to [facility] once approved with plan for cardiac angiogram as an outpatient. DNR/DNI. Full dose Lovenox also DVT prophylaxis. Pepcid for PUD prophylaxis. Attestations Medical Necessity Statement*: Hospitalization for management of acute kidney injury, resolving gross hematuria, acute delirium in setting of severe Cardiomyopathy with EF of 20% while safe discharge planning is sought. Time Spent in Patient Care: Greater than 35 minutes (>than 50% of time spent in counselling and/or direct pt care on unit) . Coding Level of Care Code Acute [employer] for [employer] Exam Comprehensive Diagnoses Delirium R41.0 DOMINICK (acute kidney injury) N17.9 Gross hematuria R31.0 Atrial fibrillation I48.91 Atrial fibrillation type: unspecified Congestive heart failure with cardiomyopathy I50.9; I42.9 Facial cellulitis L03.211 Liver cirrhosis K74.60 Pneumonia J18.9 Leukocytosis D72.829 Lethargy R53.83 Hypotension I95.9 Acute urinary retention R33.8
--- NOTE | 2021-01-13 10:40 | P.PN_ITS ---
Subjective Subjective: Interval history: Urology follow-up: Patient is resting comfortably. Seems a little bit more confused today. CBI is running at a very slow rate with his urine completely clear. Spoke to the nursing staff as well as his one-on-one attendant and they have not seen any blood in the tubing today. Instructed the patient's nurse on CBI management with instructions to wean it o ff if tolerated. No additional recommendations at this point. If his urine does remain clear with CBI off can consider voiding trial tomorrow or the next day. Vitals/I&O/Wt Last Vital Signs Temp 98.1 F 01/13/21 07:25 Pulse 107 H 01/13/21 07:25 Resp 16 01/13/21 07:25 BP 119/77 01/13/21 07:25 Pulse Ox 96 01/13/21 07:25 01/12/21 01/13/21 01/13/21 22:59 06:59 14:59 Intake Total 3720 / 3960 2.5 / 3962.5 120 / 120 Output Total 3050 / 3500 1800 / 1800 Balance 670 / 460 2.5 / 462.5 -1680 / -1680 Physical Exam Const: COMMON NORMALS: no acute distress and alert Resp: COMMON NORMALS: normal respiratory effort and clear to auscultation bilaterally AUSCULTATION: clear to auscultation bilaterally : BLADDER/KIDNEY EXAM: Yes bladder normal to palpation PENIS: normal penis MEATUS: meatus normal SCROTUM: Yes testes descended bilaterally and No Scrotal tenderness present TESTES: No testicular mass Neuro: SENSORIUM/ORIENTATION: Yes alert Psych: COMMON NORMALS: cooperative ATTITUDE: Yes calm and Yes engaged MOOD & AFFECT: Yes euthymic mood THOUGHT CONTENT: No Normal thought content present MEMORY/COGNITION: Yes memory grossly impaired and Yes cognition grossly impaired Urinary Catheter Management^: Sharma: Cath Placed During This Visit: no Reason for Continuing Indwelling Catheter: Acute Urinary Retention or Obstruction Data : 01/13/21 04:25 01/13/21 04:25 Micro: Microbiology 01/10/21 18:30 Urine Culture - Final Urine,Clean Catch A&P Assessment and plan (1) Clot retention of urine: No recurrence since clot evacuation with hematuria catheter. CBI able to be weaned off. Status: Resolved (2) Acute urinary retention: We will plan for voiding trial in the next 1 to 2 days pending maintenance of clarity of urine. Status: Acute (3) Prostatic hypertrophy: On dual medical therapy doxazosin plus dutasteride. Status: Acute (4) Gross hematuria: No recurrence after clearing clots. Findings consistent with mild trauma related to catheter placement in face of chronic anticoagulation. Status: Resolved Attestations Medical Necessity Statement*: See attending Coding Level of Care Code Acute Service Desk Associate for Serg Cavazos Diagnoses Clot retention of urine R33.8 Acute urinary retention R33.8 Prostatic hypertrophy N40.0 Gross hematuria R31.0
[2021-01-13] MEDS: dutasteride 0.5 mg Capsule PO (17:47)
[2021-01-13] MEDS: ferrous gluconate 324 mg Tablet PO (17:51)
[2021-01-13] MEDS: OLANZapine 5 mg ODT PO (20:31)
[2021-01-14] VITALS (9 sets, daily range): BP systolic 65–128; BP diastolic 42–90; PULSE 75–105; RESP 18–30; TEMP 36.4–37.1; O2SAT 93–97
[2021-01-14] MEDS: famotidine 20 mg/2 mL INJ IVP ×2 (06:43→17:22)
--- NOTE | 2021-01-14 07:17 | PC.NURSE ---
patient up off and on all night again with confusion and vebally and physically abusive to staff. Patient pulled on catheter while not having a sitter and started catheter to bleeding again. CBI reinstated and started at a moderate pace then weaned off as allowed. CBI still running at this time at a slow pace. Will continue to monitor. Patient also voiced pain off and on through the night and had pain medication at bedtime that is scheduled every 12 hours. Patient still having confusion and delirium at this time. 1:1 sitter restarted at approx 2200. Patient unable to stay alone at this time due to pulling on lines and not following safety protocols or instructions.
[2021-01-14] MEDS: ferrous gluconate 324 mg Tablet PO ×2 (07:45→16:38)
[2021-01-14] MEDS: nystatin 100,000 unit/mL UDC 5 mL 400000 UNIT PO ×4 (07:46→21:26)
[2021-01-14] MEDS: aspirin 81 mg EC Tablet PO (07:46)
[2021-01-14] MEDS: amiodarone 200 mg Tablet 400 MG PO ×2 (07:46→16:38)
[2021-01-14] MEDS: sennosides-docusate Tablet 1 TAB PO (07:46)
[2021-01-14] MEDS: acetaminophen 325 mg Tablet 650 MG PO (07:46)
[2021-01-14] MEDS: metoprolol tartrate 25 mg Tablet 12.5 MG PO ×2 (07:47→21:20)
--- NOTE | 2021-01-14 08:32 | P.PN_ITS ---
Subjective Subjective: Interval history: No acute events overnight. Confused. CBI removed. On examination patient lying comfortably in bed. No more complains of occasional shortness of breath. Denies any nausea, vomiting, headache. Facial pain has resolved. Finished at least 25 to 50% of his meals today. Vitals/I&O/Wt Last Vital Signs Temp 98.8 F 01/14/21 04:00 Pulse 102 H 01/14/21 06:00 Resp 26 H 01/14/21 04:00 BP 113/85 01/14/21 04:00 Pulse Ox 93 01/14/21 04:00 01/13/21 01/14/21 01/14/21 22:59 06:59 14:59 Intake Total 1120 / 1600 240 / 1840 360 / 360 Output Total 600 / 3150 1300 / 4450 Balance 520 / -1550 -1060 / -2610 360 / 360 Physical Exam Const: COMMON NORMALS: no acute distress and alert GENERAL APPEARANCE: cooperative and comfortable ORIENTATION/CONSCIOUSNESS: Yes awake OTHER: Sitting up at edge of bed. Alert oriented to self and place, less tangential thoughts and conversation today. HENMT: COMMON NORMALS: oropharynx normal OTHER: Resolved swelling left side cheek. Resolved mild erythema. Mild to moderate tenderness on palpation left mandibular site below molars. Neck/C-Spine: COMMON NORMALS: no JVD Resp: COMMON NORMALS: normal respiratory effort and clear to auscultation bilaterally AUSCULTATION: clear to auscultation bilaterally Cardio: COMMON NORMALS: no JVD, regular rhythm, S1 normal heart sound present, S2 normal heart sound present and No murmurs present (Cardio) RHYTHM: regular rhythm HEART SOUNDS: S1 normal heart sound present and S2 normal heart sound present GI: COMMON NORMALS: Normal to inspection, nondistended, normoactive bowel sounds present, Soft to palpation and non-tender PALPATION: Yes Soft to palpation Extremity: COMMON NORMALS: no joint enlargement GENERAL: Yes edema (2+) Neuro: COMMON NORMALS: moves all extremities SENSORIUM/ORIENTATION: Yes alert OTHER: No facial droop. Skin: COMMON NORMALS: no rashes or lesions noted GENERAL SKIN EXAM: no rashes or lesions noted Urinary Catheter Management^: Sharma: Cath Placed During This Visit: no Reason for Continuing Indwelling Catheter: Acute Urinary Retention or Obstruction Data : 01/15/21 04:39 01/15/21 04:39 Micro: Microbiology 01/10/21 18:30 Urine Culture - Final Urine,Clean Catch A&P Assessment and plan (1) Delirium: Most likely secondary to hospital-acquired delirium because of advanced age and with prolonged hospitalization of causing worsening of patient's baseline dementia. Even though he has leukocytosis but that has remained stable during the hospitalization. He does not have any fever, has remained hemodynamically stable. CT scan done yesterday showing resolution of cellulitis. BUN has remained stable, has no electrolyte abnormality. LFTs have remained stable, ammonia levels done earlier in the admission was within normal limits. Procalcitonin done 2 days ago was within normal limits. TSH normal. We will add random cortisol levels. CT head done yesterday negative for any acute abnormality. Patient moving all 4 limbs appropriately without any facial deformity or droop. Patient not on any sedative scheduled or as needed medication. On review of MAR has not received any medication recently. Continue holding of tramadol. Continue with hydrocodone every 12 hourly. Patient's care discussed in detail with his over phone today. She states in past whenever patient would have discolored delirium leaving the dentures in mouth use to help. Will give that a try. Remove sitter and monitor. Frequent reorienting. Continue with Zyprexa 5 mg daily. Status: Acute (2) DOMINICK (acute kidney injury): Creatinine trending down slowly. 2 today. Continue with gentle fluid at 50 cc/h while monitoring for fluid overload. If patient requires oxygen we will stop fluid. Continue to hold diuresis. FeNa?0.4 consistent with prerenal Status: Acute (3) Gross hematuria: Post CBI. Appreciate Dr. Villa's help. Continue to hold anticoagulation. Status: Resolved (4) Atrial fibrillation: Heart rate better controlled. Continue with amiodarone 400 mg twice daily. Continue with metoprolol. Plan d/c on Amio 400 mg QD Eliquis changed to full dose Lovenox for possible angiogram tomorrow as per cardiology recommendations but holding for now given hematuria. 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 Discussed with his concern for progression to low output failure, with lethargy, kidney injury, soft blood pressures, tachycardia. Anasarca noted on CT chest abdomen pelvis. At this time continue Lasix. Possible coronary angiography during this hospitalization to rule out new ischemia on nonischemic cardiomyopathy Continue with aspirin 81 mg daily. HbA1c and lipid panel results appreciated. Status: Acute (6) Facial cellulitis: As seen on facial CT done on January 03, 2020. Patient states swelling has decreased but continues to have pain in the mandible. Repeat CT head and facial CT shows resolution of cellulitis. Without any abscess. Leukocytosis stable. Blood cultures remain negative. MRSA swab still pending. Continue with Augmentin twice daily and levofloxacin every 48 hours to finish a 10-day course. Patient requires antibiotics for 2 more days now. Patient most likely needs an appointment with dentist as an outpatient for refitting of dentures. Nystatin swish and swallow. Status: Acute (7) Liver cirrhosis: Incidentally noted on CT abdomen pelvis. Check ammonia. Suspect secondary to CHF. Discussed with his . Status: Acute (8) Pneumonia: Antibiotics for facial cellulitis is also help with pneumonia. Resolved at present. The patient continues to be on antibiotics for facial cellulitis. On room air. Possible aspiration pneumonia. Continue with mechanical soft cardiac diet. Antibiotics as above. Most likely will do a 5-day course overall. Maintain aspiration precautions Status: Acute (9) Leukocytosis: Stable without any fever at present. Status: Acute (10) Lethargy: Resolved. Secondary to infection including pneumonia, facial cellulitis, medications including gabapentin, carbamazepine. Additionally possible low output heart failure. Status: Acute (11) Hypotension: Blood pressures better. We will continue to monitor blood pressures. Can be secondary to early cardiogenic shock because of slow flow with a EF of 20%. Overall patient seems to be euvolemic since admission though complaining of shortness of breath on lying down flat. Transition back to oral Lasix 60 mg daily from tomorrow. Strict input output charting, fluid restriction up to 1500 cc. Continue with metoprolol which was switched over from Coreg. Continue holding on lisinopril, doxazosin for now. Status: Acute (12) Acute urinary retention: Catheterized by Dr. Villa yesterday. Status: Acute Additional A&P Information PVCs: Multiple PVCs noted on PPM interrogation. Monitor on telemetry. Continue beta-phu. Additional assessment for progression of coronary disease as above. Reduced ejection fraction heart failure: Continue Lasix. Anasarca noted on CT chest abdomen pelvis. Noted worsening ejection fraction on repeat TTE. EF 20%, grade 3 diastolic dysfunction. Consideration of coronary angiogram prior to discharge. With also require premedication due to iodine allergy. At this time continue treatment of underlying infection. Lewy body Parkinson's dementia Appreciate cardiology recommendations. Discussed his condition, assessment plan with his on phone today. We discussed various cause of his delirium. Also discussed that multiple blood work and CT scan have come back within normal limits and chances of hospital- acquired delirium given advanced age and long hospitalization respiratory high. We also discussed that because of multiple problems in his case at present could be because of severely reduced ejection fraction with early cardiogenic shock causing him to have borderline blood pressures, lethargy, hypoactive delirium. We discussed patient is due for possible angiogram tomorrow to rule out ischemic causes and chances of patient regaining his contractility are usually low. Discussed with patient's today that probably it would be best if we hold off on to cardiac catheterization for next couple of weeks because of second episode of DOMINICK during this admission as patient does not have any active chest pain or hemodynamic instability or frequent VPCs on monitor anymore. She states unfortunately given his current situation if he comes home she is worried she will not be able to take care of him. Awaiting prior authorization at [facility]. Discharge planning: If creatinine continues to improve and no hematuria going forward can plan to discharge to [facility] once approved with plan for cardiac angiogram as an outpatient. DNR/DNI. Full dose Lovenox also DVT prophylaxis. Pepcid for PUD prophylaxis. Attestations Medical Necessity Statement*: DOMINICK, hematuria, EF-20%, Delirium Time Spent in Patient Care: Greater than 35 minutes Coding Level of Care Code Acute Investment Executive for [facility] Fwd Exam Comprehensive Diagnoses Delirium R41.0 DOMINICK (acute kidney injury) N17.9 Gross hematuria R31.0 Atrial fibrillation I48.91 Atrial fibrillation type: unspecified Congestive heart failure with cardiomyopathy I50.9; I42.9 Facial cellulitis L03.211 Liver cirrhosis K74.60 Pneumonia J18.9 Leukocytosis D72.829 Lethargy R53.83 Hypotension I95.9 Acute urinary retention R33.8
[2021-01-14] MEDS: potassium chloride ER 20 mEq Tablet 40 MEQ PO (09:19)
--- NOTE | 2021-01-14 09:23 | PC.CHAP ---
Pastoral Care Encounter/Spiritual Assessment Type of Contact [] Declined diamond sizer and sorter visit [] Patient/Family/Request visit [] Outpatient visit [] Follow-up visit [] Physician referral [] Code/Alert [x] Routine visit [] Staff referral [] Actively dying [] Patient sleeping [] Family support [] [] Out of room [] Palliative care [] [] Receiving care in room [] Pre-surgical visit [] Trauma [] Long length of stay [] ICU visit [] Other: Relational/Emotional Strength [] Patient feels connected with others/family/visitors/staff [] Distress [] Loneliness/isolation [] Abandonment Spirituality of Patient [] Person of [place] [] Attends Yazidi of their [place] [] Believes in Prayer [] Reads Bible or Jainism materials [] There are Spiritual issues to be addressed Text Transcriber Interventions [x] Prayer [] Active listening [] Non-anxious presence [x] Spiritual/emotional support [] Crisis/trauma care [] Spiritual counseling [] Bereavement support [] Provided bereavement packet [] Provided Bible/devotional materials [] Provided toy/stuffed animal, coloring book to patient or family member [] Provided Communion [] Anointing/[place] [] Salvation [x] Completed spiritual assessment [] Other: Impact on Illness or Injury [] Angry [] Fearful [] Anxious [] Often cries [] Exhaustion [] Unable to work [] Unable to attend alevism [] Unable to walk/stand [] Unable to read [] Unable to drive [] Unable to eat/drink [] Unable to sleep [] Unable to be with family [] Patient intubated [] Other: Summary short visit with patient, checking if he was feeling stronger Time spent with patient 5 mn
--- NOTE | 2021-01-14 10:42 | PM.PN ---
Subjective Subjective: Interval history: Patient is confused. Denies chest pain, shortness of breath or palpitations. Heart rate is controlled. Vitals/I&O/Wt Last Vital Signs Temp 97.5 F L 01/14/21 08:00 Pulse 105 H 01/14/21 08:00 Resp 27 H 01/14/21 08:00 BP 120/77 01/14/21 08:00 Pulse Ox 94 01/14/21 08:00 01/13/21 01/14/21 01/14/21 22:59 06:59 14:59 Intake Total 1120 / 1600 240 / 1840 360 / 360 Output Total 600 / 3150 1300 / 4450 Balance 520 / -1550 -1060 / -2610 360 / 360 Physical Exam Narrative: EXAM NARRATIVE: GENERAL: Patient is alert, awake and confused. Oriented x 1 [] NECK: No jugular vein distension. [] HEENT: No cyanosis. No icterus. No pallor. [] HEART: Regular S1 and S2. No murmur, rub or gallop. [] LUNGS: Clear to auscultate bilaterally. [] ABDOMEN: Soft, nontender and nondistended. Positive bowel sounds. No guarding, rebound or tenderness. [] CENTRAL NERVOUS SYSTEM: Grossly nonfocal. [] EXTREMITIES: Lower extremities with no edema bilaterally. Pulses palpable in the lower extremities, both dorsalis pedis and posterior tibial. [] Urinary Catheter Management^: Sharma: Cath Placed During This Visit: no Reason for Continuing Indwelling Catheter: Acute Urinary Retention or Obstruction Data : 01/15/21 04:39 01/15/21 04:39 Micro: Microbiology 01/10/21 18:30 Urine Culture - Final Urine,Clean Catch A&P Assessment and plan (1) Facial pain: Status: Deleted (2) Sprain of jaw, left side, initial encounter: Status: Acute (3) Atrial fibrillation: Status: Acute Qualifiers: Atrial fibrillation type: unspecified Qualified Code(s): I48.91 - Unspecified atrial fibrillation (4) Hypertension: Status: Acute Qualifiers: Hypertension type: essential hypertension Qualified Code(s): I10 - Essential (primary) hypertension (5) Cardiomyopathy: Status: Acute Qualifiers: Cardiomyopathy type: other Qualified Code(s): I42.8 - Other cardiomyopathies (6) DOMINICK (acute kidney injury): Status: Acute 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 EF was found to be significantly low at 20% compared to 45% in august 2020. Stress test showed a small reversible defect in the lateral wall. However he has had multiple issues during hospitalization that have been delaying his cath. He has baseline dementia and has significant delirium since hospitalization. Developed DOMINICK that is improving now. Had hematuria requiring his anticoagulation to be held. As he is stable from cardiac standpoint at this point, we can plan on performing coronary angiography as outpatient. Continue amiodarone 400mg BID. Heart rate is controlled. At time of discharge can be downtitrated to 400 mg daily. Can consider adding back lasix 20mg daily Thank you for involving us with care of this patient. We will continue to follow. Please call with questions. Attestations Medical Necessity Statement*: Care expected to cross 2 midnights. 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
[2021-01-14 13:07] LABS: SARS Covid-2 Antigen Negative (Negative)
[2021-01-14] MEDS: HYDROcodone-acetaminophen 5-325 mg Tablet 1 TAB PO (16:39)
[2021-01-14] MEDS: dutasteride 0.5 mg Capsule PO (16:41)
[2021-01-14] MEDS: OLANZapine 5 mg ODT 7.5 MG PO (21:21)
[2021-01-15] VITALS: BP 118/73; PULSE 84; RESP 26; TEMP 36.6; O2SAT 95
[2021-01-15 04:00] VITALS: BP 119/84; PULSE 93; RESP 28; TEMP 36.6; O2SAT 94
[2021-01-15] MEDS: famotidine 20 mg/2 mL INJ IVP (05:22)
[2021-01-15 05:43] LABS: Basophils % 0.3 %; Eosinophils # 0.1 10^3/uL (0.0-0.8); Eosinophils % 0.7 %; Hematocrit 33.8 % (42.0-52.0); Hemoglobin 10.5 g/dL (11.7-16.6); Lymphocytes % 8.9 %; Mean Corpuscular HGB Conc 31.1 g/dL (30.0-36.0); Mean Corpuscular Hemoglobin 31.7 pg (28.0-34.0); Mean Corpuscular Volume 102.1 fL (80-94); Mean Platelet Volume 10.4 fL (7.4-10.4); Monocytes # 1.4 10^3/uL (0.2-0.9); Monocytes % 12.3 %; Neutrophils # 8.88 10^3/uL (1.8-7.7); Neutrophils % 76.2 %; Nucleated Red Blood Cells % 0 %; Platelet Count 256 10^3/cmm (130-400); Red Blood Count 3.31 10^6/uL (4.1-5.3); Red Cell Distribution Width 16.2 % (12.1-15.1); White Blood Count 11.7 10^3/uL (4.0-10.0)
[2021-01-15 05:57] LABS: Alanine Aminotransferase 12 U/L (0-41); Albumin Level 3.5 g/dL (3.5-5.2); Alkaline Phosphatase 54 IU/L (40-130); Anion Gap 14.6 (5-19); Aspartate Amino Transferase 17 U/L (0-40); Blood Urea Nitrogen 42 mg/dL (8-23); Calcium 8.3 mg/dL (8.5-10.5); Carbon Dioxide 25 mmol/L (22-29); Chloride 102 mmol/L (98-107); Globulin 2.3 g/dL (1.3-4.6); Glucose 82 mg/dL (65-115); Osmolality Calculated 294 mOsm/kg (285-295); Potassium 4.6 mmol/L (3.5-5.1); Sodium 137 mmol/L (136-145); Total Bilirubin 1.1 mg/dL (0.15-1.2); Total Protein 5.8 g/dL (6.6-8.7)
[2021-01-15 06:00] VITALS: PULSE 96
[2021-01-15 07:48] VITALS: BP 132/85; PULSE 100; RESP 22; TEMP 36.3; O2SAT 97
[2021-01-15] MEDS: sennosides-docusate Tablet 1 TAB PO (08:11)
[2021-01-15] MEDS: amiodarone 200 mg Tablet 400 MG PO (08:11)
[2021-01-15] MEDS: nystatin 100,000 unit/mL UDC 5 mL 400000 UNIT PO (08:11)
[2021-01-15] MEDS: ferrous gluconate 324 mg Tablet PO (08:11)
[2021-01-15] MEDS: aspirin 81 mg EC Tablet PO (08:11)
[2021-01-15] MEDS: metoprolol tartrate 25 mg Tablet 12.5 MG PO (08:12)
[2021-01-15 11:41] VITALS: BP 101/82; PULSE 89; RESP 20; TEMP 36.3; O2SAT 97
--- NOTE | 2021-01-15 12:20 | P.DS_ITS ---
Discharge Providers Date of Admission: 12/31/20 10:39 Date of Discharge: January 15, 2021 Attending Provider at Admission: eJlani Ahuja MD Attending Provider at Discharge: Niall Geller Primary Care Provider: Gregor Varela DO Diagnoses at Discharge Discharge Diagnosis (1) Delirium: Status: Acute (2) DOMINICK (acute kidney injury): Status: Acute (3) Gross hematuria: Status: Resolved (4) Atrial fibrillation: Status: Acute Qualifiers: Atrial fibrillation type: unspecified Qualified Code(s): I48.91 - Unspecified atrial fibrillation (5) Congestive heart failure with cardiomyopathy: Status: Acute (6) Facial cellulitis: Status: Acute (7) Liver cirrhosis: Status: Acute (8) Pneumonia: Status: Acute (9) Leukocytosis: Status: Acute (10) Lethargy: Status: Acute (11) Hypotension: Status: Acute (12) Acute urinary retention: Status: Acute Reason for Visit Reason for Visit: Left Jaw Pain/Trouble Breathing Hospital Course Hospital Course Please see patient's H&P, consult notes, progress notes and procedure notes for more details. The patient was admitted 16 days ago with A. fib and RVR. Associated exacerbation of congestive heart failure. Was found to have facial cellulitis. Completed course of antibiotics. Currently there is no evidence of uncontrolled infection. Patient has EF of 20% which is down from 45 since last hospitalization. The patient was diuresed due to CHF and developed acute kidney injury. Occasions were adjusted. Kidney function is currently improving. The patient also was found to have urinary retention. Repeated attempts to insert Sharma catheter led to traumatic hematuria. The patient underwent CBI. Hematuria has currently resolved. Anticoagulation was resumed without evidence of new bleeding. Sharma catheter was removed. Currently the patient is urinating without any difficulties. He was cleared for discharge by Dr. Gopal hernandez. Currently rate controlled. Medications were adjusted by Dr. Hernandez. He will be discharged on amiodarone 400 mg daily. He will need to continue follow- up with Dr. Hernandez. Please continue monitoring renal function and electrolytes. Please continue adjusting his medications as needed. Please watch for any signs of recurrent bleeding. The patient has history of Lewy body dementia and sundowning. Please continue adjusting his medications. I am decreasing the dose of olanzapine at discharge. Further adjustments might be necessary. The patient might also benefit from additional anemia work-up. The patient has cirrhosis. Please continue monitoring liver function tests. Today the patient is doing well. Denies any active complaints. No chest pain or shortness of breath. No fever or chills. No nausea or vomiting. No diarrhea. No difficulties with urination. No hematuria. Awake and alert. Forgetful. No acute distress. Skin is warm and dry. Moist mucous membranes. Neck supple. No JVD Lungs clear. No respiratory distress Heart S1, S2, irregular. Diminished soft, nontender, bowel sounds are present Extremities bilateral edema. No cyanosis no calf tenderness bilaterally No dysarthria. Eyes Naa Lilia, extraocular muscles are intact. No focal weakness. Physical Exam Urinary Catheter Management^: Sharma: Cath Placed During This Visit: yes, but has since been removed by the nurse Reason for Continuing Indwelling Catheter: Decision to DC Catheter Date Urinary Catheter Removed: 01/14/21 Time Urinary Catheter Discontinued: 12:00 Discharge Data Data Completed and Pending: Completed Studies During Hospitalization Category Date Time Status CT abdomen pelvis wo con [id number] Stat Cat Scan 01/12/21 08:[address] chest abd pel wo con Routine Cat Scan 01/04/21 21:[address] facial bones w o con* [id number] Routi ne Cat Scan 01/02/21 15:[address] facial bones w o con* [id number] Routi ne Cat Scan 01/08/21 11:[address] head wo con* 7 0450 Routine Cat Scan 01/08/21 11:[address] neck wo con 70 490 Urgent Cat Scan 12/30/20 16:[address] shoulder LT wo con* 21016 Routin e Cat Scan 01/01/21 20:51 Completed Sestamibi Stress Test Request Routi ne Exams 01/02/21 08:00 Completed XR KUB portable 7 4019 Routine Exams 01/09/21 23:36 Completed XR chest 1V nancy ble [id number] Routine Exams 01/02/21 08:15 Completed XR chest 1V nancy ble [id number] Routine Exams 01/03/21 11:18 Completed XR chest 1V nancy ble 15745 Stat Exams 12/30/20 16:46 Completed NM cora perf SPECT r/s* [id number] Routin e Nuc Med 01/02/21 06:28 Completed CV carotid duplex BI* 70638 Routine Ultrasound 12/31/20 08:56 Completed CV echo complete* 86961 Routine Ultrasound 01/02/21 15:42 [place] [id number] Routin e Ultrasound 01/07/21 21:35 [place] [id number] Routin e Ultrasound 12/31/20 08:56 Completed US renal BI* 7677 0 Routine Ultrasound 01/10/21 10:35 Completed US soft tissue/ex tremity 00393 Rout ine Ultrasound 01/01/21 21:08 Completed Labs from last 24 hours 01/15/21 01/15/21 01/14/21 04:39 04:39 12:30 WBC 11.7 H RBC 3.31 L Hgb 10.5 L Hct 33.8 L MCV 102.1 H MCH 31.7 MCHC 31.1 RDW 16.2 H Plt Count 256 MPV 10.4 Neut % (Auto) 76.2 Lymph % (Auto) 8.9 Story % (Auto) 12.3 Eos % (Auto) 0.7 Baso % (Auto) 0.3 Neut # (Auto) 8.88 H Lymph # (Auto) 1.0 Story # (Auto) 1.4 H Eos # (Auto) 0.1 Baso # (Auto) 0.0 Nucleated RBC % (a uto) 0 Nucleated RBCs # 0.0 Sodium 137 Potassium 4.6 Chloride 102 Carbon Dioxide 25 Anion Gap 14.6 BUN 42 H Creatinine 1.8 H GFR Calculation Not Reportable Glucose 82 Calculated Osmolal ity 294 Calcium 8.3 L Total Bilirubin 1.1 AST 17 ALT 12 Alkaline Phosphata se 54 Total Protein 5.8 L Albumin 3.5 Globulin 2.3 SARS-CoV-2 Ag (Rap id) Negative Vitals: Last Vital Signs Temp 97.4 F L 01/15/21 11:41 Pulse 89 01/15/21 11:41 Resp 20 H 01/15/21 11:41 BP 101/82 01/15/21 11:41 Pulse Ox 97 01/15/21 11:41 Discharge Plan Discharge Patient Disposition: Xfer SNF Condition: Stable Prescriptions: New aspirin 81 mg Tablet,Delayed Release (Dr/Ec) 81 mg PO DAILY Qty: 0 RF: 0 amiodarone 400 mg tablet 400 mg PO DAILY 30 Days Qty: 30 RF: 0 olanzapine 5 mg tablet 5 mg PO DAILY Qty: 14 RF: 0 Continued rivastigmine tartrate 3 mg capsule 3 mg PO BID Qty: 60 RF: 3 benazepril 10 mg tablet 5 mg PO DAILY@17 RF: 0 eplerenone 25 mg Tablet 25 mg PO DAILY@12 RF: 0 dutasteride 0.5 mg capsule 0.5 mg PO DAILY@17 RF: 0 doxazosin 4 mg Tablet 4 mg PO DAILY@17 RF: 0 acetaminophen 500 mg Tablet 1,000 mg PO TID PRN (Reason: Pain) RF: 0 furosemide 40 mg tablet 40 mg PO BID@08,12 RF: 0 carvedilol 6.25 mg tablet 6.25 mg PO BID@08,17 RF: 0 Eliquis 5 mg tablet 5 mg PO BID@08,17 RF: 0 Discharge Orders: Discharge Order (Routine); Ordered 01/15/21 Ordered By: Niall Geller Other Ambulatory Orders: Complete Blood Count w/Auto (Routine) Timeframe: 1 Week Location: Determined by Patient Ordered By: Niall Geller Comprehensive Metabolic Panel (Routine) Timeframe: 1 Week Facility: [facility] - Location: Lab - Main Lab Ordered By: Niall Geller Referrals: Gregor Varela DO [Primary Care Provider] - Jerod Villa MD [Physician] - 6 Weeks Dionisio Hernandez M.D [Physician] - 2 weeks Discharge Diet: Usual diet Discharge Activity: Increase activity as tolerated and As per PT/OT instructions Patient Instructions: Aspirin (By mouth), Amiodarone (By mouth), Olanzapine (By mouth), Heart Failure (DC), Left Heart Catheterization (DC), Hypertrophic Cardiomyopathy (DC), CHF Stoplight, Post Angiogram Home Care Instructions Activity Restrictions/Additional Instructions: Please come back to emergency room if develop weakness, dizziness or lightheadedness, confusion, lethargy, chest pain or shortness of breath, diaphoresis, difficulties with urination, blood in the urine, or any other new complaints. Please ask your primary care physician to monitor your kidney function and shan ctrolytes, blood count and consider additional testing if needed. Discharge Attestations Time Spent in Discharge Care*: greater than 30 min Quality Metrics Clinical Quality Measures During this hospital stay, did patient experience: None Coding Level of Care Code Acute Human Resources Project Manager for [facility] [place] Fwd Diagnoses Delirium R41.0 DOMINICK (acute kidney injury) N17.9 Gross hematuria R31.0 Atrial fibrillation I48.91 Atrial fibrillation type: unspecified Congestive heart failure with cardiomyopathy I50.9; I42.9 Facial cellulitis L03.211 Liver cirrhosis K74.60 Pneumonia J18.9 Leukocytosis D72.829 Lethargy R53.83 Hypotension I95.9 Acute urinary retention R33.8
[2021-01-15 13:20] VITALS: BP 101/82; PULSE 89; RESP 20; TEMP 36.3; O2SAT 97
--- NOTE | 2021-01-15 13:47 | P.PN_ITS ---
Subjective Subjective: Interval history: Patient is doing well. He is confused. No chest pain, shortness of breath or palpitations. Vitals/I&O/Wt Last Vital Signs Temp 97.4 F L 01/15/21 13:20 Pulse 89 01/15/21 13:20 Resp 20 H 01/15/21 13:20 BP 101/82 01/15/21 13:20 Pulse Ox 97 01/15/21 13:20 01/14/21 01/15/21 01/15/21 22:59 06:59 14:59 Intake Total 100 / 560 10 / 570 480 / 480 Output Total 530 / 530 100 / 630 Balance -430 / 30 -90 / -60 480 / 480 Physical Exam Narrative: EXAM NARRATIVE: GENERAL: Patient is alert, awake and confused. Oriented x 1 [] NECK: No jugular vein distension. [] HEENT: No cyanosis. No icterus. No pallor. [] HEART: Regular S1 and S2. No murmur, rub or gallop. [] LUNGS: Clear to auscultate bilaterally. [] ABDOMEN: Soft, nontender and nondistended. Positive bowel sounds. No guarding, rebound or tenderness. [] CENTRAL NERVOUS SYSTEM: Grossly nonfocal. [] EXTREMITIES: Lower extremities with no edema bilaterally. Pulses palpable in the lower extremities, both dorsalis pedis and posterior tibial. [] Urinary Catheter Management^: Sharma: Cath Placed During This Visit: yes, but has since been removed by the nurse Reason for Continuing Indwelling Catheter: Decision to DC Catheter Date Urinary Catheter Removed: 01/14/21 Time Urinary Catheter Discontinued: 12:00 Data : 01/15/21 04:39 01/15/21 04:39 A&P Assessment and plan (1) Facial pain: Status: Deleted (2) Sprain of jaw, left side, initial encounter: Status: Resolved (3) Atrial fibrillation: Status: Acute Qualifiers: Atrial fibrillation type: unspecified Qualified Code(s): I48.91 - Unspecified atrial fibrillation (4) Hypertension: Status: Acute Qualifiers: Hypertension type: essential hypertension Qualified Code(s): I10 - Essential (primary) hypertension (5) Cardiomyopathy: Qualifiers: Cardiomyopathy type: other Qualified Code(s): I42.8 - Other cardiomyopathies (6) DOMINICK (acute kidney injury): 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 EF was found to be significantly low at 20% compared to 45% in august 2020. Stress test showed a small reversible defect in the lateral wall. However he has had multiple issues during hospitalization that have been delaying his cath. He has baseline dementia and has significant delirium since hospitalization. Developed DOMINICK that is improving now. Had hematuria requiring his anticoagulation to be held. As he is stable from cardiac standpoint at this point, we can plan on performing coronary angiography as outpatient. Downtitrate amiodarone to 400mg Daily Can consider adding back lasix 20mg daily Patient is ready to be discharged from cardiology standpoint Thank you for involving us with care of this patient. We will continue to follow. Please call with questions. Attestations Medical Necessity Statement*: Care expected to cross 2 midnights. 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
--- NOTE | 2021-01-15 14:10 | PC.NURSE ---
report phoned to yosef boyle at [facility] [place].discharged via stretcher transportation at this time.
== END 2021-01-15 14:11 | disposition skilled nursing facility (03) | DRG 602 ==
LOC: ER 19:41 → CSU 20:24
PROVIDERS: Internal Medicine; Student in an Organized Health Care Education/Training Program; Admitting Provider Internal Medicine; Emergency Provider Emergency Medicine; PCP Family Medicine; Visit Provider Internal Medicine
DX: L03.211 Cellulitis of face (principal); J18.9 Pneumonia, unspecified organism; I50.21 Acute systolic (congestive) heart failure; I42.9 Cardiomyopathy, unspecified; N17.9 Acute kidney failure, unspecified; I48.20 Chronic atrial fibrillation, unspecified; Z79.01 Long term (current) use of anticoagulants; Z66 Do not resuscitate; R31.0 Gross hematuria; K74.60 Unspecified cirrhosis of liver; I95.9 Hypotension, unspecified; R33.9 Retention of urine, unspecified; E03.9 Hypothyroidism, unspecified; Z95.810 Presence of automatic (implantable) cardiac defibrillator; I11.0 Hypertensive heart disease with heart failure; G31.83 Neurocognitive disorder with Lewy bodies; F02.80 Dementia in other diseases classified elsewhere, unspecified severity, without behavioral disturbance, psychotic disturbance, mood disturbance, and anxiety; S03.42XA Sprain of jaw, left side, initial encounter; X58.XXXA Exposure to other specified factors, initial encounter
CPT/HCPCS: 12345; 36415; 51702; 51798; 70450; 70486; 70490; 71045; 71250; 73200; 74018; 74176; 76770; 76882; 78452; 80048; 80053; 80061; 80202; 81001; 81003; 82140; 82436; 82533; 82570; 83036; 83735; 83880; 84100; 84133; 84145; 84300; 84443; 84484; 85025; 85049; 85610; 85651; 85999; 86140; 87040; 87086; 87426; 87641; 92610; 93005; 93017; 93306; 93880; 93971; 94640; 96372; 97110; 97116; 97161; 97530; 99283; A9500; G0378; J1650; J1940; J2270; J2405; J2543; J2785; J3370; J3490; J7030; J7512; P9047

== ENCOUNTER 2021-01-25 17:32 | Emergency (ER) | payer MEDICARE, BC, SELFPAY ==
[2021-01-25] VITALS (7 sets, daily range): BP systolic 102–121; BP diastolic 56–67; PULSE 79–101; RESP 17–28; TEMP 36.6; O2SAT 93–100; BMI 25.4
--- NOTE | 2021-01-25 18:16 | XRR_ITS ---
PROCEDURE INFORMATION: Exam: XR Chest Exam date and time: 01/25/2021 6:23 PM Age: 85 years old Clinical indication: Shortness of breath and other: Covid +; Prior surgery; Surgery date: 6+ months; Surgery type: Pacemaker; Patient HX: Shortness of breath. Covid + 01/22/21; Additional info: SOB, covid+ TECHNIQUE: Imaging protocol: XR of the chest Views: 1 view. COMPARISON: CT chest abd pel wo con 01/05/2021 10:52 AM FINDINGS: Tubes, catheters and devices: A permanent pacemaker appears intact. Lungs: There is stable atelectasis in the left base. The right lung is clear. Pleural spaces: Unremarkable. No pleural effusion. No pneumothorax. Heart/Mediastinum: The cardiac silhouette is enlarged but unchanged. There is calcification of the aorta. Bones/joints: Unremarkable. XR/XR chest 1V portable [id number] IMPRESSION: 1. Cardiomegaly. 2. Mild left basilar atelectasis.
[2021-01-25 18:38] LABS: INR 1.43 (0.8-1.2)
[2021-01-25 18:41] LABS: Basophils % 0.3 %; Eosinophils # 0.1 10^3/uL (0.0-0.8); Eosinophils % 1.4 %; Hematocrit 34.1 % (42.0-52.0); Hemoglobin 10.4 g/dL (11.7-16.6); Lymphocytes # 0.8 10^3/uL (0.8-4.8); Lymphocytes % 10.4 %; Mean Corpuscular HGB Conc 30.5 g/dL (30.0-36.0); Mean Corpuscular Hemoglobin 31.5 pg (28.0-34.0); Mean Corpuscular Volume 103.3 fL (80-94); Mean Platelet Volume 11.2 fL (7.4-10.4); Monocytes # 0.8 10^3/uL (0.2-0.9); Monocytes % 10.4 %; Neutrophils # 5.58 10^3/uL (1.8-7.7); Neutrophils % 76.9 %; Nucleated Red Blood Cells % 0 %; Platelet Count 130 10^3/cmm (130-400); Red Cell Distribution Width 16.7 % (12.1-15.1); White Blood Count 7.2 10^3/uL (4.0-10.0)
[2021-01-25 18:42] LABS: D Dimer 0.96 ug/mIFEU (0-0.59)
[2021-01-25 18:49] LABS: ABG PCO2 39.7 mmHg (35-45); ABG PH Result 7.46 (7.35-7.45); Arterial Blood Gas Hematocrit 31.4 % (42-52); Base Excess ABG 4.3 mmol/L (-2.0-2.0); Blood Gas Allen Test Pos; Blood Gas Operator Identificat MONRO; Blood Gas Sample Site Radial, right; Blood Gas Sample Type Arterial; HCO3 ABG 28.4 mmol/L (22-26); Oxygen Device NC
[2021-01-25 18:53] LABS: NT Pro B Type Natriuretic Pept 9434 pg/mL (0-450); Procalcitonin 0.13 ng/mL (0-0.5)
[2021-01-25 19:11] LABS: Alanine Aminotransferase 13 U/L (0-41); Albumin Level 3.2 g/dL (3.5-5.2); Alkaline Phosphatase 77 IU/L (40-130); Anion Gap 12.5 (5-19); Aspartate Amino Transferase 16 U/L (0-40); Blood Urea Nitrogen 36 mg/dL (8-23); C Reactive Protein 14.2 mg/L (0.0-4.9); Calcium 8.1 mg/dL (8.5-10.5); Carbon Dioxide 30 mmol/L (22-29); Chloride 104 mmol/L (98-107); Globulin 2.7 g/dL (1.3-4.6); Glucose 90 mg/dL (65-115); Osmolality Calculated 302 mOsm/kg (285-295); Potassium 4.5 mmol/L (3.5-5.1); Sodium 142 mmol/L (136-145); Total Bilirubin 0.5 mg/dL (0.15-1.2); Total Protein 5.9 g/dL (6.6-8.7)
[2021-01-25 19:24] LABS: Lactic Sepsis W/Reflex 1.3 mmol/L (0.5-2.2)
--- NOTE | 2021-01-25 20:39 | ED_ITS ---
HPI - COVID General: Chief Complaint: COVID symptoms Stated Complaint: COVID +/ DIFFICULTY BREATHING Time Seen by Provider: 01/25/21 18:11 Source: patient and EMS Mode of arrival: EMS Triage information: Has fever, cough or shortness of breath . Exposure to COVID + person last 14 days History of Present Illness: HPI Narrative: Patient is an 85 year old male with a history of dementia who is a resident at a local SNF who was diagnosed with COVID-19 on 01/22/2021 and had apparently been doing well. He is chronically on oxygen at 2lpm and per shelter staff he has become more short of breath and requiring an increase in his oxygen to 4lpm. They therefore sent him to the ED to be evaluated. On arrival, the patient has no complaints and says he is unsure why he is here. He is alert and oriented. MD complaint: known COVID positive Prior covid testing: yes, results known COVID 19 common symptoms: positive dyspnea; negative fever(s), chills, cough, fatigue, body aches, headache(s), loss of sense of smell and/or taste, throat pain, nasal congestion, nausea or vomiting COVID 19 other sytmptoms: positive requiring more oxygen; negative chest press ure, chest pain, pleuritic pain, requiring oxygen, respiratory distress, cyanosis, lethargy, confusion or new neurological complaints Onset (ago): day(s) (3) Severity: mild Pertinent comorbid conditions: hypertension and heart disease Treatment prior to arrival: oxygen COVID Results: SARS-CoV-2 Antigen (Rapid) Negative (Negative) 01/14/21 12:30 01/14/21 Review of Systems General: Reports: 10 or more systems reviewed and unremarkable except in HPI and below Const: Denies: fever(s), chills, body aches or fatigue Eyes: Denies: change in vision or blurry vision ENMT: Denies: throat pain or nasal congestion Card: Denies: chest pain Resp: Reports: dyspnea GI: Denies: nausea or vomiting : Denies: flank pain, dysuria, urinary frequency, urinary urgency or urinary hesitancy Musc: Denies: neck pain, back pain or extremity swelling Skin/Breast: Denies: rash, pruritus or erythema Neuro: Denies: headache(s) or confusion Endo: Denies: polyuria, polydipsia or tired all the time [facility] PFSH: Medical History DOMINICK (acute kidney injury) Atrial fibrillation Cardiomyopathy Stable currently Compression fracture 04/12/2020 T12 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 fib episode Thoracic compression fracture Vertigo Warfarin anticoagulation Warfarin discontinued. 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 Family History Mother CAD (coronary artery disease) Social History Smoking and tobacco status: never smoked Alcohol intake: never Household members: spouse Marital status: Current occupational status: retired History of recent travel: No Phoebe/Zoroastrianism: Unknown Physical Exam Const: COMMON NORMALS: no acute distress, average body habitus, patient oriented x3, no limitations, healthy appearing, alert and well nourished HENMT: COMMON NORMALS: normocephalic, atraumatic and moist oral mucous membranes HEAD & SCALP: normocephalic and atraumatic Neck/C-Spine: COMMON NORMALS: no meningeal signs and no JVD Resp: COMMON NORMALS: normal respiratory effort, No retractions, No use of accessory muscles, clear to auscultation bilaterally and percussion normal AUSCULTATION: clear to auscultation bilaterally PERCUSSION: percussion normal Cardio: COMMON NORMALS: no JVD, regular rate, regular rhythm, S1 normal heart sound present, S2 normal heart sound present, No gallops present (Cardio), No clicks present (Cardio), No murmurs present (Cardio), No rub (Cardio) and Peripheral pulses 2+ throughout RATE: regular rate RHYTHM: regular rhythm HEART SOUNDS: S1 normal heart sound present and S2 normal heart sound present PERIPHERAL PULSES: Peripheral pulses 2+ throughout GI: COMMON NORMALS: Normal to inspection, nondistended, normoactive bowel sounds present, Soft to palpation, non-tender, No hepatosplenomegaly present, no masses and no bruits PALPATION: Yes Soft to palpation and Yes No hepatosplenomegaly present Extremity: COMMON NORMALS: normal to inspection, full ROM, capillary refill normal, no calf tenderness and no pedal edema Neuro: COMMON NORMALS: patient oriented x3 SENSORIUM/ORIENTATION: Yes alert MENINGEAL SIGNS: Yes no meningeal signs Skin: COMMON NORMALS: no rashes or lesions noted, no wounds, turgor normal, no jaundice, no petechiae and no mottling GENERAL SKIN EXAM: no rashes or lesions noted and turgor normal Course Reevaluation(s): Reevaluation #1: Discussed his labs and imaging findings with him, unremarkable. He has remained stable in the ED. He will be discharged back to the [place] with a prescription for oral dexamethasone. Time: 20:40 Vital Signs: Vital signs: Vital Signs Temperature 97.9 F 01/25/21 18:11 Pulse Rate 74 01/26/21 01:46 Respiratory Rate 18 01/26/21 01:46 Blood Pressure 154/74 01/26/21 01:46 Pulse Oximetry 97 01/26/21 01:46 MDM - COVID MDM Narrative: Medical decision making narrative: 85 year old male patient who is a [place] resident and who was recently diagnosed with COVID-19 and the [place] staff had concerns of worsening SOB. In the ED he was not short of breath and his oxygen was turned down to his normal 2lpm upon arrival. His oxygen saturation remained in the mid to upper 90's throughout his ED stay. His labs were unremarkable and he was discharged back to the [place] with a prescription for oral dexamethasone. He was not hypoxemic on ABG testing. Medical Records: Attestation: I reviewed the patient's medical records. Lab Data: Attestation: I reviewed the patient's lab results. Labs: Lab Results 01/25/21 01/25/21 01/25/21 Range/Units 18:00 18:00 18:00 WBC 7.2 (4.0-10.0) 10^3/ uL RBC 3.30 L (4.1-5.3) 10^6/u L Hgb 10.4 L (11.7-16.6) g/dL Hct 34.1 L (42.0-52.0) % MCV 103.3 H (80-94) fL MCH 31.5 (28.0-34.0) pg MCHC 30.5 (30.0-36.0) g/dL RDW 16.7 H (12.1-15.1) % Plt Count 130 (130-400) 10^3/c mm MPV 11.2 H (7.4-10.4) fL Neut % (Auto) 76.9 % Lymph % (Auto) 10.4 % [place] % (Auto) 10.4 % Eos % (Auto) 1.4 % Baso % (Auto) 0.3 % Neut # (Auto) 5.58 (1.8-7.7) 10^3/u L Lymph # (Auto) 0.8 (0.8-4.8) 10^3/u L [place] # (Auto) 0.8 (0.2-0.9) 10^3/u L Eos # (Auto) 0.1 (0.0-0.8) 10^3/u L Baso # (Auto) 0.0 (0.0-0.1) 10^3/u L Nucleated RBC % (a uto) 0 % Nucleated RBCs # 0.0 /100WBC PT 17.90 H (12.1-14.9) SECO NDS INR 1.43 H (0.8-1.2) D-Dimer 0.96 H (0-0.59) ug/mIFE U Specimen Type Sample Site ABG pH (7.35-7.45) ABG pCO2 (35-45) mmHg ABG pO2 (80.0-100.0) mmH g ABG HCO3 (22-26) mmol/L ABG Base Excess (-2.0-2.0) mmol/ L Ervin Test Hematocrit (42-52) % O2 Delivery Device O2 Liters/Min % FiO2 % Ground Wirer ID Sodium 142 (136-145) mmol/L Potassium 4.5 (3.5-5.1) mmol/L Chloride 104 (98-107) mmol/L Carbon Dioxide 30 H (22-29) mmol/L Anion Gap 12.5 (5-19) BUN 36 H (8-23) mg/dL Creatinine 1.5 H (0.7-1.2) mg/dL GFR Calculation Not Reportable Glucose 90 (65-115) mg/dL Calculated Osmolal ity 302 H (285-295) mOsm/k g Lactic Acid (0.5-2.2) mmol/L Calcium 8.1 L (8.5-10.5) mg/dL Total Bilirubin 0.5 (0.15-1.2) mg/dL AST 16 (0-40) U/L ALT 13 (0-41) U/L Alkaline Phosphata se 77 (40-130) IU/L C-Reactive Protein 14.2 H (0.0-4.9) mg/L NT-Pro-B Natriuret Pep 9434 H (0-450) pg/mL Total Protein 5.9 L (6.6-8.7) g/dL Albumin 3.2 L (3.5-5.2) g/dL Globulin 2.7 (1.3-4.6) g/dL Procalcitonin 0.13 (0-0.5) ng/mL 01/25/21 01/25/21 Range/Units 18:00 18:36 WBC (4.0-10.0) 10^3/ uL RBC (4.1-5.3) 10^6/u L Hgb (11.7-16.6) g/dL Hct (42.0-52.0) % MCV (80-94) fL MCH (28.0-34.0) pg MCHC (30.0-36.0) g/dL RDW (12.1-15.1) % Plt Count (130-400) 10^3/c mm MPV (7.4-10.4) fL Neut % (Auto) % Lymph % (Auto) % [place] % (Auto) % Eos % (Auto) % Baso % (Auto) % Neut # (Auto) (1.8-7.7) 10^3/u L Lymph # (Auto) (0.8-4.8) 10^3/u L [place] # (Auto) (0.2-0.9) 10^3/u L Eos # (Auto) (0.0-0.8) 10^3/u L Baso # (Auto) (0.0-0.1) 10^3/u L Nucleated RBC % (a uto) % Nucleated RBCs # /100WBC PT (12.1-14.9) SECO NDS INR (0.8-1.2) D-Dimer (0-0.59) ug/mIFE U Specimen Type Arterial Sample Site Radial, right ABG pH 7.46 H (7.35-7.45) ABG pCO2 39.7 (35-45) mmHg ABG pO2 122.0 H (80.0-100.0) mmH g ABG HCO3 28.4 H (22-26) mmol/L ABG Base Excess 4.3 H (-2.0-2.0) mmol/ L Ervin Test Pos Hematocrit 31.4 L (42-52) % O2 Delivery Device Nc O2 Liters/Min 2.0 % FiO2 28.0 % Ground Wirer ID [place] Sodium (136-145) mmol/L Potassium (3.5-5.1) mmol/L Chloride (98-107) mmol/L Carbon Dioxide (22-29) mmol/L Anion Gap (5-19) BUN (8-23) mg/dL Creatinine (0.7-1.2) mg/dL GFR Calculation Glucose (65-115) mg/dL Calculated Osmolal ity (285-295) mOsm/k g Lactic Acid 1.3 (0.5-2.2) mmol/L Calcium (8.5-10.5) mg/dL Total Bilirubin (0.15-1.2) mg/dL AST (0-40) U/L ALT (0-41) U/L Alkaline Phosphata se (40-130) IU/L C-Reactive Protein (0.0-4.9) mg/L NT-Pro-B Natriuret Pep (0-450) pg/mL Total Protein (6.6-8.7) g/dL Albumin (3.5-5.2) g/dL Globulin (1.3-4.6) g/dL Procalcitonin (0-0.5) ng/mL Imaging Data: CXR: Attestation: I personally reviewed and interpreted this imaging study as follows: Radiologist's impression: [address] [address] XRay Report Signed Patient: Arcadio KelleyKashifmark #: [id number] : 1935Acct#:[id number] Age/Sex: 85 / MADM Date: 01/25/21 Loc: ERRoom/Bed: Attending Dr: Ordering Provider/Ordering MD: Beronica Fernandez MD, [facility] [place] Date of Service: 01/25/21 Procedure(s): XR chest 1V portable 75044 Accession Number(s): [id number] Report Number: [id number] PROCEDURE INFORMATION: Exam: XR Chest Exam date and time: 01/25/2021 6:23 PM Age: 85 years old Clinical indication: Shortness of breath and other: Covid +; Prior surgery; Surgery date: 6+ months; Surgery type: Pacemaker; Patient HX: Shortness of breath. Covid + 01/22/21; Additional info: SOB, covid+ TECHNIQUE: Imaging protocol: XR of the chest Views: 1 view. COMPARISON: CT chest abd pel wo con 01/05/2021 10:52 AM FINDINGS: Tubes, catheters and devices: A permanent pacemaker appears intact. Lungs: There is stable atelectasis in the left base. The right lung is clear. Pleural spaces: Unremarkable. No pleural effusion. No pneumothorax. Heart/Mediastinum: The cardiac silhouette is enlarged but unchanged. There is calcification of the aorta. Bones/joints: Unremarkable. XR/XR chest 1V portable [id number] IMPRESSION: 1. Cardiomegaly. 2. Mild left basilar atelectasis. Dictated By:Kem Reynolds Signed By:Quinn Reynolds Date/Time:01/27/21858 DD/ 7 COVID Results: SARS-CoV-2 Antigen (Rapid) Negative (Negative) 01/14/21 12:30 01/14/21 Discharge Plan Discharge Patient Disposition: [facility] Fac Not MCR w Plan Readm Clinical Impression: COVID-19 Condition: Stable Prescriptions: New dexamethasone 6 mg tablet 6 mg PO DAILY Qty: 10 RF: 0 Continued benazepril 10 mg tablet 5 mg PO DAILY@17 RF: 0 eplerenone 25 mg Tablet 25 mg PO DAILY@12 RF: 0 dutasteride 0.5 mg capsule 0.5 mg PO DAILY@17 RF: 0 doxazosin 4 mg Tablet 4 mg PO DAILY@17 RF: 0 amino acids-protein hydrolys 15-101 gram-kcal/30 mL Liquid See Rx Instructions .ROUTE .COMPLEX RF: 0 Milk of Magnesia 400 mg/5 mL Suspension 30 ml PO DAILY PRN (Reason: Constipation) RF: 0 Dulcolax (bisacodyl) 10 mg Suppository 10 mg AK DAILY PRN (Reason: Constipation) RF: 0 olanzapine 5 mg tablet 5 mg PO DAILY@08 RF: 0 aspirin 81 mg tablet,delayed release (DR/EC) 81 mg PO DAILY@08 RF: 0 amiodarone 400 mg tablet 400 mg PO DAILY@08 RF: 0 rivastigmine tartrate 3 mg capsule 3 mg PO BID@08,17 RF: 0 acetaminophen 500 mg Tablet 1,000 mg PO TID PRN (Reason: Pain) RF: 0 furosemide 40 mg tablet 40 mg PO BID@08,14 RF: 0 carvedilol 6.25 mg tablet 6.25 mg PO BID@08,17 RF: 0 Eliquis 5 mg tablet 5 mg PO BID@,17 RF: 0 Discharge Orders: Discharge ED (Routine); Ordered 01/25/21 Ordered By: Beronica Fernandez Referrals: Gregor Varela DO [Primary Care Provider] - 1-3 days Discharge Diet: Usual diet Discharge Activity: Resume usual activity Patient Instructions: Viral Syndrome (ED) Activity Restrictions/Additional Instructions: On for any new or worsening symptoms. Follow-up with your primary care provider within 3 days. Take the steroids as prescribed. Continue oxygen use. If your oxygen levels drop below 90% please return for evaluation. Coding Level of Care Code ED Scrap Separator for Serg Cavazos
--- NOTE | 2021-01-26 00:34 | PC.NURSE ---
Pt in room awaiting ride. Resting comfortably, no acute distress noted
[2021-01-26 01:46] VITALS: BP 154/74; PULSE 74; RESP 18; O2SAT 97
== END 2021-01-26 01:47 ==
PROVIDERS: Emergency Provider Family Medicine; PCP Family Medicine
DX: U07.1 COVID-19 (principal); Z79.82 Long term (current) use of aspirin; Z79.01 Long term (current) use of anticoagulants; I48.91 Unspecified atrial fibrillation; I11.0 Hypertensive heart disease with heart failure; I50.9 Heart failure, unspecified; G20 Parkinson's disease; F02.80 Dementia in other diseases classified elsewhere, unspecified severity, without behavioral disturbance, psychotic disturbance, mood disturbance, and anxiety
CPT/HCPCS: 36415; 36600; 71045; 80053; 82803; 83605; 83880; 84145; 85025; 85378; 85610; 86140; 87040; 99284

== ENCOUNTER 2021-02-12 10:25 | Emergency (ER) | payer MEDICARE, BC, SELFPAY ==
[2021-02-12 10:27] VITALS: BP 101/66; PULSE 84; RESP 16; TEMP 36.8; O2SAT 100; BMI 25.8
--- NOTE | 2021-02-12 10:34 | CT_ITS ---
WS: [id number] CT FACIAL BONES TECHNIQUE: Contrast-enhanced facial bones with coronal and sagittal reformatted images. CLINICAL INFORMATION: abscess overlying L mandible COMPARISON: January 08, 2021 DLP: 845.[address] scans at [facility] use at least one of these dose optimization techniques: automat ed exposure control; mA and/or kV adjustment per patient size (includes targeted exams where dose is matched to clinical indication); or iterative reconstruction. FINDINGS: Dental artifact degrades some images. Again seen is induration in the left mandibular soft tissues co nsistent with cellulitis. This appears slightly progressed compared to January 08, 2020 But significant improved since January 02, 2021. Suggestion of a small peripherally enhancing phlegm on/abscess measuring 1.2 x 0.3 cm along the left anterior mandible. No evidence of underlying bony de struction to indicate osteomyelitis. Paranasal sinuses are well aerated. Mucosal thickening in the frontal sinuses and frontoethmoidal rec esses. Mastoid air cells are well aerated. I MPRESSION: 1. Slight progression the left facial cellulitis compared to January 08, 2020 2. Small peripheral enhancing phlegmon/abscess measuring 1.2 x 0.3 cm along the left anterior mandib le. 3. No evidence of bony destruction to indicate osteomyelitis. 4. No other significant changes from previous. Notified Krishan Lopez DO at 02/12/2021 12:31 PM.
[2021-02-12 10:44] VITALS: BP 101/66; PULSE 91; RESP 18; O2SAT 99
--- NOTE | 2021-02-12 10:49 | W.ED.GENADLT ---
HPI - General Adult General: Chief complaint: General Medical Stated complaint: FACIAL SWELLING Time Seen by Provider: 02/12/21 10:25 History of Present Illness: HPI narrative: 85-year-old male who is present the longterm comes in complaining of swelling on the left side of his face overlying the mandible anteriorly. He also has a foot ulcer on the right lower leg that is being addressed. He has no fever. There is no active drainage she is previously had most of his mandibular teeth pulled and has dentures she has 2 remaining teeth anteriorly the canine teeth lower. He denies fever sweats chills nausea vomiting diarrhea. Onset (ago): day(s) Location: face Radiation: non-radiation Quality: aching Pain Consistency: constant Relieving factors: none Exacerbating factors: none Associated symptoms: Deny chest pain, confusion, cough, diaphoresis, decreased appetite, dyspnea, fevers/chills, headache(s), malaise, nausea, rash, palpitations, seizures, short of breath, syncope, vomiting or weakness Treatments prior to arrival: none Review of Systems Const: Denies: malaise or diaphoresis ENMT: Denies: throat pain, ear or mastoid pain, nasal discharge or nasal congestion Card: Denies: chest pain, palpitations or syncope Resp: Denies: dyspnea GI: Denies: vomiting : Denies: flank pain, dysuria, urinary frequency or urinary urgency Skin/Breast: Denies: rash Neuro: Denies: headache(s) or confusion PFS ED PFSH: Medical History DOMINICK (acute kidney injury) Atrial fibrillation Cardiomyopathy Stable currently Compression fracture 04/12/2020 T12 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 fib episode Thoracic compression fracture Vertigo Warfarin anticoagulation Warfarin discontinued. 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 Family History Mother CAD (coronary artery disease) Social History (Reviewed 02/12/21 @ 11:35 by SOPHIE Villarreal Smoking and tobacco status: never smoked Alcohol intake: never Household members: spouse Marital status: Current occupational status: retired History of recent travel: No Phoebe/Buddhist: Unknown Physical Exam Const: COMMON NORMALS: no acute distress GENERAL APPEARANCE: cooperative and comfortable ORIENTATION/CONSCIOUSNESS: Yes awake, Yes oriented to person, Yes oriented to place and Yes oriented to time HENMT: COMMON NORMALS: normocephalic, atraumatic, hearing grossly normal bilaterally, external ears normal, EAC's normal, TM's normal bilaterally, Normal nasal mucous membranes and turbinates present, moist oral mucous membranes and oropharynx normal HEAD & SCALP: normocephalic and atraumatic NOSE: Normal nasal mucous membranes and turbinates present EXTERNAL EAR: Yes external ears normal EXTERNAL AUDITORY CANAL: EAC's normal TYMPANIC MEMBRANE: TM's normal bilaterally Eye: COMMON NORMALS: Equal, round and reactive pupils present, EOMs intact bilaterally, conjunctivae normal and no scleral icterus CONJUNCTIVA: Yes conjunctivae normal PUPIL: Yes Equal, round and reactive pupils present Neck/C-Spine: COMMON NORMALS: full ROM, no lymphadenopathy, supple and no JVD Lymph: LYMPHATIC: no lymphadenopathy noted and no lymphedema noted Resp: COMMON NORMALS: normal respiratory effort, No retractions, No use of accessory muscles and clear to auscultation bilaterally AUSCULTATION: clear to auscultation bilaterally Cardio: COMMON NORMALS: no JVD, regular rate, regular rhythm and No murmurs present (Cardio) RATE: regular rate RHYTHM: regular rhythm GI: COMMON NORMALS: Soft to palpation and No hepatosplenomegaly present AUSCULTATION: Yes normoactive bowel sounds PALPATION: Yes Soft to palpation, No Tenderness to palpation present (GI), No Guarding due to palpation present (GI) and Yes No hepatosplenomegaly present Extremity: COMMON NORMALS: normal to inspection, capillary refill normal, no clubbing, cyanosis or edema, no calf tenderness and no pedal edema Neuro: SENSORIUM/ORIENTATION: Yes oriented to person, Yes oriented to place and Yes oriented to time Skin: COMMON NORMALS: no rashes or lesions noted GENERAL SKIN EXAM: no rashes or lesions noted Course Vital Signs: Vital signs: Vital Signs Temperature 98.2 F 02/12/21 10:27 Pulse Rate 92 02/12/21 12:19 Respiratory Rate 18 02/12/21 12:19 Blood Pressure 101/61 02/12/21 12:19 Pulse Oximetry 99 02/12/21 11:43 MDM - General Adult MDM Narrative: Medical decision making narrative: Patient has periodontal abscess that seems to have recurred we will put him back on Augmentin he certainly does not require admission at this point he is not septic. He may need to see dentistry or oral maxillary facial surgery to drain at some point in the future. Additionally his blood pressure the low he is on multiple medications for rate control and blood pressure which I think contribute to this when a decrease his doxazosin for now we will need to be watched closely for urinary retention. Lab Data: Labs: Lab Results 02/12/21 02/12/21 Range/Units 10:44 10:44 WBC 11.3 H (4.0-10.0) 10^3/ uL RBC 3.23 L (4.1-5.3) 10^6/u L Hgb 10.1 L (11.7-16.6) g/dL Hct 32.7 L (42.0-52.0) % MCV 101.2 H (80-94) fL MCH 31.3 (28.0-34.0) pg MCHC 30.9 (30.0-36.0) g/dL RDW 16.6 H (12.1-15.1) % Plt Count 140 (130-400) 10^3/c mm MPV 10.5 H (7.4-10.4) fL Neut % (Auto) 85.0 % Lymph % (Auto) 3.9 % [place] % (Auto) 9.5 % Eos % (Auto) 0.2 % Baso % (Auto) 0.4 % Neut # (Auto) 9.64 H (1.8-7.7) 10^3/u L Lymph # (Auto) 0.4 L (0.8-4.8) 10^3/u L [place] # (Auto) 1.1 H (0.2-0.9) 10^3/u L Eos # (Auto) 0.0 (0.0-0.8) 10^3/u L Baso # (Auto) 0.0 (0.0-0.1) 10^3/u L Nucleated RBC % (a uto) 0 % Nucleated RBCs # 0.0 /100WBC Sodium 138 (136-145) mmol/L Potassium 4.4 (3.5-5.1) mmol/L Chloride 98 (98-107) mmol/L Carbon Dioxide 31 H (22-29) mmol/L Anion Gap 13.4 (5-19) BUN 42 H (8-23) mg/dL Creatinine 1.6 H (0.7-1.2) mg/dL GFR Calculation Not Reportable Glucose 95 (65-115) mg/dL Calculated Osmolal ity 296 H (285-295) mOsm/k g Calcium 7.8 L (8.5-10.5) mg/dL Total Bilirubin 0.5 (0.15-1.2) mg/dL AST 18 (0-40) U/L ALT 19 (0-41) U/L Alkaline Phosphata se 104 (40-130) IU/L Total Protein 6.1 L (6.6-8.7) g/dL Albumin 3.1 L (3.5-5.2) g/dL Globulin 3.0 (1.3-4.6) g/dL Discharge Plan Discharge Patient Disposition: Home Clinical Impression: Chronic periodontal disease Condition: Stable Prescriptions: New Augmentin 875-125 mg tablet 1 tab PO BID Qty: 20 RF: 0 Changed doxazosin 4 mg Tablet 2 mg PO DAILY@17 Qty: 0 RF: 0 No Action eplerenone 25 mg Tablet 25 mg PO DAILY@12 RF: 0 dutasteride 0.5 mg capsule 0.5 mg PO DAILY@17 RF: 0 amino acids-protein hydrolys 15-101 gram-kcal/30 mL Liquid See Rx Instructions .ROUTE .COMPLEX RF: 0 magnesium hydroxide [Milk of Magnesia] 400 mg/5 mL Suspension 30 ml PO DAILY PRN (Reason: Constipation) RF: 0 bisacodyl [Dulcolax (bisacodyl)] 10 mg Suppository 10 mg AR DAILY PRN (Reason: Constipation) RF: 0 olanzapine 5 mg tablet 5 mg PO DAILY@08 RF: 0 aspirin 81 mg tablet,delayed release (DR/EC) 81 mg PO DAILY@08 RF: 0 amiodarone 400 mg tablet 400 mg PO DAILY@08 RF: 0 rivastigmine tartrate 3 mg capsule 3 mg PO BID@08,20 RF: 0 benazepril 5 mg Tablet 5 mg PO DAILY@17 RF: 0 Lasix 80 mg Tablet 80 mg PO BID RF: 0 Fleet Enema 19-7 gram/118 mL Enema 118 ml AR DAILY PRN (Reason: Constipation) RF: 0 TwoCal HN Liquid See Rx Instructions .ROUTE .COMPLEX RF: 0 acetaminophen 500 mg Tablet 1,000 mg PO TID PRN (Reason: Pain) RF: 0 furosemide 40 mg tablet 40 mg PO BID@,14 RF: 0 carvedilol 6.25 mg tablet 6.25 mg PO BID RF: 0 Eliquis 5 mg tablet 5 mg PO BID@,17 RF: 0 Discharge Orders: Discharge ED (Routine); Ordered 02/12/21 Ordered By: Krishan Lopez Referrals: Gregor Varela, [Primary Care Provider] - Discharge Diet: Usual diet Discharge Activity: Resume usual activity Patient Instructions: Opioid Safety Activity Restrictions/Additional Instructions: Recurrent periodontal abscess. Not amenable to drainage in the emergency room would recommend that you follow-up with dentist or with oral surgeon for further evaluation. You will need a copy of the CT done today in the emergency room for that evaluation. Coding Level of Care Code ED Potato Sorter for Serg Fwkaren Exam Comprehensive
[2021-02-12 10:53] LABS: Basophils % 0.4 %; Eosinophils % 0.2 %; Hematocrit 32.7 % (42.0-52.0); Hemoglobin 10.1 g/dL (11.7-16.6); Lymphocytes # 0.4 10^3/uL (0.8-4.8); Lymphocytes % 3.9 %; Mean Corpuscular HGB Conc 30.9 g/dL (30.0-36.0); Mean Corpuscular Hemoglobin 31.3 pg (28.0-34.0); Mean Corpuscular Volume 101.2 fL (80-94); Mean Platelet Volume 10.5 fL (7.4-10.4); Monocytes # 1.1 10^3/uL (0.2-0.9); Monocytes % 9.5 %; Neutrophils # 9.64 10^3/uL (1.8-7.7); Nucleated Red Blood Cells % 0 %; Platelet Count 140 10^3/cmm (130-400); Red Blood Count 3.23 10^6/uL (4.1-5.3); Red Cell Distribution Width 16.6 % (12.1-15.1); White Blood Count 11.3 10^3/uL (4.0-10.0)
[2021-02-12 11:13] LABS: Alanine Aminotransferase 19 U/L (0-41); Albumin Level 3.1 g/dL (3.5-5.2); Alkaline Phosphatase 104 IU/L (40-130); Anion Gap 13.4 (5-19); Aspartate Amino Transferase 18 U/L (0-40); Blood Urea Nitrogen 42 mg/dL (8-23); Calcium 7.8 mg/dL (8.5-10.5); Carbon Dioxide 31 mmol/L (22-29); Chloride 98 mmol/L (98-107); Glucose 95 mg/dL (65-115); Osmolality Calculated 296 mOsm/kg (285-295); Potassium 4.4 mmol/L (3.5-5.1); Sodium 138 mmol/L (136-145); Total Bilirubin 0.5 mg/dL (0.15-1.2); Total Protein 6.1 g/dL (6.6-8.7)
[2021-02-12] MEDS: hydrocortisone 100 mg/2 mL SDV IVP (11:42)
[2021-02-12] MEDS: diphenhydrAMINE 50 mg/mL SDV 1mL IVP (11:42)
[2021-02-12 11:43] VITALS: BP 93/56; PULSE 88; RESP 20; O2SAT 99
[2021-02-12] MEDS: iodixanol 320 mg/mL 100mL Btl IV (12:03)
[2021-02-12 12:19] VITALS: BP 101/61; PULSE 92; RESP 18
[2021-02-12] MEDS: sodium chloride 0.9% 1,000 ML 999 ML IV (13:35)
[2021-02-12 13:55] VITALS: BP 98/65; PULSE 74; RESP 20; O2SAT 100
== END 2021-02-12 13:55 | disposition home or self-care (01) ==
PROVIDERS: Emergency Provider Family Medicine; PCP Family Medicine
DX: K05.5 Other periodontal diseases (principal); Z79.01 Long term (current) use of anticoagulants; Z79.82 Long term (current) use of aspirin; I48.91 Unspecified atrial fibrillation; I11.0 Hypertensive heart disease with heart failure; I50.9 Heart failure, unspecified; G20 Parkinson's disease
CPT/HCPCS: 36415; 70487; 80053; 85025; 87040; 96361; 96374; 96375; 99283; J1200; J1720; J7030; Q9967

== ENCOUNTER → 2021-02-15 08:43 | Outpatient (BNVA) | payer MEDICARE, BC, SELFPAY | PROVIDERS: PCP Family Medicine; Visit Provider Urology | DX: R33.9 Retention of urine, unspecified (principal); R31.0 Gross hematuria | CPT/HCPCS: 81003 ==